=== PATIENT | female | born 1950 | race American Indian/Alaskan Native ===

== ENCOUNTER 2018-01-23 12:07 | Inpatient (IN) | payer MEDICARE ==
[2018-01-23] MEDS ORDERED: Morphine 4 MG/ML VIAL IV STA (13:50)
--- NOTE | 2018-01-23 13:53 | C.PDOC ---
History Of Present Illness 67 year old female with a Hx of HTN and osteoarthritic presents to the ER with a complaint of headache and neck pain for the past 8 days, s/p cataract surgery by Dr. Jones. Patient states she feels a sensation of numbness/tingling radiating down the bilateral arms to her fingertips. She has been taking motrin and tylenol at home with no relief. Patient was seen at [facility] on 01/19/18 for the same complaint, diagnosed with a tension headache, and discharged home; she went to see her PMD today but he was not at the office today so she decided to come to the ER. Denies change in vision, SOB, chest pain, nausea, vomiting, diarrhea, or urinary symptoms. Time Seen by Provider: 01/23/18 12:40 Chief Complaint (Nursing): Headache History Per: Patient History/Exam Limitations: no limitations Onset/Duration Of Symptoms: Days Current Symptoms Are (Timing): Still Present Associated Symptoms: Other (Tingling/Numbness sensation down bilateral arms to fingertips) Recent travel outside of the [place]: No Past Medical History Reviewed: Historical Data, Nursing Documentation, Vital Signs Vital Signs: Last Vital Signs Temp 102.5 F H 01/23/18 16:17 Pulse 87 01/23/18 16:17 Resp 26 H 01/23/18 16:17 BP 137/59 L 01/23/18 16:17 Pulse Ox 96 01/23/18 16:17 - Medical History PMH: HTN Family History: States: Unknown Family Hx - Social History Hx Alcohol Use: Yes Hx Substance Use: No - Immunization History Hx Tetanus Toxoid Vaccination: No Hx Influenza Vaccination: Yes Hx Pneumococcal Vaccination: Yes Review Of Systems Except As Marked, All Systems Reviewed And Found Negative. Musculoskeletal: Positive for: Neck Pain Neurological: Positive for: Headache Physical Exam - Physical Exam Appears: Non-toxic Skin: Normal Color, Warm, Dry Head: Atraumatic, Normacephalic, Tenderness (Diffuse to scalp) Eye(s): bilateral: Normal Inspection (No nystagmus), PERRL, EOMI Oral Mucosa: Moist Neck: Paracervical Tenderness (Diffuse) Chest: Symmetrical Cardiovascular: Rhythm Regular Respiratory: Normal Breath Sounds, No Rales, No Rhonchi, No Wheezing Gastrointestinal/Abdominal: Soft, No Tenderness Back: No CVA Tenderness Extremity: Normal ROM (limited secondary to pain) Pulses: Left Radial: Normal, Right Radial: Normal Neurological/Psych: Oriented x3, Normal Speech, Normal Cranial Nerves, Normal Motor, Normal Sensation ED Course And Treatment - Laboratory Results Result Diagrams: 01/23/18 14:11 01/23/18 14:11 ECG: Interpreted By Me, Viewed By Me ECG Rhythm: L BBB ECG Interpretation: Normal Interpretation Of ECG: No ST/T wave abnormalities, no old EKG available for comparison Rate From EC O2 Sat by Pulse Oximetry: 99 (Room air) Pulse Ox Interpretation: Normal Medical Decision Making Medical Decision Making: Plan: * CT head * Blood work * Morphine * Anthony Spoke with Dr. Jones who asked to check patient's eye pressure to rule out eyebrow headache, if normal then ophthalmology is clear. Pressure of patient's right was 1,2 and 2 1400- case discussed with and will see patient 1530 - patient with fever - abics and antiypretics given 1500- consult for Dr. Ric Juares pe: no nuchal rigidity, no rash noted, negative kernig and brudzinski sign patient discussed with hospitalist and will admit to medical surgical floor. esr is elevated however patient with fever, steroids held for now. Disposition Discussed With Dr.: [place] Doctor Will See Patient In The: Hospital Counseled Patient/Family Regarding: Studies Performed, Diagnosis - Disposition Disposition: HOSPITALIZED Disposition Time: 16:10 Condition: FAIR - Clinical Impression Clinical Impression: Headache, Fever, Leukocytosis - Scribe Statement The provider has reviewed the documentation as recorded by the Cassiibdiaz Landon All medical record entries made by the Cassiibdiaz were at my direction and personally dictated by me. I have reviewed the chart and agree that the record accurately reflects my personal performance of the history, physical exam, medical decision making, and the department course for this patient. I have also personally directed, reviewed, and agree with the discharge instructions and disposition.
[2018-01-23 14:14] LABS: BASO # 0.1 K/uL (0.0-0.2); BASO % 0.4 % (0.0-2.0); HEMOGLOBIN 9.6 g/dL (11.0-16.0); LYMPH # 1.6 K/uL (1.0-4.3); LYMPH % 6.2 % (20.0-40.0); MEAN CELL VOLUME 84.7 fL (81.0-99.0); MEAN CORPUSCULAR HEMOGLOBIN 27.8 pg (27.0-31.0); MEAN CORPUSCULAR HGB CONC 32.9 g/dL (33.0-37.0); MEAN PLATELET VOLUME 8.1 fL (7.2-11.7); MONO # 1.3 K/uL (0.0-0.8); MONO % 5.2 % (0.0-10.0); NEUT # 22.4 K/uL (1.8-7.0); NEUT % 88.2 % (50.0-75.0); PLATELET COUNT 268 K/uL (130-400); RBC 3.43 Mil/uL (3.80-5.20); RED CELL DISTRIBUTION WIDTH 15.3 % (11.5-14.5); WHITE BLOOD COUNT 25.4 K/uL (4.8-10.8)
[2018-01-23] MEDS ORDERED: Tetracaine 0.5% Ophth 2 ML BOTTLE OU ONE (14:28)
--- NOTE | 2018-01-23 14:35 | CT ---
Date of service: 01/23/2018 PROCEDURE: CT HEAD WITHOUT CONTRAST. HISTORY: Headache COMPARISON: None available. TECHNIQUE: Axial computed tomography images were obtained through the head/brain without intravenous contrast. Radiation dose: Total exam DLP = 862.24 mGy-cm. This CT exam was performed using one or more of the following dose reduction techniques: Automated exposure control, adjustment of the mA and/or kV according to patient size, and/or use of iterative reconstruction technique. FINDINGS: HEMORRHAGE: No acute parenchymal, subarachnoid or extra-axial hemorrhage. BRAIN: Mild chronic periventricular white matter ischemic changes seen extending peripherally into the deep and subcortical white matter both cerebral hemispheres. The there appear to be a few scattered chronic bilateral basal nuclei lacunar type infarcts as well. Mild generalized volume loss. Minor vascular calcifications both carotid siphons VENTRICLES: No obstructive hydrocephalus. CALVARIUM: Calvarium intact. PARANASAL SINUSES: Frontal sinuses R underpneumatized/ hypoplastic. . . Mild mucosal thickening left chamber sphenoid sinus MASTOID AIR CELLS: Unremarkable as visualized. No inflammatory changes. OTHER FINDINGS: Changes of right cataract surgery. IMPRESSION: No acute intracranial hemorrhage. Minor chronic periventricular white matter ischemic changes with a few scattered chronic bilateral basal nuclei lacunar type infarcts. Mild generalized volume loss
[2018-01-23 14:36] LABS: ALB/GLOB RATIO 1.1 (1.0-2.1); ALBUMIN 3.9 g/dL (3.5-5.0); ALT/SGPT 30 U/L (9-52); AST/SGOT 22 U/L (14-36); BLOOD UREA NITROGEN 13 mg/dL (7-17); CALCIUM 9.2 mg/dl (8.6-10.4); GFR NON-AFRICAN AMERICAN > 60
[2018-01-23] MEDS ORDERED: Tetracaine 0.5% Ophth (OR ONLY) ONE (14:47)
[2018-01-23 14:48] LABS: LYMPHOCYTE 6 % (20-40); MONOCYTE 6 % (0-10); NEUTROPHIL 88 % (50-75); PLATELET ESTIMATE NORMAL (NORMAL); TOTAL CELLS COUNTED 100
[2018-01-23 14:49] LABS: ANISOCYTOSIS SLIGHT; HYPOCHROMIC SLIGHT
[2018-01-23 15:19] LABS: ERYTHROCYTE SEDIMENTATION RATE 114 mm/hr (0-20)
--- NOTE | 2018-01-23 15:34 | RAD ---
HISTORY: headache COMPARISON: None available. TECHNIQUE: Chest PA and lateral FINDINGS: LUNGS: Mild bibasilar atelectasis. Mild pulmonary venous congestion. No focal consolidation. Please note that chest x-ray has limited sensitivity for the detection of pulmonary masses. PLEURA: No significant pleural effusion identified. No definite pneumothorax . CARDIOVASCULAR: Cardiomegaly. Enlarged mediastinum may reflect uncoiled/tortuous aorta however alternatives including adenopathy are not excluded. OSSEOUS STRUCTURES: Degenerative changes of the spine. VISUALIZED UPPER ABDOMEN: Unremarkable. OTHER FINDINGS: None. IMPRESSION: Mild bibasilar atelectasis. Mild pulmonary venous congestion. Cardiomegaly. Enlarged mediastinum favored to reflect uncoiled/tortuous aorta however alternatives including adenopathy are not excluded. Correlate clinically.
[2018-01-23] MEDS ORDERED: Cefepime 1 GM in Sodium Chloride 0.9% 50 ML IVPB ONE (15:53)
[2018-01-23] MEDS ORDERED: Cefepime IV 1 gm in Dextrose 1 GM/50 ML BAG IVPB ONE (16:00)
[2018-01-23 16:23] LABS: SQUAMOUS EPITHIAL 5 /hpf (0-5); URINE BACTERIA OCC (<OCC); URINE BILIRUBIN NEGATIVE (NEGATIVE); URINE BLOOD 1+ (NEGATIVE); URINE CLARITY Hazy (Clear); URINE COLOR Yellow (YELLOW); URINE GLUCOSE (UA) NORMAL (Normal); URINE LEUKOCYTE ESTERASE 3+ Leu/uL (Negative); URINE PROTEIN 1+ mg/dL (NEGATIVE)
[2018-01-23] MEDS ORDERED: Dexamethasone 4 mg/1 ml IV STA (16:50)
[2018-01-23] MEDS ORDERED: Dexamethasone 4 mg/1 ml ONE (17:12)
[2018-01-23] MEDS ORDERED: Potassium Chloride 20 mEq ER Tab PO ONE (17:12)
[2018-01-23] MEDS: Potassium Chloride 20 mEq ER Tab PO SCH (17:19)
[2018-01-23] MEDS: Sodium Chloride 0.9% 1,000 ML IV SCH (17:19)
--- NOTE | 2018-01-23 17:45 | CP.PCM.HP ---
<Shahram Becerra - Last Filed: 01/23/18 18:08> History of Present Illness - History of Present Illness History of Present Illness: CC:Headache 66 y/o f presents to the ED for worsening head and neck pain. She describes the pain as being a 10/10 and being primarily in the temporal, parietal, and occipital regions of her head; patient also expresses that she has pain in her neck and that the pain radiates into her right shoulder. Patient explains that her pain began after her cataract surgery on 01/15 and has progressively gotten worse. Pt experienced floaters post sx. Patient comments that nothing makes the pain better. Patient comments that going from a sitting to a standing position and moving her head and neck worsens her pain. 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 Allergies: denies Full Code Present on Admission - Present on Admission Any Indicators Present on Admission: No Review of Systems - Constitutional Constitutional: As Per HPI - EENT Eyes: As Per HPI Ears: As Per HPI Nose/Mouth/Throat: As Per HPI - Breasts Breasts: As Per HPI - Cardiovascular Cardiovascular: As Per HPI - Respiratory Respiratory: As Per HPI - Gastrointestinal Gastrointestinal: As Per HPI - Genitourinary Genitourinary: As Per HPI - Reproductive: Female Reproductive:Female: As Per HPI - Menstruation Menstruation: As Per HPI - Musculoskeletal Musculoskeletal: As Per HPI - Integumentary Integumentary: As Per HPI - Neurological Neurological: As Per HPI - Psychiatric Psychiatric: As Per HPI - Endocrine Endocrine: As Per HPI - Hematologic/Lymphatic Hematologic: As Per HPI Past Patient History - Past Social History Smoking Status: Current Some Days Smoker - CARDIAC Hx Hypertension: Yes - PSYCHIATRIC Hx Substance Use: No - SURGICAL HISTORY Hx Surgeries: Yes Hx Cataract Extraction: Yes (8/14/18) - ANESTHESIA Hx Anesthesia: Yes Hx Anesthesia Reactions: No Meds Allergies/Adverse Reactions: Allergies Allergy/AdvReac Type Severity Reaction Status Date / Time No Known Allergies Allergy Verified 01/23/18 12:20 Physical Exam - Constitutional Appears: Non-toxic, No Acute Distress, In Acute Distress - Head Exam Head Exam: ATRAUMATIC, NORMAL INSPECTION - Eye Exam Eye Exam: EOMI, Normal appearance. absent: Scleral icterus Additional comments: no opacity - ENT Exam ENT Exam: Mucous Membranes Moist, Normal Exam - Neck Exam Neck exam: Positive for: Normal Inspection. Negative for: Thyromegaly Additional comments: neg nuchal rigid - Respiratory Exam Additional comments: Loud harsh breath sounds - Cardiovascular Exam Cardiovascular Exam: RRR, +S1, +S2. absent: Diastolic murmur, Systolic Murmur - GI/Abdominal Exam GI & Abdominal Exam: Soft. absent: Rebound, Rigid, Tenderness - Extremities Exam Extremities exam: Positive for: normal inspection Additional comments: neg straight leg raise, neg nuchal rigitiy - Back Exam Back exam: NORMAL INSPECTION - Neurological Exam Neurological exam: Alert, CN II-XII Intact, Normal Gait, Oriented x3 - Psychiatric Exam Psychiatric exam: Normal Affect, Normal Mood - Skin Skin Exam: Dry, Intact, Normal Color, Warm Results - Vital Signs Recent Vital Signs: Last Vital Signs Temp 102.5 F H 01/23/18 16:17 Pulse 87 01/23/18 16:17 Resp 26 H 01/23/18 16:17 BP 137/59 L 01/23/18 16:17 Pulse Ox 99 01/23/18 17:21 - Labs Result Diagrams: 01/23/18 14:11 01/23/18 14:11 Labs: Laboratory Results - last 24 hr 01/23/18 01/23/18 01/23/18 14:11 14:11 16:11 WBC 25.4 H RBC 3.43 L Hgb 9.6 L Hct 29.1 L MCV 84.7 D MCH 27.8 MCHC 32.9 L RDW 15.3 H Plt Count 268 MPV 8.1 Neut % (Auto) 88.2 H Lymph % (Auto) 6.2 L Wilkes % (Auto) 5.2 Eos % (Auto) 0.0 Baso % (Auto) 0.4 Neut # (Auto) 22.4 H Lymph # (Auto) 1.6 Wilkes # (Auto) 1.3 H Eos # (Auto) 0.0 Baso # (Auto) 0.1 Neutrophils % (Manual) 88 H Lymphocytes % (Manual) 6 L Monocytes % (Manual) 6 Platelet Estimate Normal Hypochromasia (manual) Slight Anisocytosis (manual) Slight ESR 114 H Sodium 144 Potassium 3.3 L Chloride 105 Carbon Dioxide 26 Anion Gap 16 BUN 13 Creatinine 0.9 Est GFR ( Amer) > 60 Est GFR (Non-Af Amer) > 60 Random Glucose 120 H Calcium 9.2 Total Bilirubin 1.1 AST 22 ALT 30 Alkaline Phosphatase 162 H D Total Creatine Kinase 89 Troponin I < 0.0120 Total Protein 7.5 Albumin 3.9 Globulin 3.6 Albumin/Globulin Ratio 1.1 Urine Color Yellow Urine Clarity Hazy Urine pH 5.0 Ur Specific [place] 1.015 Urine Protein 1+ H Urine Glucose (UA) Normal Urine Ketones Trace Urine Blood 1+ H Urine Nitrate Positive H Urine Bilirubin Negative Urine Urobilinogen 2.0 H Ur Leukocyte Esterase 3+ H Urine WBC (Auto) 29 H Urine RBC (Auto) 6 H Ur Squamous Epith Cells 5 Urine Bacteria Occ H Hyaline Casts 6-10 H Influenza Typ A,B (EIA) 01/23/18 16:16 WBC RBC Hgb Hct MCV MCH MCHC RDW Plt Count MPV Neut % (Auto) Lymph % (Auto) Wilkes % (Auto) Eos % (Auto) Baso % (Auto) Neut # (Auto) Lymph # (Auto) Wilkes # (Auto) Eos # (Auto) Baso # (Auto) Neutrophils % (Manual) Lymphocytes % (Manual) Monocytes % (Manual) Platelet Estimate Hypochromasia (manual) Anisocytosis (manual) ESR Sodium Potassium Chloride Carbon Dioxide Anion Gap BUN Creatinine Est GFR ( Amer) Est GFR (Non-Af Amer) Random Glucose Calcium Total Bilirubin AST ALT Alkaline Phosphatase Total Creatine Kinase Troponin I Total Protein Albumin Globulin Albumin/Globulin Ratio Urine Color Urine Clarity Urine pH Ur Specific [place] Urine Protein Urine Glucose (UA) Urine Ketones Urine Blood Urine Nitrate Urine Bilirubin Urine Urobilinogen Ur Leukocyte Esterase Urine WBC (Auto) Urine RBC (Auto) Ur Squamous Epith Cells Urine Bacteria Hyaline Casts Influenza Typ A,B (EIA) Negative for flu a/b Assessment & Plan - Assessment and Plan (Free Text) Assessment: 67yo F witha PMH of HTN, Arthritis, presenting with 03/13 headache Plan: 03/13 Headache -Toradol 30mg PRN -Tylenol 650mg PRN -Decadron 4mg once -MRA w/o contrast: f/u -Head CT: neg for acute changes Possible Temporal Arteritis -ESR 114 -WBC 25 -Decadron 4mg -100ml/hr NS IVF -f/u MRA -Vasc Sx consulted Dr. Orozco -f/u echo UTI -Vanco 1g q12 IV: trough tmrw 4am -Cefepime 1g q12 IV -UA pos -Urine Cultures Pending -100ml/hr NS IVF -f/u procal -f/u CT abd pelv to r/o pyelo Hypokalemia -K-dur 40 -monitor PPX: -ASA 81mgs -SCDs <Sky Santiago H - Last Filed: 01/23/18 19:05> Results - Vital Signs Recent Vital Signs: Last Vital Signs Temp 102.5 F H 01/23/18 16:17 Pulse 87 01/23/18 16:17 Resp 26 H 01/23/18 16:17 BP 137/59 L 01/23/18 16:17 Pulse Ox 99 01/23/18 17:21 - Labs Result Diagrams: 01/23/18 14:11 01/23/18 14:11 Labs: Laboratory Results - last 24 hr 01/23/18 01/23/18 01/23/18 14:11 14:11 16:11 WBC 25.4 H RBC 3.43 L Hgb 9.6 L Hct 29.1 L MCV 84.7 D MCH 27.8 MCHC 32.9 L RDW 15.3 H Plt Count 268 MPV 8.1 Neut % (Auto) 88.2 H Lymph % (Auto) 6.2 L Wilkes % (Auto) 5.2 Eos % (Auto) 0.0 Baso % (Auto) 0.4 Neut # (Auto) 22.4 H Lymph # (Auto) 1.6 Wilkes # (Auto) 1.3 H Eos # (Auto) 0.0 Baso # (Auto) 0.1 Neutrophils % (Manual) 88 H Lymphocytes % (Manual) 6 L Monocytes % (Manual) 6 Platelet Estimate Normal Hypochromasia (manual) Slight Anisocytosis (manual) Slight ESR 114 H Sodium 144 Potassium 3.3 L Chloride 105 Carbon Dioxide 26 Anion Gap 16 BUN 13 Creatinine 0.9 Est GFR ( Amer) > 60 Est GFR (Non-Af Amer) > 60 Random Glucose 120 H Calcium 9.2 Total Bilirubin 1.1 AST 22 ALT 30 Alkaline Phosphatase 162 H D Total Creatine Kinase 89 Troponin I < 0.0120 Total Protein 7.5 Albumin 3.9 Globulin 3.6 Albumin/Globulin Ratio 1.1 Urine Color Yellow Urine Clarity Hazy Urine pH 5.0 Ur Specific [place] 1.015 Urine Protein 1+ H Urine Glucose (UA) Normal Urine Ketones Trace Urine Blood 1+ H Urine Nitrate Positive H Urine Bilirubin Negative Urine Urobilinogen 2.0 H Ur Leukocyte Esterase 3+ H Urine WBC (Auto) 29 H Urine RBC (Auto) 6 H Ur Squamous Epith Cells 5 Urine Bacteria Occ H Hyaline Casts 6-10 H Influenza Typ A,B (EIA) 01/23/18 16:16 WBC RBC Hgb Hct MCV MCH MCHC RDW Plt Count MPV Neut % (Auto) Lymph % (Auto) Wilkes % (Auto) Eos % (Auto) Baso % (Auto) Neut # (Auto) Lymph # (Auto) Wilkes # (Auto) Eos # (Auto) Baso # (Auto) Neutrophils % (Manual) Lymphocytes % (Manual) Monocytes % (Manual) Platelet Estimate Hypochromasia (manual) Anisocytosis (manual) ESR Sodium Potassium Chloride Carbon Dioxide Anion Gap BUN Creatinine Est GFR ( Amer) Est GFR (Non-Af Amer) Random Glucose Calcium Total Bilirubin AST ALT Alkaline Phosphatase Total Creatine Kinase Troponin I Total Protein Albumin Globulin Albumin/Globulin Ratio Urine Color Urine Clarity Urine pH Ur Specific [place] Urine Protein Urine Glucose (UA) Urine Ketones Urine Blood Urine Nitrate Urine Bilirubin Urine Urobilinogen Ur Leukocyte Esterase Urine WBC (Auto) Urine RBC (Auto) Ur Squamous Epith Cells Urine Bacteria Hyaline Casts Influenza Typ A,B (EIA) Negative for flu a/b Attending/Attestation - Attestation I have personally seen and examined this patient.: Yes I have fully participated in the care of the patient.: Yes I have reviewed all pertinent clinical information: Yes Notes (Text): 01/23/18 19:00 Medical attending: Patient was seen and examined by me, reviewed the above note by the director of medical education, and agree with the above note. This is a 66-year-old female who what I understand not too long ago had glaucoma surgery. Shortly thereafter she developed a lot of headache and throbbing in was recently seen at [facility] but was then sent home the same day she reports that these headaches are severe and that nothing seems to improve it. She came to [facility] today and was noted to have elevated temperature, elevated white blood cell count with left shift there is also a urinalysis done which is suggestive urinary tract infection. She also reported some abdominal pain as well as some back pain she still has the headache that she described as being predominantly around her temporal areas of her head. As mentioned above in the resident note because of what she is telling us about the pain on the temporal areas head with and give Decadron 1, also with Toradol as well. There is an order for an MRA to be done to assess if there could be temporal arteritis. She does have a very elevated ESR were also check a CRP as well. Because of what the patient is telling us, as well as the elevated ESR we will get a vascular surgery evaluation indication needs a biopsy for temporal arteritis. The Decadron and Toradol might give her quite a bit of relief if this is in fact the case. On my exam and discussion with the patient she said she was NOT photophobic and also on exam she did not have pain when I tried to raise her legs from a supine position to see if this could cause low back or neck pain - this was negative. She did have neck pain when bending her head foward, as well as pain with palpation on the temperoal area of her head. Furthermore the urinalysis is suggesting that she has at least a urinary tract infection. Because she tells us she also has some back pain as well will check a CT scan of the abdomen and pelvis. They already did urine cultures. The patient's can be on IV antibiotics and IV cefepime as well as IV vancomycin also start intravenous fluids as well It could very well be that she's having a really bad urinary tract infection has become septic and therefore has the headache and fevers. Thank you very much, Sky Santiago
--- NOTE | 2018-01-23 18:29 | MRI ---
Date of service: 01/23/2018 PROCEDURE: Magnetic Resonance Angiography Brain HISTORY: possible temporal arteritis COMPARISON: None available. TECHNIQUE: 3D time of flight MR angiography of the intracranial arteries was performed. Rotating maximum intensity projection images were generated. FINDINGS: INTERNAL CAROTID ARTERIES: Normal flow related signal. The skull base, petrous, cavernous and supraclinoid segments are bilaterally widely patient. ANTERIOR CEREBRAL ARTERIES: Normal flow related signal. A1 and A2 segments are widely patent. Smaller distal branches unremarkable, as visualized. The left A1 segment is aplastic, an anatomic variant. MIDDLE CEREBRAL ARTERIES: Normal flow related signal. M1 and M2 segments are widely patent. Perisylvian branches grossly symmetric. POSTERIOR CIRCULATION: Basilar Artery: Normal flow related signal. Distal Vertebral Arteries: Normal flow related signal. Posterior Cerebral Arteries: Normal flow related signal. Posterior Inferior Cerebellar Arteries: Normal flow related signal. ANEURYSM/ VASCULAR MALFORMATIONS: None. OTHER FINDINGS: None. IMPRESSION: Unremarkable MR angiography of the brain.
--- NOTE | 2018-01-23 18:44 | CT ---
PROCEDURE: CT Abdomen and Pelvis without Oral or IV contrast. HISTORY: r/o pyelo COMPARISON: None available TECHNIQUE: Contiguous axial images of the abdomen and pelvis. No oral or IV contrast administered. Coronal and Sagittal reformats generated and reviewed. Radiation dose: Total exam DLP = 641.18 mGy-cm. This CT exam was performed using one or more of the following dose reduction techniques: Automated exposure control, adjustment of the mA and/or kV according to patient size, and/or use of iterative reconstruction technique. FINDINGS: There is limited evaluation of the solid organs without the administration of IV contrast. LOWER THORAX: Bibasilar atelectasis. No visible pleural effusion or pneumothorax. Gastroesophageal reflux. LIVER: Unremarkable unenhanced appearance. GALLBLADDER AND BILE DUCTS: Cholelithiasis. PANCREAS: Unremarkable unenhanced appearance. SPLEEN: 8 mm probable splenule. Otherwise unremarkable unenhanced appearance. ADRENALS: Unremarkable unenhanced appearance. KIDNEYS AND URETERS: No hydronephrosis or obstructing renal calculus. BLADDER: The urinary bladder appears unremarkable. REPRODUCTIVE: The uterus is present. APPENDIX: The appendix appears within normal limits of caliber. No secondary signs of acute appendicitis. BOWEL: The stomach is nondistended. Lack of oral contrast limits evaluation for bowel pathology. The bowel loops appear within normal limits of caliber without evidence of intestinal obstruction. PERITONEUM: No significant free fluid. No definite free air. LYMPH NODES: No bulky lymphadenopathy identified. VASCULATURE: No aortic aneurysm. BONES: Mild degenerative changes of the spine. OTHER FINDINGS: 11 mm fat containing ventral hernia. 9 mm fat containing umbilical hernia. IMPRESSION: Cholelithiasis. Gastroesophageal reflux. Bibasilar atelectasis. 11 mm fat containing ventral hernia. 9 mm fat containing umbilical hernia. No evidence of hydronephrosis or obstructing calculus. Please note that pyelonephritis cannot be excluded on the basis of a noncontrast CT.
[2018-01-23] MEDS: Vancomycin 1 gm/NS 200 ml 1 GM/200 ML BAG IVPB SCH (18:48)
--- NOTE | 2018-01-23 19:08 | CP.PCM.CON ---
History of Present Illness - History of Present Illness History of Present Illness: Surgery: Dr. Orozco CC: RANDOLPH HPI: 67F w. pmh of HTN and arthritis who recently underwent cataract surgery to R eye on 01/15 presents to ED with RANDOLPH. Pt states that she has had a RANDOLPH since surgery. She states that the RANDOLPH is diffuse, but more prominent on the R side of her head. It radiates to her neck and jaw. She states that the pain is constant and has getting worse. There are no alleviating factors, she has tried tylenol and ibuprofen with no relief. She states that her pain is exacerbated by moving her head. She denies blurred vision. No jaw claudication. She does have night sweats, no F/C. Denies N/V. PMH: see above PSH: cataracts Meds: MAR reviewed NKDA Social: No tobacco, social ETOH, no drugs Fhx: non-contributory Review of Systems - Review of Systems All systems: reviewed and no additional remarkable complaints except (HPI) Past Patient History - Past Social History Smoking Status: Current Some Days Smoker - CARDIAC Hx Hypertension: Yes - PSYCHIATRIC Hx Substance Use: No - SURGICAL HISTORY Hx Surgeries: Yes Hx Cataract Extraction: Yes (01/15/18) - ANESTHESIA Hx Anesthesia: Yes Hx Anesthesia Reactions: No Meds Allergies/Adverse Reactions: Allergies Allergy/AdvReac Type Severity Reaction Status Date / Time No Known Allergies Allergy Verified 01/23/18 12:20 - Medications Medications: Current Medications Acetaminophen (Tylenol 325mg Tab) 650 mg PO Q6 PRN PRN Reason: Headache Cefepime HCl 1 gm/ Dextrose 50 mls @ 100 mls/hr IVPB Q8H [facility] PRN Reason: Protocol Vancomycin/Sodium Chloride (Vancomycin 1 Gm/Ns 200 Ml) 1 gm in 200 mls @ 133 mls/hr IVPB Q12H [facility] PRN Reason: Protocol Stop: 01/28/18 18:01 Last Admin: 01/23/18 18:48 Dose: 133 mls/hr Sodium Chloride (Sodium Chloride 0.9%) 1,000 mls @ 100 mls/hr IV .Q10H [facility] Last Admin: 01/23/18 17:19 Dose: 100 mls/hr Ketorolac Tromethamine (Toradol) 30 mg IVP Q6 PRN Potassium Chloride (K-Dur 20 Meq Er Tab) 40 meq PO DAILY [facility] Last Admin: 01/23/18 17:19 Dose: 40 meq Physical Exam - Constitutional Appears: Non-toxic, No Acute Distress - Head Exam Head Exam: ATRAUMATIC, NORMOCEPHALIC Additional comments: Tenderness R side - Eye Exam Eye Exam: EOMI - ENT Exam ENT Exam: Mucous Membranes Moist - Neck Exam Neck exam: Positive for: Full Rom, Tenderness (R side) - Respiratory Exam Respiratory Exam: NORMAL BREATHING PATTERN. absent: Accessory Muscle Use, Respiratory Distress - GI/Abdominal Exam GI & Abdominal Exam: Soft - Extremities Exam Extremities exam: Negative for: calf tenderness, pedal edema - Neurological Exam Neurological exam: Alert, Oriented x3 - Psychiatric Exam Psychiatric exam: Normal Affect, Normal Mood Results - Vital Signs Recent Vital Signs: Last Vital Signs Temp 102.5 F H 01/23/18 16:17 Pulse 87 01/23/18 16:17 Resp 26 H 01/23/18 16:17 BP 137/59 L 01/23/18 16:17 Pulse Ox 99 01/23/18 17:21 - Labs Result Diagrams: 01/23/18 14:11 01/23/18 14:11 Labs: Laboratory Results - last 24 hr 01/23/18 01/23/18 01/23/18 14:11 14:11 16:11 WBC 25.4 H RBC 3.43 L Hgb 9.6 L Hct 29.1 L MCV 84.7 D MCH 27.8 MCHC 32.9 L RDW 15.3 H Plt Count 268 MPV 8.1 Neut % (Auto) 88.2 H Lymph % (Auto) 6.2 L [place] % (Auto) 5.2 Eos % (Auto) 0.0 Baso % (Auto) 0.4 Neut # (Auto) 22.4 H Lymph # (Auto) 1.6 [place] # (Auto) 1.3 H Eos # (Auto) 0.0 Baso # (Auto) 0.1 Neutrophils % (Manual) 88 H Lymphocytes % (Manual) 6 L Monocytes % (Manual) 6 Platelet Estimate Normal Hypochromasia (manual) Slight Anisocytosis (manual) Slight ESR 114 H Sodium 144 Potassium 3.3 L Chloride 105 Carbon Dioxide 26 Anion Gap 16 BUN 13 Creatinine 0.9 Est GFR ( Amer) > 60 Est GFR (Non-Af Amer) > 60 Random Glucose 120 H Calcium 9.2 Total Bilirubin 1.1 AST 22 ALT 30 Alkaline Phosphatase 162 H D Total Creatine Kinase 89 Troponin I < 0.0120 Total Protein 7.5 Albumin 3.9 Globulin 3.6 Albumin/Globulin Ratio 1.1 Urine Color Yellow Urine Clarity Hazy Urine pH 5.0 Ur Specific [place] 1.015 Urine Protein 1+ H Urine Glucose (UA) Normal Urine Ketones Trace Urine Blood 1+ H Urine Nitrate Positive H Urine Bilirubin Negative Urine Urobilinogen 2.0 H Ur Leukocyte Esterase 3+ H Urine WBC (Auto) 29 H Urine RBC (Auto) 6 H Ur Squamous Epith Cells 5 Urine Bacteria Occ H Hyaline Casts 6-10 H Influenza Typ A,B (EIA) 01/23/18 16:16 WBC RBC Hgb Hct MCV MCH MCHC RDW Plt Count MPV Neut % (Auto) Lymph % (Auto) [place] % (Auto) Eos % (Auto) Baso % (Auto) Neut # (Auto) Lymph # (Auto) [place] # (Auto) Eos # (Auto) Baso # (Auto) Neutrophils % (Manual) Lymphocytes % (Manual) Monocytes % (Manual) Platelet Estimate Hypochromasia (manual) Anisocytosis (manual) ESR Sodium Potassium Chloride Carbon Dioxide Anion Gap BUN Creatinine Est GFR ( Amer) Est GFR (Non-Af Amer) Random Glucose Calcium Total Bilirubin AST ALT Alkaline Phosphatase Total Creatine Kinase Troponin I Total Protein Albumin Globulin Albumin/Globulin Ratio Urine Color Urine Clarity Urine pH Ur Specific [place] Urine Protein Urine Glucose (UA) Urine Ketones Urine Blood Urine Nitrate Urine Bilirubin Urine Urobilinogen Ur Leukocyte Esterase Urine WBC (Auto) Urine RBC (Auto) Ur Squamous Epith Cells Urine Bacteria Hyaline Casts Influenza Typ A,B (EIA) Negative for flu a/b Assessment & Plan - Assessment and Plan (Free Text) Assessment: 67F w. RANDOLPH, r/o temporal arteritis -CT/MRA Head reviewed -Elevated ESR -will plan for temporal artery bx tomrrow -NPO at midnight -consent in chart, risks/benefits d/w pt -d/w attending Sophie PGY4
--- NOTE | 2018-01-23 19:43 | CP.PCM.CON ---
History of Present Illness - History of Present Illness History of Present Illness: seen in ER MRA, CT and CXR reviewed as well as labs 67 yo female with fever and headache s/p cataract surgery IV rx in progress cont empiric IV antibiotics for temporal art bx await cultures may need to consider LP as well Review of Systems - Constitutional Constitutional: As Per HPI - EENT Eyes: As Per HPI Ears: absent: As Per HPI, Decreased Hearing, Ear Discharge, Ear Pain, Tinnitus, Abnormal Hearing, Disequilibrium, Dizziness, Other Nose/Mouth/Throat: absent: As Per HPI, Epistaxis, Nasal Congestion, Nasal Discharge, Nasal Obstruction, Nasal Trauma, Nose Pain, Post Nasal Drip, Sinus Pain, Sinus Pressure, Bleeding Gums, Change in Voice, Dental Pain, Dry Mouth, Dysphagia, Halitosis, Hoarsness, Lip Swelling, Mouth Lesions, Mouth Pain, Odynophagia, Sore Throat, Throat Swelling, Tongue Swelling, Facial Pain, Neck Pain, Neck Mass, Other - Breasts Breasts: absent: As Per HPI, Change in Shape, Mass, Pain, Nipple Discharge, Nipple Inversion, Skin Changes, Swelling, Other - Cardiovascular Cardiovascular: absent: As Per HPI, Acrocyanosis, Chest Pain, Chest Pain at Rest , Chest Pain with Activity, Claudication, Diaphoresis, Dyspnea, Dyspnea on Exertion, Edema, Irregular Heart Rhythm, Pain Radiating to Arm/Neck/Jaw, Leg Edema, Leg Ulcers, Lightheadedness, Orthopnea, Palpitations, Paroxysmal Nocturnal Dyspnea, Pedal Edema, Radiating Pain, Rapid Heart Rate, Slow Heart Rate, Syncope, Other - Respiratory Respiratory: absent: As Per HPI, Cough, Dyspnea, Hemoptysis, Dyspnea on Exertion , Wheezing, Snoring, Stridor, Pain on Inspiration, Chest Congestion, Excessive Mucous Production, Change in Mucous Color, Pain with Coughing, Other - Gastrointestinal Gastrointestinal: absent: As Per HPI, Abdominal Pain, Belching, Bloating, Change in Bowel Habits, Change in Stool Character, Coffee Ground Emesis, Constipation, Cramping, Diarrhea, Dyspepsia, Dysphagia, Early Satiety, Excessive Flatus, Fecal Incontinence, Heartburn, Hematemesis, Hematochezia, Loose Stools, Melena, Nausea, Odynophagia, Temesmus, Vomiting, Other - Genitourinary Genitourinary: As Per HPI - Reproductive: Female Reproductive:Female: absent: As Per HPI, Amenorrhea, Amenorrhea/ Control, Currently Menstual, Cycle <21 Days, Cycle >35 Days, Cycle Variable, Menses 1-7 Days, Menses >/= 8 Days, Menses Variable, Cycle > 4 Weeks Between, No Menses for 6 Months, Heavy Menses, Light Menses, Normal Menses, Spotting Between Cycles , S/P Hysterectomy, Menopausal, Post Menopausal, Premenarche, Abnormal Vaginal Bleeding, Dysmenorrhea, Dyspareunia, Genital Lesions, Genital Pruritis, Pelvic Pain, Prolapse Symptoms, Sexual Dysfunction, Vaginal Discharge, Vaginal Dryness , Vaginal Odor, Vaginal Pruritis, Other - Menstruation Menstruation: absent: As Per HPI, Amenorrhea, Amenorrhea/ Control, Currently Menstual, Cycle <21 Days, Cycle >35 Days, Cycle Variable, Menses 1-7 Days, Menses >/= 8 Days, Menses Variable, Cycle > 4 Weeks Between, No Menses for 6 Months, Heavy Menses, Light Menses, Normal Menses, Spotting Between Cycles , S/P Hysterectomy, Menopausal, Post Menopausal, Premenarche, Abnormal Vaginal Bleeding, Dysmenorrhea, Other - Musculoskeletal Musculoskeletal: absent: As Per HPI, Abnormal Gait, Arthralgias, Atrophy, Back Pain, Deformity, Joint Swelling, Limited Range of Motion, Loss of Height, Muscle Cramps, Muscle Weakness, Myalgias, Neck Pain, Numbness, Radiating Pain into Limb, Stiffness, Tingling, Other - Integumentary Integumentary: absent: As Per HPI, Acne, Alopecia, Bleeding Lesions, Change in Hair, Change in Nails, Change in Pigmentation, Changing Lesions, Dry Skin, Erythema, Furuncle, Hirsutism, Lesions, New Lesions, Non-Healing Lesions, Photosensitivity, Pruritus, Rash, Skin Pain, Skin Ulcer, Sores, Striae, Swelling , Unusual Bruising, Wounds, Jaundice, Other - Neurological Neurological: As Per HPI, Headaches - Psychiatric Psychiatric: absent: As Per HPI, Abnormal Sleep Pattern, Anhedonia, Anxiety, Auditory Hallucinations, Behavioral Changes, Change in Appetite, Change in Libido, Confusion, Depression, Difficulty Concentrating, Hallucinations, Homicidal Ideation, Hopelessness, Irritability, Memory Loss, Mood Swings, Panic Attacks, Paranoia, Suicidal Ideation, Visual Hallucinations, Tactile Hallucinations, Other - Endocrine Endocrine: absent: As Per HPI, Change in Body Appearance, Change in Libido, Cold Intolorance, Deepening of Voice, Excessive Sweating, Fatigue, Flushing, Heat Intolorance, Increase in Ring/Shoe/Hat Size, Palpitations, Polydipsia, Polyphagia, Polyuria, Other - Hematologic/Lymphatic Hematologic: absent: As Per HPI, Easy Bleeding, Easy Bruising, Lymphadenopathy, Other Past Patient History - Past Social History Smoking Status: Current Some Days Smoker - CARDIAC Hx Hypertension: Yes - PSYCHIATRIC Hx Substance Use: No - SURGICAL HISTORY Hx Surgeries: Yes Hx Cataract Extraction: Yes (01/15/18) - ANESTHESIA Hx Anesthesia: Yes Hx Anesthesia Reactions: No Meds Allergies/Adverse Reactions: Allergies Allergy/AdvReac Type Severity Reaction Status Date / Time No Known Allergies Allergy Verified 01/23/18 12:20 - Medications Medications: Current Medications Acetaminophen (Tylenol 325mg Tab) 650 mg PO Q6 PRN PRN Reason: Headache Cefepime HCl 1 gm/ Dextrose 50 mls @ 100 mls/hr IVPB Q8H [facility] PRN Reason: Protocol Vancomycin/Sodium Chloride (Vancomycin 1 Gm/Ns 200 Ml) 1 gm in 200 mls @ 133 mls/hr IVPB Q12H [facility] PRN Reason: Protocol Stop: 01/28/18 18:01 Last Admin: 01/23/18 18:48 Dose: 133 mls/hr Sodium Chloride (Sodium Chloride 0.9%) 1,000 mls @ 100 mls/hr IV .Q10H [facility] Last Admin: 01/23/18 17:19 Dose: 100 mls/hr Ketorolac Tromethamine (Toradol) 30 mg IVP Q6 PRN Potassium Chloride (K-Dur 20 Meq Er Tab) 40 meq PO DAILY [facility] Last Admin: 01/23/18 17:19 Dose: 40 meq Physical Exam - Constitutional Appears: In Acute Distress - Head Exam Head Exam: ATRAUMATIC, NORMAL INSPECTION, NORMOCEPHALIC Additional comments: + tenderness right temporal area - Eye Exam Eye Exam: EOMI, PERRL. absent: Scleral icterus - ENT Exam ENT Exam: Mucous Membranes Dry - Neck Exam Neck exam: Negative for: Lymphadenopathy - Respiratory Exam Respiratory Exam: Decreased Breath Sounds, Clear to Auscultation Bilateral - Cardiovascular Exam Cardiovascular Exam: REGULAR RHYTHM, +S1, +S2 - GI/Abdominal Exam GI & Abdominal Exam: Diminished Bowel Sounds, Soft. absent: Tenderness - Rectal Exam Rectal Exam: Deferred - Exam Exam: NORMAL INSPECTION - Extremities Exam Extremities exam: Positive for: pedal pulses present. Negative for: calf tenderness, pedal edema, tenderness - Back Exam Back exam: absent: CVA tenderness (L), CVA tenderness (R), paraspinal tenderness - Neurological Exam Neurological exam: Alert, CN II-XII Intact, Oriented x3, Reflexes Normal - Psychiatric Exam Psychiatric exam: Normal Mood - Skin Skin Exam: Dry, Intact Results - Vital Signs Recent Vital Signs: Last Vital Signs Temp 99 F 01/23/18 19:28 Pulse 79 01/23/18 19:28 Resp 18 01/23/18 19:28 BP 118/59 L 01/23/18 19:28 Pulse Ox 98 01/23/18 19:28 - Labs Result Diagrams: 01/24/18 11:15 01/24/18 11:15 Labs: Laboratory Results - last 24 hr 01/23/18 01/23/18 01/23/18 14:11 14:11 16:11 WBC 25.4 H RBC 3.43 L Hgb 9.6 L Hct 29.1 L MCV 84.7 D MCH 27.8 MCHC 32.9 L RDW 15.3 H Plt Count 268 MPV 8.1 Neut % (Auto) 88.2 H Lymph % (Auto) 6.2 L [place] % (Auto) 5.2 Eos % (Auto) 0.0 Baso % (Auto) 0.4 Neut # (Auto) 22.4 H Lymph # (Auto) 1.6 [place] # (Auto) 1.3 H Eos # (Auto) 0.0 Baso # (Auto) 0.1 Neutrophils % (Manual) 88 H Lymphocytes % (Manual) 6 L Monocytes % (Manual) 6 Platelet Estimate Normal Hypochromasia (manual) Slight Anisocytosis (manual) Slight ESR 114 H Sodium 144 Potassium 3.3 L Chloride 105 Carbon Dioxide 26 Anion Gap 16 BUN 13 Creatinine 0.9 Est GFR ( Amer) > 60 Est GFR (Non-Af Amer) > 60 Random Glucose 120 H Calcium 9.2 Total Bilirubin 1.1 AST 22 ALT 30 Alkaline Phosphatase 162 H D Total Creatine Kinase 89 Troponin I < 0.0120 Total Protein 7.5 Albumin 3.9 Globulin 3.6 Albumin/Globulin Ratio 1.1 Urine Color Yellow Urine Clarity Hazy Urine pH 5.0 Ur Specific [place] 1.015 Urine Protein 1+ H Urine Glucose (UA) Normal Urine Ketones Trace Urine Blood 1+ H Urine Nitrate Positive H Urine Bilirubin Negative Urine Urobilinogen 2.0 H Ur Leukocyte Esterase 3+ H Urine WBC (Auto) 29 H Urine RBC (Auto) 6 H Ur Squamous Epith Cells 5 Urine Bacteria Occ H Hyaline Casts 6-10 H Influenza Typ A,B (EIA) 01/23/18 16:16 WBC RBC Hgb Hct MCV MCH MCHC RDW Plt Count MPV Neut % (Auto) Lymph % (Auto) [place] % (Auto) Eos % (Auto) Baso % (Auto) Neut # (Auto) Lymph # (Auto) [place] # (Auto) Eos # (Auto) Baso # (Auto) Neutrophils % (Manual) Lymphocytes % (Manual) Monocytes % (Manual) Platelet Estimate Hypochromasia (manual) Anisocytosis (manual) ESR Sodium Potassium Chloride Carbon Dioxide Anion Gap BUN Creatinine Est GFR ( Amer) Est GFR (Non-Af Amer) Random Glucose Calcium Total Bilirubin AST ALT Alkaline Phosphatase Total Creatine Kinase Troponin I Total Protein Albumin Globulin Albumin/Globulin Ratio Urine Color Urine Clarity Urine pH Ur Specific [place] Urine Protein Urine Glucose (UA) Urine Ketones Urine Blood Urine Nitrate Urine Bilirubin Urine Urobilinogen Ur Leukocyte Esterase Urine WBC (Auto) Urine RBC (Auto) Ur Squamous Epith Cells Urine Bacteria Hyaline Casts Influenza Typ A,B (EIA) Negative for flu a/b Assessment & Plan (1) Fever Status: Acute (2) Headache Status: Acute (3) Leukocytosis Status: Acute - Assessment and Plan (Free Text) Assessment: r/o sepsis- UTI r/o temporal arteritis IV antibiotics ordered
[2018-01-24] MEDS: Sodium Chloride 0.9% 1,000 ML IV SCH ×3 (03:00→23:00)
[2018-01-24 05:16] LABS: INR 1.2; PROTHROMBIN TIME 13.5 SECONDS (9.7-12.2)
[2018-01-24] MEDS: Vancomycin 1 gm/NS 200 ml 1 GM/200 ML BAG IVPB SCH ×2 (05:40→17:19)
[2018-01-24] MEDS: Potassium Chloride 20 mEq ER Tab PO SCH (10:30)
--- NOTE | 2018-01-24 10:41 | CP.PCM.PN ---
<Shahram Becerra - Last Filed: 01/24/18 16:26> Subjective - Date & Time of Evaluation Date of Evaluation: 01/24/18 Time of Evaluation: 10:40 - Subjective Subjective: Pt seen and examined at bedside. Pt reports headaches of equal intensity. Pt has no relief from symptoms with current therapies. Pt denies cp sob f/c n/v Objective - Vital Signs/Intake and Output Vital Signs (last 24 hours): Temp Pulse Resp BP Pulse Ox 99.6 F 76 20 121/70 96 01/24/18 08:00 01/24/18 08:00 01/24/18 08:00 01/24/18 08:00 01/24/18 08:00 Intake and Output: 01/24/18 01/24/18 06:59 18:59 Intake Total 400 Balance 400 - Medications Medications: Current Medications Acetaminophen (Tylenol 325mg Tab) 650 mg PO Q6 PRN PRN Reason: Headache Cefepime HCl 1 gm/ Dextrose 50 mls @ 100 mls/hr IVPB Q8H [facility] PRN Reason: Protocol Last Admin: 01/24/18 08:38 Dose: 100 mls/hr Vancomycin/Sodium Chloride (Vancomycin 1 Gm/Ns 200 Ml) 1 gm in 200 mls @ 133 mls/hr IVPB Q12H [facility] PRN Reason: Protocol Stop: 01/28/18 18:01 Last Admin: 01/24/18 05:40 Dose: 133 mls/hr Sodium Chloride (Sodium Chloride 0.9%) 1,000 mls @ 100 mls/hr IV .Q10H [facility] Last Admin: 01/23/18 17:19 Dose: 100 mls/hr Ketorolac Tromethamine (Toradol) 30 mg IVP Q6 PRN Last Admin: 01/24/18 07:42 Dose: 30 mg Potassium Chloride (K-Dur 20 Meq Er Tab) 40 meq PO DAILY [facility] Last Admin: 01/24/18 10:30 Dose: Not Given - Labs Labs: 01/23/18 14:11 01/23/18 14:11 PT 13.5 SECONDS (9.7-12.2) H 01/24/18 05:05 INR 1.2 01/24/18 05:05 APTT 34 SECONDS (21-34) 01/24/18 05:05 - Additional Findings Additional findings: - Constitutional Appears: Non-toxic, In Acute Distress - Head Exam Head Exam: ATRAUMATIC, NORMAL INSPECTION - Eye Exam Eye Exam: EOMI, Normal appearance. absent: Scleral icterus Additional comments: no opacity - ENT Exam ENT Exam: Mucous Membranes Moist, Normal Exam - Neck Exam Neck exam: Positive for: Normal Inspection. Negative for: Thyromegaly Additional comments: neg nuchal rigid - Respiratory Exam Additional comments: Loud harsh breath sounds - Cardiovascular Exam Cardiovascular Exam: RRR, +S1, +S2. absent: Diastolic murmur, Systolic Murmur - GI/Abdominal Exam GI & Abdominal Exam: Soft. absent: Rebound, Rigid, Tenderness - Extremities Exam Extremities exam: Positive for: normal inspection Additional comments: neg straight leg raise, neg nuchal rigitiy - Back Exam Back exam: NORMAL INSPECTION, mild tenderness upon palpation of L paraspinals - Neurological Exam Neurological exam: Alert, CN II-XII Intact, Normal Gait, Oriented x3 - Psychiatric Exam Psychiatric exam: Normal Affect, Normal Mood - Skin Skin Exam: Dry, Intact, Normal Color, Warm Assessment and Plan - Assessment and Plan (Free Text) Assessment: Assessment: 67yo F witha PMH of HTN, Arthritis, presenting with 03/13 headache Plan: 03/13 Headache -Toradol 30mg PRN -Tylenol 650mg PRN -Decadron 4mg second dose today -MRA w/o contrast: Neg -Head CT: neg for acute changes -ChestAbdPelv CT w/ contrast: f/u, rule out aneurysms Possible Temporal Arteritis -ESR 114 -WBC 25 -Decadron 4mg second dose -100ml/hr NS IVF -neg MRA -Vasc Sx consulted Dr. Orozco: f/u Temporal Artery Bx -f/u echo UTI -Vanco 1g q12 IV: trough tmrw 4am -Cefepime 1g q12 IV -UA pos -Urine Cultures Pending -100ml/hr NS IVF -procal 8.08 -CT abd pelv: cholelithiasis, Ventral hernia, no hydronephrosis but cant r/o pyelo Hypokalemia -resolved -K-dur 40 -monitor PPX: -ASA 81mgs -SCDs <SantiagoPeter H - Last Filed: 01/24/18 18:25> Objective - Vital Signs/Intake and Output Vital Signs (last 24 hours): Temp Pulse Resp BP Pulse Ox 100.5 F H 67 20 123/58 L 97 01/24/18 16:13 01/24/18 16:13 01/24/18 16:13 01/24/18 16:13 01/24/18 16:13 Intake and Output: 01/24/18 01/24/18 06:59 18:59 Intake Total 400 1000 Balance 400 1000 - Medications Medications: Current Medications Acetaminophen (Tylenol 325mg Tab) 650 mg PO Q6 PRN PRN Reason: Headache Cefepime HCl 1 gm/ Dextrose 50 mls @ 100 mls/hr IVPB Q8H [facility] PRN Reason: Protocol Last Admin: 01/24/18 16:20 Dose: 100 mls/hr Vancomycin/Sodium Chloride (Vancomycin 1 Gm/Ns 200 Ml) 1 gm in 200 mls @ 133 mls/hr IVPB Q12H [facility] PRN Reason: Protocol Stop: 01/28/18 18:01 Last Admin: 01/24/18 17:19 Dose: 133 mls/hr Sodium Chloride (Sodium Chloride 0.9%) 1,000 mls @ 100 mls/hr IV .Q10H [facility] Last Admin: 01/24/18 13:58 Dose: Not Given Ketorolac Tromethamine (Toradol) 30 mg IVP Q6 PRN Last Admin: 01/24/18 07:42 Dose: 30 mg Morphine Sulfate (Morphine) 2 mg IVP Q4 PRN PRN Reason: FOR SEVERE HEADACHES Potassium Chloride (K-Dur 20 Meq Er Tab) 40 meq PO DAILY [facility] Last Admin: 01/24/18 10:30 Dose: Not Given - Labs Labs: 01/24/18 11:15 01/24/18 11:15 PT 13.5 SECONDS (9.7-12.2) H 01/24/18 05:05 INR 1.2 01/24/18 05:05 APTT 34 SECONDS (21-34) 01/24/18 05:05 Attending/Attestation - Attestation I have personally seen and examined this patient.: Yes I have fully participated in the care of the patient.: Yes I have reviewed all pertinent clinical information, including history, physical exam and plan: Yes Notes (Text): 01/24/18 18:25 Medical attending: Patient was seen and examined by me, I'll have to discuss with the resident with regards to the above note there's a few items that he left out that need to be addressed. When we saw the patient earlier in the morning, she explained to us that she was still having the throbbing bandlike headache on the temporal as well as occipital areas of her right face and right skull. She no longer has the elevated temperatures but the headaches still bother her quite a bit. Regarding increase the IV Decadron to be 4 mg twice a day, will also continue with IV Toradol as well will also add on IV morphine to see if those give her any relief. As mentioned previously she has a very elevated ESR as well CRP. She underwent biopsy of this area earlier this morning. The results of the MRA came back this was negative for any acute finding With regards to the elevated white blood cell count, as well as the ongoing neck pain I did discuss with neurology if the patient may or may not need a lumbar puncture were still waiting on the urine culture as well as blood cultures at this moment she remains on IV cefepime as well as IV vancomycin With regards to potential UTI, today when I saw her she did not report the abdominal pain that she had in the emergency room we did get a CAT scan however the CAT scan was done without contrast so somewhat difficult to say if she has pyelonephritis or not. Still pending on urine culture Thank you very much, Sky Santiago
[2018-01-24] MEDS ORDERED: Dexamethasone 4 mg/1 ml IVP ONE (11:15)
[2018-01-24 11:23] LABS: BASO % 0.1 % (0.0-2.0); HEMOGLOBIN 8.5 g/dL (11.0-16.0); LYMPH # 1.9 K/uL (1.0-4.3); LYMPH % 6.5 % (20.0-40.0); MEAN CELL VOLUME 84.4 fL (81.0-99.0); MEAN CORPUSCULAR HEMOGLOBIN 27.8 pg (27.0-31.0); MEAN CORPUSCULAR HGB CONC 32.9 g/dL (33.0-37.0); MEAN PLATELET VOLUME 8.3 fL (7.2-11.7); MONO # 2.4 K/uL (0.0-0.8); MONO % 7.9 % (0.0-10.0); NEUT # 25.5 K/uL (1.8-7.0); NEUT % 85.5 % (50.0-75.0); PLATELET COUNT 270 K/uL (130-400); RBC 3.06 Mil/uL (3.80-5.20); RED CELL DISTRIBUTION WIDTH 15.9 % (11.5-14.5); WHITE BLOOD COUNT 29.9 K/uL (4.8-10.8)
[2018-01-24 11:38] LABS: ALBUMIN 3.6 g/dL (3.5-5.0); ALT/SGPT 22 U/L (9-52); AST/SGOT 16 U/L (14-36); BLOOD UREA NITROGEN 13 mg/dL (7-17); CALCIUM 8.5 mg/dl (8.6-10.4); GFR NON-AFRICAN AMERICAN > 60
[2018-01-24 11:58] LABS: BANDS 1 % (0-2); LYMPHOCYTE 5 % (20-40); MONOCYTE 7 % (0-10); NEUTROPHIL 87 % (50-75); TOTAL CELLS COUNTED 100
[2018-01-24 11:59] LABS: ANISOCYTOSIS SLIGHT; HYPOCHROMIC SLIGHT; PLATELET ESTIMATE NORMAL (NORMAL)
--- NOTE | 2018-01-24 13:26 | CP.PCM.CON ---
History of Present Illness - History of Present Illness History of Present Illness: PGY 1 Resident Consult Note for Neurologist Dr. Padilla 67 y F w/ PMHx of HTN & arthritis presented to ED with 7 days of constant headache. Patient states it began following R cataract eye surgery and has been constant pain localized to temporal, parietal, occipital region extending to neck region. Patient admits to subjective fevers, worsening headache associated with movement, and photophobia. Patient denies nausea and fever, vision changes , nausea, vomiting, chest pain, SOB. Patient states she was at [facility] a few days prior with similar complaint but discharged and said it was a simple headache. 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 absent: Fatigue, Lethargy - EENT Eyes: absent: Blind Spots, Blurred Vision, Itchy Eyes, Loss of Peripheral Vision Ears: absent: Decreased Hearing, Ear Pain - Cardiovascular Cardiovascular: absent: Chest Pain, Dyspnea - Respiratory Respiratory: absent: Cough - Musculoskeletal Musculoskeletal: absent: Arthralgias, Muscle Weakness - Neurological Neurological: Headaches. absent: Abnormal Hearing, Numbness, Focal Weakness, Syncope, Tingling Past Patient History - Past Social History Smoking Status: Never Smoked - CARDIAC Hx Hypertension: Yes - HEENT Hx Cataracts: Yes - MUSCULOSKELETAL/RHEUMATOLOGICAL Hx Falls: No (denies) Hx Osteoarthritis: Yes (R>L) - PSYCHIATRIC Hx Substance Use: No - SURGICAL HISTORY Hx Surgeries: Yes Hx Cataract Extraction: Yes (01/15/18) - ANESTHESIA Hx Anesthesia: Yes Hx Anesthesia Reactions: No Hx Malignant Hyperthermia: No Has any member of the family had a problem w/ anesthesia?: No Meds Allergies/Adverse Reactions: Allergies Allergy/AdvReac Type Severity Reaction Status Date / Time No Known Allergies Allergy Verified 01/23/18 12:20 - Medications Medications: Current Medications Acetaminophen (Tylenol 325mg Tab) 650 mg PO Q6 PRN PRN Reason: Headache Cefepime HCl 1 gm/ Dextrose 50 mls @ 100 mls/hr IVPB Q8H MEME PRN Reason: Protocol Last Admin: 01/24/18 08:38 Dose: 100 mls/hr Vancomycin/Sodium Chloride (Vancomycin 1 Gm/Ns 200 Ml) 1 gm in 200 mls @ 133 mls/hr IVPB Q12H MEME PRN Reason: Protocol Stop: 01/28/18 18:01 Last Admin: 01/24/18 05:40 Dose: 133 mls/hr Sodium Chloride (Sodium Chloride 0.9%) 1,000 mls @ 100 mls/hr IV .Q10H MEME Last Admin: 01/23/18 17:19 Dose: 100 mls/hr Ketorolac Tromethamine (Toradol) 30 mg IVP Q6 PRN Last Admin: 01/24/18 07:42 Dose: 30 mg Potassium Chloride (K-Dur 20 Meq Er Tab) 40 meq PO DAILY MEME Last Admin: 01/24/18 10:30 Dose: Not Given Physical Exam - Constitutional Appears: In Acute Distress (mild) - Head Exam Head Exam: ATRAUMATIC, NORMAL INSPECTION, NORMOCEPHALIC - Eye Exam Eye Exam: EOMI, Normal appearance Pupil Exam: NORMAL ACCOMODATION - ENT Exam ENT Exam: Mucous Membranes Dry - Neck Exam Additional comments: B/L tenderness on palpation of trapezius muscle & paraspinal cervical muscle area - Neurological Exam Neurological exam: Alert, CN II-XII Intact, Oriented x3 Additional comments: Negative kernig & brudzinski sign - Expanded Neurological Exam Expanded Cranial nerves: EOM's Intact: Normal, Facial Sensation: Normal Cerebellar Function: Finger to Nose: Normal Neuro motor strength exam: Left Upper Extremity: 5, Right Upper Extremity: 5, Left Lower Extremity: 5, Right Lower Extremity: 5 Results - Vital Signs Recent Vital Signs: Last Vital Signs Temp 99.6 F 01/24/18 08:00 Pulse 76 01/24/18 08:00 Resp 20 01/24/18 08:00 BP 121/70 01/24/18 08:00 Pulse Ox 96 01/24/18 08:00 - Labs Result Diagrams: 01/24/18 11:15 01/24/18 11:15 Labs: Laboratory Results - last 24 hr 01/23/18 01/23/18 01/23/18 14:11 14:11 16:11 WBC 25.4 H RBC 3.43 L Hgb 9.6 L Hct 29.1 L MCV 84.7 D MCH 27.8 MCHC 32.9 L RDW 15.3 H Plt Count 268 MPV 8.1 Neut % (Auto) 88.2 H Lymph % (Auto) 6.2 L [place] % (Auto) 5.2 Eos % (Auto) 0.0 Baso % (Auto) 0.4 Neut # (Auto) 22.4 H Lymph # (Auto) 1.6 [place] # (Auto) 1.3 H Eos # (Auto) 0.0 Baso # (Auto) 0.1 Neutrophils % (Manual) 88 H Band Neutrophils % Lymphocytes % (Manual) 6 L Monocytes % (Manual) 6 Platelet Estimate Normal Hypochromasia (manual) Slight Anisocytosis (manual) Slight ESR 114 H PT INR APTT Sodium 144 Potassium 3.3 L Chloride 105 Carbon Dioxide 26 Anion Gap 16 BUN 13 Creatinine 0.9 Est GFR ( Amer) > 60 Est GFR (Non-Af Amer) > 60 Random Glucose 120 H Lactic Acid Calcium 9.2 Phosphorus Magnesium Total Bilirubin 1.1 AST 22 ALT 30 Alkaline Phosphatase 162 H D Total Creatine Kinase 89 Troponin I < 0.0120 C-React Prot High Sens Total Protein 7.5 Albumin 3.9 Globulin 3.6 Albumin/Globulin Ratio 1.1 Procalcitonin Urine Color Yellow Urine Clarity Hazy Urine pH 5.0 Ur Specific [place] 1.015 Urine Protein 1+ H Urine Glucose (UA) Normal Urine Ketones Trace Urine Blood 1+ H Urine Nitrate Positive H Urine Bilirubin Negative Urine Urobilinogen 2.0 H Ur Leukocyte Esterase 3+ H Urine WBC (Auto) 29 H Urine RBC (Auto) 6 H Ur Squamous Epith Cells 5 Urine Bacteria Occ H Hyaline Casts 6-10 H Vancomycin Trough Influenza Typ A,B (EIA) 01/23/18 01/23/18 01/23/18 16:16 19:04 19:04 WBC RBC Hgb Hct MCV MCH MCHC RDW Plt Count MPV Neut % (Auto) Lymph % (Auto) [place] % (Auto) Eos % (Auto) Baso % (Auto) Neut # (Auto) Lymph # (Auto) [place] # (Auto) Eos # (Auto) Baso # (Auto) Neutrophils % (Manual) Band Neutrophils % Lymphocytes % (Manual) Monocytes % (Manual) Platelet Estimate Hypochromasia (manual) Anisocytosis (manual) ESR PT INR APTT Sodium Potassium Chloride Carbon Dioxide Anion Gap BUN Creatinine Est GFR ( Amer) Est GFR (Non-Af Amer) Random Glucose Lactic Acid Calcium Phosphorus Magnesium Total Bilirubin AST ALT Alkaline Phosphatase Total Creatine Kinase Troponin I C-React Prot High Sens > 15.00 H Total Protein Albumin Globulin Albumin/Globulin Ratio Procalcitonin 8.08 H Urine Color Urine Clarity Urine pH Ur Specific [place] Urine Protein Urine Glucose (UA) Urine Ketones Urine Blood Urine Nitrate Urine Bilirubin Urine Urobilinogen Ur Leukocyte Esterase Urine WBC (Auto) Urine RBC (Auto) Ur Squamous Epith Cells Urine Bacteria Hyaline Casts Vancomycin Trough Influenza Typ A,B (EIA) Negative for flu a/b 01/24/18 01/24/18 01/24/18 05:05 05:05 11:15 WBC 29.9 H RBC 3.06 L Hgb 8.5 L Hct 25.8 L MCV 84.4 MCH 27.8 MCHC 32.9 L RDW 15.9 H Plt Count 270 MPV 8.3 Neut % (Auto) 85.5 H Lymph % (Auto) 6.5 L [place] % (Auto) 7.9 Eos % (Auto) 0.0 Baso % (Auto) 0.1 Neut # (Auto) 25.5 H Lymph # (Auto) 1.9 [place] # (Auto) 2.4 H Eos # (Auto) 0.0 Baso # (Auto) 0.0 Neutrophils % (Manual) 87 H Band Neutrophils % 1 Lymphocytes % (Manual) 5 L Monocytes % (Manual) 7 Platelet Estimate Normal Hypochromasia (manual) Slight Anisocytosis (manual) Slight ESR PT 13.5 H INR 1.2 APTT 34 Sodium Potassium Chloride Carbon Dioxide Anion Gap BUN Creatinine Est GFR ( Amer) Est GFR (Non-Af Amer) Random Glucose Lactic Acid Calcium Phosphorus Magnesium Total Bilirubin AST ALT Alkaline Phosphatase Total Creatine Kinase Troponin I C-React Prot High Sens Total Protein Albumin Globulin Albumin/Globulin Ratio Procalcitonin Urine Color Urine Clarity Urine pH Ur Specific [place] Urine Protein Urine Glucose (UA) Urine Ketones Urine Blood Urine Nitrate Urine Bilirubin Urine Urobilinogen Ur Leukocyte Esterase Urine WBC (Auto) Urine RBC (Auto) Ur Squamous Epith Cells Urine Bacteria Hyaline Casts Vancomycin Trough 6.5 Influenza Typ A,B (EIA) 01/24/18 01/24/18 11:15 11:15 WBC RBC Hgb Hct MCV MCH MCHC RDW Plt Count MPV Neut % (Auto) Lymph % (Auto) [place] % (Auto) Eos % (Auto) Baso % (Auto) Neut # (Auto) Lymph # (Auto) [place] # (Auto) Eos # (Auto) Baso # (Auto) Neutrophils % (Manual) Band Neutrophils % Lymphocytes % (Manual) Monocytes % (Manual) Platelet Estimate Hypochromasia (manual) Anisocytosis (manual) ESR PT INR APTT Sodium 143 Potassium 3.7 Chloride 106 Carbon Dioxide 22 Anion Gap 18 BUN 13 Creatinine 0.8 Est GFR ( Amer) > 60 Est GFR (Non-Af Amer) > 60 Random Glucose 110 H Lactic Acid 1.1 Calcium 8.5 L Phosphorus 3.0 Magnesium 2.2 Total Bilirubin 0.8 AST 16 ALT 22 Alkaline Phosphatase 129 H D Total Creatine Kinase Troponin I C-React Prot High Sens Total Protein 7.1 Albumin 3.6 Globulin 3.5 Albumin/Globulin Ratio 1.0 Procalcitonin Urine Color Urine Clarity Urine pH Ur Specific [place] Urine Protein Urine Glucose (UA) Urine Ketones Urine Blood Urine Nitrate Urine Bilirubin Urine Urobilinogen Ur Leukocyte Esterase Urine WBC (Auto) Urine RBC (Auto) Ur Squamous Epith Cells Urine Bacteria Hyaline Casts Vancomycin Trough Influenza Typ A,B (EIA) Assessment & Plan - Assessment and Plan (Free Text) Assessment: A/P discussed with Dr. Padilla. 67 y F w/ PMHx of HTN & arthritis presented to ED w/ several days of headaches. 1) Meningitis vs Temporal arteritis - Spiking temps in 102s, ESR 114, CRP >15 - Pt scheduled for biopsy today, on dexamethasone 4mg - On cefepine & vancomycin, will consider LP tomorrow 01/25
[2018-01-24] MEDS ORDERED: Lidocaine/Epinephrine 1% 1:100000 10 ML IJ ONE (13:37)
[2018-01-24] MEDS ORDERED: Lidocaine Hydrochloride 10 ML INJ ONE (13:44)
[2018-01-24] MEDS ORDERED: Midazolam 2 MG/2 ML VIAL ONE (13:51)
[2018-01-24] MEDS ORDERED: HYDROmorphone 0.5 mg/0.5 ml ISec IVP PRN (14:35)
--- NOTE | 2018-01-24 14:38 | PCM.SURG1 ---
Surgeon's Initial Post Op Note - Surgeon's Notes Surgeon: Dr. Orozco Die Cutting Machine Operator: Dr. Cruz PGY-4 Type of Anesthesia: IV Sedation, Local Pre-Operative Diagnosis: Headache, possible temporal arteritis Operative Findings: temporal artery Post-Operative Diagnosis: Headache, possible temporal arteritis Operation Performed: Temporal artery biopsy Specimen/Specimens Removed: temporal artery Estimated Blood Loss: EBL {In ML}: 10 Blood Products Given: N/A Drains Used: No Drains Post-Op Condition: Fair Date of Surgery/Procedure: 01/24/18 Time of Surgery/Procedure: 14:40
[2018-01-24] MEDS ORDERED: HYDROmorphone 0.5 mg/0.5 ml ISec ONE (14:45)
--- NOTE | 2018-01-24 19:53 | CP.PCM.PN ---
Subjective - Date & Time of Evaluation Date of Evaluation: 01/24/18 Time of Evaluation: 08:00 - Subjective Subjective: afeb alert c/o headache pain on flexion but no rigidity IV rx in progress bx pending Objective - Vital Signs/Intake and Output Vital Signs (last 24 hours): Temp Pulse Resp BP Pulse Ox 100.5 F H 67 20 123/58 L 97 01/24/18 16:13 01/24/18 16:13 01/24/18 16:13 01/24/18 16:13 01/24/18 16:13 Intake and Output: 01/24/18 01/25/18 18:59 06:59 Intake Total 1000 Balance 1000 - Medications Medications: Current Medications Acetaminophen (Tylenol 325mg Tab) 650 mg PO Q6 PRN PRN Reason: Headache Cefepime HCl 1 gm/ Dextrose 50 mls @ 100 mls/hr IVPB Q8H MEME PRN Reason: Protocol Last Admin: 01/24/18 16:20 Dose: 100 mls/hr Vancomycin/Sodium Chloride (Vancomycin 1 Gm/Ns 200 Ml) 1 gm in 200 mls @ 133 mls/hr IVPB Q12H MEME PRN Reason: Protocol Stop: 01/28/18 18:01 Last Admin: 01/24/18 17:19 Dose: 133 mls/hr Sodium Chloride (Sodium Chloride 0.9%) 1,000 mls @ 100 mls/hr IV .Q10H [facility] [place] Last Admin: 01/24/18 13:58 Dose: Not Given Ketorolac Tromethamine (Toradol) 30 mg IVP Q6 PRN Last Admin: 01/24/18 07:42 Dose: 30 mg Morphine Sulfate (Morphine) 2 mg IVP Q4 PRN PRN Reason: FOR SEVERE HEADACHES Potassium Chloride (K-Dur 20 Meq Er Tab) 40 meq PO DAILY [facility] [place] Last Admin: 01/24/18 10:30 Dose: Not Given - Labs Labs: 01/24/18 11:15 01/24/18 11:15 PT 13.5 SECONDS (9.7-12.2) H 01/24/18 05:05 INR 1.2 01/24/18 05:05 APTT 34 SECONDS (21-34) 01/24/18 05:05 - Constitutional Appears: Non-toxic, No Acute Distress - Head Exam Head Exam: NORMOCEPHALIC - Eye Exam Eye Exam: absent: Scleral icterus - ENT Exam ENT Exam: Mucous Membranes Dry - Neck Exam Neck Exam: absent: Lymphadenopathy - Respiratory Exam Respiratory Exam: Decreased Breath Sounds - Cardiovascular Exam Cardiovascular Exam: REGULAR RHYTHM - GI/Abdominal Exam GI & Abdominal Exam: Distended, Soft - Rectal Exam Rectal Exam: Deferred - Exam Exam: NORMAL INSPECTION - Extremities Exam Extremities Exam: absent: Pedal Edema - Back Exam Back Exam: absent: CVA tenderness (L), CVA tenderness (R) - Neurological Exam Neurological Exam: Alert, Awake, Oriented x3 Assessment and Plan (1) Fever Status: Acute (2) Headache Status: Acute (3) Leukocytosis Status: Acute - Assessment and Plan (Free Text) Assessment: IV rx in progress for UTI await bx of temporal artery cont steroids Plan: consider LP
--- NOTE | 2018-01-25 00:08 | CARD ---
APPROVED REPORT Date of service: 01/24/2018 EXAM: Two-dimensional and M-mode echocardiogram with Doppler and color Doppler. Other Information Quality : GoodRhythm : INDICATION Infection: RISK FACTORS Hypertension 2D DIMENSIONS IVSd0.7 (0.7-1.1cm)LVDd5.1 (3.9-5.9cm) PWd1.0 (0.7-1.1cm)LVDs3.6 (2.5-4.0cm) FS (%) 29.6 %LVEF (%)55.0 (>50%) M-Mode DIMENSIONS Left Atrium (MM)3.98 (2.5-4.0cm)IVSd1.04 (0.7-1.1cm) Aortic Root3.37 (2.2-3.7cm)LVDd6.14 (4.0-5.6cm) Aortic Cusp Exc.2.21 (1.5-2.0cm)PWd0.71 (0.7-1.1cm) FS (%) 27 %LVDs4.46 (2.0-3.8cm) LVEF (%)55 (>50%) Mitral Valve MV E Jzlnvhcg90.7cm/sMV A [place]491.7cm/sE/A ratio0.9 TDI E/Lateral E'0.0E/Medial E'0.0 Tricuspid Valve TR Peak [id number]/sTR Peak [id number] LEFT VENTRICLE The left ventricle is normal size. There is normal left ventricular wall thickness. Left ventricle systolic function is normal. The Ejection Fraction is 55-60%. There is normal LV segmental wall motion. Tissue Doppler imaging reveals abnormal left ventricular diastolic dysfunction. RIGHT VENTRICLE The right ventricle is normal size. There is normal right ventricular wall thickness. The right ventricular systolic function is normal. ATRIA The left atrium size is normal. The right atrium size is normal. The interatrial septum is intact with no evidence for an atrial septal defect. AORTIC VALVE The aortic valve is normal in structure. No aortic regurgitation is present. There is no aortic valvular stenosis. MITRAL VALVE The mitral valve is normal in structure. There is no evidence of mitral valve prolapse. There is no mitral valve stenosis. Mitral regurgitation is mild. TRICUSPID VALVE The tricuspid valve is normal in structure. There is mild tricuspid regurgitation. Right ventricular systolic pressure is estimated at 30-40 mmHg. There is mild pulmonary hypertension. PULMONIC VALVE The pulmonic valve is not well visualized. There is mild pulmonic valvular regurgitation. GREAT VESSELS The aortic root is normal in size. PERICARDIAL EFFUSION There is no significant pericardial effusion. <Conclusion> Left ventricle systolic function is normal. The Ejection Fraction is 55-60%. Diastolic dysfunction. No aortic regurgitation is present. Mitral regurgitation is mild. There is mild tricuspid regurgitation. There is mild pulmonary hypertension. There is mild pulmonic valvular regurgitation.
--- NOTE | 2018-01-25 01:32 | OP ---
Copied To: Ray Orozco Jr., MD Attending MD: Ray Orozco Jr., MD PROCEDURE DATE: 01/24/2018 PREOPERATIVE DIAGNOSIS: Suspected temporal arteritis PROCEDURE: Left superficial temporal artery biopsy. SURGEON: Ray Orozco M.D. CRIMINAL JUSTICE LAWYER: Lucie Cruz DO ANESTHESIA ADMINISTERED BY: Mr. Houston Sepulveda. ANESTHESIA: Local with sedation. INDICATION: The patient is an older middle-aged woman with severe headache, elevated sed rate, suspected left temporal arteritis. OPERATIVE FINDINGS: A 2 cm segment of left superficial temporal artery was removed. The edges were ligated. The wound was then closed. Prior to the operation, the artery had been ____ forehead with the use of Doppler. After completion of procedure, there was excellent hemostasis. The wound was closed with V-Loc suture and Steri-Strips applied. Blood loss was less then 5 mL. Operation carried out, left superficial temporal artery biopsy. Ray Orozco Jr., MD
--- NOTE | 2018-01-25 02:03 | CARD ---
APPROVED REPORT Date of service: 01/23/2018 EKG Measurement Heart [id number] <Conclusion> Normal sinus rhythm Left axis deviation Left bundle branch block Abnormal ECG
[2018-01-25] MEDS: Sodium Chloride 0.9% 1,000 ML IV SCH ×2 (05:18→15:08)
[2018-01-25] MEDS: Vancomycin 1 gm/NS 200 ml 1 GM/200 ML BAG IVPB SCH ×3 (05:54→22:46)
[2018-01-25] MEDS ORDERED: HYDROmorphone 1 mg/ml ISec IVP STA ×2 (07:18→20:14)
[2018-01-25] MEDS ORDERED: Iodixanol 320 MG/ML 100 ML BOTTLE IV ONE ×2 (07:24→08:57)
[2018-01-25 07:44] LABS: ALBUMIN 3.7 g/dL (3.5-5.0); BLOOD UREA NITROGEN 12 mg/dL (7-17); CALCIUM 8.7 mg/dl (8.6-10.4); GFR NON-AFRICAN AMERICAN > 60
[2018-01-25 07:45] LABS: ALT/SGPT 34 U/L (9-52); AST/SGOT 58 U/L (14-36)
--- NOTE | 2018-01-25 07:45 | PCM.RRT ---
Addendum entered and electronically signed by Shahram Becerra DO 13:58: Rapid response called at 7AM Pt seen and examined at bedside. Pt in distress. Pt has intractable headache and neck pain. Pain is not responding to any analgesic thats been prescribed. Pt feels that her heart is racing. Pt reports feeling hot and sweaty. Pt denies change in vision, n/v, cp, sob, pain with inspiration, loc. Pt was immediately put on mask ventilation and given 2mg of morphine and 1mg of dilaudid for pain control. Portable X ray was ordered which showed preliminary finding of a pleural effusion on the right side. CBC, CMP, Lactate, ABG shock panel and Procal were orded, patient was then sent down for CTA of head neck and chest, a Brain MRI. REFER TO VITALS BELOW Original Note: <Shahram Becerra - Last Filed: 01/25/18 07:47> SNORKELLING INSTRUCTOR Nurses Assessment - Situation Date: 01/25/18 Time SNORKELLING INSTRUCTOR was called: 07:00 SNORKELLING INSTRUCTOR Responder Arrival Time:: 07:01 SNORKELLING INSTRUCTOR Location:: Med/Oncology SNORKELLING INSTRUCTOR Reason for Call: Tachycardia - Respiratory SNORKELLING INSTRUCTOR Delivery Method: Face Mask @% Oxygen Flow Rate: 2 Was the Patient Ventilated with Bag/Mask 100% O2?: No Secretions Suctioned?: No Was the Patient Intubated?: No Was the Patient Placed on a Ventilator?: No - Medication Medications Administered During SNORKELLING INSTRUCTOR: dilaudid 1g IVP. Meropenem 500mg q8 IV - Diagnostic Test Ordered EKG: Yes Chest X-Ray: Yes CT Scan: Yes - Stat Labs Ordered SNORKELLING INSTRUCTOR Stat Labs Ordered: CBC, TROPONIN, LACTIC ACID CPR started during SNORKELLING INSTRUCTOR?: No - Vital Signs Vital Signs: T 101F BP 135/90 HR 110 rr 18 02 99 - [place] Coma Scale Coma Scale Eye Opening: Spontaneous Coma Scale Motor: Obeys Commands Movement Coma Scale Verbal: Oriented Coma Scale Total: 15 - Sepsis Screen Part 1 Sepsis Screen Part 1: Temperature over 100.6F - Time SNORKELLING INSTRUCTOR Ended Time SNORKELLING INSTRUCTOR Ended: 07:30 - Vital Signs at end of SNORKELLING INSTRUCTOR Vital Signs at end of SNORKELLING INSTRUCTOR: T100 BP 115/80 HR 95 RR 18 02 97 mask - Recommendations 5) SNORKELLING INSTRUCTOR Level of Care Recommendations: Transfer to Telemetry I.Reason for SNORKELLING INSTRUCTOR - A) Acute Change in Patient: Subjective: Pt has intractable headache. - Neurological Status (Select all that apply): Alert, Responsive, Oriented - Respiratory Oxygen Delivery Method: Face Mask @% Oxygen Flow Rate: 2 - Constitutional Appears: In Acute Distress - Head Head Exam: ATRAUMATIC, NORMAL INSPECTION - Eyes Eye Exam: EOMI, Normal appearance - Respiratory Exam Respiratory Exam: Decreased Breath Sounds - Cardiovascular Exam Cardiovascular Exam: Tachycardia, +S1, +S2 - GI/Abdominal Exam GI & Abdominal Exam: Soft. absent: Tenderness - Neurological Exam Neurological Exam: Alert, Awake, CN II-XII Intact, Oriented x3 - Extremities Exam Extremities Exam: Normal Inspection Plan - Assessment of Findings&Treatment Plan ordered CXR- pos r pleaural effusion CTA head and neck- confirm pleural effusion trop EKG JALIL Procal CBC consult IR- thoracentesis Pulmonology <Sky Santiago - Last Filed: 01/25/18 17:08> SNORKELLING INSTRUCTOR Nurses Assessment - Vital Signs Vital Signs: Rapid Response Vital Sign Blood Pressure 128/92 Pulse Rate 108 Respiratory Rate 26 Temperature 100.2 F Oxygen Saturation 97 - Vital Signs at end of SNORKELLING INSTRUCTOR Vital Signs at end of SNORKELLING INSTRUCTOR: Rapid Response End Vital Sign Blood Pressure 113/82 Pulse Rate 100 Respiratory Rate 24 Temperature 98 F O2 Sat by Pulse Oximetry 100 Attending/Attestation - Attestation I have personally seen and examined this patient.: Yes I have fully participated in the care of the patient.: Yes I have reviewed all pertinent clinical information, including history, physical exam and plan: Yes Notes (Text): 01/25/18 16:55 Medical attending: Patient was seen and examined by me during the SNORKELLING INSTRUCTOR earlier today. The staff were concerned about the patient's ongoing neck pain, headache as well as shortness of breath. We came immediately. She was awake, alert, following all commands. On exam she looked short of breath as well as very comfortable appearing - she was able to say that the the neck tenderness was bothering her a great deal Her vital signs showed she did have an elevated temperature - her BP and HR were stable and SpO2 stable as well. A chest XRAY showed what appeared to be a new finding - there was a pleural effusion on the right side. However later reviewing the CT of the chest showed this was a very tiny pleural effusion - macie during the SNORKELLING INSTRUCTOR the pleural effusion looked large because she was laying flat. Because of the shortness of breath we held the IVF temprarolily, changed the IV abx to have meropenom IV Also we had a CTA of the neck, CT of the chest and later an MRI. Blood cultures were repeated and we brought patient down to CT scan. She did not have a thoracic aneurysm or dissection which mayhave been causing the severe neck pain and headache. Also the CTA of the head and neck did not show significant stenosis involving cervical circulation. There was no anursym or malformation. There were sine nonspecific nodules seen that per radiology could represent an infection/inflammation/malignancy. The CTA also ruled out PE and she was not having any aortic dissection which could explain her severe neck pain and headache. The MRI was negative for acute findings and did not have hemmorage or ischemia. Because of the Tmax and also the elevated WBC, neck, nuchal rigidy I spoke with neurology and also anesthesia and later mid-day we got an LP and have sent the fluid off for studies in case she could have menigitis. The patient does have at least a UTI as cultures came back positive for gram negative findings. Her abx was changed from IV cefpime over to IV meropenom. thank you Sky Santiago
[2018-01-25 08:17] LABS: HEMOGLOBIN 8.3 g/dL (11.0-16.0); MEAN CELL VOLUME 83.3 fL (81.0-99.0); MEAN CORPUSCULAR HEMOGLOBIN 27.8 pg (27.0-31.0); MEAN CORPUSCULAR HGB CONC 33.4 g/dL (33.0-37.0); MEAN PLATELET VOLUME 8.6 fL (7.2-11.7); RBC 2.97 Mil/uL (3.80-5.20); RED CELL DISTRIBUTION WIDTH 15.8 % (11.5-14.5)
[2018-01-25 08:34] LABS: IRON 35 ug/dL (37-170)
[2018-01-25 08:43] LABS: % IRON SATURATION 16 (20-55); TOTAL IRON BINDING CAPACITY 218 ug/dL (250-450)
[2018-01-25 08:46] LABS: CK-MB 0.89 ng/mL (0.0-3.38); TROPONIN I 0.072 ng/mL (0.00-0.120)
[2018-01-25] MEDS ORDERED: Meropenem 500 MG in Sodium Chloride 0.9% 100 ML IVPB SCH (09:00)
--- NOTE | 2018-01-25 09:23 | CT ---
Date of service: 01/25/2018. PROCEDURE: CT Angiography of the neck with contrast. HISTORY: Headache COMPARISON: Made with prior CT scan brain dated 01/23/2015. TECHNIQUE: Contiguous helical/transaxial images of the neck were obtained from the level of the skull-base to the superior mediastinum in the arteriographic phase of enhancement. Coronal and sagittal reformats or also generated. . IV contrast dose: 50 cc Visipaque 320 Radiation Dose - DLP: 537.20 mGy-cm This CT exam was performed using one or more of the following dose reduction techniques: Automated exposure control, adjustment of the mA and/or kV according to patient size, and/or use of iterative reconstruction technique. . . FINDINGS: The aortic arch is widely patent with minor partially calcified atherosclerotic plaque changes. The origins of the great vessels are also widely patent. Ascending thoracic aorta measures approximately 3.36 cm. Descending thoracic aorta measures approximately 2.4 cm. The common carotid arteries are patent throughout however distally, along with the carotid bifurcations and proximal internal carotid artery's exhibit short retropharyngeal course. No significant atherosclerotic disease. No evidence dissection. The distal internal carotid arteries including the petrous cavernous and supraclinoid segments are patent though there are calcified atherosclerotic plaque changes along cavernous segments that result in mild narrowing more so on the left side Vertebral arteries are patent throughout though there is some minor asymmetry of the left-side slightly larger in caliber/ more dominant than the right. Basilar artery is a diminutive in caliber though patent in part due to prominent of right-sided posterior communicating artery. The distal branches of the anterior middle and posterior cerebral arteries are patent throughout. No evidence of large aneurysm nor vascular malformation. Small bilateral effusions right larger than left with mild bilateral atelectasis. There is mild dilatation of the pulmonary trunk measuring approximately 3.5 cm ; rule out underlying pulmonary arterial hypertension. Multiple varying sized nodular opacities seen in the upper globes and lung apices of uncertain etiology ; rule out post infectious/ inflammatory etiologies or possibly metastatic disease. Small focal area of localized area of pleural thickening and adjacent atelectasis and/or infiltrate right lung apex. There may also be some mild underlying pulmonary mass injection. Minor polypoid like mucosal thickening both maxillary sinuses. There is also mucosal thickening part of which appear at aerosolized left chamber sphenoid sinus. Changes of right-sided cataract surgery. IMPRESSION: No evidence of occlusion or significant stenosis involving the cervical circulation. There is narrowing of both cavernous carotid segments left greater than right due to atherosclerotic disease. . No evidence of large aneurysm nor vascular malformation. Multiple nodular opacities seen scattered throughout the upper lobes of uncertain etiology. Rule out post infectious/ inflammatory or metastatic disease. There is small focal area of localized apical pleural thickening and adjacent atelectasis and/or infiltrate. There may also be some underlying mild vascular congestion. Small bilateral effusions right larger than left with atelectasis. See above discussion for additional details and findings.
--- NOTE | 2018-01-25 09:43 | CT ---
PROCEDURE: CT angiogram chest abdomen pelvis with and without intravenous contrast. HISTORY: Rule out dissection / PE COMPARISON: Correlation made with concurrent chest radiograph as well as CT scan abdomen pelvis 01/23/2018 which imaged both lung bases. TECHNIQUE: Contiguous helical/transaxial images of the chest, abdomen and pelvis were obtained in the phase of aortic enhancement. A noncontrast enhanced CT of the chest was also obtained to evaluate for possible intramural thrombus. Coronal and sagittal reformats were generated. IV dose administered: 100 cc Visipaque 320 Radiation dose: Total exam DLP = 1538.57 mGy-cm. This CT exam was performed using one or more of the following dose reduction techniques: Automated exposure control, adjustment of the mA and/or kV according to patient size, and/or use of iterative reconstruction technique. . . FINDINGS: CT ANGIOGRAPHY OF THE CHEST WITH & WITHOUT CONTRAST: AORTA (CHEST AND ABDOMEN): The thoracic and abdominal aorta are unremarkable, without aneurysm, dissection or rupture. No intramural thrombus identified in the thoracic aorta on the non-contrast ct of the chest. The celiac axis is patent though there are mild partially calcified atherosclerotic plaque changes seen at the origin of the celiac axis. The superior mesenteric artery, inferior mesenteric artery and the renal arteries are widely patent. The pelvic arteries are unremarkable. LUNGS: There are multiple small nodular opacities seen scattered throughout the upper and lower lobes most of which appear peripherally located. ; rule out post infectious/inflammatory etiology ie. Septic emboli. The possibility of metastatic disease not completely excluded. Small right-sided effusion with mild right lower lobe atelectasis. Tiny left-sided effusion and minimal left basilar atelectasis. MEDIASTINUM: Unremarkable. Normal caliber aorta and pulmonary arterial trunk. No aortic dissection. Heart is mildly enlarged. No significant pericardial effusion. LYMPH NODES: There are a few small nonspecific mediastinal lymph nodes. Small approximately 9.8 mm left hilar lymph node present. PLEURA: As above no evidence of pneumothorax BONES: Mild moderate multilevel degenerative spondylosis of the thoracic spine. No acute compression fractures no retropulsed fragments. . OTHER FINDINGS: Note made of a small amount of air within the subcutaneous tissues right axillary region of uncertain etiology though could be related to intravenous injection. CT ANGIOGRAPHY OF THE ABDOMEN AND PELVIS WITH CONTRAST: LIVER: Liver exhibits normal size measuring just over 16 cm CC dimension. No obvious hepatic mass or collection. GALLBLADDER AND BILE DUCTS: Cholelithiasis. PANCREAS: Unremarkable. No gross lesion or ductal dilatation. SPLEEN: Unremarkable. ADRENALS: No adrenal lesions KIDNEYS AND URETERS: Kidneys demonstrate relatively symmetric size. No evidence of nephrolithiasis or hydronephrosis. . VASCULATURE: Unremarkable. No aortic aneurysm. STOMACH AND BOWEL: Unremarkable. No obstruction. No gross mural thickening. APPENDIX: Normal appendix. PERITONEUM: Unremarkable. No free fluid. No free air. Tiny fat containing umbilical hernia. LYMPH NODES: Unremarkable. No enlarged lymph nodes. BLADDER: Not visualized REPRODUCTIVE: Incompletely visualized BONES: Mild multilevel degenerative spondylosis. OTHER FINDINGS: None. IMPRESSION: No evidence of aortic dissection. There are multiple small nodular opacities seen scattered throughout the upper and lower lobes which are peripherally located. Findings could represent sequela of infection ; rule out septic emboli. Metastatic disease not completely excluded. Small right-sided effusion and mild right lower lobe atelectasis. Tiny left-sided effusion with minimal left basilar atelectasis. Findings suggest mild pulmonary venous congestion. Prominent pulmonary trunk; rule out underlying mild pulmonary arterial hypertension. . Cholelithiasis. See above discussion for additional details and findings
--- NOTE | 2018-01-25 09:43 | CP.PCM.PN ---
Subjective - Date & Time of Evaluation Date of Evaluation: 01/25/18 Time of Evaluation: 07:00 - Subjective Subjective: VASCULAR SURGERY PROGRESS NOTE FOR DR. BARON Patient seen and examined at bedside. During AM rounds, pt was noted to be tachypneic and complaining of being SOB and "hot". Vitals were done which tachycardia into 120s and O2 low 90s. She was placed on a mask with improvement to 99-100%. MANAGED CARE MANAGER was called. JALIL, Chest X-ray, CTA to rule out PE, stat labs were done. Pt denies headache currently. Objective - Vital Signs/Intake and Output Vital Signs (last 24 hours): Temp Pulse Resp BP Pulse Ox 101.6 F H 73 16 131/75 99 01/25/18 06:12 01/24/18 23:40 01/24/18 23:40 01/24/18 23:40 01/24/18 23:40 Intake and Output: 01/25/18 01/25/18 06:59 18:59 Intake Total 900 Balance 900 - Medications Medications: Current Medications Acetaminophen (Tylenol 325mg Tab) 650 mg PO Q6 PRN PRN Reason: Headache Last Admin: 01/25/18 06:14 Dose: 650 mg Vancomycin/Sodium Chloride (Vancomycin 1 Gm/Ns 200 Ml) 1 gm in 200 mls @ 133 mls/hr IVPB Q12H MEME PRN Reason: Protocol Stop: 01/28/18 18:01 Last Admin: 01/25/18 05:54 Dose: 133 mls/hr Meropenem 500 mg/ Sodium (Chloride) 100 mls @ 100 mls/hr IVPB Q8H MEME PRN Reason: Protocol Ketorolac Tromethamine (Toradol) 30 mg IVP Q6 PRN Last Admin: 01/24/18 07:42 Dose: 30 mg Lactobacillus Acidophilus (Bacid Acidophilus) 1 cap PO BID MEME Morphine Sulfate (Morphine) 2 mg IVP Q4 PRN PRN Reason: FOR SEVERE HEADACHES Last Admin: 01/25/18 07:10 Dose: 2 mg Potassium Chloride (K-Dur 20 Meq Er Tab) 40 meq PO DAILY MEME Last Admin: 01/24/18 10:30 Dose: Not Given - Labs Labs: 01/25/18 08:13 01/25/18 06:53 PT 13.5 SECONDS (9.7-12.2) H 01/24/18 05:05 INR 1.2 01/24/18 05:05 APTT 34 SECONDS (21-34) 01/24/18 05:05 - Constitutional Appears: Toxic - Head Exam Additional comments: Left forehead bandaid clean/dry/intact - Respiratory Exam Respiratory Exam: Accessory Muscle Use, Respiratory Distress - Cardiovascular Exam Cardiovascular Exam: Tachycardia - GI/Abdominal Exam GI & Abdominal Exam: Soft. absent: Tenderness - Neurological Exam Neurological Exam: Alert, Awake - Psychiatric Exam Psychiatric exam: Anxious - Skin Skin Exam: Diaphoretic Assessment and Plan - Assessment and Plan (Free Text) Assessment: 67yo F rule out temporal arteritis s/p temporal artery biopsy POD#1 - Blood cx: gram + cocci - Urine cx: citrobacter - Continue Abx per ID - MANAGED CARE MANAGER for tachycardia, tachypnea - FU labs from MANAGED CARE MANAGER and CTA to rule out PE - Will Fu pathology from surgery - Discussed plan with Dr. Ernesto Cruz PGY-4
--- NOTE | 2018-01-25 09:54 | RAD ---
Date of service: 01/25/2018 HISTORY: SOB COMPARISON: No prior. FINDINGS: LUNGS: Mild pulmonary vascular congestive changes with bibasilar atelectasis and bilateral effusions right greater than left PLEURA: As above. No pneumothorax apparent. CARDIOVASCULAR: Heart size mildly enlarged. OSSEOUS STRUCTURES: No significant abnormalities. VISUALIZED UPPER ABDOMEN: Normal. OTHER FINDINGS: None. IMPRESSION: Mild pulmonary vascular congestive changes with bibasilar atelectasis and bilateral effusions right greater than left
--- NOTE | 2018-01-25 10:13 | CP.PCM.PN ---
<Shahram Becerra - Last Filed: 01/25/18 13:45> Subjective - Date & Time of Evaluation Date of Evaluation: 01/25/18 Time of Evaluation: 10:09 - Subjective Subjective: Rapid response called at 7AM Pt seen and examined at bedside. Pt in distress. Pt has intractable headache and neck pain. Pain is not responding to any analgesic thats been prescribed. Pt feels that her heart is racing. Pt reports feeling hot and sweaty. Pt denies change in vision, n/v, cp, sob, pain with inspiration, loc. Pt was immediately put on mask ventilation and given 2mg of morphine and 1mg of dilaudid for pain control. Portable X ray was ordered which showed preliminary finding of a pleural effusion on the right side. CBC, CMP, Lactate, ABG shock panel and Procal were orded, patient was then sent down for CTA of head neck and chest, a Brain MRI. Objective - Vital Signs/Intake and Output Vital Signs (last 24 hours): Temp Pulse Resp BP Pulse Ox 97.3 F L 98 H 20 103/67 98 01/25/18 08:30 01/25/18 08:30 01/25/18 08:30 01/25/18 08:30 01/25/18 08:30 Intake and Output: 01/25/18 01/25/18 06:59 18:59 Intake Total 900 Balance 900 - Medications Medications: Current Medications Acetaminophen (Tylenol 325mg Tab) 650 mg PO Q6 PRN PRN Reason: Headache Last Admin: 01/25/18 06:14 Dose: 650 mg Vancomycin/Sodium Chloride (Vancomycin 1 Gm/Ns 200 Ml) 1 gm in 200 mls @ 133 mls/hr IVPB Q12H MEME PRN Reason: Protocol Stop: 01/28/18 18:01 Last Admin: 01/25/18 05:54 Dose: 133 mls/hr Meropenem 500 mg/ Sodium (Chloride) 100 mls @ 100 mls/hr IVPB Q8H MEME PRN Reason: Protocol Ketorolac Tromethamine (Toradol) 30 mg IVP Q6 PRN Last Admin: 01/24/18 07:42 Dose: 30 mg Lactobacillus Acidophilus (Bacid Acidophilus) 1 cap PO BID MEME Morphine Sulfate (Morphine) 2 mg IVP Q4 PRN PRN Reason: FOR SEVERE HEADACHES Last Admin: 01/25/18 07:10 Dose: 2 mg Potassium Chloride (K-Dur 20 Meq Er Tab) 40 meq PO DAILY MEME Last Admin: 01/24/18 10:30 Dose: Not Given - Labs Labs: 01/25/18 08:13 01/25/18 06:53 PT 13.5 SECONDS (9.7-12.2) H 01/24/18 05:05 INR 1.2 01/24/18 05:05 APTT 34 SECONDS (21-34) 01/24/18 05:05 - Constitutional Appears: In Acute Distress - Head Exam Head Exam: ATRAUMATIC, NORMAL INSPECTION - Eye Exam Eye Exam: EOMI, Normal appearance Assessment and Plan - Assessment and Plan (Free Text) Assessment: 03/13 Headache -Toradol 30mg PRN -morphine 2g q4 prn -dilaudid 1g ivp once -Tylenol 650mg PRN -MRA w/o contrast: Neg -Head CT: neg for acute changes -CTA: multiple small infarcts, possible septic emboli r/o infex -MRI: mild chronic white matter changes Bacteremia -Gram pos cocci on Blood cultures -ID consulted (NIKHIL) recs appreciated: -f/u Lumbar puncture with CSF viral, bacterial, fungal serology/cultures -f/u cytology -f/u protein -f/u glucose -Vanco 1g q12 -Meropenem 500mg q8 -IVF 100ml/hr NS Possible Temporal Arteritis -ESR 114 -WBC 25 -Decadron 4mg second dose -100ml/hr NS IVF -neg MRA -Vasc Sx consulted Dr. Orozco: f/u Temporal Artery Bx -echo: EF 55%, mild pulmonic, Mitral and tricuspid regurgitation, mild pulm htn UTI -Vanco 1g q12 IV: trough tmrw 4am -meropenem 500mg q8 IV -UA pos -Urine Cultures citrinobacter: sensitive to ertapenem and cipro -100ml/hr NS IVF -procal 3.89 down from 8.08 -CT abd pelv: cholelithiasis, Ventral hernia, no hydronephrosis but cant r/o pyelo Hypokalemia -resolved -K-dur 40 -monitor PPX: -Heparin 5000u BID -ASA 81mgs -SCDs <Sky Santiago H - Last Filed: 01/25/18 17:22> Objective - Vital Signs/Intake and Output Vital Signs (last 24 hours): Temp Pulse Resp BP Pulse Ox 98.5 F 96 H 20 118/76 91 L 01/25/18 16:00 01/25/18 16:00 01/25/18 16:00 01/25/18 16:00 01/25/18 16:00 Intake and Output: 01/25/18 01/25/18 06:59 18:59 Intake Total 900 Balance 900 - Medications Medications: Current Medications Acetaminophen (Tylenol 325mg Tab) 650 mg PO Q6 PRN PRN Reason: Headache Last Admin: 01/25/18 06:14 Dose: 650 mg Heparin Sodium (Porcine) (Heparin) 5,000 units SC Q12 MEME Ceftriaxone Sodium 2 gm/ (Sodium Chloride) 100 mls @ 100 mls/hr IVPB Q12H MEME PRN Reason: Protocol Vancomycin/Sodium Chloride (Vancomycin 1 Gm/Ns 200 Ml) 1 gm in 200 mls @ 133.333 mls/hr IVPB Q8H MEME PRN Reason: Protocol Last Admin: 01/25/18 15:07 Dose: 133.333 mls/hr Sodium Chloride (Sodium Chloride 0.9%) 1,000 mls @ 70 mls/hr IV .[id number] [facility] Last Admin: 01/25/18 15:08 Dose: 70 mls/hr Lactobacillus Acidophilus (Bacid Acidophilus) 1 cap PO BID [facility] Last Admin: 01/25/18 11:00 Dose: 1 cap Morphine Sulfate (Morphine) 2 mg IVP Q4 PRN PRN Reason: FOR SEVERE HEADACHES Last Admin: 01/25/18 14:07 Dose: 2 mg Potassium Chloride (K-Dur 20 Meq Er Tab) 40 meq PO DAILY [facility] Last Admin: 01/25/18 11:00 Dose: 40 meq - Labs Labs: 01/25/18 08:13 01/25/18 06:53 PT 13.5 SECONDS (9.7-12.2) H 01/24/18 05:05 INR 1.2 01/24/18 05:05 APTT 34 SECONDS (21-34) 01/24/18 05:05 Attending/Attestation - Attestation I have personally seen and examined this patient.: Yes I have fully participated in the care of the patient.: Yes I have reviewed all pertinent clinical information, including history, physical exam and plan: Yes Notes (Text): 01/25/18 17:11 Medical attending: Patient was seen and examined by me during the ENGINE PILOT earlier today. I again saw her later in the afternoon for the lumbar puncture. She was moved from 3T to 6T however because of the possibility of meningitis they moved her to 5T for an isolation room. She continues to have neck pain and fevers and also high WBCs. The CSF were sent off for further analysis Earlier this morning the staff on 3T were concerned about the patient's ongoing neck pain, headache as well as shortness of breath. And an ENGINE PILOT was called and we saw her immediately. She was awake, alert, following all commands. But she was very uncomfortable in appearance and she said the neck stiffness and neck pain bothered her greatly. Her vital signs showed she did have an elevated temperature - her BP and HR were stable and SpO2 stable as well. Because of the ongoing headache and neck pain a CTA of the neck was done as well as a CT of the chest with dissection protocol - these two test did not show any areas of dissection and no anursyms, and no malformations which may explain why she is having the severe neck pain and headache. The CT imaging did show a very small pleural effusion. During the morning a portable film was done which showed what looked like a large pleural effusion - likley because she was laying flat. Later we also saw the urine culture returned and this was positive for a gram negative Citrobacter diversus - it is sensitive to both cefepime as well as meropenom. The blood cultures from admission as well as today showed a gram positive growth that is pending at this time. The patient remains on vancomycin. There were nonspecific nodules seen that per radiology could represent an infection/inflammation/malignancy. We ordered an MRI of the brain and this was negative for acute findings and she did not have hemorrhage or ischemia. We are still pending the temporal area biopsy to result. So at this time she maybe having the high fevers, elevated WBC, neck pain and headache from menigitis or temperal arteritis. Or perhaps she is having the neck pain and headaches from being sepsis from UTI or PNA Regardless she needs to be carefully watched. The patient asked me to call a family member and update them. thank you Sky Santiago
[2018-01-25] MEDS: Potassium Chloride 20 mEq ER Tab PO SCH (11:00)
[2018-01-25] MEDS: Lactobacillus Acidophilus 500 MU Cap PO SCH ×2 (11:00→18:54)
--- NOTE | 2018-01-25 13:21 | MRI ---
Date of service: 01/25/2018 PROCEDURE: MRI BRAIN WITHOUT CONTRAST HISTORY: Severe headache COMPARISON: Comparison made prior CTA brain obtained earlier same day TECHNIQUE: Multiplanar, multisequence MR images of the brain were obtained without intravenous contrast enhancement. FINDINGS: HEMORRHAGE: No acute parenchymal, subarachnoid nor extra-axial hemorrhage. . No evidence hemosiderin deposition identified on gradient echo weighted sequence. DWI: No evidence of an acute or early subacute infarction seen on diffusion imaging. BRAIN PARENCHYMA: Mild the diffuse/confluent chronic periventricular white matter ischemic changes with multiple more discrete chronic appearing lacunar type infarcts scattered about the deep and subcortical white matter both cerebral hemispheres. No obvious parenchymal nor extra-axial mass or collection is seen on this noncontrast exam. Ventricular and sulcal size within range of normal this patient's stated age. VENTRICLES: No obstructive hydrocephalus. CRANIUM: Unremarkable. ORBITS: Changes of right-sided cataract surgery again noted PARANASAL SINUSES/MASTOIDS: Frontal sinuses remain hypoplastic. Few small focal areas of polypoid like mucosal thickening both maxillary antra and left chamber sphenoid sinus VASCULAR SYSTEM: Visualized major vascular flow voids at skull base patent. OTHER FINDINGS: None. IMPRESSION: No acute intracranial hemorrhage or infarct. Mild chronic white matter ischemic changes.
--- NOTE | 2018-01-25 13:25 | CP.PCM.CON ---
History of Present Illness - History of Present Illness History of Present Illness: reason for consultation: pleural effusion 66 year old female with history of hypertension, arthritis presented to emergency room with worsening headache and neck pain.. Status post biopsy of temporal artery. Patient denies cough, denies shortness of breath, denies chest pain. CAT scan of the chest consistent with small pleural effusion and bilateral nodular opacities. 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 Allergies: denies Full Code Review of Systems - Review of Systems All systems: reviewed and no additional remarkable complaints except ( complaining of headache) Past Patient History - Past Social History Smoking Status: Current Some Days Smoker - CARDIAC Hx Hypertension: Yes - HEENT Hx Cataracts: Yes - MUSCULOSKELETAL/RHEUMATOLOGICAL Hx Falls: No (denies) Hx Osteoarthritis: Yes (R>L) - PSYCHIATRIC Hx Substance Use: No - SURGICAL HISTORY Hx Surgeries: Yes Hx Cataract Extraction: Yes (01/15/18) - ANESTHESIA Hx Anesthesia: Yes Hx Anesthesia Reactions: No Meds Allergies/Adverse Reactions: Allergies Allergy/AdvReac Type Severity Reaction Status Date / Time No Known Allergies Allergy Verified 01/23/18 12:20 - Medications Medications: Current Medications Acetaminophen (Tylenol 325mg Tab) 650 mg PO Q6 PRN PRN Reason: Headache Last Admin: 01/25/18 06:14 Dose: 650 mg Heparin Sodium (Porcine) (Heparin) 5,000 units SC Q12 [facility] Vancomycin/Sodium Chloride (Vancomycin 1 Gm/Ns 200 Ml) 1 gm in 200 mls @ 133 mls/hr IVPB Q12H [facility] PRN Reason: Protocol Stop: 01/28/18 18:01 Last Admin: 01/25/18 05:54 Dose: 133 mls/hr Meropenem 500 mg/ Sodium (Chloride) 100 mls @ 100 mls/hr IVPB Q8H [facility] PRN Reason: Protocol Last Admin: 01/25/18 11:05 Dose: 100 mls/hr Ketorolac Tromethamine (Toradol) 30 mg IVP Q6 PRN Last Admin: 01/24/18 07:42 Dose: 30 mg Lactobacillus Acidophilus (Bacid Acidophilus) 1 cap PO BID COUNTS INCLUDE 234 BEDS AT THE [facility] Last Admin: 01/25/18 11:00 Dose: 1 cap Morphine Sulfate (Morphine) 2 mg IVP Q4 PRN PRN Reason: FOR SEVERE HEADACHES Last Admin: 01/25/18 07:10 Dose: 2 mg Potassium Chloride (K-Dur 20 Meq Er Tab) 40 meq PO DAILY [facility] Last Admin: 01/25/18 11:00 Dose: 40 meq Physical Exam - Head Exam Head Exam: ATRAUMATIC, NORMOCEPHALIC - ENT Exam ENT Exam: Mucous Membranes Moist - Neck Exam Neck exam: Positive for: Normal Inspection - Respiratory Exam Respiratory Exam: Clear to Auscultation Bilateral - Cardiovascular Exam Cardiovascular Exam: REGULAR RHYTHM Results - Vital Signs Recent Vital Signs: Last Vital Signs Temp 98.6 F 01/25/18 11:30 Pulse 81 01/25/18 11:30 Resp 20 01/25/18 11:30 BP 109/73 01/25/18 11:30 Pulse Ox 94 L 01/25/18 11:30 - Labs Result Diagrams: 01/25/18 08:13 01/25/18 06:53 Labs: Laboratory Results - last 24 hr 01/25/18 01/25/18 01/25/18 06:53 06:53 07:17 WBC RBC Hgb Hct MCV MCH MCHC RDW Plt Count MPV Sodium 140 Potassium 3.9 Chloride 103 Carbon Dioxide 24 Anion Gap 17 BUN 12 Creatinine 0.8 Est GFR ( Amer) > 60 Est GFR (Non-Af Amer) > 60 POC Glucose (mg/dL) 130 H Random Glucose 127 H Lactic Acid Calcium 8.7 Phosphorus 2.2 L Magnesium 2.1 Iron TIBC % Saturation Ferritin Total Bilirubin 1.1 AST 58 H D ALT 34 Alkaline Phosphatase 162 H D Total Creatine Kinase CK-MB (Mass) Troponin I C-React Prot High Sens > 15.00 H Total Protein 7.4 Albumin 3.7 Globulin 3.7 Albumin/Globulin Ratio 1.0 Procalcitonin 01/25/18 01/25/18 01/25/18 08:06 08:06 08:06 WBC RBC Hgb Hct MCV MCH MCHC RDW Plt Count MPV Sodium Potassium Chloride Carbon Dioxide Anion Gap BUN Creatinine Est GFR ( Amer) Est GFR (Non-Af Amer) POC Glucose (mg/dL) Random Glucose Lactic Acid 1.3 Calcium Phosphorus Magnesium Iron 35 L TIBC 218 L % Saturation 16 L Ferritin 528.0 Total Bilirubin AST ALT Alkaline Phosphatase Total Creatine Kinase 83 CK-MB (Mass) 0.89 Troponin I 0.0720 C-React Prot High Sens Total Protein Albumin Globulin Albumin/Globulin Ratio Procalcitonin 01/25/18 01/25/18 08:06 08:13 WBC 21.0 H RBC 2.97 L Hgb 8.3 L Hct 24.7 L MCV 83.3 MCH 27.8 MCHC 33.4 RDW 15.8 H Plt Count 280 MPV 8.6 Sodium Potassium Chloride Carbon Dioxide Anion Gap BUN Creatinine Est GFR ( Amer) Est GFR (Non-Af Amer) POC Glucose (mg/dL) Random Glucose Lactic Acid Calcium Phosphorus Magnesium Iron TIBC % Saturation Ferritin Total Bilirubin AST ALT Alkaline Phosphatase Total Creatine Kinase CK-MB (Mass) Troponin I C-React Prot High Sens Total Protein Albumin Globulin Albumin/Globulin Ratio Procalcitonin 3.89 H Assessment & Plan (1) Multiple lung nodules on CT Status: Acute Comment: Continue antibiotics. Legionella mycoplasma titers (2) Pleural effusion Status: Acute Comment: small bilateral pleural effusion. No thoracentesis. Cardiac workup
--- NOTE | 2018-01-25 13:46 | PCM.IRP ---
Objective - Vital Signs/Intake and Output Vital Signs (last 24 hours): Vital Signs - 24 hr 01/24/18 01/24/18 01/24/18 14:34 14:45 15:00 Temperature 97.4 F L Pulse Rate 77 72 67 Respiratory 21 18 19 Rate Blood Pressure 134/66 138/66 131/72 O2 Sat by Pulse 99 97 98 Oximetry 01/24/18 01/24/18 01/24/18 15:15 15:30 16:13 Temperature 94.8 F L 100.5 F H Pulse Rate 67 70 67 Respiratory 19 13 20 Rate Blood Pressure 132/71 139/70 123/58 L O2 Sat by Pulse 96 95 97 Oximetry 01/24/18 01/24/18 01/25/18 20:11 23:40 06:12 Temperature 99.2 F 98.5 F 101.6 F H Pulse Rate 73 Respiratory 16 Rate Blood Pressure 131/75 O2 Sat by Pulse 99 Oximetry 01/25/18 01/25/18 08:30 11:30 Temperature 97.3 F L 98.6 F Pulse Rate 98 H 81 Respiratory 20 20 Rate Blood Pressure 103/67 109/73 O2 Sat by Pulse 98 94 L Oximetry Intake and Output (last 12 hours): Intake & Output 01/24/18 01/25/18 01/25/18 18:59 06:59 18:59 Intake Total 1000 900 Balance 1000 900 Intake: IV 300 Intake, IV Amount 700 700 Left Forearm 700 700 Oral 200 Other: # Voids Urine, Voided 2 3 # Bowel Movements 0 0 - Medications Medications: Current Medications Acetaminophen (Tylenol 325mg Tab) 650 mg PO Q6 PRN PRN Reason: Headache Last Admin: 01/25/18 06:14 Dose: 650 mg Heparin Sodium (Porcine) (Heparin) 5,000 units SC Q12 [facility] Ceftriaxone Sodium 2 gm/ (Sodium Chloride) 100 mls @ 100 mls/hr IVPB Q12H [facility] PRN Reason: Protocol Vancomycin HCl 1 gm/ Sodium (Chloride) 250 mls @ 166.7 mls/hr IVPB Q8H [facility] PRN Reason: Protocol Ketorolac Tromethamine (Toradol) 30 mg IVP Q6 PRN Last Admin: 01/24/18 07:42 Dose: 30 mg Lactobacillus Acidophilus (Bacid Acidophilus) 1 cap PO BID [facility] Last Admin: 01/25/18 11:00 Dose: 1 cap Morphine Sulfate (Morphine) 2 mg IVP Q4 PRN PRN Reason: FOR SEVERE HEADACHES Last Admin: 01/25/18 07:10 Dose: 2 mg Potassium Chloride (K-Dur 20 Meq Er Tab) 40 meq PO DAILY [facility] Last Admin: 01/25/18 11:00 Dose: 40 meq - Labs Labs (last 24 hours): Laboratory Results - last 24 hr 01/25/18 01/25/18 01/25/18 06:53 06:53 07:17 WBC RBC Hgb Hct MCV MCH MCHC RDW Plt Count MPV Sodium 140 Potassium 3.9 Chloride 103 Carbon Dioxide 24 Anion Gap 17 BUN 12 Creatinine 0.8 Est GFR ( Amer) > 60 Est GFR (Non-Af Amer) > 60 POC Glucose (mg/dL) 130 H Random Glucose 127 H Lactic Acid Calcium 8.7 Phosphorus 2.2 L Magnesium 2.1 Iron TIBC % Saturation Ferritin Total Bilirubin 1.1 AST 58 H D ALT 34 Alkaline Phosphatase 162 H D Total Creatine Kinase CK-MB (Mass) Troponin I C-React Prot High Sens > 15.00 H Total Protein 7.4 Albumin 3.7 Globulin 3.7 Albumin/Globulin Ratio 1.0 Procalcitonin 01/25/18 01/25/18 01/25/18 08:06 08:06 08:06 WBC RBC Hgb Hct MCV MCH MCHC RDW Plt Count MPV Sodium Potassium Chloride Carbon Dioxide Anion Gap BUN Creatinine Est GFR ( Amer) Est GFR (Non-Af Amer) POC Glucose (mg/dL) Random Glucose Lactic Acid 1.3 Calcium Phosphorus Magnesium Iron 35 L TIBC 218 L % Saturation 16 L Ferritin 528.0 Total Bilirubin AST ALT Alkaline Phosphatase Total Creatine Kinase 83 CK-MB (Mass) 0.89 Troponin I 0.0720 C-React Prot High Sens Total Protein Albumin Globulin Albumin/Globulin Ratio Procalcitonin 01/25/18 01/25/18 08:06 08:13 WBC 21.0 H RBC 2.97 L Hgb 8.3 L Hct 24.7 L MCV 83.3 MCH 27.8 MCHC 33.4 RDW 15.8 H Plt Count 280 MPV 8.6 Sodium Potassium Chloride Carbon Dioxide Anion Gap BUN Creatinine Est GFR ( Amer) Est GFR (Non-Af Amer) POC Glucose (mg/dL) Random Glucose Lactic Acid Calcium Phosphorus Magnesium Iron TIBC % Saturation Ferritin Total Bilirubin AST ALT Alkaline Phosphatase Total Creatine Kinase CK-MB (Mass) Troponin I C-React Prot High Sens Total Protein Albumin Globulin Albumin/Globulin Ratio Procalcitonin 3.89 H Assessment/Plan - Assessment and Plan (Free Text) Assessment: D/W Dr. Verma. No thoracentesis at this time.
[2018-01-25] MEDS ORDERED: Lidocaine 2% Inj (20ml) IV STA (14:47)
--- NOTE | 2018-01-25 17:41 | CARD ---
APPROVED REPORT Date of service: 01/25/2018 EKG Measurement Heart [id number] MI [id number] <Conclusion> Normal sinus rhythm Left bundle branch block Abnormal ECG
[2018-01-25 17:49] LABS: FLUID TYPE SPINAL FLUID
[2018-01-25 18:49] LABS: N MENINGITIS ACY/W135 NEGATIVE (NEGATIVE); N MENINGITIS B/ECOLI K1 NEGATIVE (NEGATIVE); STREP PNEUMONIAE NEGATIVE (NEGATIVE); STREPTOCOCCUS B NEGATIVE (NEGATIVE)
[2018-01-25] MEDS: HYDROmorphone 1 mg/ml ISec IVP PRN (18:54)
[2018-01-25 19:06] LABS: CSF APPEARANCE CLEAR/COLORLESS (CLEAR); CSF VOLUME 1 mL (0-1)
[2018-01-25 19:07] LABS: CSF MONO/MACROPHAGE 6 % (0-0)
--- NOTE | 2018-01-25 19:27 | CP.PCM.PN ---
Subjective - Date & Time of Evaluation Date of Evaluation: 01/25/18 Time of Evaluation: 07:00 - Subjective Subjective: awake alert oriented x 3 c/o head and neck pain 'MRI noted CSF pending blood c/s+ r/o endocarditis, r/o epidural abscess ? IV rx renewed Objective - Vital Signs/Intake and Output Vital Signs (last 24 hours): Temp Pulse Resp BP Pulse Ox 98.5 F 96 H 20 118/76 91 L 01/25/18 16:00 01/25/18 16:00 01/25/18 16:00 01/25/18 16:00 01/25/18 16:00 - Medications Medications: Current Medications Acetaminophen (Tylenol 325mg Tab) 650 mg PO Q6 PRN PRN Reason: Headache Last Admin: 01/25/18 06:14 Dose: 650 mg Heparin Sodium (Porcine) (Heparin) 5,000 units SC Q12 [facility] Hydromorphone HCl (Dilaudid) 1 mg IVP Q4H PRN PRN Reason: Pain, severe (8-10) Last Admin: 01/25/18 18:54 Dose: 1 mg Ceftriaxone Sodium 2 gm/ (Sodium Chloride) 100 mls @ 100 mls/hr IVPB Q12H [facility] PRN Reason: Protocol Last Admin: 01/25/18 17:00 Dose: 100 mls/hr Vancomycin/Sodium Chloride (Vancomycin 1 Gm/Ns 200 Ml) 1 gm in 200 mls @ 133.333 mls/hr IVPB Q8H [facility] PRN Reason: Protocol Last Admin: 01/25/18 15:07 Dose: 133.333 mls/hr Sodium Chloride (Sodium Chloride 0.9%) 1,000 mls @ 70 mls/hr IV .[id number] [facility] Last Admin: 01/25/18 15:08 Dose: 70 mls/hr Lactobacillus Acidophilus (Bacid Acidophilus) 1 cap PO BID [facility] Last Admin: 01/25/18 18:54 Dose: 1 cap Morphine Sulfate (Morphine) 2 mg IVP Q4 PRN PRN Reason: FOR SEVERE HEADACHES Last Admin: 01/25/18 14:07 Dose: 2 mg Potassium Chloride (K-Dur 20 Meq Er Tab) 40 meq PO DAILY [facility] Last Admin: 01/25/18 11:00 Dose: 40 meq - Labs Labs: 01/25/18 08:13 01/25/18 06:53 PT 13.5 SECONDS (9.7-12.2) H 01/24/18 05:05 INR 1.2 01/24/18 05:05 APTT 34 SECONDS (21-34) 01/24/18 05:05 - Constitutional Appears: Non-toxic, Chronically Ill - Head Exam Head Exam: NORMOCEPHALIC - Eye Exam Eye Exam: PERRL - ENT Exam ENT Exam: Mucous Membranes Dry - Neck Exam Neck Exam: absent: Lymphadenopathy - Respiratory Exam Respiratory Exam: Decreased Breath Sounds - Cardiovascular Exam Cardiovascular Exam: REGULAR RHYTHM - GI/Abdominal Exam GI & Abdominal Exam: Distended, Soft - Rectal Exam Rectal Exam: Deferred - Exam Exam: NORMAL INSPECTION Assessment and Plan (1) Fever Status: Acute (2) Headache Status: Acute (3) Leukocytosis Status: Acute - Assessment and Plan (Free Text) Assessment: awake alert oriented x 3 c/o head and neck pain 'MRI noted CSF pending blood c/s+ r/o endocarditis, r/o epidural abscess ? IV rx renewed
--- NOTE | 2018-01-25 20:19 | CP.PCM.CON ---
History of Present Illness - History of Present Illness History of Present Illness: Attending: Dr Santiago ID: Dr [id number] Reason for Consult: Evaluation For ICU transfer Chief Complaint: Headache/Neck pain The patient was seen and examined on the Med/surg unit 5th floor HPI: 67 yearsold female with hx of HTN and Arthritis, underwent Cataract surgery on 01/15/18 and developed headache and neck pain since.She was admitted to the [facility] on 01/23/18 for the same. Temporal Artery Biopsy was done on 01/24/18 and Spinal tap was done on 01/25/18. Today the patient continues to complain of severe headaches, neck pain and some pain at the region of the Spinal Tap. At this exam she has finished eating and is on the phone talking to family with no respiratory distress, but states that the headache is intense. No nausea, vomits, dizziness. No chest pain nor Palpitation. PMH: HTN, Arthritis PSH: Cataract Surgery on 01/15/18 SH: No Cigarette Smoking; No illegal drug use; occasional Alcohol FH: States: Unknown family hx Allergies: NKDA Medication: Reviewed. HPI: As per H&P all other systems are negative EXAM: General: Awale alert, oriented in no respiratory distress Resp: Good air entry , no rales, wheezing nor rhonchi CVS: S1 S2 RRR no S3 S4 Abdomen: Full, Soft, Non Tender, normal bowel sounds Ext: No edema, nontender Neuro: No Focal neurological findings A&P #. Headache with neck pain etiology unclear - Temproal Artery bx done 01/24/18n awaiting results - Spinal tap done 01/25/18 awaiting results - Continue Dilaudid and Morphine for Headachea and neck pain. - Ativan 0.5 IV one dose. May repeat if some improvement - Continue Antibiotics #. UTI with urine culture growing Citrobactor - Continue Ceftriaxone #. Gm +ve cocci bacteremia - Continue Vancomycin This patient with severe headaches and neck pain for the past 8+3, was given an extra dose of Dilaudid 1mg and Ativan 0.5mg IV. At present she She could continue treatment on the Med/Surg unit . No need for ICU transfer at present. Past Patient History - Past Social History Smoking Status: Current Some Days Smoker - CARDIAC Hx Hypertension: Yes - HEENT Hx Cataracts: Yes - MUSCULOSKELETAL/RHEUMATOLOGICAL Hx Falls: No (denies) Hx Osteoarthritis: Yes (R>L) - PSYCHIATRIC Hx Substance Use: No - SURGICAL HISTORY Hx Surgeries: Yes Hx Cataract Extraction: Yes (01/15/18) - ANESTHESIA Hx Anesthesia: Yes Hx Anesthesia Reactions: No Meds Allergies/Adverse Reactions: Allergies Allergy/AdvReac Type Severity Reaction Status Date / Time No Known Allergies Allergy Verified 01/23/18 12:20 - Medications Medications: Current Medications Acetaminophen (Tylenol 325mg Tab) 650 mg PO Q6 PRN PRN Reason: Headache Last Admin: 01/25/18 06:14 Dose: 650 mg Heparin Sodium (Porcine) (Heparin) 5,000 units SC Q12 [facility] Hydromorphone HCl (Dilaudid) 1 mg IVP Q4H PRN PRN Reason: Pain, severe (8-10) Last Admin: 01/25/18 18:54 Dose: 1 mg Ceftriaxone Sodium 2 gm/ (Sodium Chloride) 100 mls @ 100 mls/hr IVPB Q12H [facility] PRN Reason: Protocol Last Admin: 01/25/18 17:00 Dose: 100 mls/hr Vancomycin/Sodium Chloride (Vancomycin 1 Gm/Ns 200 Ml) 1 gm in 200 mls @ 133.333 mls/hr IVPB Q8H [facility] PRN Reason: Protocol Last Admin: 01/25/18 15:07 Dose: 133.333 mls/hr Sodium Chloride (Sodium Chloride 0.9%) 1,000 mls @ 70 mls/hr IV .[id number] [facility] Last Admin: 01/25/18 15:08 Dose: 70 mls/hr Lactobacillus Acidophilus (Bacid Acidophilus) 1 cap PO BID [facility] Last Admin: 01/25/18 18:54 Dose: 1 cap Lorazepam (Ativan) 0.5 mg IVP ONCE ONE Stop: 01/25/18 20:17 Morphine Sulfate (Morphine) 2 mg IVP Q4 PRN PRN Reason: FOR SEVERE HEADACHES Last Admin: 01/25/18 14:07 Dose: 2 mg Potassium Chloride (K-Dur 20 Meq Er Tab) 40 meq PO DAILY [facility] Last Admin: 01/25/18 11:00 Dose: 40 meq Results - Vital Signs Recent Vital Signs: Last Vital Signs Temp 98.5 F 01/25/18 16:00 Pulse 96 H 01/25/18 16:00 Resp 20 01/25/18 16:00 BP 118/76 01/25/18 16:00 Pulse Ox 91 L 01/25/18 16:00 - Labs Result Diagrams: 01/25/18 08:13 01/25/18 06:53 Labs: Laboratory Results - last 24 hr 01/25/18 01/25/18 01/25/18 06:53 06:53 07:17 WBC RBC Hgb Hct MCV MCH MCHC RDW Plt Count MPV Sodium 140 Potassium 3.9 Chloride 103 Carbon Dioxide 24 Anion Gap 17 BUN 12 Creatinine 0.8 Est GFR ( Amer) > 60 Est GFR (Non-Af Amer) > 60 POC Glucose (mg/dL) 130 H Random Glucose 127 H Lactic Acid Calcium 8.7 Phosphorus 2.2 L Magnesium 2.1 Iron TIBC % Saturation Ferritin Total Bilirubin 1.1 AST 58 H D ALT 34 Alkaline Phosphatase 162 H D Total Creatine Kinase CK-MB (Mass) Troponin I C-React Prot High Sens > 15.00 H Total Protein 7.4 Albumin 3.7 Globulin 3.7 Albumin/Globulin Ratio 1.0 Procalcitonin Fluid Type CSF Volume CSF Appearance CSF WBC CSF RBC CSF Total Cell Counted CSF Neutrophils CSF Lymphocytes CSF Monos/Macrophages CSF Comment CSF Glucose CSF Total Protein CSF Cryptococcus Ag H.influenzae Type B Ag N.meningitidis ACY/W135 N.meningi B/E.coli K1 Ag Group B Strep Antigen S. pneumoniae Antigen 01/25/18 01/25/18 01/25/18 08:06 08:06 08:06 WBC RBC Hgb Hct MCV MCH MCHC RDW Plt Count MPV Sodium Potassium Chloride Carbon Dioxide Anion Gap BUN Creatinine Est GFR ( Amer) Est GFR (Non-Af Amer) POC Glucose (mg/dL) Random Glucose Lactic Acid 1.3 Calcium Phosphorus Magnesium Iron 35 L TIBC 218 L % Saturation 16 L Ferritin 528.0 Total Bilirubin AST ALT Alkaline Phosphatase Total Creatine Kinase 83 CK-MB (Mass) 0.89 Troponin I 0.0720 C-React Prot High Sens Total Protein Albumin Globulin Albumin/Globulin Ratio Procalcitonin Fluid Type CSF Volume CSF Appearance CSF WBC CSF RBC CSF Total Cell Counted CSF Neutrophils CSF Lymphocytes CSF Monos/Macrophages CSF Comment CSF Glucose CSF Total Protein CSF Cryptococcus Ag H.influenzae Type B Ag N.meningitidis ACY/W135 N.meningi B/E.coli K1 Ag Group B Strep Antigen S. pneumoniae Antigen 01/25/18 01/25/18 01/25/18 08:06 08:13 15:13 WBC 21.0 H RBC 2.97 L Hgb 8.3 L Hct 24.7 L MCV 83.3 MCH 27.8 MCHC 33.4 RDW 15.8 H Plt Count 280 MPV 8.6 Sodium Potassium Chloride Carbon Dioxide Anion Gap BUN Creatinine Est GFR ( Amer) Est GFR (Non-Af Amer) POC Glucose (mg/dL) Random Glucose Lactic Acid Calcium Phosphorus Magnesium Iron TIBC % Saturation Ferritin Total Bilirubin AST ALT Alkaline Phosphatase Total Creatine Kinase CK-MB (Mass) Troponin I C-React Prot High Sens Total Protein Albumin Globulin Albumin/Globulin Ratio Procalcitonin 3.89 H Fluid Type CSF Volume CSF Appearance CSF WBC CSF RBC CSF Total Cell Counted CSF Neutrophils CSF Lymphocytes CSF Monos/Macrophages CSF Comment CSF Glucose 74 H CSF Total Protein CSF Cryptococcus Ag H.influenzae Type B Ag N.meningitidis ACY/W135 N.meningi B/E.coli K1 Ag Group B Strep Antigen S. pneumoniae Antigen 01/25/18 01/25/18 01/25/18 15:13 17:47 17:47 WBC RBC Hgb Hct MCV MCH MCHC RDW Plt Count MPV Sodium Potassium Chloride Carbon Dioxide Anion Gap BUN Creatinine Est GFR ( Amer) Est GFR (Non-Af Amer) POC Glucose (mg/dL) Random Glucose Lactic Acid Calcium Phosphorus Magnesium Iron TIBC % Saturation Ferritin Total Bilirubin AST ALT Alkaline Phosphatase Total Creatine Kinase CK-MB (Mass) Troponin I C-React Prot High Sens Total Protein Albumin Globulin Albumin/Globulin Ratio Procalcitonin Fluid Type Spinal fluid CSF Volume 1 CSF Appearance Clear/colorless CSF WBC 93.0 H CSF RBC 12.0 H CSF Total Cell Counted 100 H CSF Neutrophils 74 H CSF Lymphocytes 18.0 H CSF Monos/Macrophages 6 H CSF Comment CSF Glucose CSF Total Protein 90.0 H CSF Cryptococcus Ag H.influenzae Type B Ag Negative N.meningitidis ACY/W135 Negative N.meningi B/E.coli K1 Ag Negative Group B Strep Antigen Negative S. pneumoniae Antigen Negative 01/25/18 17:47 WBC RBC Hgb Hct MCV MCH MCHC RDW Plt Count MPV Sodium Potassium Chloride Carbon Dioxide Anion Gap BUN Creatinine Est GFR ( Amer) Est GFR (Non-Af Amer) POC Glucose (mg/dL) Random Glucose Lactic Acid Calcium Phosphorus Magnesium Iron TIBC % Saturation Ferritin Total Bilirubin AST ALT Alkaline Phosphatase Total Creatine Kinase CK-MB (Mass) Troponin I C-React Prot High Sens Total Protein Albumin Globulin Albumin/Globulin Ratio Procalcitonin Fluid Type CSF Volume CSF Appearance CSF WBC CSF RBC CSF Total Cell Counted CSF Neutrophils CSF Lymphocytes CSF Monos/Macrophages CSF Comment CSF Glucose CSF Total Protein CSF Cryptococcus Ag Negative H.influenzae Type B Ag N.meningitidis ACY/W135 N.meningi B/E.coli K1 Ag Group B Strep Antigen S. pneumoniae Antigen Assessment & Plan - Date & Time Date: 01/25/18 Time: 20:19
[2018-01-25 22:03] LABS: ABG ALLEN TEST POS; ARTERIAL BLOOD GAS HCO3 25.4 mmol/L (21-28); ARTERIAL BLOOD GAS O2 SAT 96.9 % (95-98); ARTERIAL BLOOD GAS PCO2 35 mm/Hg (35-45); ARTERIAL BLOOD GAS PH 7.45 (7.35-7.45); ARTERIAL BLOOD GAS PO2 66 mm/Hg (80-100); ARTERIAL BLOOD GAS TCO2 25.4 mmol/L (22-28)
[2018-01-26] MEDS: Sodium Chloride 0.9% 1,000 ML IV SCH ×2 (05:16→13:50)
[2018-01-26 05:46] LABS: BASO # 0.1 K/uL (0.0-0.2); BASO % 0.3 % (0.0-2.0); HEMOGLOBIN 7.8 g/dL (11.0-16.0); LYMPH # 3.3 K/uL (1.0-4.3); LYMPH % 12.5 % (20.0-40.0); MEAN CELL VOLUME 84.2 fL (81.0-99.0); MEAN CORPUSCULAR HGB CONC 33.2 g/dL (33.0-37.0); MEAN PLATELET VOLUME 8.2 fL (7.2-11.7); MONO # 2.3 K/uL (0.0-0.8); MONO % 8.5 % (0.0-10.0); NEUT # 20.9 K/uL (1.8-7.0); NEUT % 78.7 % (50.0-75.0); RBC 2.77 Mil/uL (3.80-5.20); RED CELL DISTRIBUTION WIDTH 16.2 % (11.5-14.5); WHITE BLOOD COUNT 26.5 K/uL (4.8-10.8)
[2018-01-26 06:30] LABS: ALB/GLOB RATIO 0.9 (1.0-2.1); ALT/SGPT 28 U/L (9-52); AST/SGOT 28 U/L (14-36); BLOOD UREA NITROGEN 11 mg/dL (7-17); CALCIUM 8.3 mg/dl (8.6-10.4); GFR NON-AFRICAN AMERICAN > 60
--- NOTE | 2018-01-26 08:02 | CP.PCM.PN ---
Subjective - Date & Time of Evaluation Date of Evaluation: 01/25/18 Time of Evaluation: 14:00 - Subjective Subjective: Patient in severe pain post biopsy. Headache and neck pain 10/10. LP performed under sterile conditions with anesthesia and Dr Santiago help. Appreciate assistance. Patient tolerated procedure and specimen sent for analysis. on exam; Normal neurologic exam except for neck stiffness. Objective - Vital Signs/Intake and Output Vital Signs (last 24 hours): Temp Pulse Resp BP Pulse Ox 99.2 F 91 H 20 127/81 96 01/26/18 07:00 01/26/18 07:00 01/26/18 07:00 01/26/18 07:00 01/26/18 07:00 Intake and Output: 01/26/18 01/26/18 06:59 18:59 Output Total 550 Balance -550 - Medications Medications: Current Medications Acetaminophen (Tylenol 325mg Tab) 650 mg PO Q6 PRN PRN Reason: Headache Last Admin: 01/26/18 00:51 Dose: 650 mg Heparin Sodium (Porcine) (Heparin) 5,000 units SC Q12 [facility] Last Admin: 01/25/18 22:21 Dose: Not Given Hydromorphone HCl (Dilaudid) 1 mg IVP Q4H PRN PRN Reason: Pain, severe (8-10) Last Admin: 01/25/18 18:54 Dose: 1 mg Ceftriaxone Sodium 2 gm/ (Sodium Chloride) 100 mls @ 100 mls/hr IVPB Q12H [facility] PRN Reason: Protocol Last Admin: 01/26/18 03:15 Dose: 100 mls/hr Vancomycin/Sodium Chloride (Vancomycin 1 Gm/Ns 200 Ml) 1 gm in 200 mls @ 133.333 mls/hr IVPB Q8H [facility] PRN Reason: Protocol Last Admin: 01/25/18 22:46 Dose: 133.333 mls/hr Sodium Chloride (Sodium Chloride 0.9%) 1,000 mls @ 70 mls/hr IV .[id number] [facility] Last Admin: 01/26/18 05:16 Dose: Not Given Lactobacillus Acidophilus (Bacid Acidophilus) 1 cap PO BID [facility] Last Admin: 01/25/18 18:54 Dose: 1 cap Morphine Sulfate (Morphine) 2 mg IVP Q4 PRN PRN Reason: FOR SEVERE HEADACHES Last Admin: 01/25/18 14:07 Dose: 2 mg Potassium Chloride (K-Dur 20 Meq Er Tab) 40 meq PO DAILY [facility] Last Admin: 01/25/18 11:00 Dose: 40 meq - Labs Labs: 01/26/18 05:43 01/26/18 05:43 PT 13.5 SECONDS (9.7-12.2) H 01/24/18 05:05 INR 1.2 01/24/18 05:05 APTT 34 SECONDS (21-34) 01/24/18 05:05 Assessment and Plan - Assessment and Plan (Free Text) Assessment: 67 yr old woman who has urosepsis bu may also have meningtis. LP performed and specimen sent. please place patient flat and bedrest for 12-20 hours. pain management with dialudid. THank you dr li
[2018-01-26] MEDS: Vancomycin 1 gm/NS 200 ml 1 GM/200 ML BAG IVPB SCH ×3 (08:53→21:40)
[2018-01-26] MEDS: Potassium Chloride 20 mEq ER Tab PO SCH (10:01)
[2018-01-26] MEDS: HYDROmorphone 1 mg/ml ISec IVP PRN ×3 (10:02→23:29)
[2018-01-26] MEDS: Lactobacillus Acidophilus 500 MU Cap PO SCH ×2 (10:02→17:29)
--- NOTE | 2018-01-26 11:21 | CP.PCM.PN ---
<Shahram Becerra - Last Filed: 01/26/18 14:25> Subjective - Date & Time of Evaluation Date of Evaluation: 01/26/18 Time of Evaluation: 11:21 - Subjective Subjective: Pt seen and evaluated at bedside. Pt is still complaining of 10/10 headache. Pt not responding to analgesics. Pt scheduled for MRI of neck today to r/o epidural abscess. Pt denies any cp, sob, n/v, wheezing, sweating. Objective - Vital Signs/Intake and Output Vital Signs (last 24 hours): Temp Pulse Resp BP Pulse Ox 99.2 F 91 H 20 127/81 96 01/26/18 07:00 01/26/18 07:00 01/26/18 07:00 01/26/18 07:00 01/26/18 07:00 Intake and Output: 01/26/18 01/26/18 06:59 18:59 Output Total 550 Balance -550 - Medications Medications: Current Medications Acetaminophen (Tylenol 325mg Tab) 650 mg PO Q6 PRN PRN Reason: Headache Last Admin: 01/26/18 00:51 Dose: 650 mg Heparin Sodium (Porcine) (Heparin) 5,000 units SC Q12 [facility] Last Admin: 01/26/18 10:02 Dose: 5,000 units Hydromorphone HCl (Dilaudid) 1 mg IVP Q4H PRN PRN Reason: Pain, severe (8-10) Last Admin: 01/26/18 10:02 Dose: 1 mg Ceftriaxone Sodium 2 gm/ (Sodium Chloride) 100 mls @ 100 mls/hr IVPB Q12H [facility] PRN Reason: Protocol Last Admin: 01/26/18 03:15 Dose: 100 mls/hr Vancomycin/Sodium Chloride (Vancomycin 1 Gm/Ns 200 Ml) 1 gm in 200 mls @ 133.333 mls/hr IVPB Q8H [facility] PRN Reason: Protocol Last Admin: 01/26/18 08:53 Dose: 133.333 mls/hr Sodium Chloride (Sodium Chloride 0.9%) 1,000 mls @ 70 mls/hr IV .[id number] [facility] Last Admin: 01/26/18 05:16 Dose: Not Given Lactobacillus Acidophilus (Bacid Acidophilus) 1 cap PO BID [facility] Last Admin: 01/26/18 10:02 Dose: 1 cap Morphine Sulfate (Morphine) 2 mg IVP Q4 PRN PRN Reason: FOR SEVERE HEADACHES Last Admin: 01/26/18 08:57 Dose: 2 mg Potassium Chloride (K-Dur 20 Meq Er Tab) 40 meq PO DAILY [facility] Last Admin: 01/26/18 10:01 Dose: 40 meq - Labs Labs: 01/26/18 05:43 01/26/18 05:43 PT 13.5 SECONDS (9.7-12.2) H 01/24/18 05:05 INR 1.2 01/24/18 05:05 APTT 34 SECONDS (21-34) 01/24/18 05:05 - Additional Findings Additional findings: - Constitutional Appears: Non-toxic, In Acute Distress - Head Exam Head Exam: ATRAUMATIC, NORMAL INSPECTION - Eye Exam Eye Exam: EOMI, Normal appearance. absent: Scleral icterus Additional comments: no opacity - ENT Exam ENT Exam: Mucous Membranes Moist, Normal Exam - Neck Exam Neck exam: Positive for: Normal Inspection. Negative for: Thyromegaly Additional comments: neg nuchal rigid, pos stiffness, pain with sidebending and rotation bilateral - Respiratory Exam Additional comments: Loud harsh breath sounds - Cardiovascular Exam Cardiovascular Exam: RRR, +S1, +S2. absent: Diastolic murmur, Systolic Murmur - GI/Abdominal Exam GI & Abdominal Exam: Soft. absent: Rebound, Rigid, Tenderness - Extremities Exam Extremities exam: Positive for: normal inspection Additional comments: neg straight leg raise, neg nuchal rigitiy - Back Exam Back exam: NORMAL INSPECTION, mild tenderness upon palpation of L paraspinals - Neurological Exam Neurological exam: Alert, CN II-XII Intact, Normal Gait, Oriented x3 - Psychiatric Exam Psychiatric exam: Normal Affect, Normal Mood - Skin Skin Exam: Dry, Intact, Normal Color, Warm Assessment and Plan - Assessment and Plan (Free Text) Assessment: 03/13 Headache -Toradol 30mg PRN -morphine 2g q4 prn -dilaudid 1g ivp once -Tylenol 650mg PRN -MRA w/o contrast: Neg -Head CT: neg for acute changes -CTA: multiple small infarcts, possible septic emboli r/o infex -MRI Brain: mild chronic white matter changes -MRA Neck: pending Bacteremia -Gram pos cocci on Blood cultures -ID consulted (NIKHIL) recs appreciated: -f/u Lumbar puncture with CSF viral, bacterial, fungal serology/cultures -f/u cytology -H 90protein -H 74 glucose -H WBC 93 (neutrophils 74, lymphocytes 18) -Vanco 1g q12 (trough 16 H) -Meropenem 500mg q8 -IVF 100ml/hr NS Possible Temporal Arteritis -ESR 114 -WBC 26 -Decadron 4mg second dose -100ml/hr NS IVF -neg MRA -Vasc Sx consulted Dr. Orozco: f/u Temporal Artery Bx -echo: EF 55%, mild pulmonic, Mitral and tricuspid regurgitation, mild pulm htn UTI -Vanco 1g q12 IV: trough tmrw 4am -meropenem 500mg q8 IV -UA pos -Urine Cultures citrinobacter: sensitive to ertapenem and cipro -100ml/hr NS IVF -procal 3.89 down from 8.08 -CT abd pelv: cholelithiasis, Ventral hernia, no hydronephrosis but cant r/o pyelo Hypokalemia -resolved -K-dur 40 -monitor PPX: -Heparin 5000u BID -ASA 81mgs -SCDs Dispo: pt pending results of MRA neck to r/o epidural abscess. note: Pt had ophtho procedure at [facility] office of Judy <Sky Santiago H - Last Filed: 01/26/18 15:04> Objective - Vital Signs/Intake and Output Vital Signs (last 24 hours): Temp Pulse Resp BP Pulse Ox 99.2 F 91 H 20 127/81 96 01/26/18 07:00 01/26/18 07:00 01/26/18 07:00 01/26/18 07:00 01/26/18 07:00 Intake and Output: 01/26/18 01/26/18 06:59 18:59 Output Total 550 Balance -550 - Medications Medications: Current Medications Acetaminophen (Tylenol 325mg Tab) 650 mg PO Q6 PRN PRN Reason: Headache Last Admin: 01/26/18 00:51 Dose: 650 mg Heparin Sodium (Porcine) (Heparin) 5,000 units SC Q12 [facility] Last Admin: 01/26/18 10:02 Dose: 5,000 units Hydromorphone HCl (Dilaudid) 1 mg IVP Q4H PRN PRN Reason: Pain, severe (8-10) Last Admin: 01/26/18 14:28 Dose: 1 mg Ceftriaxone Sodium 2 gm/ (Sodium Chloride) 100 mls @ 100 mls/hr IVPB Q12H [facility] PRN Reason: Protocol Last Admin: 01/26/18 03:15 Dose: 100 mls/hr Vancomycin/Sodium Chloride (Vancomycin 1 Gm/Ns 200 Ml) 1 gm in 200 mls @ 133.333 mls/hr IVPB Q8H [facility] PRN Reason: Protocol Last Admin: 01/26/18 13:49 Dose: 133.333 mls/hr Sodium Chloride (Sodium Chloride 0.9%) 1,000 mls @ 70 mls/hr IV .[id number] [facility] Last Admin: 01/26/18 13:50 Dose: 70 mls/hr Lactobacillus Acidophilus (Bacid Acidophilus) 1 cap PO BID [facility] Last Admin: 01/26/18 10:02 Dose: 1 cap Morphine Sulfate (Morphine) 2 mg IVP Q4 PRN PRN Reason: FOR SEVERE HEADACHES Last Admin: 01/26/18 13:12 Dose: 2 mg Potassium Chloride (K-Dur 20 Meq Er Tab) 40 meq PO DAILY [facility] Last Admin: 01/26/18 10:01 Dose: 40 meq - Labs Labs: 01/26/18 05:43 01/26/18 05:43 PT 13.5 SECONDS (9.7-12.2) H 01/24/18 05:05 INR 1.2 01/24/18 05:05 APTT 34 SECONDS (21-34) 01/24/18 05:05 Attending/Attestation - Attestation I have personally seen and examined this patient.: Yes I have fully participated in the care of the patient.: Yes I have reviewed all pertinent clinical information, including history, physical exam and plan: Yes Notes (Text): 01/26/18 14:42 Medical attending: Patient was seen and examined by me as well. Agree with the above note by the resident As mentioned previously this is a 67 year old female who several weeks ago was in her usuall state of health, recent cataract surgery and then reported intermittent headaches, chills, and fevers. She came to [facility] on 01/23 with severe headache on the temporal area of her head as well as severe neck stiffness. She has always denied photophobia. She remains AAO x3 and follows commands on exam. The patient this morning reported the headaches were ongoing. She also still has the neck pain and neck stiff ness as well. Her Tmax was 100.4 Some of the CSF studies returned and showed that there was a high number of WBC as well as high neutrophils and high lymphocytes. She remains on the IV Vancomycin and now on IV Rocpehin. She remains on IVF and we continue to have the patient on pain medication for the neck pain she is having. She still has a high serum WBC, procalcitonin did decrease. The urine culture from 01/23 was positive for citrobacter diversus Blood cultures from 01/23 are positive for streptococcus viridans CTA of the neck and CT of the chest with dissection protocol were done and were negative for dissection, anurysm, and malformations which may explain the ongoing headaches. There were of note small areas of the lung which maybe inflmmatory/infection/malignancy MRI of the brain was negative for CVA and hemmorage. MRA of the brain was unremarkable MRA of the neck was done but is pending results. 2Decho was done and did not report valvular vegeations/endocarditis We are still pending the temporal area biopsy to result. But she is off of the IV decadron as at this moment we are concerned for infection We need to conitnue to monitor her carefully as she remains sepsis with positive blood and urine cultures and pending further return of CSF studies. thank you Sky Santiago
--- NOTE | 2018-01-26 15:44 | MRI ---
Date of service: 01/26/2018 PROCEDURE: MR Angiography of the neck without contrast HISTORY: r/o epidural abscess COMPARISON: None available. TECHNIQUE: 3D [id number] angiography of the neck was performed. Rotating maximum intensity projection images of the cervical carotid and vertebral arteries were generated. The origins of the common carotid arteries were not visualized, which is a limitation inherent to the non-contrast time of flight technique. FINDINGS: Examination significantly compromised by extensive motion related artifacts. RIGHT CAROTID ARTERIES: The right common and internal carotid arteries are likely patent however due to motion artifacts, is difficult to evaluate for potential stenoses. Follow-up CT angiography is recommended. LEFT CAROTID ARTERIES: The left common and internal carotid arteries are likely patent however due to motion artifacts, is difficult to evaluate for potential stenoses. Follow-up CT angiography is recommended. VERTEBRAL ARTERIES: The bilateral vertebral arteries are patent however is difficult to exclude a high-grade stenoses at the distal cervical segments due to motion artifacts. Follow-up CT angiogram of the neck is advised. OTHER FINDINGS: None. IMPRESSION: Suboptimal examination due to motion artifacts with the major cervical arteries likely patent. It is impossible to determine potential stenoses due to motion artifacts however, particularly the distal right vertebral artery. Follow-up CT angiography of the neck is recommended for added evaluation if patient is able to maintain stable position.
[2018-01-27] MEDS ORDERED: guaiFENesin 100 mg/5 ml Syrup UD PO STA (04:29)
[2018-01-27] MEDS: Vancomycin 1 gm/NS 200 ml 1 GM/200 ML BAG IVPB SCH (05:29)
[2018-01-27 07:25] LABS: BASO # 0.1 K/uL (0.0-0.2); EOS # 0.1 K/uL (0.0-0.7); EOS % 0.2 % (0.0-4.0); HEMOGLOBIN 7.6 g/dL (11.0-16.0); RED CELL DISTRIBUTION WIDTH 15.7 % (11.5-14.5)
[2018-01-27 07:47] LABS: BASO % 0.4 % (0.0-2.0); LYMPH # 2.8 K/uL (1.0-4.3); LYMPH % 10.2 % (20.0-40.0); MEAN CELL VOLUME 84.1 fL (81.0-99.0); MEAN CORPUSCULAR HGB CONC 33.3 g/dL (33.0-37.0); MEAN PLATELET VOLUME 8.6 fL (7.2-11.7); MONO # 1.6 K/uL (0.0-0.8); MONO % 5.8 % (0.0-10.0); NEUT % 83.4 % (50.0-75.0); RBC 2.72 Mil/uL (3.80-5.20); WHITE BLOOD COUNT 27.6 K/uL (4.8-10.8)
[2018-01-27 07:56] LABS: ALB/GLOB RATIO 0.9 (1.0-2.1); ALT/SGPT 35 U/L (9-52); AST/SGOT 40 U/L (14-36); BLOOD UREA NITROGEN 9 mg/dL (7-17); CALCIUM 8.1 mg/dl (8.6-10.4); GFR NON-AFRICAN AMERICAN > 60
--- NOTE | 2018-01-27 08:23 | CP.PCM.PN ---
Objective - Vital Signs/Intake and Output Vital Signs (last 24 hours): Temp Pulse Resp BP Pulse Ox 100.1 F H 89 18 122/79 96 01/27/18 07:54 01/27/18 07:54 01/27/18 07:54 01/27/18 07:54 01/27/18 07:54 Intake and Output: 01/27/18 01/27/18 06:59 18:59 Intake Total 590 Output Total 500 Balance 90 - Medications Medications: Current Medications Acetaminophen (Tylenol 325mg Tab) 650 mg PO Q6 PRN PRN Reason: Headache Last Admin: 01/27/18 06:44 Dose: 650 mg Heparin Sodium (Porcine) (Heparin) 5,000 units SC Q12 [facility] Last Admin: 01/26/18 21:41 Dose: 5,000 units Hydromorphone HCl (Dilaudid) 1 mg IVP Q4H PRN PRN Reason: Pain, severe (8-10) Last Admin: 01/26/18 23:29 Dose: 1 mg Ceftriaxone Sodium 2 gm/ (Sodium Chloride) 100 mls @ 100 mls/hr IVPB Q12H [facility] PRN Reason: Protocol Last Admin: 01/27/18 04:19 Dose: 100 mls/hr Vancomycin/Sodium Chloride (Vancomycin 1 Gm/Ns 200 Ml) 1 gm in 200 mls @ 133.333 mls/hr IVPB Q8H [facility] PRN Reason: Protocol Last Admin: 01/27/18 05:29 Dose: 133.333 mls/hr Sodium Chloride (Sodium Chloride 0.9%) 1,000 mls @ 70 mls/hr IV .[id number] [facility] Last Admin: 01/26/18 13:50 Dose: 70 mls/hr Lactobacillus Acidophilus (Bacid Acidophilus) 1 cap PO BID [facility] Last Admin: 01/26/18 17:29 Dose: 1 cap Morphine Sulfate (Morphine) 2 mg IVP Q4 PRN PRN Reason: FOR SEVERE HEADACHES Last Admin: 01/27/18 04:42 Dose: 2 mg - Labs Labs: 01/27/18 07:14 01/27/18 07:14 PT 13.5 SECONDS (9.7-12.2) H 01/24/18 05:05 INR 1.2 01/24/18 05:05 APTT 34 SECONDS (21-34) 01/24/18 05:05
--- NOTE | 2018-01-27 08:35 | CP.PCM.PN ---
Subjective - Date & Time of Evaluation Date of Evaluation: 01/27/18 Time of Evaluation: 08:31 - Subjective Subjective: Hospitalist Note: Patient seen and examined this morning. Patient reports her headache is "10/10", reports originates at the cervical neck and travels to all around her head. Patient denies photophobia. Patient reports she is unable to extend/flex/abduct/adduct around the neck because of pain. Patient attributes these symptoms to right eye cataract surgery. patient reports prior to surgery she was using Tylenol and after surgery she was taking Motrin 600mg but did not relieve her headache. Patient denies recent travel. Patient denies car accidents, Patient report only history of hypertensio. Patient reports at home she only takes one cup of coffee and/or tea daily. Patient report usually she averages about 5-6 hours of sleep daily in the hospital, she reports she is unable to sleep fully because of the persistent headache. She reports her appetite is so-so. patient denies abdominal pain, denies nausea, denies vomitting, denies constipation, denies diarrhea, denies dysuria, denies hematuria. Objective - Vital Signs/Intake and Output Vital Signs (last 24 hours): Temp Pulse Resp BP Pulse Ox 100.1 F H 89 18 122/79 96 01/27/18 07:54 01/27/18 07:54 01/27/18 07:54 01/27/18 07:54 01/27/18 07:54 Intake and Output: 01/27/18 01/27/18 06:59 18:59 Intake Total 590 Output Total 500 Balance 90 - Medications Medications: Current Medications Acetaminophen (Tylenol 325mg Tab) 650 mg PO Q6 PRN PRN Reason: Headache Last Admin: 01/27/18 06:44 Dose: 650 mg Heparin Sodium (Porcine) (Heparin) 5,000 units SC Q12 [facility] Last Admin: 01/26/18 21:41 Dose: 5,000 units Hydromorphone HCl (Dilaudid) 1 mg IVP Q4H PRN PRN Reason: Pain, severe (8-10) Last Admin: 01/26/18 23:29 Dose: 1 mg Ceftriaxone Sodium 2 gm/ (Sodium Chloride) 100 mls @ 100 mls/hr IVPB Q12H [facility] PRN Reason: Protocol Last Admin: 01/27/18 04:19 Dose: 100 mls/hr Vancomycin/Sodium Chloride (Vancomycin 1 Gm/Ns 200 Ml) 1 gm in 200 mls @ 133.333 mls/hr IVPB Q8H [facility] PRN Reason: Protocol Last Admin: 01/27/18 05:29 Dose: 133.333 mls/hr Sodium Chloride (Sodium Chloride 0.9%) 1,000 mls @ 70 mls/hr IV .[id number] [facility] Last Admin: 01/26/18 13:50 Dose: 70 mls/hr Lactobacillus Acidophilus (Bacid Acidophilus) 1 cap PO BID [facility] Last Admin: 01/26/18 17:29 Dose: 1 cap Morphine Sulfate (Morphine) 2 mg IVP Q4 PRN PRN Reason: FOR SEVERE HEADACHES Last Admin: 01/27/18 04:42 Dose: 2 mg - Labs Labs: 01/27/18 07:14 01/27/18 07:14 PT 13.5 SECONDS (9.7-12.2) H 01/24/18 05:05 INR 1.2 01/24/18 05:05 APTT 34 SECONDS (21-34) 01/24/18 05:05 - Constitutional Appears: Non-toxic, In Acute Distress - Head Exam Head Exam: NORMAL INSPECTION Additional comments: dressing over the left temporal aspect: clean/dry/intact tender over frontal sinus upon palpation, nontender over the ethmoid sinuses no pulsatile temporal aspect of either face patient has painful lymphadenopathy over the submandibular glands. Passive range of motion limited in the extend, flexion, turn head from side to side secondary to pain. when i move her neck i am to flex towards the chin, and extend in the back. Neck does not appear rigid however, the muscles in back of her neck are very tight and elicted pain when i press. - Eye Exam Eye Exam: EOMI. absent: Nystagmus, PERRL - ENT Exam ENT Exam: Mucous Membranes Dry - Neck Exam Neck Exam: Lymphadenopathy (painful) - Respiratory Exam Respiratory Exam: Clear to Ausculation Bilateral, NORMAL BREATHING PATTERN. absent: Rales, Rhonchi, Wheezes - Cardiovascular Exam Cardiovascular Exam: REGULAR RHYTHM, +S1, +S2 - GI/Abdominal Exam GI & Abdominal Exam: Soft, Normal Bowel Sounds. absent: Distended, Firm, Guarding, Rigid, Tenderness, Rebound - Extremities Exam Extremities Exam: Normal Capillary Refill. absent: Pedal Edema, Tenderness - Back Exam Back Exam: absent: CVA tenderness (L), CVA tenderness (R), paraspinal tenderness , rash noted Additional comments: dressing from prior LP clean/dry/intact - Neurological Exam Neurological Exam: Alert, Awake, CN II-XII Intact (cranial nerves intact), Oriented x3 Neuro motor strength exam: Left Upper Extremity: 5, Right Upper Extremity: 5, Left Lower Extremity: 5, Right Lower Extremity: 5 - Psychiatric Exam Psychiatric exam: Agitated - Skin Skin Exam: Dry, Intact, Normal Color, Warm Assessment and Plan (1) Sepsis Status: Acute (2) Leukocytosis Status: Acute (3) Anemia Status: Acute (4) Hypertension Status: Acute (5) Arthritis Status: Acute (6) Bacteremia Status: Acute (7) Citrobacter infection Status: Acute (8) Prophylactic measure Status: Acute Attending/Attestation - Attestation I have personally seen and examined this patient.: Yes I have fully participated in the care of the patient.: Yes I have reviewed all pertinent clinical information, including history, physical exam and plan: Yes Notes (Text): 1) Sepsis Assessment/Plan * Criteria: fever, leukocytosis * Source of infection: Bacteremia and urinary tract infection * Will need to rule out meningitis given severe headache/fever/neck pains * 01/23/18 Blood Culture: Streptococcus Viridans X2 * 01/23/18 Urine culture: Citrobacter DIversus * 01/25/18 Blood culture: NO growth after 48 hours X2 * Pending repeat urine culture * CSF: No growth after 24 hours (rare PMNs) gram * procalcitonin: 8.08-->3.89 * Will repeat procalcitonin 2) Bacteremia Assessment/Plan * Will need to rule out meningitis given severe headache/fever/neck pains * 01/23/18 Blood Culture: Streptococcus Viridans X2 * 01/23/18 Urine culture: Citrobacter DIversus * 01/25/18 Blood culture: NO growth after 48 hours X2 * Pending repeat urine culture 3) Urinary Tract Infection Assessment/Plan * 01/23/18 Urine culture: Citrobacter DIversus 4) Cervicogenic Headache Possible Meningitis Possible Temporal Arteritis Assessment/Plan * Neurology (Dr. Padilla) on board-->help appreciated * Infectious Disease (Dr. Juares) on board-->help appreciated * Rocephin 2m IVPB Q12H (active since 01/25/18) * Vancomycin 1 gram [id number] (active since 01/25/18) * General surgery (Dr. Orozco) -->help appreciated * Left Temporal bx: segment of artery. negative for changes of giant cell arteriti including inflammatory cell infiltrates and multinculatedgitant cells. Elastic stain shows focal fragmentation of internal elastic lamina. Negative finding does not rule out presence of giant cell arteritis. * Imaging: * Head CT (01/23/18): no acute intracranial hemorrhage. Minor chronic periventricular white matter ischemic changes with a few scatter chronic b/l basal nuceli lacunar type infarcts. mild generalized volume loss * Head MRA (01/23/18): unremarkable MR angiography of the brain * MRI neck (01/26/18): suboptimal * Brain MRI (01/25/18): no acute intracranial hemorrhage or infarct. Mild chronic white matter ischemic changes, * CT head and neck (01/25/18): no evidence of occlusion or significant stenosis involving the cervical circulation. narrowing of both carvenous cartoid segments left greater than right due to atherosclerotic disease. no evidence of large aneurysm nor vascular malformation. Multiple nodular opacities seen scattered throughout the upper lobes. Small focal areas of localized apical pleural thickening and adjacent atelectasis and /or infiltrate. underlying mild vascular congestion. SMall bilateral effusions right larger than left with atelectasis. * CT angiography (01/25/18): no evidence of aortic dissection, Multiple nodular opacities seen scatter seen throughout the upper and lower lobes which are peripherally located. Sequela of infection, rule out septic emobli. Metastatic disease not completely excluded. Small right sided effusion and mild right lower lobe atelectsis. Tiny left sided effusion with minimla left basilar atelectasis. Mild pulmonary venous congestion. * Lumbar Puncture * Spinal fluid clear/colorless * Bands: 2% * WBC: 93 * RBC: 12 * Predominant: Neutrophils * Sugar: 60 (elevated) * Protein: 90 (elevated) * Cryptococcus Ag: negative * CSFL no growth after 24hours * Pending: * CMV Ab Igm/igg * CSF Electrophoresis * HSV 2 IgM titer CSF * HSV IgM titer * LSH titer * Lyme * Toxoplasma * West Nile 5) Hypertension Assessment/Plan * controlled * Not on medications at this time 6) History of Arthritis Assessment/Plan * Patient is not on NSAID 7) Fever Assessment/Plan * persistent Fever * Tmax: 101.6F * Tylenol PRN * See assessments 1-4 8) Multiple lung nodules on CT Assessment/Plan * Pulmonary (Dr. Verma) on consult help appreciated * Continue antibiotics * Legionella * Mycoplasma 9) Pleural effusion Assessment/Plan * small b/l pleural effusion no thoracentesis; Cardiac workup 10) Leukocytosis Anemia Assessment/Plan * suggested persistent WBC to infectious etiology * ESR: 114 on admission * Will repeat ESR * CRP>15.00 * Unclear what is patient's baseline given slowly downtrending H/H * will check reticulocyte count, b12, folate, iron studies, haptoglobin, LDH 11) Prophylactic measure * Heparin 5000 units [id number] * Droplet precautions * NS 70 cc/hr
[2018-01-27] MEDS: Lactobacillus Acidophilus 500 MU Cap PO SCH ×2 (09:48→17:17)
[2018-01-27] MEDS: Sodium Chloride 0.9% 1,000 ML IV SCH (09:49)
[2018-01-27] MEDS: AMPicillin 2 GM in Sodium Chloride 0.9% 100 ML IVPB SCH ×4 (11:17→23:30)
[2018-01-27 12:14] LABS: SQUAMOUS EPITHIAL 4 /hpf (0-5); URINE BACTERIA FEW (<OCC); URINE BILIRUBIN NEGATIVE (NEGATIVE); URINE BLOOD 1+ (NEGATIVE); URINE CLARITY Hazy (Clear); URINE COLOR Yellow (YELLOW); URINE GLUCOSE (UA) NORMAL (Normal); URINE LEUKOCYTE ESTERASE 2+ Leu/uL (Negative); URINE PROTEIN NEGATIVE (NEGATIVE); URINE UROBILINOGEN NORMAL mg/dL (0.2-1.0)
[2018-01-27 12:32] LABS: IRON 18 ug/dL (37-170)
[2018-01-27 12:46] LABS: % IRON SATURATION 9 (20-55); TOTAL IRON BINDING CAPACITY 200 ug/dL (250-450)
--- NOTE | 2018-01-27 13:35 | CP.PCM.PN ---
Subjective - Date & Time of Evaluation Date of Evaluation: 01/27/18 Time of Evaluation: 13:35 - Subjective Subjective: Pulmonary Evaluation: Covering Dr. Verma The patient was Seen/interviewed and examined by me at the bedside, Medical records reviewed and Management issues were discussed and formulated with the house staff. Events reviewed Comfortable, NAD Pt AAO x3. Breathing unlabored. Denies any chest pain, SOB or Palpitations C/O severe headache, all around her head. Patient denies photophobia, vision changes, vertigo, double vision, dysphagia or trouble with word finding. Afebrile. Objective - Vital Signs/Intake and Output Vital Signs (last 24 hours): Temp Pulse Resp BP Pulse Ox 99.7 F H 90 18 122/79 96 01/27/18 11:16 01/27/18 11:51 01/27/18 07:54 01/27/18 07:54 01/27/18 07:54 Intake and Output: 01/27/18 01/27/18 06:59 18:59 Intake Total 590 440 Output Total 500 50 Balance 90 390 - Medications Medications: Current Medications Acetaminophen (Tylenol 325mg Tab) 650 mg PO Q6 PRN PRN Reason: Headache Last Admin: 01/27/18 06:44 Dose: 650 mg Heparin Sodium (Porcine) (Heparin) 5,000 units SC Q12 [facility] Last Admin: 01/27/18 09:48 Dose: 5,000 units Hydromorphone HCl (Dilaudid) 1 mg IVP Q4H PRN PRN Reason: Pain, severe (8-10) Last Admin: 01/26/18 23:29 Dose: 1 mg Ceftriaxone Sodium 2 gm/ (Sodium Chloride) 100 mls @ 100 mls/hr IVPB Q12H [facility] PRN Reason: Protocol Last Admin: 01/27/18 04:19 Dose: 100 mls/hr Sodium Chloride (Sodium Chloride 0.9%) 1,000 mls @ 70 mls/hr IV .[id number] COUNTS INCLUDE 234 BEDS AT [facility] Last Admin: 01/27/18 09:49 Dose: 70 mls/hr Ampicillin 2 gm/ Sodium (Chloride) 100 mls @ 200 mls/hr IVPB Q4 [facility] PRN Reason: Protocol Stop: 02/06/18 12:01 Last Admin: 01/27/18 11:17 Dose: 200 mls/hr Acyclovir 730 mg/ Sodium (Chloride) 250 mls @ 100 mls/hr IV Q8H [facility] PRN Reason: Protocol Lactobacillus Acidophilus (Bacid Acidophilus) 1 cap PO BID [facility] Last Admin: 01/27/18 09:48 Dose: 1 cap Morphine Sulfate (Morphine) 2 mg IVP Q4 PRN PRN Reason: FOR SEVERE HEADACHES Last Admin: 01/27/18 04:42 Dose: 2 mg - Labs Labs: 01/27/18 07:14 01/27/18 07:14 PT 13.5 SECONDS (9.7-12.2) H 01/24/18 05:05 INR 1.2 01/24/18 05:05 APTT 34 SECONDS (21-34) 01/24/18 05:05 - Constitutional Appears: Well, Non-toxic, No Acute Distress - Head Exam Head Exam: ATRAUMATIC, NORMAL INSPECTION, NORMOCEPHALIC - Eye Exam Pupil Exam: NORMAL ACCOMODATION, PERRL - Respiratory Exam Respiratory Exam: Clear to Ausculation Bilateral, NORMAL BREATHING PATTERN. absent: Accessory Muscle Use, Chest Wall Tenderness - Cardiovascular Exam Cardiovascular Exam: REGULAR RHYTHM, RRR, +S1, +S2. absent: JVD - GI/Abdominal Exam GI & Abdominal Exam: Soft, Normal Bowel Sounds. absent: Distended, Firm, Guarding, Rigid - Neurological Exam Neurological Exam: Alert, Awake, CN II-XII Intact, Motor Sensory Deficit, Oriented x3. absent: Altered Assessment and Plan (1) Multiple lung nodules on CT Assessment & Plan: Continue antibiotics. Legionella mycoplasma titers small bilateral pleural effusion. No thoracentesis. Cardiac workup Status: Acute (2) Pleural effusion Status: Acute (3) Sepsis Status: Acute (4) Prophylactic measure Status: Acute
[2018-01-27 13:42] LABS: FOLATE 8.5 ng/mL
[2018-01-27] MEDS: HYDROmorphone 1 mg/ml ISec IVP PRN (23:36)
[2018-01-28] MEDS: Sodium Chloride 0.9% 1,000 ML IV SCH ×2 (02:03→15:01)
[2018-01-28] MEDS: AMPicillin 2 GM in Sodium Chloride 0.9% 100 ML IVPB SCH ×5 (03:01→20:25)
[2018-01-28 07:17] LABS: BASO # 0.1 K/uL (0.0-0.2); BASO % 0.3 % (0.0-2.0); EOS # 0.1 K/uL (0.0-0.7); EOS % 0.4 % (0.0-4.0); HEMOGLOBIN 7.3 g/dL (11.0-16.0); LYMPH # 2.6 K/uL (1.0-4.3); LYMPH % 12.8 % (20.0-40.0); MEAN CELL VOLUME 84.8 fL (81.0-99.0); MEAN CORPUSCULAR HEMOGLOBIN 28.1 pg (27.0-31.0); MEAN CORPUSCULAR HGB CONC 33.2 g/dL (33.0-37.0); MONO # 1.3 K/uL (0.0-0.8); MONO % 6.2 % (0.0-10.0); NEUT # 16.6 K/uL (1.8-7.0); NEUT % 80.3 % (50.0-75.0); RBC 2.59 Mil/uL (3.80-5.20); RED CELL DISTRIBUTION WIDTH 15.9 % (11.5-14.5); WHITE BLOOD COUNT 20.7 K/uL (4.8-10.8)
[2018-01-28 07:58] LABS: ALB/GLOB RATIO 0.8 (1.0-2.1); ALBUMIN 2.9 g/dL (3.5-5.0); ALT/SGPT 34 U/L (9-52); AST/SGOT 35 U/L (14-36); BLOOD UREA NITROGEN 8 mg/dL (7-17); GFR NON-AFRICAN AMERICAN > 60
[2018-01-28] MEDS ORDERED: Dexamethasone 10 MG in Dextrose 5% In Water 50 ML IV ONE (08:19)
[2018-01-28] MEDS: Magnesium Sulfate 1 gm in D5W 1 GM/100 ML BAG IVPB SCH ×3 (08:23→09:55)
[2018-01-28] MEDS ORDERED: Valproate 500 MG in Sodium Chloride 0.9% 100 ML IVPB ONE (08:30)
[2018-01-28] MEDS: Lactobacillus Acidophilus 500 MU Cap PO SCH ×2 (09:04→17:26)
--- NOTE | 2018-01-28 13:48 | CP.PCM.PN ---
<Abhijeet Castañeda - Last Filed: 01/28/18 18:23> Subjective - Date & Time of Evaluation Date of Evaluation: 01/28/18 Time of Evaluation: 09:15 - Subjective Subjective: Medicine Progress Note for Dr. Bautista--Abhijeet Castañeda, PGY-1 Patient was seen and examined at bedside this AM. No acute overnight events reported. Pt is tolerating her diet well, and was seen eating her breakfast and drinking coffee at bedside. Patient continues to complain of throbbing headache all around her head bilaterally, as well as neck pain. Denies any radiation of pain currently, although she does endorse the pain sometimes radiates down to her shoulders. As per patient, the patient is mildly improved this morning. She also endorses intermittent blurry vision but states this is a chronic issue. No photophobia, visual changes, double vision, tadeo/chills, chest pain, palpitations, SOB, nausea, vomiting, diarrhea, constipation, or dysuria. Objective - Vital Signs/Intake and Output Vital Signs (last 24 hours): Temp Pulse Resp BP Pulse Ox 98.9 F 83 18 138/77 96 01/28/18 07:00 01/28/18 07:00 01/28/18 07:00 01/28/18 07:00 01/28/18 07:00 Intake and Output: 01/28/18 01/28/18 06:59 18:59 Intake Total 1060 Output Total 1150 Balance -90 - Medications Medications: Current Medications Acetaminophen (Tylenol 325mg Tab) 650 mg PO Q6 PRN PRN Reason: Headache Last Admin: 01/27/18 23:30 Dose: 650 mg Heparin Sodium (Porcine) (Heparin) 5,000 units SC Q12 [facility] Last Admin: 01/28/18 09:04 Dose: 5,000 units Hydromorphone HCl (Dilaudid) 1 mg IVP Q4H PRN PRN Reason: Pain, severe (8-10) Last Admin: 01/27/18 23:36 Dose: 1 mg Ceftriaxone Sodium 2 gm/ (Sodium Chloride) 100 mls @ 100 mls/hr IVPB Q12H [facility] PRN Reason: Protocol Last Admin: 01/28/18 03:29 Dose: 100 mls/hr Sodium Chloride (Sodium Chloride 0.9%) 1,000 mls @ 70 mls/hr IV .[id number] [facility] Last Admin: 01/28/18 02:03 Dose: Not Given Ampicillin 2 gm/ Sodium (Chloride) 100 mls @ 200 mls/hr IVPB Q4 [facility] PRN Reason: Protocol Stop: 02/06/18 12:01 Last Admin: 01/28/18 12:50 Dose: 200 mls/hr Acyclovir 730 mg/ Sodium (Chloride) 250 mls @ 100 mls/hr IV Q8H [facility] PRN Reason: Protocol Last Admin: 01/28/18 05:15 Dose: 100 mls/hr Lactobacillus Acidophilus (Bacid Acidophilus) 1 cap PO BID [facility] Last Admin: 01/28/18 09:04 Dose: 1 cap Magnesium Oxide (Mag-Ox) 400 mg PO BID [facility] Morphine Sulfate (Morphine) 2 mg IVP Q4 PRN PRN Reason: FOR SEVERE HEADACHES Last Admin: 01/27/18 04:42 Dose: 2 mg - Labs Labs: 01/28/18 07:11 01/28/18 07:11 PT 13.5 SECONDS (9.7-12.2) H 01/24/18 05:05 INR 1.2 01/24/18 05:05 APTT 34 SECONDS (21-34) 01/24/18 05:05 - Constitutional Appears: Non-toxic, No Acute Distress - Head Exam Head Exam: NORMAL INSPECTION Additional comments: No pulsatile temporal artery appreciated on either side of the face. TTP over the submandibular glands bilaterally. - Neck Exam Neck Exam: Lymphadenopathy (TTP over submandibular glands), Tenderness. absent : Full ROM (Decreased passive and active ROM of the neck in all planes secondary to pain) Additional comments: No nuchal rigidity appreciated, but neck muscles feel tense and are TTP. - Respiratory Exam Respiratory Exam: Clear to Ausculation Bilateral, NORMAL BREATHING PATTERN - Cardiovascular Exam Cardiovascular Exam: RRR, +S1, +S2 - GI/Abdominal Exam GI & Abdominal Exam: Soft, Normal Bowel Sounds. absent: Distended, Firm, Guarding, Rigid, Tenderness, Rebound - Extremities Exam Extremities Exam: Full ROM, Normal Capillary Refill, Normal Inspection. absent : Pedal Edema, Tenderness - Back Exam Back Exam: NORMAL INSPECTION. absent: CVA tenderness (L), CVA tenderness (R) Additional comments: Dressing from prior LP is clean, dry, and intact - Neurological Exam Neurological Exam: Alert, Awake, Oriented x3 - Psychiatric Exam Psychiatric exam: Agitated - Skin Skin Exam: Dry, Intact, Normal Color, Warm Assessment and Plan - Assessment and Plan (Free Text) Assessment: 66 yo F with PMHx of HTN, arthritis presenting with worsening head and neck pain s/p R eye cataract surgery on 01/15/2018 Plan: 1. Sepsis, -criteria: spiked fevers, elevated WBCs Tmax 101.5 (01/27, 23:30) WBCs downtrending, 20.7 (01/28) -source of infection: bacteremia and UTI -treating for possible viral meningitis given severe headaches, fevers, neck pain -ID recs appreciated: acyclovir 730 mg q8 IV, ampicillin 2g q4 IV -01/23 BCx: Strep viridans x2 -01/23 Urine Cx: Citrobacter diversus -01/25 repeat BCx: No growth x 2 -01/27 repeat Urine Cx: No growth -CSF gram stain: no organisms seen, rare PMNs -CSF culture-preliminary: no growth after 48 hours -procalcitonin 8.08-->3.89-->0.06 (01/27) 2. Bacteremia -treating for possible viral meningitis given severe headaches, fevers, neck pain -01/23 BCx: Strep viridans x2 -01/25 repeat BCx: No growth x 2 -r/o endocarditis: Cardiology (Dr. Mon) on board, obtain ENEIDA 3. Cervicogenic Headache--Possible temporal arteritis, possible viral meningitis -CSF gram stain: no organisms seen, rare PMNs -CSF culture--preliminary: no growth after 48 hours -Per General surgery (Dr. Orozco): -temporal artery bx: negative for acute changes of GCA, including inflammatory cell infiltrates and multi-nucleated giants cells. Negative finding does not rule out presence of GCA -Per Neurology (Dr. Padilla): -LP performed and specimen sent -place pt flat and bedrest for 12-20 hrs -pain mgmt with dilaudid -Per Infectious Disease (Dr. Juares): -acyclovir 730 mg q8 IV -ampicillin 2g q4 IV -Lumbar Puncture -Spinal fluid clear/colorless -Bands: 2% -WBC: 93 -RBC: 12 -Predominant: Neutrophils -Sugar: 60 (elevated) -Protein: 90 (elevated) -Cryptococcus Ag: negative -CSFL no growth after 24hours -Pending: -CMV Ab Igm/igg -CSF Electrophoresis -HSV 2 IgM titer CSF -HSV IgM titer -LSH titer -Lyme -Toxoplasma -[place] 4. UTI -01/23 Urine Cx: Citrobacter diversus -01/27 repeat Urine Cx: No growth 5. HTN -controlled -not on medications at this time 6. History of Arthritis -Pt does not c/o pain -not on NSAID 7. Multiple lung nodules on CT -Pulmonary (Dr. Verma) on board -continue w/ Abx -Legionella -Mycoplasma -cx pending -no acid fast bacilli stain growth 8. Pleural effusion -small b/l pleural effusion -no thoracentesis 9. Leukocytosis, Anemia -suggested persistent WBC d/t infectious etiology -WBCs downtrending, 20.7 (01/28) -ESR 114 on admission-->repeat 65 -Retic Count: 1.9 -Haptoglobin: 521.7 -Iron: 18 (L) -TIBC: 200 (L) -% saturation: 9 (L) -Ferritin: 503.0 -Hb/Hct downtrending for unknown reason; baseline Hb 12.6 (11/01/2016) -Per PMD (Dr. Muñoz), pt has never been worked up for anemia -Heme/Onc on board 10. PPx -Heparin 5000 units subQ 12h -Droplet Precautions -NS 70 cc/hr Case discussed with Dr. Bautista, who agrees with management as per above. Abhijeet Castañeda, PGY-1 <Christo Bautista - Last Filed: 01/31/18 14:12> Objective - Vital Signs/Intake and Output Vital Signs (last 24 hours): Temp Pulse Resp BP Pulse Ox 98.1 F 63 18 120/72 97 01/31/18 07:00 01/31/18 07:50 01/31/18 07:00 01/31/18 10:10 01/31/18 07:00 Intake and Output: 01/31/18 01/31/18 06:59 18:59 Intake Total 1050 Output Total 800 Balance 250 - Medications Medications: Current Medications Acetaminophen (Tylenol 325mg Tab) 650 mg PO Q6 PRN PRN Reason: Headache Last Admin: 01/29/18 11:35 Dose: 650 mg Carvedilol (Coreg) 6.25 mg PO BID [facility] Last Admin: 01/31/18 10:09 Dose: 6.25 mg Furosemide (Lasix) 20 mg IVP BID [facility] Last Admin: 01/31/18 10:10 Dose: 20 mg Guaifenesin (Robitussin) 100 mg PO Q4H PRN PRN Reason: Cough Last Admin: 01/29/18 14:33 Dose: 100 mg Heparin Sodium (Porcine) (Heparin) 5,000 units SC Q12 [facility] Last Admin: 01/31/18 10:09 Dose: 5,000 units Hydromorphone HCl (Dilaudid) 1 mg IVP Q4H PRN PRN Reason: Pain, severe (8-10) Last Admin: 01/29/18 22:59 Dose: 1 mg Ceftriaxone Sodium 2 gm/ (Sodium Chloride) 100 mls @ 100 mls/hr IVPB 1600 [facility] PRN Reason: Protocol Last Admin: 01/30/18 15:56 Dose: 100 mls/hr Lactobacillus Acidophilus (Bacid Acidophilus) 1 cap PO BID [facility] Last Admin: 01/31/18 10:09 Dose: 1 cap Losartan Potassium (Cozaar) 25 mg PO DAILY [facility] Last Admin: 01/31/18 10:09 Dose: 25 mg Magnesium Oxide (Mag-Ox) 400 mg PO BID [facility] Last Admin: 01/29/18 17:55 Dose: 400 mg Morphine Sulfate (Morphine) 2 mg IVP Q4 PRN PRN Reason: FOR SEVERE HEADACHES Last Admin: 01/29/18 21:42 Dose: 2 mg - Labs Labs: 01/31/18 07:10 01/31/18 07:10 PT 13.5 SECONDS (9.7-12.2) H 01/24/18 05:05 INR 1.2 01/24/18 05:05 APTT 34 SECONDS (21-34) 01/24/18 05:05 Attending/Attestation - Attestation I have personally seen and examined this patient.: Yes I have fully participated in the care of the patient.: Yes I have reviewed all pertinent clinical information, including history, physical exam and plan: Yes Notes (Text): Seen and examined by me. Patient has mild SOB,Complaining of headache and left side neck pain, s/p fever spikes last night,no fever this morning Lungs with rales denies chest pain,no abdominal pain Cardiology consult appreciated.off fluids and lasix give continue ampicillin ,ceftriaxone and acyclovir d/w Dr yu d/w the resident and I agree with the assessment and the plan
--- NOTE | 2018-01-28 14:35 | CP.PCM.PN ---
Subjective - Date & Time of Evaluation Date of Evaluation: 01/28/18 Time of Evaluation: 11:00 - Subjective Subjective: patient seen and examined Still complaining of neck pain and headache Denies shortness breath patient is afebrile procalcitonin level low Objective - Vital Signs/Intake and Output Vital Signs (last 24 hours): Temp Pulse Resp BP Pulse Ox 98.8 F 83 18 138/77 96 01/28/18 13:05 01/28/18 07:00 01/28/18 07:00 01/28/18 07:00 01/28/18 07:00 Intake and Output: 01/28/18 01/28/18 06:59 18:59 Intake Total 1060 1600 Output Total 1150 800 Balance -90 800 - Medications Medications: Current Medications Acetaminophen (Tylenol 325mg Tab) 650 mg PO Q6 PRN PRN Reason: Headache Last Admin: 01/27/18 23:30 Dose: 650 mg Heparin Sodium (Porcine) (Heparin) 5,000 units SC Q12 [facility] Last Admin: 01/28/18 09:04 Dose: 5,000 units Hydromorphone HCl (Dilaudid) 1 mg IVP Q4H PRN PRN Reason: Pain, severe (8-10) Last Admin: 01/27/18 23:36 Dose: 1 mg Ceftriaxone Sodium 2 gm/ (Sodium Chloride) 100 mls @ 100 mls/hr IVPB Q12H [facility] PRN Reason: Protocol Last Admin: 01/28/18 03:29 Dose: 100 mls/hr Sodium Chloride (Sodium Chloride 0.9%) 1,000 mls @ 70 mls/hr IV .[id number] [facility] Last Admin: 01/28/18 02:03 Dose: Not Given Ampicillin 2 gm/ Sodium (Chloride) 100 mls @ 200 mls/hr IVPB Q4 [facility] PRN Reason: Protocol Stop: 02/06/18 12:01 Last Admin: 01/28/18 12:50 Dose: 200 mls/hr Acyclovir 730 mg/ Sodium (Chloride) 250 mls @ 100 mls/hr IV Q8H [facility] PRN Reason: Protocol Last Admin: 01/28/18 13:38 Dose: 100 mls/hr Lactobacillus Acidophilus (Bacid Acidophilus) 1 cap PO BID [facility] Last Admin: 01/28/18 09:04 Dose: 1 cap Magnesium Oxide (Mag-Ox) 400 mg PO BID [facility] Morphine Sulfate (Morphine) 2 mg IVP Q4 PRN PRN Reason: FOR SEVERE HEADACHES Last Admin: 01/27/18 04:42 Dose: 2 mg - Labs Labs: 01/28/18 07:11 01/28/18 07:11 PT 13.5 SECONDS (9.7-12.2) H 01/24/18 05:05 INR 1.2 01/24/18 05:05 APTT 34 SECONDS (21-34) 01/24/18 05:05 - Head Exam Head Exam: ATRAUMATIC, NORMOCEPHALIC - ENT Exam ENT Exam: Mucous Membranes Moist - Neck Exam Neck Exam: Normal Inspection - Respiratory Exam Respiratory Exam: Clear to Ausculation Bilateral - Cardiovascular Exam Cardiovascular Exam: REGULAR RHYTHM - GI/Abdominal Exam GI & Abdominal Exam: Soft, Normal Bowel Sounds Assessment and Plan (1) Multiple lung nodules on CT Assessment & Plan: continue antibiotics Pro calcitonin level low repeat CAT scan in few weeks small bilateral pleural effusions Cardiology workup Status: Acute (2) Pleural effusion Status: Acute
--- NOTE | 2018-01-28 16:54 | CP.PCM.PN ---
Subjective - Date & Time of Evaluation Date of Evaluation: 01/28/18 Time of Evaluation: 16:00 - Subjective Subjective: dictated Objective - Vital Signs/Intake and Output Vital Signs (last 24 hours): Temp Pulse Resp BP Pulse Ox 97.7 F 96 H 20 138/82 95 01/28/18 15:51 01/28/18 15:51 01/28/18 15:51 01/28/18 15:51 01/28/18 15:51 Intake and Output: 01/28/18 01/28/18 06:59 18:59 Intake Total 1060 1600 Output Total 1150 800 Balance -90 800 - Medications Medications: Current Medications Acetaminophen (Tylenol 325mg Tab) 650 mg PO Q6 PRN PRN Reason: Headache Last Admin: 01/27/18 23:30 Dose: 650 mg Heparin Sodium (Porcine) (Heparin) 5,000 units SC Q12 [facility] Last Admin: 01/28/18 09:04 Dose: 5,000 units Hydromorphone HCl (Dilaudid) 1 mg IVP Q4H PRN PRN Reason: Pain, severe (8-10) Last Admin: 01/27/18 23:36 Dose: 1 mg Ceftriaxone Sodium 2 gm/ (Sodium Chloride) 100 mls @ 100 mls/hr IVPB Q12H [facility] PRN Reason: Protocol Last Admin: 01/28/18 03:29 Dose: 100 mls/hr Sodium Chloride (Sodium Chloride 0.9%) 1,000 mls @ 70 mls/hr IV .[id number] [facility] Last Admin: 01/28/18 15:01 Dose: Not Given Ampicillin 2 gm/ Sodium (Chloride) 100 mls @ 200 mls/hr IVPB Q4 [facility] PRN Reason: Protocol Stop: 02/06/18 12:01 Last Admin: 01/28/18 16:36 Dose: 200 mls/hr Acyclovir 730 mg/ Sodium (Chloride) 250 mls @ 100 mls/hr IV Q8H [facility] PRN Reason: Protocol Last Admin: 01/28/18 13:38 Dose: 100 mls/hr Lactobacillus Acidophilus (Bacid Acidophilus) 1 cap PO BID [facility] Last Admin: 01/28/18 09:04 Dose: 1 cap Magnesium Oxide (Mag-Ox) 400 mg PO BID [facility] Morphine Sulfate (Morphine) 2 mg IVP Q4 PRN PRN Reason: FOR SEVERE HEADACHES Last Admin: 01/27/18 04:42 Dose: 2 mg - Labs Labs: 01/28/18 07:11 01/28/18 07:11 PT 13.5 SECONDS (9.7-12.2) H 01/24/18 05:05 INR 1.2 01/24/18 05:05 APTT 34 SECONDS (21-34) 01/24/18 05:05
[2018-01-28] MEDS: Magnesium Oxide 400 mg Tab UD PO SCH ×2 (17:26)
--- NOTE | 2018-01-28 18:40 | CP.PCM.CON ---
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 She had cataract surgery, and afterwards severe jheadches and fever, with high ESR. Pt has had extensive work up, including lumbar puncture, temporal artery biopsy, CT angio of the chest, echo, chest exray, ECG. No conclusive etiology of fever. CTA of the lungs reports multiple peripheral nodules suggesting septic emboli. CXR reported mild venous congestion. pt has not been treated for heart failure. ECG demonstrates LBBB. Echo was reported as normal LV EF by another audiometric technician, but in my opinion, the LV EF is mildly reduced, with septal hypokinesis. All valves well seen and no vegetations, and no evidence of pulnonary HTN. BP here has been borderline, and patient receiving IV fluid. She has dyspnea at rest. Review of Systems - Review of Systems All systems: reviewed and no additional remarkable complaints except (as abov.e) Past Patient History - Past Social History Smoking Status: Current Some Days Smoker - CARDIAC Hx Hypertension: Yes - HEENT Hx Cataracts: Yes - MUSCULOSKELETAL/RHEUMATOLOGICAL Hx Falls: No (denies) Hx Osteoarthritis: Yes (R>L) - PSYCHIATRIC Hx Substance Use: No - SURGICAL HISTORY Hx Surgeries: Yes Hx Cataract Extraction: Yes (01/15/18) - ANESTHESIA Hx Anesthesia: Yes Hx Anesthesia Reactions: No Meds Allergies/Adverse Reactions: Allergies Allergy/AdvReac Type Severity Reaction Status Date / Time No Known Allergies Allergy Verified 01/23/18 12:20 - Medications Medications: Current Medications Acetaminophen (Tylenol 325mg Tab) 650 mg PO Q6 PRN PRN Reason: Headache Last Admin: 01/27/18 23:30 Dose: 650 mg Heparin Sodium (Porcine) (Heparin) 5,000 units SC Q12 [facility] Last Admin: 01/28/18 09:04 Dose: 5,000 units Hydromorphone HCl (Dilaudid) 1 mg IVP Q4H PRN PRN Reason: Pain, severe (8-10) Last Admin: 01/27/18 23:36 Dose: 1 mg Ceftriaxone Sodium 2 gm/ (Sodium Chloride) 100 mls @ 100 mls/hr IVPB Q12H [facility] PRN Reason: Protocol Last Admin: 01/28/18 17:10 Dose: 100 mls/hr Sodium Chloride (Sodium Chloride 0.9%) 1,000 mls @ 70 mls/hr IV .[id number] [facility] Last Admin: 01/28/18 15:01 Dose: Not Given Ampicillin 2 gm/ Sodium (Chloride) 100 mls @ 200 mls/hr IVPB Q4 [facility] PRN Reason: Protocol Stop: 02/06/18 12:01 Last Admin: 01/28/18 16:36 Dose: 200 mls/hr Acyclovir 730 mg/ Sodium (Chloride) 250 mls @ 100 mls/hr IV Q8H [facility] PRN Reason: Protocol Last Admin: 01/28/18 13:38 Dose: 100 mls/hr Lactobacillus Acidophilus (Bacid Acidophilus) 1 cap PO BID [facility] Last Admin: 01/28/18 17:26 Dose: 1 cap Magnesium Oxide (Mag-Ox) 400 mg PO BID [facility] Last Admin: 01/28/18 17:26 Dose: 400 mg Morphine Sulfate (Morphine) 2 mg IVP Q4 PRN PRN Reason: FOR SEVERE HEADACHES Last Admin: 01/27/18 04:42 Dose: 2 mg Physical Exam - Constitutional Additional comments: Dyspnea - Head Exam Head Exam: ATRAUMATIC - Eye Exam Eye Exam: EOMI - ENT Exam ENT Exam: Mucous Membranes Moist - Neck Exam Neck exam: Positive for: Full Rom - Respiratory Exam Respiratory Exam: Rales - Cardiovascular Exam Cardiovascular Exam: REGULAR RHYTHM - Exam Exam: NORMAL INSPECTION External exam: NORMAL EXTERNAL EXAM - Extremities Exam Extremities exam: Positive for: normal inspection - Back Exam Back exam: NORMAL INSPECTION - Neurological Exam Neurological exam: Alert, Oriented x3, Reflexes Normal - Psychiatric Exam Psychiatric exam: Normal Affect, Normal Mood - Skin Skin Exam: Normal Color Results - Vital Signs Recent Vital Signs: Last Vital Signs Temp 97.7 F 01/28/18 15:51 Pulse 96 H 01/28/18 18:00 Resp 20 01/28/18 15:51 BP 138/82 01/28/18 15:51 Pulse Ox 95 01/28/18 15:51 - Labs Result Diagrams: 01/28/18 07:11 01/28/18 07:11 Labs: Laboratory Results - last 24 hr 01/27/18 01/28/18 01/28/18 12:11 07:11 07:11 WBC RBC Hgb Hct MCV MCH MCHC RDW Plt Count MPV Neut % (Auto) Lymph % (Auto) Greene % (Auto) Eos % (Auto) Baso % (Auto) Neut # (Auto) Lymph # (Auto) Greene # (Auto) Eos # (Auto) Baso # (Auto) Haptoglobin 521.7 H Sodium 141 Potassium 3.5 L Chloride 103 Carbon Dioxide 29 Anion Gap 13 BUN 8 Creatinine 0.7 Est GFR ( Amer) > 60 Est GFR (Non-Af Amer) > 60 Random Glucose 108 H Calcium 8.0 L Phosphorus 3.1 Magnesium 1.9 Total Bilirubin 0.5 AST 35 ALT 34 Alkaline Phosphatase 102 C-React Prot High Sens > 15.00 H Total Protein 6.3 Albumin 2.9 L Globulin 3.5 Albumin/Globulin Ratio 0.8 L 01/28/18 07:11 WBC 20.7 H RBC 2.59 L Hgb 7.3 L Hct 21.9 L MCV 84.8 MCH 28.1 MCHC 33.2 RDW 15.9 H Plt Count 371 MPV 8.0 Neut % (Auto) 80.3 H Lymph % (Auto) 12.8 L Greene % (Auto) 6.2 Eos % (Auto) 0.4 Baso % (Auto) 0.3 Neut # (Auto) 16.6 H Lymph # (Auto) 2.6 Greene # (Auto) 1.3 H Eos # (Auto) 0.1 Baso # (Auto) 0.1 Haptoglobin Sodium Potassium Chloride Carbon Dioxide Anion Gap BUN Creatinine Est GFR ( Amer) Est GFR (Non-Af Amer) Random Glucose Calcium Phosphorus Magnesium Total Bilirubin AST ALT Alkaline Phosphatase C-React Prot High Sens Total Protein Albumin Globulin Albumin/Globulin Ratio - EKG Data EKG Interpreted by: Myself EKG shows normal: Sinus rhythm (LBBB) Assessment & Plan - Assessment and Plan (Free Text) Assessment: 1. Although pt has elevated ESR and CTA findings suggestive of septic emboli, valves look good on echo, and the echo was of excellent quality. A mayra can find small possible vegetations not seen on TTE. If no source of fever is found, a MAYRA can be considered. 2. CXR reports congestion 5 days ago, pt has dyspnea and rales on exam. LV EF is NOT normal, as reported. Will replace k, order IV lasix, and assess if pt improves. BNP level. Jeremiah inhibitor. Will add beta coby later. Etiology of LV dysfunction and LBBB likely long standing HTN. Stop IV fluids for now. 3. Thyroid panel.
[2018-01-28] MEDS ORDERED: Potassium Chloride 20 mEq ER Tab PO ONE (19:30)
[2018-01-28] MEDS ORDERED: Potassium Chloride 20 mEq/15 ml LIQ UD PO ONE (19:45)
--- NOTE | 2018-01-28 20:41 | CP.PCM.CON ---
History of Present Illness - History of Present Illness History of Present Illness: 67 yo woman admitted from home with c/o severe headaches, vision changes and fever. She has undergone extensive work up including lumbar puncture, temporal artery biopsy, blood cultures and scans all essentially inconclusive except for blood culture positive for strep viridans and CTA showing possible septic emboli. Heme [id number] for worsening anemia, work up for which has shown normal iron, B12 an.d negative for hemolysis. The patient continues to spike temps throughout. Denies cough, diarrhea, arthralgias, h/o immunosuppressive medications, rash, travel history or exposure to livestock. She says she is feeling a little better today, but seems to be dyspneic at rest. No active bleeding is reported by the staff. Past Patient History - Past Social History Smoking Status: Current Some Days Smoker - CARDIAC Hx Hypertension: Yes - HEENT Hx Cataracts: Yes - MUSCULOSKELETAL/RHEUMATOLOGICAL Hx Falls: No (denies) Hx Osteoarthritis: Yes (R>L) - PSYCHIATRIC Hx Substance Use: No - SURGICAL HISTORY Hx Surgeries: Yes Hx Cataract Extraction: Yes (01/15/18) - ANESTHESIA Hx Anesthesia: Yes Hx Anesthesia Reactions: No Meds Allergies/Adverse Reactions: Allergies Allergy/AdvReac Type Severity Reaction Status Date / Time No Known Allergies Allergy Verified 01/23/18 12:20 - Medications Medications: Current Medications Acetaminophen (Tylenol 325mg Tab) 650 mg PO Q6 PRN PRN Reason: Headache Last Admin: 01/27/18 23:30 Dose: 650 mg Heparin Sodium (Porcine) (Heparin) 5,000 units SC Q12 [facility] Last Admin: 01/28/18 09:04 Dose: 5,000 units Hydromorphone HCl (Dilaudid) 1 mg IVP Q4H PRN PRN Reason: Pain, severe (8-10) Last Admin: 01/27/18 23:36 Dose: 1 mg Ceftriaxone Sodium 2 gm/ (Sodium Chloride) 100 mls @ 100 mls/hr IVPB Q12H [facility] PRN Reason: Protocol Last Admin: 01/28/18 17:10 Dose: 100 mls/hr Ampicillin 2 gm/ Sodium (Chloride) 100 mls @ 200 mls/hr IVPB Q4 [facility] PRN Reason: Protocol Stop: 02/06/18 12:01 Last Admin: 01/28/18 16:36 Dose: 200 mls/hr Acyclovir 730 mg/ Sodium (Chloride) 250 mls @ 100 mls/hr IV Q8H [facility] PRN Reason: Protocol Last Admin: 01/28/18 13:38 Dose: 100 mls/hr Lactobacillus Acidophilus (Bacid Acidophilus) 1 cap PO BID [facility] Last Admin: 01/28/18 17:26 Dose: 1 cap Losartan Potassium (Cozaar) 25 mg PO DAILY [facility] Magnesium Oxide (Mag-Ox) 400 mg PO BID [facility] Last Admin: 01/28/18 17:26 Dose: 400 mg Morphine Sulfate (Morphine) 2 mg IVP Q4 PRN PRN Reason: FOR SEVERE HEADACHES Last Admin: 01/27/18 04:42 Dose: 2 mg Results - Vital Signs Recent Vital Signs: Last Vital Signs Temp 97.7 F 01/28/18 15:51 Pulse 96 H 01/28/18 18:00 Resp 20 01/28/18 15:51 BP 138/83 01/28/18 19:01 Pulse Ox 95 01/28/18 15:51 - Labs Result Diagrams: 01/28/18 07:11 01/28/18 07:11 Labs: Laboratory Results - last 24 hr 01/25/18 01/28/18 01/28/18 17:47 07:11 07:11 WBC RBC Hgb Hct MCV MCH MCHC RDW Plt Count MPV Neut % (Auto) Lymph % (Auto) [place]ander % (Auto) Eos % (Auto) Baso % (Auto) Neut # (Auto) Lymph # (Auto) [place] # (Auto) Eos # (Auto) Baso # (Auto) Sodium 141 Potassium 3.5 L Chloride 103 Carbon Dioxide 29 Anion Gap 13 BUN 8 Creatinine 0.7 Est GFR ( Amer) > 60 Est GFR (Non-Af Amer) > 60 Random Glucose 108 H Calcium 8.0 L Phosphorus 3.1 Magnesium 1.9 Total Bilirubin 0.5 AST 35 ALT 34 Alkaline Phosphatase 102 C-React Prot High Sens > 15.00 H Total Protein 6.3 Albumin 2.9 L Globulin 3.5 Albumin/Globulin Ratio 0.8 L CMV IgG Ab 6.50 H CMV IgM Ab <30.00 01/28/18 07:11 WBC 20.7 H RBC 2.59 L Hgb 7.3 L Hct 21.9 L MCV 84.8 MCH 28.1 MCHC 33.2 RDW 15.9 H Plt Count 371 MPV 8.0 Neut % (Auto) 80.3 H Lymph % (Auto) 12.8 L [place] % (Auto) 6.2 Eos % (Auto) 0.4 Baso % (Auto) 0.3 Neut # (Auto) 16.6 H Lymph # (Auto) 2.6 [place]ander # (Auto) 1.3 H Eos # (Auto) 0.1 Baso # (Auto) 0.1 Sodium Potassium Chloride Carbon Dioxide Anion Gap BUN Creatinine Est GFR ( Amer) Est GFR (Non-Af Amer) Random Glucose Calcium Phosphorus Magnesium Total Bilirubin AST ALT Alkaline Phosphatase C-React Prot High Sens Total Protein Albumin Globulin Albumin/Globulin Ratio CMV IgG Ab CMV IgM Ab
[2018-01-29] MEDS: AMPicillin 2 GM in Sodium Chloride 0.9% 100 ML IVPB SCH ×7 (00:20→23:57)
--- NOTE | 2018-01-29 01:22 | PN ---
Copied To: Liam Velazquez MD Attending MD: Liam Velazquez MD DATE: 01/28/[address] Juares, hence I came to see the patient, the patient is in isolation. HISTORY OF PRESENT ILLNESS: Shows that she is a 67-year-old retired lady with no history of diabetes. She underwent a cataract surgery after which she started to have headaches and fevers and she had a high ESR. She has a dressing on her left scalp, where they have done a temporal artery biopsy. They have also done lumbar puncture and she also had a CT angio and the chest shows septic emboli, CTA lungs, and she also has very poor dental hygiene. She shows me a broken tooth and left jaw missing tooth and she says it has been giving her problems and because her blood culture came out positive for Staph viridans and echo I am told has no vegetation, but we had asked for a ENEIDA and at this time when I am dictating, the utilization supervisor has already seen her, and so she is status post cataract surgery. PHYSICAL EXAMINATION: GENERAL: She is awake and alert, but she says she is still not feeling right and she remains on multiple antibiotics. VITAL SIGNS: T-max is 98, pulse 80, blood pressure is 128/85, and respirations are 22. HEENT: Head is atraumatic and normocephalic. She has a temporal artery biopsy done. She had a cataract surgery done. NECK: Supple. LUNGS: Clear. Occasional rales. HEART: S1, S2 are regular. ABDOMEN: Soft and nontender. No guarding, no rigidity present. NEUROLOGIC: She has no focal deficit. LABORATORY DATA: Her white count remains 20.7, hemoglobin 7.3, hematocrit 21.9, and platelet count is 371, so she is very anemic. Potassium is 3.5 and her micro cultures revealed Staph viridans on 01/23/2018 and urine culture had Citrobacter. She has two sets which were positive, and they are negative on 01/25/2018. Urine culture is negative from 01/27/2018. She had an LP done and the LP is negative after 3 days and I want to see further serology. She did come in with a white count of 26.5 and the serology was done, she has CMV IgG, but IgM is negative. Bacterial antigens are negative. HIV is negative. Toxicology vancomycin trough is 16. Her CSF showed WBC 93, after which 74% were neutrophils, 18 of lymphocytes, and 6 for monocytes. Glucose was 74, total protein was 90, with some WBCs there, could be septic, with aseptic meningitis. She had ABG, lactate level was 1.2. Her chest x-ray shows mild pulmonary congestion with bibasilar atelectasis and bilateral pleural effusion, right greater than left and they did a head and neck CTA, which showed multiple nodular opacities scattered throughout the upper lobe, rule out post infectious inflammatory or metastatic disease. So at this time with blood cultures being positive, I would assume that she has septic emboli with the Staph viridans and that may be just related to her bad tooth problem, it almost seems to be eroding on left lower jaw and she also had a CTA. ASSESSMENT AND PLAN: So at this time, plan is to review her medications. She is on acyclovir. She is on ampicillin. She is on Rocephin 2 g. Micro gaytan, her Staphylococcus viridans is sensitive to penicillin, sensitive to ceftriaxone. Right now we are duplicating lot of medications. We will evaluate again tomorrow and see if we can get rid of acyclovir and gradually her white count comes down and her mental status improves and Cardiology, well as noted they do not want to do. thinks echo is negative, but since she has septic emboli, we will treat bacteremia for 4 weeks anyway and we will follow. She may require Rocephin 2 g a day once her white count comes down and I know that the blood cultures are already negative. Liam Velazquez MD
[2018-01-29] MEDS ORDERED: Albuterol-Ipratrop 3 mg / 0.5 (3 ml) UD INH STA ×2 (06:32→06:35)
[2018-01-29 08:35] LABS: BASO % 0.1 % (0.0-2.0); HEMOGLOBIN 7.4 g/dL (11.0-16.0); LYMPH # 1.8 K/uL (1.0-4.3); LYMPH % 9.5 % (20.0-40.0); MEAN CELL VOLUME 83.4 fL (81.0-99.0); MEAN CORPUSCULAR HEMOGLOBIN 27.8 pg (27.0-31.0); MEAN CORPUSCULAR HGB CONC 33.3 g/dL (33.0-37.0); MEAN PLATELET VOLUME 8.2 fL (7.2-11.7); MONO % 5.1 % (0.0-10.0); NEUT % 85.3 % (50.0-75.0); PLATELET COUNT 410 K/uL (130-400); RBC 2.68 Mil/uL (3.80-5.20); RED CELL DISTRIBUTION WIDTH 15.8 % (11.5-14.5); WHITE BLOOD COUNT 18.8 K/uL (4.8-10.8)
[2018-01-29 08:49] LABS: ALB/GLOB RATIO 0.9 (1.0-2.1); ALT/SGPT 30 U/L (9-52); AST/SGOT 50 U/L (14-36); BLOOD UREA NITROGEN 11 mg/dL (7-17); CALCIUM 8.1 mg/dl (8.6-10.4); GFR NON-AFRICAN AMERICAN > 60
--- NOTE | 2018-01-29 08:52 | CP.PCM.PN ---
<Abhijeet Castañeda - Last Filed: 01/29/18 14:58> Subjective - Date & Time of Evaluation Date of Evaluation: 01/29/18 Time of Evaluation: 07:30 - Subjective Subjective: Medicine Progress Note for Dr. Bautista Patient seen and examined at bedside this AM. No acute events reported overnight. Patient experienced labored breathing and audible wheezing early this AM, was given a stat order of duoneb. Symptoms improved after treatment. Continues to c/o of headache and neck pain, although pain has improved. Pt is also better able to move neck around. Continues to deny photophobia, visual changes, double vision, fevers/chills, chest pain, palpitations, SOB, nausea, vomiting, diarrhea, constipation, or dysuria. Objective - Vital Signs/Intake and Output Vital Signs (last 24 hours): Temp Pulse Resp BP Pulse Ox 98.9 F 73 20 127/80 98 01/29/18 08:00 01/29/18 08:00 01/29/18 08:00 01/29/18 08:00 01/29/18 08:00 Intake and Output: 01/29/18 01/29/18 06:59 18:59 Intake Total 1500 Output Total 1400 Balance 100 - Medications Medications: Current Medications Acetaminophen (Tylenol 325mg Tab) 650 mg PO Q6 PRN PRN Reason: Headache Last Admin: 01/27/18 23:30 Dose: 650 mg Heparin Sodium (Porcine) (Heparin) 5,000 units SC Q12 [facility] Last Admin: 01/28/18 21:07 Dose: 5,000 units Hydromorphone HCl (Dilaudid) 1 mg IVP Q4H PRN PRN Reason: Pain, severe (8-10) Last Admin: 01/27/18 23:36 Dose: 1 mg Ceftriaxone Sodium 2 gm/ (Sodium Chloride) 100 mls @ 100 mls/hr IVPB Q12H [facility] PRN Reason: Protocol Last Admin: 01/29/18 04:09 Dose: 100 mls/hr Ampicillin 2 gm/ Sodium (Chloride) 100 mls @ 200 mls/hr IVPB Q4 [facility] PRN Reason: Protocol Stop: 02/06/18 12:01 Last Admin: 01/29/18 03:33 Dose: 200 mls/hr Acyclovir 730 mg/ Sodium (Chloride) 250 mls @ 100 mls/hr IV Q8H [facility] PRN Reason: Protocol Last Admin: 01/29/18 05:11 Dose: 100 mls/hr Lactobacillus Acidophilus (Bacid Acidophilus) 1 cap PO BID [facility] Last Admin: 01/28/18 17:26 Dose: 1 cap Losartan Potassium (Cozaar) 25 mg PO DAILY [facility] Magnesium Oxide (Mag-Ox) 400 mg PO BID [facility] Last Admin: 01/28/18 17:26 Dose: 400 mg Morphine Sulfate (Morphine) 2 mg IVP Q4 PRN PRN Reason: FOR SEVERE HEADACHES Last Admin: 01/27/18 04:42 Dose: 2 mg - Labs Labs: 01/29/18 08:16 01/29/18 08:16 PT 13.5 SECONDS (9.7-12.2) H 01/24/18 05:05 INR 1.2 01/24/18 05:05 APTT 34 SECONDS (21-34) 01/24/18 05:05 - Constitutional Appears: Non-toxic, No Acute Distress - Head Exam Head Exam: NORMAL INSPECTION Additional comments: Dressing over L temporal aspect is clean, dry, intact No pulsatile temporal artery appreciated on either side of the face. - Eye Exam Eye Exam: Normal appearance - Neck Exam Neck Exam: Normal Inspection, Tenderness. absent: Lymphadenopathy Additional comments: No nuchal rigidity, but mild TTP. ROM improved in all planes. - Respiratory Exam Respiratory Exam: Clear to Ausculation Bilateral, NORMAL BREATHING PATTERN - Cardiovascular Exam Cardiovascular Exam: RRR, +S1, +S2 - GI/Abdominal Exam GI & Abdominal Exam: Soft, Normal Bowel Sounds. absent: Distended, Firm, Guarding, Rigid, Tenderness, Mass - Extremities Exam Extremities Exam: Full ROM, Normal Capillary Refill, Normal Inspection. absent : Pedal Edema - Back Exam Back Exam: NORMAL INSPECTION. absent: CVA tenderness (L), CVA tenderness (R) Additional comments: Dressing from prior LP is clean, dry, and intact - Neurological Exam Neurological Exam: Alert, Awake, Oriented x3 - Skin Skin Exam: Dry, Intact, Normal Color, Warm Assessment and Plan - Assessment and Plan (Free Text) Assessment: 66 yo F with PMHx of HTN, arthritis presenting with worsening head and neck pain s/p R eye cataract surgery on 01/15/2018 Plan: 1. Sepsis, -criteria: spiked fevers, elevated WBCs Tmax 101.5 (01/27, 23:30) WBCs downtrending, 18.8 (01/29) -source of infection: bacteremia and UTI -treating for possible viral meningitis given severe headaches, fevers, neck pain -continue w/ acyclovir 730 mg q8 IV, ampicillin 2g q4 IV, per ID recs -01/23 BCx: Strep viridans x2 -01/23 Urine Cx: Citrobacter diversus -01/25 repeat BCx: No growth x 2 -01/27 repeat Urine Cx: No growth -CSF gram stain: no organisms seen, rare PMNs -CSF culture-preliminary: no growth after 4 days -procalcitonin 8.08-->3.89-->0.06 (01/27) 2. Bacteremia -treating for possible viral meningitis given severe headaches, fevers, neck pain -01/23 BCx: Strep viridans x2 -01/25 repeat BCx: No growth x 2 -Cardio recs appreciated -CHF: IV lasix BID and KCl -Add beta coby once lungs are improved -Once pt's lungs are clear, and if there is still a need to more definitively rule out endocarditis, then ENEIDA can be performed. TTE was of excellent quality and no vegetations were seen. -ID consult (Dr. Pavon) for PICC line placement -needs 4 week Abx rx after discharge b/c of septic emboli 3. Cervicogenic Headache--Possible temporal arteritis, possible viral meningitis -CSF gram stain: no organisms seen, rare PMNs -CSF culture--preliminary: no growth after 4 days -Per General surgery (Dr. Orozco): -temporal artery bx: negative for acute changes of GCA, including inflammatory cell infiltrates and multi-nucleated giants cells. Negative finding does not rule out presence of GCA -Per Neurology (Dr. Padilla): -LP performed and specimen sent -place pt flat and bedrest for 12-20 hrs -pain mgmt with dilaudid -Per Infectious Disease (Dr. Juares): -acyclovir 730 mg q8 IV -ampicillin 2g q4 IV -Lumbar Puncture -Spinal fluid clear/colorless -Bands: 2% -WBC: 93 -RBC: 12 -Predominant: Neutrophils -Sugar: 60 (elevated) -Protein: 90 (elevated) -Cryptococcus Ag: negative -CSFL no growth after 24hours -CMV IgG Ab 6.50 (H) -CMV IgM Ab <30 -CSF Electrophoresis -HSV 2 IgM titer CSF -HSV IgM titer -LSH titer -Lyme -Toxoplasma -West Nile negative 4. UTI -01/23 Urine Cx: Citrobacter diversus -01/27 repeat Urine Cx: No growth 5. HTN -controlled -not on medications at this time 6. History of Arthritis -Pt does not c/o pain -not on NSAID 7. Multiple lung nodules on CT -Pulmonary (Dr. Verma) on board -continue w/ Abx -Legionella -Mycoplasma -cx pending -no acid fast bacilli stain growth 8. Pleural effusion -small b/l pleural effusion -no thoracentesis 9. Leukocytosis, Anemia -suggested persistent WBC d/t infectious etiology -WBCs downtrending, 20.7 (01/28) -ESR 114 on admission-->repeat 65 -Retic Count: 1.9 -Haptoglobin: 521.7 -Iron: 18 (L) -TIBC: 200 (L) -% saturation: 9 (L) -Ferritin: 503.0 -Hb/Hct downtrending for unknown reason; baseline Hb 12.6 (11/01/2016) -Per PMD (Dr. Muñoz), pt has never been worked up for anemia -Pt type and crossed; pRBCs prepared, per Heme/Onc recs 10. PPx -Heparin 5000 units subQ 12h -Droplet Precautions -NS 70 cc/hr Case discussed with Dr. Michele Castañeda, PGY-1 <Christo Bautista - Last Filed: 01/31/18 14:21> Objective - Vital Signs/Intake and Output Vital Signs (last 24 hours): Temp Pulse Resp BP Pulse Ox 98.1 F 63 18 120/72 97 01/31/18 07:00 01/31/18 07:50 01/31/18 07:00 01/31/18 10:10 01/31/18 07:00 Intake and Output: 01/31/18 01/31/18 06:59 18:59 Intake Total 1050 Output Total 800 Balance 250 - Medications Medications: Current Medications Acetaminophen (Tylenol 325mg Tab) 650 mg PO Q6 PRN PRN Reason: Headache Last Admin: 01/29/18 11:35 Dose: 650 mg Carvedilol (Coreg) 6.25 mg PO BID [facility] Last Admin: 01/31/18 10:09 Dose: 6.25 mg Furosemide (Lasix) 20 mg IVP BID [facility] Last Admin: 01/31/18 10:10 Dose: 20 mg Guaifenesin (Robitussin) 100 mg PO Q4H PRN PRN Reason: Cough Last Admin: 01/29/18 14:33 Dose: 100 mg Heparin Sodium (Porcine) (Heparin) 5,000 units SC Q12 [facility] Last Admin: 01/31/18 10:09 Dose: 5,000 units Hydromorphone HCl (Dilaudid) 1 mg IVP Q4H PRN PRN Reason: Pain, severe (8-10) Last Admin: 01/29/18 22:59 Dose: 1 mg Ceftriaxone Sodium 2 gm/ (Sodium Chloride) 100 mls @ 100 mls/hr IVPB 1600 [facility] PRN Reason: Protocol Last Admin: 01/30/18 15:56 Dose: 100 mls/hr Lactobacillus Acidophilus (Bacid Acidophilus) 1 cap PO BID [facility] Last Admin: 01/31/18 10:09 Dose: 1 cap Losartan Potassium (Cozaar) 25 mg PO DAILY [facility] Last Admin: 01/31/18 10:09 Dose: 25 mg Magnesium Oxide (Mag-Ox) 400 mg PO BID [facility] Last Admin: 01/29/18 17:55 Dose: 400 mg Morphine Sulfate (Morphine) 2 mg IVP Q4 PRN PRN Reason: FOR SEVERE HEADACHES Last Admin: 01/29/18 21:42 Dose: 2 mg - Labs Labs: 01/31/18 07:10 01/31/18 07:10 PT 13.5 SECONDS (9.7-12.2) H 01/24/18 05:05 INR 1.2 01/24/18 05:05 APTT 34 SECONDS (21-34) 01/24/18 05:05 Attending/Attestation - Attestation I have personally seen and examined this patient.: Yes I have fully participated in the care of the patient.: Yes I have reviewed all pertinent clinical information, including history, physical exam and plan: Yes Notes (Text): Seen and examined by me,chest x ray with some congestion,patient feels better, less congested No fever spikes since yesterday Lungs with few rales s/p blood transfusion for anemia patient has mild headache Discussed with k9 handler yesterday. One unit PRBC was given. continue antibiotics.d/w Dr Velazquez. patient has CTA of the lungs reports multiple peripheral nodules suggesting septic emboli. need total 4 weeks of antibiotics. we will get a picc line cardiology follow up appreciated,patient has LV EF is mildly reduced, with septal hypokinesis. All valves well seen and no vegetations, and no evidence of pulnonary HTN.continue lasix plan discussed with the resident and I agree with the assessment and the plan
[2018-01-29 09:01] LABS: B-TYPE NATRIURETIC PEPTIDE 4490 pg/mL (0-900); FREE T4 1.55 ng/dL (0.78-2.19)
[2018-01-29] MEDS: Magnesium Oxide 400 mg Tab UD PO SCH ×2 (09:15→17:55)
[2018-01-29] MEDS: Lactobacillus Acidophilus 500 MU Cap PO SCH ×2 (09:15→17:55)
[2018-01-29 09:50] LABS: BANDS 1 % (0-2); LYMPHOCYTE 10 % (20-40); MONOCYTE 5 % (0-10); NEUTROPHIL 84 % (50-75); TOTAL CELLS COUNTED 100
[2018-01-29 09:51] LABS: ANISOCYTOSIS SLIGHT; PLATELET ESTIMATE SLIGHTLY INCREASED (NORMAL)
[2018-01-29 09:56] LABS: HYPOCHROMIC SLIGHT
--- NOTE | 2018-01-29 12:15 | CP.PCM.PN ---
Subjective - Date & Time of Evaluation Date of Evaluation: 01/29/18 Time of Evaluation: 12:00 - Subjective Subjective: dictated Objective - Vital Signs/Intake and Output Vital Signs (last 24 hours): Temp Pulse Resp BP Pulse Ox 98 F 78 18 132/83 98 01/29/18 12:13 01/29/18 12:13 01/29/18 12:13 01/29/18 12:13 01/29/18 08:00 Intake and Output: 01/29/18 01/29/18 06:59 18:59 Intake Total 1500 0 Output Total 1400 Balance 100 0 - Medications Medications: Current Medications Acetaminophen (Tylenol 325mg Tab) 650 mg PO Q6 PRN PRN Reason: Headache Last Admin: 01/29/18 11:35 Dose: 650 mg Heparin Sodium (Porcine) (Heparin) 5,000 units SC Q12 [facility] Last Admin: 01/29/18 09:15 Dose: 5,000 units Hydromorphone HCl (Dilaudid) 1 mg IVP Q4H PRN PRN Reason: Pain, severe (8-10) Last Admin: 01/27/18 23:36 Dose: 1 mg Ampicillin 2 gm/ Sodium (Chloride) 100 mls @ 200 mls/hr IVPB Q4 [facility] PRN Reason: Protocol Stop: 02/06/18 12:01 Last Admin: 01/29/18 11:55 Dose: Not Given Acyclovir 730 mg/ Sodium (Chloride) 250 mls @ 100 mls/hr IV Q8H [facility] PRN Reason: Protocol Last Admin: 01/29/18 05:11 Dose: 100 mls/hr Ceftriaxone Sodium 2 gm/ (Sodium Chloride) 100 mls @ 100 mls/hr IVPB Q24H [facility] PRN Reason: Protocol Lactobacillus Acidophilus (Bacid Acidophilus) 1 cap PO BID [facility] Last Admin: 01/29/18 09:15 Dose: 1 cap Losartan Potassium (Cozaar) 25 mg PO DAILY [facility] Last Admin: 01/29/18 09:15 Dose: 25 mg Magnesium Oxide (Mag-Ox) 400 mg PO BID [facility] Last Admin: 01/29/18 09:15 Dose: 400 mg Morphine Sulfate (Morphine) 2 mg IVP Q4 PRN PRN Reason: FOR SEVERE HEADACHES Last Admin: 01/27/18 04:42 Dose: 2 mg - Labs Labs: 01/29/18 08:16 08/28/18 08:16 PT 13.5 SECONDS (9.7-12.2) H 01/24/18 05:05 INR 1.2 01/24/18 05:05 APTT 34 SECONDS (21-34) 01/24/18 05:05
--- NOTE | 2018-01-29 13:45 | RAD ---
Chest x-ray single frontal view History: Congestive heart failure. Comparison: 01/25/2018 Findings Increased consolidative opacification/masslike opacification at the right lung base. Moderate venous congestion. Elevated right hemidiaphragm. Patchy bibasilar airspace opacities. Enlarged ectatic aorta. Cardiomegaly. Biapical pleural thickening with upper lobe granulomatous changes. Degenerative changes in the spine and shoulders. Impression: Increased consolidative opacification/masslike opacification at the right lung base. Moderate venous congestion. Elevated right hemidiaphragm. Patchy bibasilar airspace opacities. Enlarged ectatic aorta. Cardiomegaly. Biapical pleural thickening with upper lobe granulomatous changes.
[2018-01-29] MEDS: guaiFENesin 100 mg/5 ml Syrup UD PO PRN (14:33)
--- NOTE | 2018-01-29 14:55 | CP.PCM.PN ---
Subjective - Date & Time of Evaluation Date of Evaluation: 01/29/18 Time of Evaluation: 14:51 - Subjective Subjective: THe patient still has dyspnea. Low TSH with normal T4. CXR appears worse. Pt has received transfusion. K improved 3.9 Objective - Vital Signs/Intake and Output Vital Signs (last 24 hours): Temp Pulse Resp BP Pulse Ox 97.6 F 87 20 119/51 L 98 01/29/18 14:35 01/29/18 14:35 01/29/18 14:35 01/29/18 14:35 01/29/18 08:00 Intake and Output: 01/29/18 01/29/18 06:59 18:59 Intake Total 1500 325 Output Total 1400 Balance 100 325 - Medications Medications: Current Medications Acetaminophen (Tylenol 325mg Tab) 650 mg PO Q6 PRN PRN Reason: Headache Last Admin: 01/29/18 11:35 Dose: 650 mg Guaifenesin (Robitussin) 100 mg PO Q4H PRN PRN Reason: Cough Last Admin: 01/29/18 14:33 Dose: 100 mg Heparin Sodium (Porcine) (Heparin) 5,000 units SC Q12 [facility] Last Admin: 01/29/18 09:15 Dose: 5,000 units Hydromorphone HCl (Dilaudid) 1 mg IVP Q4H PRN PRN Reason: Pain, severe (8-10) Last Admin: 01/27/18 23:36 Dose: 1 mg Ampicillin 2 gm/ Sodium (Chloride) 100 mls @ 200 mls/hr IVPB Q4 [facility] PRN Reason: Protocol Stop: 02/06/18 12:01 Last Admin: 01/29/18 11:55 Dose: Not Given Acyclovir 730 mg/ Sodium (Chloride) 250 mls @ 100 mls/hr IV Q8H [facility] PRN Reason: Protocol Last Admin: 01/29/18 14:33 Dose: 100 mls/hr Ceftriaxone Sodium 2 gm/ (Sodium Chloride) 100 mls @ 100 mls/hr IVPB 1600 [facility] PRN Reason: Protocol Lactobacillus Acidophilus (Bacid Acidophilus) 1 cap PO BID [facility] Last Admin: 01/29/18 09:15 Dose: 1 cap Losartan Potassium (Cozaar) 25 mg PO DAILY [facility] Last Admin: 01/29/18 09:15 Dose: 25 mg Magnesium Oxide (Mag-Ox) 400 mg PO BID [facility] Last Admin: 01/29/18 09:15 Dose: 400 mg Morphine Sulfate (Morphine) 2 mg IVP Q4 PRN PRN Reason: FOR SEVERE HEADACHES Last Admin: 01/27/18 04:42 Dose: 2 mg - Labs Labs: 01/29/18 08:16 01/29/18 08:16 PT 13.5 SECONDS (9.7-12.2) H 01/24/18 05:05 INR 1.2 01/24/18 05:05 APTT 34 SECONDS (21-34) 01/24/18 05:05 - Constitutional Appears: Chronically Ill - Head Exam Head Exam: ATRAUMATIC - Eye Exam Eye Exam: EOMI - ENT Exam ENT Exam: Mucous Membranes Moist - Neck Exam Neck Exam: Full ROM - Respiratory Exam Respiratory Exam: Clear to Ausculation Bilateral (scant basal crackles) - Cardiovascular Exam Cardiovascular Exam: REGULAR RHYTHM - GI/Abdominal Exam GI & Abdominal Exam: Normal Bowel Sounds - Exam External exam: NORMAL EXTERNAL EXAM - Back Exam Back Exam: NORMAL INSPECTION - Neurological Exam Neurological Exam: Alert, Awake - Psychiatric Exam Psychiatric exam: Normal Affect - Skin Skin Exam: Dry Assessment and Plan - Assessment and Plan (Free Text) Assessment: 1. CHF: iv lasix bid and kcl. 2. Add beta coby once lungs are improved 3. Once pt's lungs are clear, and if there is still a need to more definitively rule out endocarditis, then mayra can be performed. TTE was of excellent quality and no vegetations were seen.
[2018-01-29] MEDS ORDERED: Potassium Chloride 10 mEq ER Tab PO SCH (15:00)
--- NOTE | 2018-01-29 16:36 | CP.PCM.PN ---
Subjective - Date & Time of Evaluation Date of Evaluation: 01/29/18 Time of Evaluation: 13:25 - Subjective Subjective: patient seen and examined Complaining of dry cough and slight shortness of breath Afebrile Being treated for CHF Lasix increased to twice a day Objective - Vital Signs/Intake and Output Vital Signs (last 24 hours): Temp Pulse Resp BP Pulse Ox 97.6 F 87 20 119/51 L 98 01/29/18 14:35 01/29/18 14:35 01/29/18 14:35 01/29/18 14:35 01/29/18 08:00 Intake and Output: 01/29/18 01/29/18 06:59 18:59 Intake Total 1500 1950 Output Total 1400 2000 Balance 100 -50 - Medications Medications: Current Medications Acetaminophen (Tylenol 325mg Tab) 650 mg PO Q6 PRN PRN Reason: Headache Last Admin: 01/29/18 11:35 Dose: 650 mg Furosemide (Lasix) 20 mg IVP BID [facility] Guaifenesin (Robitussin) 100 mg PO Q4H PRN PRN Reason: Cough Last Admin: 01/29/18 14:33 Dose: 100 mg Heparin Sodium (Porcine) (Heparin) 5,000 units SC Q12 [facility] Last Admin: 01/29/18 09:15 Dose: 5,000 units Hydromorphone HCl (Dilaudid) 1 mg IVP Q4H PRN PRN Reason: Pain, severe (8-10) Last Admin: 01/27/18 23:36 Dose: 1 mg Ampicillin 2 gm/ Sodium (Chloride) 100 mls @ 200 mls/hr IVPB Q4 [facility] PRN Reason: Protocol Stop: 02/06/18 12:01 Last Admin: 01/29/18 11:55 Dose: Not Given Acyclovir 730 mg/ Sodium (Chloride) 250 mls @ 100 mls/hr IV Q8H [facility] PRN Reason: Protocol Last Admin: 01/29/18 14:33 Dose: 100 mls/hr Ceftriaxone Sodium 2 gm/ (Sodium Chloride) 100 mls @ 100 mls/hr IVPB 1600 [facility] PRN Reason: Protocol Lactobacillus Acidophilus (Bacid Acidophilus) 1 cap PO BID [facility] Last Admin: 01/29/18 09:15 Dose: 1 cap Losartan Potassium (Cozaar) 25 mg PO DAILY [facility] Last Admin: 01/29/18 09:15 Dose: 25 mg Magnesium Oxide (Mag-Ox) 400 mg PO BID [facility] Last Admin: 01/29/18 09:15 Dose: 400 mg Morphine Sulfate (Morphine) 2 mg IVP Q4 PRN PRN Reason: FOR SEVERE HEADACHES Last Admin: 01/27/18 04:42 Dose: 2 mg Potassium Chloride (Klor-Con 10) 20 meq PO BRK [facility]E - Labs Labs: 01/29/18 08:16 01/29/18 08:16 PT 13.5 SECONDS (9.7-12.2) H 01/24/18 05:05 INR 1.2 01/24/18 05:05 APTT 34 SECONDS (21-34) 01/24/18 05:05 - Head Exam Head Exam: ATRAUMATIC, NORMOCEPHALIC - ENT Exam ENT Exam: Mucous Membranes Moist - Neck Exam Neck Exam: Normal Inspection - Respiratory Exam Respiratory Exam: Clear to Ausculation Bilateral - Cardiovascular Exam Cardiovascular Exam: REGULAR RHYTHM - GI/Abdominal Exam GI & Abdominal Exam: Soft, Normal Bowel Sounds Assessment and Plan (1) Multiple lung nodules on CT Assessment & Plan: unlikely septic emboli Clinical exam consistent with CHF Continue Lasix Follow-up chest x-ray On antibiotics continue antitussiveFor cough Status: Acute (2) Pleural effusion Status: Acute
--- NOTE | 2018-01-29 19:14 | PN ---
Copied To: Liam Velazquez MD Attending MD: Liam Velazquez MD DATE: 01/29/2018 SUBJECTIVE: She still complains of some headache, neck pain and she points to the area of temporal biopsy. She is very anemic, appears sick looking. PHYSICAL EXAMINATION: VITAL SIGNS: T-max is 98, pulse 78, blood pressure 132/83, respirations are 18. HEENT: Head is atraumatic, normocephalic. NECK: Supple, otherwise she has these lip sores, vesicular lesions on her lower lip, suggestive of varices. LUNGS: Clear. HEART: S1 and S2 regular. ABDOMEN: Soft, nontender. EXTREMITIES: Have no edema. LABORATORY DATA: Labs are noted. Labs show white count is 18.8, hemoglobin 7.4, hematocrit 22.3. She remains anemic. White count is . Her urine culture is now negative. CRP still remains high, proBNP was high and she is getting Lasix and they are going to transfuse and the primary asked me whether she needs a PICC line and she has Staph viridans in the blood, most likely from the dental problem that she has and also she had aseptic meningitis as her cells were high. ASSESSMENT AND PLAN: We will continue present treatment and had a urinary tract infection and we will follow. I have decreased the dose of Rocephin as the cultures are negative in the cerebrospinal fluid and she is on ampicillin for the streptococcus viridans and the blood cultures are negative, and she will need a peripherally inserted central catheter line for continuing in treatment for this and later on she also needs to see her dentist or oral surgeon for the problem that she has in her left mandible. Liam Velazquez MD
[2018-01-29] MEDS: HYDROmorphone 1 mg/ml ISec IVP PRN (22:59)
[2018-01-30] MEDS: AMPicillin 2 GM in Sodium Chloride 0.9% 100 ML IVPB SCH ×5 (03:53→20:05)
[2018-01-30] MEDS ORDERED: Valproate 1,000 MG in Sodium Chloride 0.9% 100 ML IVPB ONE (07:08)
[2018-01-30] MEDS ORDERED: Magnesium Sulfate 1 gm in D5W 1 GM/100 ML BAG IVPB SCH (07:15)
--- NOTE | 2018-01-30 07:15 | CP.PCM.PN ---
Subjective - Date & Time of Evaluation Date of Evaluation: 01/30/18 Time of Evaluation: 07:11 - Subjective Subjective: Ms. Jaramillo was seen and examined at the bedside. She is alert, complaining of frontal headache with pain scale 7/10, non radiating, pressure like. Head movement aggravates the pain, but denies any diplopia, blurred vision, nausea, or vomiting. She further claims of having an excellent PO intake. She is able to move all extremities. She was given dilaudid for headache last night. She remians on contact isolation. Objective - Vital Signs/Intake and Output Vital Signs (last 24 hours): Temp Pulse Resp BP Pulse Ox 100.1 F H 86 20 147/88 96 01/29/18 23:36 01/30/18 01:00 01/29/18 23:36 01/29/18 23:36 01/29/18 23:36 Intake and Output: 01/30/18 01/30/18 06:59 18:59 Intake Total 800 Output Total 1150 Balance -350 - Medications Medications: Current Medications Acetaminophen (Tylenol 325mg Tab) 650 mg PO Q6 PRN PRN Reason: Headache Last Admin: 01/29/18 11:35 Dose: 650 mg Dexamethasone (Decadron Inj) 10 mg IVP ONCE ONE Stop: 01/30/18 07:10 Furosemide (Lasix) 20 mg IVP BID [facility] Last Admin: 01/29/18 17:57 Dose: 20 mg Guaifenesin (Robitussin) 100 mg PO Q4H PRN PRN Reason: Cough Last Admin: 01/29/18 14:33 Dose: 100 mg Heparin Sodium (Porcine) (Heparin) 5,000 units SC Q12 [facility] Last Admin: 01/29/18 21:42 Dose: 5,000 units Hydromorphone HCl (Dilaudid) 1 mg IVP Q4H PRN PRN Reason: Pain, severe (8-10) Last Admin: 01/29/18 22:59 Dose: 1 mg Ampicillin 2 gm/ Sodium (Chloride) 100 mls @ 200 mls/hr IVPB Q4 [facility] PRN Reason: Protocol Stop: 02/06/18 12:01 Last Admin: 01/30/18 03:53 Dose: 200 mls/hr Acyclovir 730 mg/ Sodium (Chloride) 250 mls @ 100 mls/hr IV Q8H [facility] PRN Reason: Protocol Last Admin: 01/29/18 20:25 Dose: 100 mls/hr Ceftriaxone Sodium 2 gm/ (Sodium Chloride) 100 mls @ 100 mls/hr IVPB 1600 [facility] PRN Reason: Protocol Last Admin: 01/29/18 17:00 Dose: 100 mls/hr Valproate Sodium 1,000 mg/ (Sodium Chloride) 110 mls @ 0 mls/hr IVPB ONCE ONE PRN Reason: Per Protocol Stop: 01/30/18 07:09 Lactobacillus Acidophilus (Bacid Acidophilus) 1 cap PO BID [facility] Last Admin: 01/29/18 17:55 Dose: 1 cap Losartan Potassium (Cozaar) 25 mg PO DAILY [facility] Last Admin: 01/29/18 09:15 Dose: 25 mg Magnesium Oxide (Mag-Ox) 400 mg PO BID [facility] Last Admin: 01/29/18 17:55 Dose: 400 mg Morphine Sulfate (Morphine) 2 mg IVP Q4 PRN PRN Reason: FOR SEVERE HEADACHES Last Admin: 01/29/18 21:42 Dose: 2 mg - Labs Labs: 01/29/18 08:16 01/29/18 08:16 PT 13.5 SECONDS (9.7-12.2) H 01/24/18 05:05 INR 1.2 01/24/18 05:05 APTT 34 SECONDS (21-34) 01/24/18 05:05 - Constitutional Appears: No Acute Distress - Head Exam Head Exam: NORMAL INSPECTION - Eye Exam Pupil Exam: PERRL - Neck Exam Additional comments: limited movement - Neurological Exam Neurological Exam: Alert, Awake, Oriented x3 Neuro motor strength exam: Left Upper Extremity: 3, Right Upper Extremity: 3, Left Lower Extremity: 3, Right Lower Extremity: 3 Additional comments: alert, oriented follows commands, very weak Assessment and Plan (1) Headache Assessment & Plan: Case discussed with Dr. De Los Santos, continue all current medical and physical regimens. Hold magnesium oxide due to elevated magnesium level ( 2.4). Recommend depakote 1000 mg IVPB for one dose and decadron 10 mg IV for one dose , treat any electrolyte abnormalities, follow orders from ID physician, OOB if possible. Status: Acute
[2018-01-30 08:18] LABS: BASO % 0.2 % (0.0-2.0); EOS # 0.2 K/uL (0.0-0.7); EOS % 1.1 % (0.0-4.0); HEMOGLOBIN 8.6 g/dL (11.0-16.0); LYMPH # 2.6 K/uL (1.0-4.3); LYMPH % 13.5 % (20.0-40.0); MEAN CELL VOLUME 84.7 fL (81.0-99.0); MEAN CORPUSCULAR HEMOGLOBIN 28.6 pg (27.0-31.0); MEAN CORPUSCULAR HGB CONC 33.7 g/dL (33.0-37.0); MEAN PLATELET VOLUME 7.9 fL (7.2-11.7); MONO # 1.1 K/uL (0.0-0.8); MONO % 6.1 % (0.0-10.0); NEUT % 79.1 % (50.0-75.0); NRBC % 0.1 % (0.0-2.0); RBC 3.03 Mil/uL (3.80-5.20); RED CELL DISTRIBUTION WIDTH 15.9 % (11.5-14.5); WHITE BLOOD COUNT 18.9 K/uL (4.8-10.8)
[2018-01-30 08:42] LABS: ALB/GLOB RATIO 0.9 (1.0-2.1); ALT/SGPT 40 U/L (9-52); AST/SGOT 38 U/L (14-36); BLOOD UREA NITROGEN 12 mg/dL (7-17); CALCIUM 8.1 mg/dl (8.6-10.4); GFR NON-AFRICAN AMERICAN > 60
[2018-01-30] MEDS: Lactobacillus Acidophilus 500 MU Cap PO SCH ×2 (10:20→17:33)
--- NOTE | 2018-01-30 10:29 | CP.PCM.PN ---
<Abhijeet Castañeda - Last Filed: 01/30/18 15:16> Subjective - Date & Time of Evaluation Date of Evaluation: 01/30/18 Time of Evaluation: 07:50 - Subjective Subjective: PGY-1 Medicine Progress Note for Dr. Bautista Patient seen and examined at bedside this AM. Per nurse, pt complained of intractable headaches overnight, 03/13. Dilaudid given, remains on board prn. Continues to c/o of headache this morning and neck pain. Denies photophobia, visual changes, double vision, fevers/chills, chest pain, palpitations, SOB, nausea, vomiting, diarrhea, constipation, or dysuria. Objective - Vital Signs/Intake and Output Vital Signs (last 24 hours): Temp Pulse Resp BP Pulse Ox 100.6 F H 76 20 128/77 97 01/30/18 08:24 01/30/18 08:00 01/30/18 08:00 01/30/18 10:19 01/30/18 08:24 Intake and Output: 01/30/18 01/30/18 06:59 18:59 Intake Total 800 Output Total 1150 Balance -350 - Medications Medications: Current Medications Acetaminophen (Tylenol 325mg Tab) 650 mg PO Q6 PRN PRN Reason: Headache Last Admin: 01/29/18 11:35 Dose: 650 mg Furosemide (Lasix) 20 mg IVP BID [facility] Last Admin: 01/30/18 10:19 Dose: 20 mg Guaifenesin (Robitussin) 100 mg PO Q4H PRN PRN Reason: Cough Last Admin: 01/29/18 14:33 Dose: 100 mg Heparin Sodium (Porcine) (Heparin) 5,000 units SC Q12 [facility] Last Admin: 01/30/18 10:21 Dose: 5,000 units Hydromorphone HCl (Dilaudid) 1 mg IVP Q4H PRN PRN Reason: Pain, severe (8-10) Last Admin: 01/29/18 22:59 Dose: 1 mg Ampicillin 2 gm/ Sodium (Chloride) 100 mls @ 200 mls/hr IVPB Q4 [facility] PRN Reason: Protocol Stop: 02/06/18 12:01 Last Admin: 01/30/18 09:15 Dose: 200 mls/hr Acyclovir 730 mg/ Sodium (Chloride) 250 mls @ 100 mls/hr IV Q8H [facility] PRN Reason: Protocol Last Admin: 01/29/18 20:25 Dose: 100 mls/hr Ceftriaxone Sodium 2 gm/ (Sodium Chloride) 100 mls @ 100 mls/hr IVPB 1600 [facility] PRN Reason: Protocol Last Admin: 01/29/18 17:00 Dose: 100 mls/hr Lactobacillus Acidophilus (Bacid Acidophilus) 1 cap PO BID [facility] Last Admin: 01/30/18 10:20 Dose: 1 cap Losartan Potassium (Cozaar) 25 mg PO DAILY [facility] Last Admin: 01/30/18 10:20 Dose: 25 mg Magnesium Oxide (Mag-Ox) 400 mg PO BID [facility] Last Admin: 01/29/18 17:55 Dose: 400 mg Morphine Sulfate (Morphine) 2 mg IVP Q4 PRN PRN Reason: FOR SEVERE HEADACHES Last Admin: 01/29/18 21:42 Dose: 2 mg - Labs Labs: 01/30/18 08:06 01/30/18 08:06 PT 13.5 SECONDS (9.7-12.2) H 01/24/18 05:05 INR 1.2 01/24/18 05:05 APTT 34 SECONDS (21-34) 01/24/18 05:05 - Constitutional Appears: Chronically Ill - Head Exam Head Exam: NORMAL INSPECTION Additional comments: Dressing over L temporal aspect is clean, dry, intact No pulsatile temporal artery appreciated on either side of the face. - Eye Exam Eye Exam: Normal appearance - ENT Exam ENT Exam: Mucous Membranes Moist - Neck Exam Neck Exam: Normal Inspection, Tenderness Additional comments: No nuchal rigidity, but TTP. Limited ROM in all planes 2/2 pain - Respiratory Exam Respiratory Exam: Clear to Ausculation Bilateral, NORMAL BREATHING PATTERN - Cardiovascular Exam Cardiovascular Exam: RRR, +S1, +S2 - GI/Abdominal Exam GI & Abdominal Exam: Soft, Normal Bowel Sounds. absent: Distended, Firm, Guarding, Tenderness - Extremities Exam Extremities Exam: Normal Capillary Refill, Normal Inspection. absent: Pedal Edema - Neurological Exam Neurological Exam: Alert, Awake, Oriented x3 - Skin Skin Exam: Dry, Intact, Normal Color, Warm Assessment and Plan - Assessment and Plan (Free Text) Assessment: 66 yo F with PMHx of HTN, arthritis presenting with worsening head and neck pain s/p R eye cataract surgery on 01/15/2018 Plan: 1. Sepsis, -criteria: spiked fevers, elevated WBCs spiked fever 100.6 (01/29, 08:24) Tmax 101.5 (01/27, 23:30) WBCs downtrending, 18.9 (01/30) -source of infection: bacteremia and UTI -treating for viral meningitis picture given severe headaches, fevers, neck pain -Per ID recs: continue w/ acyclovir 730 mg q8 IV, ampicillin 2g q4 IV -01/23 BCx: Strep viridans x2 -01/23 Urine Cx: Citrobacter diversus -01/25 repeat BCx: No growth x 2 -01/27 repeat Urine Cx: No growth -CSF gram stain: no organisms seen, rare PMNs -CSF culture-preliminary: no growth after 4 days -procalcitonin 8.08-->3.89-->0.06 (01/27) 2. Bacteremia -treating viral meningitis picture given severe headaches, fevers, neck pain -01/23 BCx: Strep viridans x2 -01/25 repeat BCx: No growth x 2 -Cardio recs appreciated -CHF: IV lasix BID and KCl -Add beta coby once lungs are improved -Once pt's lungs are clear, and if there is still a need to more definitively rule out endocarditis, then ENEIDA can be performed. TTE was of excellent quality and no vegetations were seen. -ID consult (Dr. Pavon) for PICC line placement 3. Cervicogenic Headache--Possible temporal arteritis, possible viral meningitis -CSF gram stain: no organisms seen, rare PMNs -CSF culture--preliminary: no growth after 4 days -Per General surgery (Dr. Orozco): -temporal artery bx: negative for acute changes of GCA, including inflammatory cell infiltrates and multi-nucleated giants cells. Negative finding does not rule out presence of GCA -Per Neurology (Dr. Padilla): - held Mag ox due to Mg level 2.4 -depakote 1000 mg IVPB x1 -decadron 10 mg IV x1 -OOB if possible -Per Infectious Disease (Dr. Juares): -acyclovir 730 mg q8 IV -ampicillin 2g q4 IV -Lumbar Puncture -Spinal fluid clear/colorless -Bands: 2% -WBC: 93 -RBC: 12 -Predominant: Neutrophils -Sugar: 60 (elevated) -Protein: 90 (elevated) -Cryptococcus Ag: negative -CSFL no growth after 24hours -CMV IgG Ab 6.50 (H) -CMV IgM Ab <30 -West Nile negative -HSV 2 IgM titer CSF -HSV IgM titer -LSH titer -Lyme -Toxoplasma 4. UTI -01/23 Urine Cx: Citrobacter diversus -01/27 repeat Urine Cx: No growth 5. HTN -controlled -not on medications at this time 6. History of Arthritis -Pt does not c/o pain -not on NSAID 7. Multiple lung nodules on CT -Pulmonary (Dr. Verma) on board -continue w/ Abx -Legionella -Mycoplasma -cx pending -no acid fast bacilli stain growth 8. Pleural effusion -small b/l pleural effusion -no thoracentesis 9. Leukocytosis, Anemia -suggested persistent WBC d/t infectious etiology -WBCs downtrending, 18.9 -ESR 114 on admission-->repeat 65 -Retic Count: 1.9 -Haptoglobin: 521.7 -Iron: 18 (L) -TIBC: 200 (L) -% saturation: 9 (L) -Ferritin: 503.0 -Hb/Hct downtrending for unknown reason; baseline Hb 12.6 (11/01/2016) -Per PMD (Dr. Muñoz), pt has never been worked up for anemia -Pt type and crossed; pRBCs prepared, per Heme/Onc recs 10. PPx -Heparin 5000 units subQ 12h -Droplet Precautions -NS 70 cc/hr Case discussed with Dr. Michele Castañeda, PGY-1 <Christo Bautista - Last Filed: 01/30/18 18:34> Objective - Vital Signs/Intake and Output Vital Signs (last 24 hours): Temp Pulse Resp BP Pulse Ox 99.6 F 88 20 141/88 96 01/30/18 16:00 01/30/18 16:00 01/30/18 16:00 01/30/18 17:33 01/30/18 16:00 Intake and Output: 01/30/18 01/30/18 06:59 18:59 Intake Total 800 Output Total 1150 Balance -350 - Medications Medications: Current Medications Acetaminophen (Tylenol 325mg Tab) 650 mg PO Q6 PRN PRN Reason: Headache Last Admin: 01/29/18 11:35 Dose: 650 mg Carvedilol (Coreg) 6.25 mg PO BID [facility] Last Admin: 01/30/18 17:33 Dose: 6.25 mg Furosemide (Lasix) 20 mg IVP BID [facility] Last Admin: 01/30/18 17:33 Dose: 20 mg Guaifenesin (Robitussin) 100 mg PO Q4H PRN PRN Reason: Cough Last Admin: 01/29/18 14:33 Dose: 100 mg Heparin Sodium (Porcine) (Heparin) 5,000 units SC Q12 [facility] Last Admin: 01/30/18 10:21 Dose: 5,000 units Hydromorphone HCl (Dilaudid) 1 mg IVP Q4H PRN PRN Reason: Pain, severe (8-10) Last Admin: 01/29/18 22:59 Dose: 1 mg Ampicillin 2 gm/ Sodium (Chloride) 100 mls @ 200 mls/hr IVPB Q4 [facility] PRN Reason: Protocol Stop: 02/06/18 12:01 Last Admin: 01/30/18 15:55 Dose: 200 mls/hr Acyclovir 730 mg/ Sodium (Chloride) 250 mls @ 100 mls/hr IV Q8H [facility] PRN Reason: Protocol Last Admin: 01/30/18 12:32 Dose: 100 mls/hr Ceftriaxone Sodium 2 gm/ (Sodium Chloride) 100 mls @ 100 mls/hr IVPB 1600 [facility] PRN Reason: Protocol Last Admin: 01/30/18 15:56 Dose: 100 mls/hr Lactobacillus Acidophilus (Bacid Acidophilus) 1 cap PO BID [facility] Last Admin: 01/30/18 17:33 Dose: 1 cap Losartan Potassium (Cozaar) 25 mg PO DAILY [facility] Last Admin: 01/30/18 10:20 Dose: 25 mg Magnesium Oxide (Mag-Ox) 400 mg PO BID [facility] Last Admin: 01/29/18 17:55 Dose: 400 mg Morphine Sulfate (Morphine) 2 mg IVP Q4 PRN PRN Reason: FOR SEVERE HEADACHES Last Admin: 01/29/18 21:42 Dose: 2 mg - Labs Labs: 01/30/18 08:06 01/30/18 08:06 PT 13.5 SECONDS (9.7-12.2) H 01/24/18 05:05 INR 1.2 01/24/18 05:05 APTT 34 SECONDS (21-34) 01/24/18 05:05 Attending/Attestation - Attestation I have personally seen and examined this patient.: Yes I have fully participated in the care of the patient.: Yes I have reviewed all pertinent clinical information, including history, physical exam and plan: Yes Notes (Text): Seen and examined by me. patient feels little better today. Her breathing is better,Had low grade temp this morning,eating ok,off IV fluids and getting lasix Discuss with Dr Velazquez. She is recommending total 4 weeks of IV antibiotics. Going for picc line tomorrow We will continue ampicillen,ceftriaxone and Acyclovir as recommended by ID on examination she has bilateral rales /better than yesterday Plan discussed with patient cardiology follow up appreciated. Patient has systolic dysfunction.s/p fluid overload improving. Monitor cbc,s/p blood transfusion csf mycobac culture and fungal culture negative wbc coming down d/w Resident. Agree with the documentation of the assessment and the plan
--- NOTE | 2018-01-30 15:53 | CP.PCM.PN ---
Subjective - Date & Time of Evaluation Date of Evaluation: 01/30/18 Time of Evaluation: 15:51 - Subjective Subjective: Pt has less dyspnea. Still having headaches. Objective - Vital Signs/Intake and Output Vital Signs (last 24 hours): Temp Pulse Resp BP Pulse Ox 98.9 F 94 H 20 128/77 97 01/30/18 12:59 01/30/18 12:00 01/30/18 08:00 01/30/18 10:19 01/30/18 08:24 Intake and Output: 01/30/18 01/30/18 06:59 18:59 Intake Total 800 Output Total 1150 Balance -350 - Medications Medications: Current Medications Acetaminophen (Tylenol 325mg Tab) 650 mg PO Q6 PRN PRN Reason: Headache Last Admin: 01/29/18 11:35 Dose: 650 mg Furosemide (Lasix) 20 mg IVP BID [facility] Last Admin: 01/30/18 10:19 Dose: 20 mg Guaifenesin (Robitussin) 100 mg PO Q4H PRN PRN Reason: Cough Last Admin: 01/29/18 14:33 Dose: 100 mg Heparin Sodium (Porcine) (Heparin) 5,000 units SC Q12 [facility] Last Admin: 01/30/18 10:21 Dose: 5,000 units Hydromorphone HCl (Dilaudid) 1 mg IVP Q4H PRN PRN Reason: Pain, severe (8-10) Last Admin: 01/29/18 22:59 Dose: 1 mg Ampicillin 2 gm/ Sodium (Chloride) 100 mls @ 200 mls/hr IVPB Q4 [facility] PRN Reason: Protocol Stop: 02/06/18 12:01 Last Admin: 01/30/18 11:23 Dose: 200 mls/hr Acyclovir 730 mg/ Sodium (Chloride) 250 mls @ 100 mls/hr IV Q8H [facility] PRN Reason: Protocol Last Admin: 01/30/18 12:32 Dose: 100 mls/hr Ceftriaxone Sodium 2 gm/ (Sodium Chloride) 100 mls @ 100 mls/hr IVPB 1600 [facility] PRN Reason: Protocol Last Admin: 01/29/18 17:00 Dose: 100 mls/hr Lactobacillus Acidophilus (Bacid Acidophilus) 1 cap PO BID [facility] Last Admin: 01/30/18 10:20 Dose: 1 cap Losartan Potassium (Cozaar) 25 mg PO DAILY [facility] Last Admin: 01/30/18 10:20 Dose: 25 mg Magnesium Oxide (Mag-Ox) 400 mg PO BID [facility] Last Admin: 01/29/18 17:55 Dose: 400 mg Morphine Sulfate (Morphine) 2 mg IVP Q4 PRN PRN Reason: FOR SEVERE HEADACHES Last Admin: 01/29/18 21:42 Dose: 2 mg - Labs Labs: 01/30/18 08:06 01/30/18 08:06 PT 13.5 SECONDS (9.7-12.2) H 01/24/18 05:05 INR 1.2 01/24/18 05:05 APTT 34 SECONDS (21-34) 01/24/18 05:05 - Constitutional Appears: Well - Head Exam Head Exam: NORMAL INSPECTION - ENT Exam ENT Exam: Mucous Membranes Moist - Neck Exam Neck Exam: Full ROM - Respiratory Exam Respiratory Exam: NORMAL BREATHING PATTERN Additional comments: scant rales left base. - Cardiovascular Exam Cardiovascular Exam: REGULAR RHYTHM - GI/Abdominal Exam GI & Abdominal Exam: Normal Bowel Sounds - Rectal Exam Rectal Exam: NORMAL INSPECTION - Exam External exam: NORMAL EXTERNAL EXAM - Extremities Exam Extremities Exam: Full ROM, Normal Inspection - Back Exam Back Exam: NORMAL INSPECTION - Neurological Exam Neurological Exam: Alert, Awake Assessment and Plan - Assessment and Plan (Free Text) Assessment: 1. CHF: will repeat cxr tomorrow, pt is symptomatically better. 2. Add beta coby. LV EF is not normal as reported, but moderately reduced, not severe. Pt has had lots of IV fluids, transfusions 3. K is normal.
[2018-01-31] MEDS: AMPicillin 2 GM in Sodium Chloride 0.9% 100 ML IVPB SCH ×5 (00:03→11:29)
[2018-01-31 07:31] LABS: ALB/GLOB RATIO 0.9 (1.0-2.1); ALBUMIN 2.9 g/dL (3.5-5.0); ALT/SGPT 43 U/L (9-52); AST/SGOT 39 U/L (14-36); BLOOD UREA NITROGEN 13 mg/dL (7-17); CALCIUM 7.9 mg/dl (8.6-10.4); GFR NON-AFRICAN AMERICAN > 60
[2018-01-31 07:40] LABS: BASO # 0.1 K/uL (0.0-0.2); BASO % 0.3 % (0.0-2.0); EOS % 0.1 % (0.0-4.0); HEMOGLOBIN 8.5 g/dL (11.0-16.0); LYMPH # 3.1 K/uL (1.0-4.3); LYMPH % 17.8 % (20.0-40.0); MEAN CELL VOLUME 85.1 fL (81.0-99.0); MEAN CORPUSCULAR HEMOGLOBIN 29.3 pg (27.0-31.0); MEAN CORPUSCULAR HGB CONC 34.4 g/dL (33.0-37.0); MEAN PLATELET VOLUME 7.8 fL (7.2-11.7); MONO # 1.1 K/uL (0.0-0.8); MONO % 6.6 % (0.0-10.0); NEUT # 13.1 K/uL (1.8-7.0); NEUT % 75.2 % (50.0-75.0); RBC 2.9 Mil/uL (3.80-5.20); RED CELL DISTRIBUTION WIDTH 15.7 % (11.5-14.5); WHITE BLOOD COUNT 17.5 K/uL (4.8-10.8)
--- NOTE | 2018-01-31 09:03 | RAD ---
Date of service: 01/31/2018 HISTORY: chf COMPARISON: 01/28/2018 FINDINGS: LUNGS: Linear scar/atelectasis at right base. Left basilar opacity, possible infiltrate. Follow-up advised. PLEURA: Small right pleural effusion. No left pleural effusion. No pneumothorax. CARDIOVASCULAR: Normal. OSSEOUS STRUCTURES: No significant abnormalities. VISUALIZED UPPER ABDOMEN: Normal. OTHER FINDINGS: None. IMPRESSION: Right basilar subsegmental atelectasis and small right pleural effusion. Left basilar opacity. Possible pneumonia. Follow-up advised.
[2018-01-31] MEDS: Lactobacillus Acidophilus 500 MU Cap PO SCH ×2 (10:09→17:31)
--- NOTE | 2018-01-31 12:15 | CP.PCM.PN ---
Subjective - Date & Time of Evaluation Date of Evaluation: 01/31/18 Time of Evaluation: 12:15 - Subjective Subjective: dictated Objective - Vital Signs/Intake and Output Vital Signs (last 24 hours): Temp Pulse Resp BP Pulse Ox 98.1 F 63 18 120/72 97 01/31/18 07:00 01/31/18 07:50 01/31/18 07:00 01/31/18 10:10 01/31/18 07:00 Intake and Output: 01/31/18 01/31/18 06:59 18:59 Intake Total 1050 Output Total 800 Balance 250 - Medications Medications: Current Medications Acetaminophen (Tylenol 325mg Tab) 650 mg PO Q6 PRN PRN Reason: Headache Last Admin: 01/29/18 11:35 Dose: 650 mg Carvedilol (Coreg) 6.25 mg PO BID [facility] Last Admin: 01/31/18 10:09 Dose: 6.25 mg Furosemide (Lasix) 20 mg IVP BID [facility] Last Admin: 01/31/18 10:10 Dose: 20 mg Guaifenesin (Robitussin) 100 mg PO Q4H PRN PRN Reason: Cough Last Admin: 01/29/18 14:33 Dose: 100 mg Heparin Sodium (Porcine) (Heparin) 5,000 units SC Q12 [facility] Last Admin: 01/31/18 10:09 Dose: 5,000 units Hydromorphone HCl (Dilaudid) 1 mg IVP Q4H PRN PRN Reason: Pain, severe (8-10) Last Admin: 01/29/18 22:59 Dose: 1 mg Ampicillin 2 gm/ Sodium (Chloride) 100 mls @ 200 mls/hr IVPB Q4 [facility] PRN Reason: Protocol Stop: 02/06/18 12:01 Last Admin: 01/31/18 11:29 Dose: 200 mls/hr Acyclovir 730 mg/ Sodium (Chloride) 250 mls @ 100 mls/hr IV Q8H [facility] PRN Reason: Protocol Last Admin: 01/31/18 06:17 Dose: 100 mls/hr Ceftriaxone Sodium 2 gm/ (Sodium Chloride) 100 mls @ 100 mls/hr IVPB 1600 [facility] PRN Reason: Protocol Last Admin: 01/30/18 15:56 Dose: 100 mls/hr Lactobacillus Acidophilus (Bacid Acidophilus) 1 cap PO BID [facility] Last Admin: 01/31/18 10:09 Dose: 1 cap Losartan Potassium (Cozaar) 25 mg PO DAILY [facility] Last Admin: 01/31/18 10:09 Dose: 25 mg Magnesium Oxide (Mag-Ox) 400 mg PO BID [facility] Last Admin: 01/29/18 17:55 Dose: 400 mg Morphine Sulfate (Morphine) 2 mg IVP Q4 PRN PRN Reason: FOR SEVERE HEADACHES Last Admin: 01/29/18 21:42 Dose: 2 mg - Labs Labs: 01/31/18 07:10 01/31/18 07:10 PT 13.5 SECONDS (9.7-12.2) H 01/24/18 05:05 INR 1.2 01/24/18 05:05 APTT 34 SECONDS (21-34) 01/24/18 05:05
--- NOTE | 2018-01-31 12:39 | RAD ---
Date of service: 01/31/2018 HISTORY: PICC Insertion COMPARISON: Chest radiograph performed approximately 3.5 hours prior. FINDINGS: LUNGS: Pulmonary vascular congestion. Right basilar atelectasis/scarring. Left midlung atelectasis/scarring. Improved left basilar aeration. PLEURA: No significant pleural effusion identified, no pneumothorax apparent. CARDIOVASCULAR: Atherosclerotic aortic calcifications. Cardiomediastinal silhouette stably enlarged. OSSEOUS STRUCTURES: Unchanged. VISUALIZED UPPER ABDOMEN: Normal. OTHER FINDINGS: No right upper extremity PICC with catheter tip in the SVC ne. IMPRESSION: New right upper extremity PICC in satisfactory position. No other significant interval change.
--- NOTE | 2018-01-31 17:52 | PN ---
Copied To: Liam Velazquez MD Attending MD: Liam Velazquez MD DATE: 01/31/2018 INFECTIOUS DISEASE FOLLOWUP SUBJECTIVE: The patient is afebrile. She feels a lot better. She has a left temporal biopsy done, which was negative. She is saying her headaches are much better. She feels better. She has been here for seven days and she has a PICC line. She will probably be going home with the PICC line. Her blood cultures are positive for strep viridans, which probably came from her dental problem and dental abscesses. The patient denies any headache. No ear, no throat problems right now. She did have eye surgery. She needs to follow up with her eye doctor and she has been given Lasix. She also has pulmonary septic emboli. Lungs are clear. Otherwise, denies any urinary complaints. PHYSICAL EXAMINATION: VITAL SIGNS: T-max is 98.1, pulse 60, blood pressure 136/78, respirations are 18. HEENT: Head is atraumatic. She feels better. She has a dressing on the left forehead. Tongue is moist. NECK: Supple. LUNGS: Clear. Few crackles present. HEART: S1 and S2 is regular. ABDOMEN: Soft, nontender. No guarding. No rigidity present. EXTREMITIES: Have no edema LABORATORY DATA: Her white count is coming down to 17.5, 8.5 and hematocrit 24.7, platelet count is 516. is 95, BUN is 30. Her urine culture is negative now. PLAN: At this time, I will cut down the antibiotics to Rocephin 2 g a day. She had septic emboli. We will give it for 20 more days and we will follow. She will need weekly CBC, CMP, CRP and also will need PICC line care and will be going home and unless the physical therapy thinks she needs rehab. We will follow. She probably had aseptic meningitis. Her white count was up and she had Strep viridans infection with septicemia with metabolic encephalopathy and UTI with Citrobacter. Liam Velazquez MD [facility] # [id number]
--- NOTE | 2018-01-31 18:26 | CP.PCM.PN ---
<Abhijeet Castañeda - Last Filed: 01/31/18 18:23> Subjective - Date & Time of Evaluation Date of Evaluation: 01/31/18 Time of Evaluation: 07:50 - Subjective Subjective: PGY-[address] Bautista Patient was seen and examined at bedside this AM. No acute changes reported overnight. Headache is present but improved, neck pain mild with improved range of motion. Denies photophobia, visual changes, double vision, fevers/chills, chest pain, palpitations, SOB, nausea, vomiting, diarrhea, constipation, or dysuria. Objective - Vital Signs/Intake and Output Vital Signs (last 24 hours): Temp Pulse Resp BP Pulse Ox 100.1 F H 75 22 101/44 L 96 01/31/18 15:58 01/31/18 15:58 01/31/18 15:58 01/31/18 17:31 01/31/18 15:58 Intake and Output: 01/31/18 01/31/18 06:59 18:59 Intake Total 1050 200 Output Total 800 550 Balance 250 -350 - Medications Medications: Current Medications Acetaminophen (Tylenol 325mg Tab) 650 mg PO Q6 PRN PRN Reason: Headache Last Admin: 01/31/18 16:09 Dose: 650 mg Carvedilol (Coreg) 6.25 mg PO BID [facility] Last Admin: 01/31/18 17:31 Dose: 6.25 mg Furosemide (Lasix) 20 mg IVP BID [facility]E Last Admin: 01/31/18 17:31 Dose: 20 mg Guaifenesin (Robitussin) 100 mg PO Q4H PRN PRN Reason: Cough Last Admin: 01/29/18 14:33 Dose: 100 mg Heparin Sodium (Porcine) (Heparin) 5,000 units SC Q12 MEME Last Admin: 01/31/18 10:09 Dose: 5,000 units Hydromorphone HCl (Dilaudid) 1 mg IVP Q4H PRN PRN Reason: Pain, severe (8-10) Last Admin: 01/29/18 22:59 Dose: 1 mg Ceftriaxone Sodium 2 gm/ (Sodium Chloride) 100 mls @ 100 mls/hr IVPB 1600 MEME PRN Reason: Protocol Last Admin: 01/31/18 16:11 Dose: 100 mls/hr Lactobacillus Acidophilus (Bacid Acidophilus) 1 cap PO BID [facility] Last Admin: 01/31/18 17:31 Dose: 1 cap Losartan Potassium (Cozaar) 25 mg PO DAILY [facility] Last Admin: 01/31/18 10:09 Dose: 25 mg Magnesium Oxide (Mag-Ox) 400 mg PO BID [facility] Last Admin: 01/29/18 17:55 Dose: 400 mg Morphine Sulfate (Morphine) 2 mg IVP Q4 PRN PRN Reason: FOR SEVERE HEADACHES Last Admin: 01/29/18 21:42 Dose: 2 mg - Labs Labs: 01/31/18 07:10 01/31/18 07:10 PT 13.5 SECONDS (9.7-12.2) H 01/24/18 05:05 INR 1.2 01/24/18 05:05 APTT 34 SECONDS (21-34) 01/24/18 05:05 - Constitutional Appears: Chronically Ill - Head Exam Head Exam: ATRAUMATIC, NORMAL INSPECTION, NORMOCEPHALIC Additional comments: Dressing over L temporal aspect is clean, dry, intact No pulsatile temporal artery appreciated on either side of the face. - Eye Exam Eye Exam: Normal appearance Pupil Exam: NORMAL ACCOMODATION - ENT Exam ENT Exam: Mucous Membranes Moist - Neck Exam Neck Exam: Normal Inspection, Tenderness Additional comments: No nuchal rigidity, but mild TTP. Limited but improved ROM in all planes 2/2 pain - Respiratory Exam Respiratory Exam: Clear to Ausculation Bilateral, NORMAL BREATHING PATTERN - Cardiovascular Exam Cardiovascular Exam: RRR, +S1, +S2 - GI/Abdominal Exam GI & Abdominal Exam: Soft, Normal Bowel Sounds. absent: Distended, Firm, Guarding, Rigid, Tenderness, Rebound - Extremities Exam Extremities Exam: Normal Inspection - Back Exam Back Exam: NORMAL INSPECTION. absent: CVA tenderness (L), CVA tenderness (R) - Neurological Exam Neurological Exam: Alert, Awake, Oriented x3 - Psychiatric Exam Psychiatric exam: Normal Affect, Normal Mood - Skin Skin Exam: Dry, Intact, Normal Color, Warm Assessment and Plan - Assessment and Plan (Free Text) Assessment: 66 yo F with PMHx of HTN, arthritis presenting with worsening head and neck pain s/p R eye cataract surgery on 01/15/2018 Plan: 1. Sepsis -clinically improving -Temp 100.1 (01/31, 15: 58) -last spiked fever 100.6 (01/29, 08:24) -Tmax 101.5 (01/27, 23:30) - WBCs downtrending, 17.5 (01/31) -likely source of infection: bacteremia and UTI -procalcitonin 8.08-->3.89-->0.06 (01/27) 2. Bacteremia -01/23 BCx: Strep viridans x2 -01/25 repeat BCx: No growth x 2 -Cardio recs appreciated -CHF: IV lasix BID and KCl -Add beta coby once lungs are improved -Once pt's lungs are clear, and if there is still a need to more definitively rule out endocarditis, then ENEIDA can be performed. TTE was of excellent quality and no vegetations were seen. 3. Cervicogenic Headache--Possible temporal arteritis, possible viral meningitis -CSF gram stain: no organisms seen, rare PMNs -CSF culture--preliminary: no growth after 4 days -General surgery recs (Dr. Orozco) appreciated: -temporal artery bx: negative for acute changes of GCA, including inflammatory cell infiltrates and multi-nucleated giants cells. Negative finding does not rule out presence of GCA -Neurology recs (Dr. Padilla) appreciated: - held Mag ox due to Mg level 2.4 -depakote 1000 mg IVPB x1 -decadron 10 mg IV x1 -OOB if possible -ID recs (Dr. Yu) appreciated:treating for aseptic meningitis given severe headaches, fevers, neck pain -acyclovir 730 mg q8 IV -ampicillin 2g q4 IV -Lumbar Puncture -Spinal fluid clear/colorless -Bands: 2% -WBC: 93 -RBC: 12 -Predominant: Neutrophils -Sugar: 60 (elevated) -Protein: 90 (elevated) -Cryptococcus Ag: negative -CSFL no growth after 24hours -CMV IgG Ab 6.50 (H) -CMV IgM Ab <30 -West Nile negative -HSV 2 IgM titer CSF -HSV IgM titer -LSH titer -Lyme -Toxoplasma 4. UTI -01/23 Urine Cx: Citrobacter diversus -01/27 repeat Urine Cx: No growth 5. HTN -controlled -not on medications at this time 6. History of Arthritis -Pt does not c/o pain -not on NSAID 7. Multiple lung nodules on CT -Pulmonary (Dr. Verma) on board -continue w/ Abx -Legionella -Mycoplasma -cx pending -no acid fast bacilli stain growth 8. Pleural effusion -small b/l pleural effusion -no thoracentesis 9. Leukocytosis, Anemia -suggested persistent WBC d/t infectious etiology -WBCs downtrending, 17.5 -ESR 114 on admission-->repeat 65 -Retic Count: 1.9 -Haptoglobin: 521.7 -Iron: 18 (L) -TIBC: 200 (L) -% saturation: 9 (L) -Ferritin: 503.0 -Hb/Hct downtrending for unknown reason; baseline Hb 12.6 (11/01/2016) -Per PMD (Dr. Muñoz), pt has never been worked up for anemia -Pt type and crossed; pRBCs prepared, per Heme/Onc recs 10. PPx -Heparin 5000 units subQ 12h -Droplet Precautions -NS 70 cc/hr Case discussed with Dr. Michele Castañeda, PGY-1 <Christo Bautista - Last Filed: 02/02/18 15:12> Objective - Vital Signs/Intake and Output Vital Signs (last 24 hours): Temp Pulse Resp BP Pulse Ox 99.0 F 69 20 131/74 96 02/02/18 07:52 02/02/18 08:04 02/02/18 07:52 02/02/18 10:00 02/02/18 07:52 Intake and Output: 02/02/18 02/02/18 06:59 18:59 Intake Total 300 Output Total 1300 Balance -1000 - Medications Medications: Current Medications Acetaminophen (Tylenol 325mg Tab) 650 mg PO Q6 PRN PRN Reason: Headache Last Admin: 02/02/18 02:38 Dose: 650 mg Carvedilol (Coreg) 6.25 mg PO BID [facility] Last Admin: 02/02/18 09:59 Dose: 6.25 mg Furosemide (Lasix) 20 mg IVP BID [facility] Last Admin: 02/02/18 10:00 Dose: 20 mg Guaifenesin (Robitussin) 100 mg PO Q4H PRN PRN Reason: Cough Last Admin: 02/02/18 13:15 Dose: 100 mg Heparin Sodium (Porcine) (Heparin) 5,000 units SC Q12 [facility]E Last Admin: 02/02/18 10:00 Dose: 5,000 units Hydromorphone HCl (Dilaudid) 1 mg IVP Q4H PRN PRN Reason: Pain, severe (8-10) Last Admin: 01/29/18 22:59 Dose: 1 mg Piperacillin Sod/Tazobactam Sod (Zosyn 3.375 Gm Iv Premix) 3.375 gm in 50 mls @ 100 mls/hr IVPB Q6H [facility]E PRN Reason: Protocol Lactobacillus Acidophilus (Bacid Acidophilus) 1 cap PO BID [facility] Last Admin: 02/02/18 09:59 Dose: 1 cap Losartan Potassium (Cozaar) 25 mg PO DAILY [facility] Last Admin: 02/02/18 09:59 Dose: 25 mg Magnesium Oxide (Mag-Ox) 400 mg PO BID [facility] Last Admin: 02/02/18 09:59 Dose: 400 mg Morphine Sulfate (Morphine) 2 mg IVP Q4 PRN PRN Reason: FOR SEVERE HEADACHES Last Admin: 02/02/18 08:30 Dose: 2 mg - Labs Labs: 02/02/18 07:26 02/02/18 07:26 PT 13.5 SECONDS (9.7-12.2) H 01/24/18 05:05 INR 1.2 01/24/18 05:05 APTT 34 SECONDS (21-34) 01/24/18 05:05 Attending/Attestation - Attestation I have personally seen and examined this patient.: Yes I have fully participated in the care of the patient.: Yes I have reviewed all pertinent clinical information, including history, physical exam and plan: Yes Notes (Text): seen and examined,patient is feeling better. Discussed with Dr yu about discharge plan has low grade tem,monitor temperature,continue ceftriaxone Picc line for total 4 weeks of antibiotics d/w resident I agree with the assessment and the plan
--- NOTE | 2018-02-01 06:29 | CP.PCM.PN ---
Subjective - Date & Time of Evaluation Date of Evaluation: 02/01/18 Time of Evaluation: 06:24 - Subjective Subjective: Ms. Jaramillo was seen and examined at the bedside. She remains alert, oriented in all spheres. She further claims of frontal headache improved since admission , but remains mild, dull, with pain scale of 4/10. She further denies any photophobia, phonophobia, nausea, or vomiting. She is currently on oxygen via nasal cannula and denies any SOB. She has left side lip sores on both lower and upper lip. She is able to move all extremities spontaneously and claims of ambulating within her room. There was no untoward events overnight. Objective - Vital Signs/Intake and Output Vital Signs (last 24 hours): Temp Pulse Resp BP Pulse Ox 99.8 F H 65 18 155/84 H 99 02/01/18 01:58 02/01/18 01:51 01/31/18 23:50 01/31/18 23:50 01/31/18 23:50 Intake and Output: 01/31/18 02/01/18 18:59 06:59 Intake Total 200 150 Output Total 550 1150 Balance -350 -1000 - Medications Medications: Current Medications Acetaminophen (Tylenol 325mg Tab) 650 mg PO Q6 PRN PRN Reason: Headache Last Admin: 02/01/18 01:58 Dose: 650 mg Carvedilol (Coreg) 6.25 mg PO BID [facility] Last Admin: 01/31/18 17:31 Dose: 6.25 mg Furosemide (Lasix) 20 mg IVP BID [facility] Last Admin: 01/31/18 17:31 Dose: 20 mg Guaifenesin (Robitussin) 100 mg PO Q4H PRN PRN Reason: Cough Last Admin: 01/29/18 14:33 Dose: 100 mg Heparin Sodium (Porcine) (Heparin) 5,000 units SC Q12 [facility]E Last Admin: 01/31/18 21:11 Dose: 5,000 units Hydromorphone HCl (Dilaudid) 1 mg IVP Q4H PRN PRN Reason: Pain, severe (8-10) Last Admin: 01/29/18 22:59 Dose: 1 mg Ceftriaxone Sodium 2 gm/ (Sodium Chloride) 100 mls @ 100 mls/hr IVPB 1600 MEME PRN Reason: Protocol Last Admin: 01/31/18 16:11 Dose: 100 mls/hr Lactobacillus Acidophilus (Bacid Acidophilus) 1 cap PO BID [facility] Last Admin: 01/31/18 17:31 Dose: 1 cap Losartan Potassium (Cozaar) 25 mg PO DAILY [facility] Last Admin: 01/31/18 10:09 Dose: 25 mg Magnesium Oxide (Mag-Ox) 400 mg PO BID [facility] Morphine Sulfate (Morphine) 2 mg IVP Q4 PRN PRN Reason: FOR SEVERE HEADACHES Last Admin: 02/01/18 02:00 Dose: 2 mg - Labs Labs: 01/31/18 07:10 01/31/18 07:10 PT 13.5 SECONDS (9.7-12.2) H 01/24/18 05:05 INR 1.2 01/24/18 05:05 APTT 34 SECONDS (21-34) 01/24/18 05:05 - Constitutional Appears: No Acute Distress - Head Exam Head Exam: NORMAL INSPECTION - Eye Exam Pupil Exam: PERRL - Neurological Exam Neurological Exam: Alert, Awake, Oriented x3 Neuro motor strength exam: Left Upper Extremity: 4, Right Upper Extremity: 4, Left Lower Extremity: 4, Right Lower Extremity: 4 Additional comments: alert, oriented, follows commands, sensation is intact. Assessment and Plan (1) Headache Assessment & Plan: Case discussed with DR. Babcock, continue all current medical and physical regimens. Pending HSV result, Recommend to let ID or primary team regarding mouth sores, May resume magnesium oxide 400 mg PO BID,treat any electrolyte abnormalities, follow orders from ID physician and cardiology. Status: Acute
--- NOTE | 2018-02-01 07:23 | CP.PCM.DIS ---
Provider - Provider Date of Admission: 01/23/18 16:08 Attending physician: Sky Santiago DO Time Spent in preparation of Discharge (in minutes): 40 Hospital Course - Lab Results Lab Results: Micro Results 01/25/18 07:30 Blood-Venous Blood Culture - Final NO GROWTH AFTER 5 DAYS 01/25/18 07:30 Blood-Venous Gram Stain - Final TEST NOT PERFORMED 01/25/18 17:47 Cerebral Spinal Fluid Gram Stain - Final 01/25/18 17:47 Cerebral Spinal Fluid CSF Culture - Final No growth. 01/25/18 17:47 Cerebral Spinal Fluid Fungal Culture - Preliminary 01/25/18 07:00 Blood-Venous Blood Culture - Final NO GROWTH AFTER 5 DAYS 01/25/18 07:00 Blood-Venous Gram Stain - Final TEST NOT PERFORMED 01/27/18 11:53 Urine,Clean Catch Urine Culture - Final No Growth (<1,000 CFU/ML) 01/25/18 17:47 Other: Please Indicate Mycobacterial Culture - Preliminary 01/23/18 15:00 Blood Blood Culture - Final Streptococcus Viridans 01/23/18 15:00 Blood Gram Stain - Final 01/23/18 16:20 Blood S.aureus & Coag-Neg Staph PNA FISH - Final 01/23/18 16:20 Blood Blood Culture - Final Streptococcus Viridans 01/23/18 16:20 Blood Gram Stain - Final 01/23/18 16:11 Urine,Clean Catch Urine Culture - Final Citrobacter Diversus Most Recent Lab Values WBC 17.5 K/uL (4.8-10.8) H 01/31/18 07:10 RBC 2.90 Mil/uL (3.80-5.20) L 01/31/18 07:10 Hgb 8.5 g/dL (11.0-16.0) L 01/31/18 07:10 Hct 24.7 % (34.0-47.0) L 01/31/18 07:10 MCV 85.1 fL (81.0-99.0) 01/31/18 07:10 MCH 29.3 pg (27.0-31.0) 01/31/18 07:10 MCHC 34.4 g/dL (33.0-37.0) 01/31/18 07:10 RDW 15.7 % (11.5-14.5) H 01/31/18 07:10 Plt Count 516 K/uL (130-400) H 01/31/18 07:10 MPV 7.8 fL (7.2-11.7) 01/31/18 07:10 Neut % (Auto) 75.2 % (50.0-75.0) H 01/31/18 07:10 Lymph % (Auto) 17.8 % (20.0-40.0) L 01/31/18 07:10 [place] % (Auto) 6.6 % (0.0-10.0) 01/31/18 07:10 Eos % (Auto) 0.1 % (0.0-4.0) 01/31/18 07:10 Baso % (Auto) 0.3 % (0.0-2.0) 01/31/18 07:10 Neut # (Auto) 13.1 K/uL (1.8-7.0) H 01/31/18 07:10 Lymph # (Auto) 3.1 K/uL (1.0-4.3) 01/31/18 07:10 [place] # (Auto) 1.1 K/uL (0.0-0.8) H 01/31/18 07:10 Eos # (Auto) 0.0 K/uL (0.0-0.7) 01/31/18 07:10 Baso # (Auto) 0.1 K/uL (0.0-0.2) 01/31/18 07:10 Neutrophils % (Manual) 84 % (50-75) H 01/29/18 08:16 Band Neutrophils % 1 % (0-2) 01/29/18 08:16 Lymphocytes % (Manual) 10 % (20-40) L 01/29/18 08:16 Monocytes % (Manual) 5 % (0-10) 01/29/18 08:16 Platelet Estimate Slightly increased (NORMAL) H 01/29/18 08:16 Hypochromasia (manual) Slight 01/29/18 08:16 Anisocytosis (manual) Slight 01/29/18 08:16 ESR 65 mm/hr (0-20) H 01/27/18 12:11 Retic Count 1.9 % (0.5-1.5) H 01/27/18 12:11 Haptoglobin 521.7 mg/dL (30.0-200.0) H 01/27/18 12:11 PT 13.5 SECONDS (9.7-12.2) H 01/24/18 05:05 INR 1.2 01/24/18 05:05 APTT 34 SECONDS (21-34) 01/24/18 05:05 Puncture Site Rra 01/25/18 21:55 pCO2 35 mm/Hg (35-45) 01/25/18 21:55 pO2 66 mm/Hg (80-100) L 01/25/18 21:55 HCO3 25.4 mmol/L (21-28) 01/25/18 21:55 ABG pH 7.45 (7.35-7.45) 01/25/18 21:55 ABG Total CO2 25.4 mmol/L (22-28) 01/25/18 21:55 ABG O2 Saturation 96.9 % (95-98) 01/25/18 21:55 ABG Base Excess 0.7 mmol/L (-2.0-3.0) 01/25/18 21:55 Stephane Test Pos 01/25/18 21:55 ABG Potassium 3.7 mmol/L (3.6-5.2) 01/25/18 21:55 A-a O2 Difference 90.0 mm/Hg 01/25/18 21:55 Respiratory Index 1.4 01/25/18 21:55 Sodium 137.0 mmol/l (132-148) 01/25/18 21:55 Chloride 107.0 mmol/L (98-107) 01/25/18 21:55 Glucose 136 mg/dl (65-105) H 01/25/18 21:55 Lactate 1.2 mmol/L (0.7-2.1) 01/25/18 21:55 FiO2 28.0 % 01/25/18 21:55 Sodium 138 mmol/L (132-148) 01/31/18 07:10 Potassium 3.8 mmol/L (3.6-5.2) 01/31/18 07:10 Chloride 95 mmol/L (98-107) L 01/31/18 07:10 Carbon Dioxide 30 mmol/L (22-30) 01/31/18 07:10 Anion Gap 17 (10-20) 01/31/18 07:10 BUN 13 mg/dL (7-17) 01/31/18 07:10 Creatinine 0.7 mg/dL (0.7-1.2) 01/31/18 07:10 Est GFR ( Amer) > 60 01/31/18 07:10 Est GFR (Non-Af Amer) > 60 01/31/18 07:10 POC Glucose (mg/dL) 213 mg/dL (65-110) H 01/31/18 11:03 Random Glucose 118 mg/dL (65-105) H 01/31/18 07:10 Lactic Acid 1.3 mmol/L (0.7-2.1) 01/25/18 08:06 Calcium 7.9 mg/dl (8.6-10.4) L 01/31/18 07:10 Phosphorus 3.4 mg/dL (2.5-4.5) 01/31/18 07:10 Magnesium 2.2 mg/dL (1.6-2.3) 01/31/18 07:10 Iron 18 ug/dL (37-170) L 01/27/18 12:11 TIBC 200 ug/dL (250-450) L 01/27/18 12:11 % Saturation 9 (20-55) L 01/27/18 12:11 Ferritin 503.0 ng/mL 01/27/18 12:11 Total Bilirubin 0.4 mg/dL (0.2-1.3) 01/31/18 07:10 AST 39 U/L (14-36) H 01/31/18 07:10 ALT 43 U/L (9-52) 01/31/18 07:10 Alkaline Phosphatase 72 U/L (38-126) 01/31/18 07:10 Total Creatine Kinase 83 U/L (30-135) 01/25/18 08:06 CK-MB (Mass) 0.89 ng/mL (0.0-3.38) 01/25/18 08:06 Troponin I 0.0720 ng/mL (0.00-0.120) 01/25/18 08:06 C-React Prot High Sens > 15.00 mg/L (1.00-3.00) H 01/29/18 08:16 NT-Pro-B Natriuret Pep 4490 pg/mL (0-900) H 01/29/18 08:16 Total Protein 6.3 g/dL (6.3-8.3) 01/31/18 07:10 Albumin 2.9 g/dL (3.5-5.0) L 01/31/18 07:10 Globulin 3.3 gm/dL (2.2-3.9) 01/31/18 07:10 Albumin/Globulin Ratio 0.9 (1.0-2.1) L 01/31/18 07:10 Vitamin B12 450 pg/mL (239-931) 01/27/18 12:11 Folate 8.5 ng/mL 01/27/18 12:11 Procalcitonin 0.06 NG/ML (0.19-0.49) L 01/27/18 12:11 Free T4 1.55 ng/dL (0.78-2.19) 01/29/18 08:16 TSH 3rd Generation 0.09 mIU/L (0.46-4.68) L 01/29/18 08:16 Arterial Blood Potassium 3.7 mmol/L (3.6-5.2) 01/25/18 21:55 Urine Color Yellow (YELLOW) 01/27/18 11:53 Urine Clarity Hazy (Clear) 01/27/18 11:53 Urine pH 6.0 (5.0-8.0) 01/27/18 11:53 Ur Specific [place] 1.011 (1.003-1.030) 01/27/18 11:53 Urine Protein Negative mg/dL (NEGATIVE) 01/27/18 11:53 Urine Glucose (UA) Normal mg/dL (Normal) 01/27/18 11:53 Urine Ketones Negative mg/dL (NEGATIVE) 01/27/18 11:53 Urine Blood 1+ (NEGATIVE) H 01/27/18 11:53 Urine Nitrate Negative (NEGATIVE) 01/27/18 11:53 Urine Bilirubin Negative (NEGATIVE) 01/27/18 11:53 Urine Urobilinogen Normal mg/dL (0.2-1.0) 01/27/18 11:53 Ur Leukocyte Esterase 2+ [place]/uL (Negative) H 01/27/18 11:53 Urine WBC (Auto) 9 /hpf (0-5) H 01/27/18 11:53 Urine RBC (Auto) 8 /hpf (0-3) H 01/27/18 11:53 Ur Squamous Epith Cells 4 /hpf (0-5) 01/27/18 11:53 Urine Bacteria Few (<OCC) H 01/27/18 11:53 Hyaline Casts 6-10 /lpf (0-2) H 01/23/18 16:11 Fluid Type Spinal fluid 01/25/18 17:47 CSF Volume 1 mL (0-1) 01/25/18 17:47 CSF Appearance Clear/colorless (CLEAR) 01/25/18 17:47 CSF WBC 93.0 /mm3 (0.0-5.0) H 01/25/18 17:47 CSF RBC 12.0 /mm3 (0.0-0.0) H 01/25/18 17:47 CSF Total Cell Counted 100 (0-0) H 01/25/18 17:47 CSF Neutrophils 74 % (0-0) H 01/25/18 17:47 CSF Lymphocytes 18.0 % (0-0) H 01/25/18 17:47 CSF Monos/Macrophages 6 % (0-0) H 01/25/18 17:47 CSF Comment 01/25/18 17:47 CSF Glucose 74 mg/dL (40-70) H 01/25/18 15:13 CSF LDH 155 U/L (<=25) H 01/25/18 15:13 CSF Total Protein 76 mg/dL (15-60) H 01/26/18 08:28 CSF Lyme IgG Antibody No bands detected 01/25/18 17:47 CSF Cryptococcus Ag Negative (NEGATIVE) 01/25/18 17:47 CSF Toxo. gondii IgG <0.90 01/25/18 15:13 Vancomycin Trough 16.0 ug/mL (5.0-10.0) H 01/26/18 05:43 CMV IgG Ab 6.50 U/mL H 01/25/18 17:47 CMV IgM Ab <30.00 AU/mL 01/25/18 17:47 West Nile RNA (RT-PCR) Not detected (Not Detected) 01/25/18 17:47 HIV 1&2 Antibody Screen Negative (NEGATIVE) 01/26/18 05:43 Influenza Typ A,B (EIA) Negative for flu a/b (NEGATIVE) 01/23/18 16:16 H.influenzae Type B Ag Negative (NEGATIVE) 01/25/18 17:47 N.meningitidis ACY/W135 Negative (NEGATIVE) 01/25/18 17:47 N.meningi B/E.coli K1 Ag Negative (NEGATIVE) 01/25/18 17:47 Group B Strep Antigen Negative (NEGATIVE) 01/25/18 17:47 S. pneumoniae Antigen Negative (NEGATIVE) 01/25/18 17:47 Blood Type A POSITIVE 01/29/18 08:16 Blood Type Confirm A POSITIVE 01/29/18 08:16 Antibody Screen Negative 01/29/18 08:16 Discharge Exam - Head Exam Head Exam: NORMAL INSPECTION Discharge Plan - Discharge Medications Prescriptions: Acyclovir 400 mg PO BID #4 tablet Carvedilol [Coreg] 6.25 mg PO BID #60 tab Losartan [Cozaar] 25 mg PO DAILY #30 tab Magnesium Oxide [Mag-Ox] 400 mg PO BID #60 tab - Follow Up Plan Condition: FAIR Disposition: HOME/ ROUTINE Instructions: High Blood Pressure (DC), Low Salt Diet, Pleural Effusion (DC), Multiple Pulmonary Nodules, Sepsis (DC), Acute Headache (DC) Referrals: Shayne Verma MD [Staff Provider] - Rodger Juares MD [Staff Provider] - Geovanna Champion MD [Staff Provider] - Lashawn Padilla MD [Staff Provider] - Mehdi Mon MD [Staff Provider] -
[2018-02-01 07:39] LABS: ALB/GLOB RATIO 0.9 (1.0-2.1); ALBUMIN 2.9 g/dL (3.5-5.0); ALT/SGPT 41 U/L (9-52); AST/SGOT 80 U/L (14-36); BLOOD UREA NITROGEN 12 mg/dL (7-17); GFR NON-AFRICAN AMERICAN > 60
[2018-02-01 07:42] LABS: BASO # 0.1 K/uL (0.0-0.2); BASO % 0.4 % (0.0-2.0); EOS # 0.1 K/uL (0.0-0.7); EOS % 0.7 % (0.0-4.0); HEMOGLOBIN 8.8 g/dL (11.0-16.0); LYMPH # 3.1 K/uL (1.0-4.3); LYMPH % 20.9 % (20.0-40.0); MEAN CELL VOLUME 85.9 fL (81.0-99.0); MEAN CORPUSCULAR HGB CONC 33.8 g/dL (33.0-37.0); MEAN PLATELET VOLUME 7.6 fL (7.2-11.7); MONO # 0.6 K/uL (0.0-0.8); MONO % 3.9 % (0.0-10.0); NEUT % 74.1 % (50.0-75.0); NRBC % 0.1 % (0.0-2.0); RBC 3.05 Mil/uL (3.80-5.20); RED CELL DISTRIBUTION WIDTH 16.1 % (11.5-14.5); WHITE BLOOD COUNT 14.8 K/uL (4.8-10.8)
[2018-02-01] MEDS: Lactobacillus Acidophilus 500 MU Cap PO SCH ×2 (09:43→17:21)
[2018-02-01] MEDS: Magnesium Oxide 400 mg Tab UD PO SCH ×2 (09:43→17:21)
--- NOTE | 2018-02-01 14:58 | CP.PCM.PN ---
<Abhijeet Castañeda - Last Filed: 02/01/18 18:33> Subjective - Date & Time of Evaluation Date of Evaluation: 02/01/18 Time of Evaluation: 09:20 - Subjective Subjective: PGY-1 Medicine Progress Note for Dr. Bautista Patient was seen and examined at bedside this AM. No acute overnight events reported. Pt endorses mild headache and neck pain, improved from yesterday. Otherwise resting comfortably in bed, in no acute distress. Denies photophobia, visual changes, double vision, fevers/chills, chest pain, palpitations, SOB, nausea, vomiting, diarrhea, constipation, or dysuria. Objective - Vital Signs/Intake and Output Vital Signs (last 24 hours): Temp Pulse Resp BP Pulse Ox 98.9 F 69 20 136/79 100 02/01/18 07:00 02/01/18 13:39 02/01/18 07:00 02/01/18 09:43 02/01/18 07:00 Intake and Output: 02/01/18 02/01/18 06:59 18:59 Intake Total 150 Output Total 1150 Balance -1000 - Medications Medications: Current Medications Acetaminophen (Tylenol 325mg Tab) 650 mg PO Q6 PRN PRN Reason: Headache Last Admin: 02/01/18 01:58 Dose: 650 mg Carvedilol (Coreg) 6.25 mg PO BID [facility] Last Admin: 02/01/18 09:43 Dose: 6.25 mg Furosemide (Lasix) 20 mg IVP BID [facility] Last Admin: 02/01/18 09:43 Dose: 20 mg Guaifenesin (Robitussin) 100 mg PO Q4H PRN PRN Reason: Cough Last Admin: 01/29/18 14:33 Dose: 100 mg Heparin Sodium (Porcine) (Heparin) 5,000 units SC Q12 [facility] Last Admin: 02/01/18 09:43 Dose: 5,000 units Hydromorphone HCl (Dilaudid) 1 mg IVP Q4H PRN PRN Reason: Pain, severe (8-10) Last Admin: 01/29/18 22:59 Dose: 1 mg Ceftriaxone Sodium 2 gm/ (Sodium Chloride) 100 mls @ 100 mls/hr IVPB 1600 [facility] PRN Reason: Protocol Last Admin: 01/31/18 16:11 Dose: 100 mls/hr Lactobacillus Acidophilus (Bacid Acidophilus) 1 cap PO BID [facility] Last Admin: 02/01/18 09:43 Dose: 1 cap Losartan Potassium (Cozaar) 25 mg PO DAILY [facility] Last Admin: 02/01/18 09:43 Dose: 25 mg Magnesium Oxide (Mag-Ox) 400 mg PO BID [facility] Last Admin: 02/01/18 09:43 Dose: 400 mg Morphine Sulfate (Morphine) 2 mg IVP Q4 PRN PRN Reason: FOR SEVERE HEADACHES Last Admin: 02/01/18 02:00 Dose: 2 mg - Labs Labs: 02/01/18 07:18 02/01/18 07:18 PT 13.5 SECONDS (9.7-12.2) H 01/24/18 05:05 INR 1.2 01/24/18 05:05 APTT 34 SECONDS (21-34) 01/24/18 05:05 - Constitutional Appears: Non-toxic, No Acute Distress - Head Exam Head Exam: ATRAUMATIC, NORMAL INSPECTION, NORMOCEPHALIC - Eye Exam Eye Exam: Normal appearance - ENT Exam ENT Exam: Normal Exam - Neck Exam Neck Exam: Normal Inspection Additional comments: No nuchal rigidity, but mild TTP. Limited but improved ROM in all planes 2/2 pain - Respiratory Exam Respiratory Exam: Clear to Ausculation Bilateral, NORMAL BREATHING PATTERN - Cardiovascular Exam Cardiovascular Exam: RRR, +S1, +S2 - GI/Abdominal Exam GI & Abdominal Exam: Soft, Normal Bowel Sounds. absent: Distended, Firm, Guarding, Rigid, Tenderness, Rebound - Extremities Exam Extremities Exam: Normal Capillary Refill, Normal Inspection - Back Exam Back Exam: NORMAL INSPECTION. absent: CVA tenderness (L), CVA tenderness (R) - Neurological Exam Neurological Exam: Alert, Awake, Oriented x3 - Psychiatric Exam Psychiatric exam: Normal Affect, Normal Mood - Skin Skin Exam: Dry, Intact, Normal Color, Warm Assessment and Plan - Assessment and Plan (Free Text) Assessment: 66 yo F with PMHx of HTN, arthritis presenting with worsening head and neck pain s/p R eye cataract surgery on 01/15/2018 Plan: 1. Sepsis -clinically improving -Temp 98.9 (02/01, 07:00) -last spiked low grade fever 100.1 (01/31, 15:58) -Tmax 101.5 (01/27, 23:30) - WBCs downtrending, 14.8 (02/01) -likely source of infection: bacteremia and UTI 2. Bacteremia -01/23 BCx: Strep viridans x2 -01/25 repeat BCx: No growth x 2 -Cardio recs appreciated -CHF: IV lasix BID and KCl -Add beta coby once lungs are improved -Once pt's lungs are clear, and if there is still a need to more definitively rule out endocarditis, then ENEIDA can be performed. TTE was of excellent quality and no vegetations were seen. 3. Cervicogenic Headache--Possible temporal arteritis, possible viral meningitis -CSF gram stain: no organisms seen, rare PMNs -CSF culture--preliminary: no growth after 4 days -General surgery recs (Dr. Orozco) appreciated: -temporal artery bx: negative for acute changes of GCA, including inflammatory cell infiltrates and multi-nucleated giants cells. Negative finding does not rule out presence of GCA -Neurology recs (Dr. Padilla) appreciated: - held Mag ox due to Mg level 2.4 -depakote 1000 mg IVPB x1 -decadron 10 mg IV x1 -OOB if possible -ID recs (Dr. Yu) appreciated:treating for aseptic meningitis given severe headaches, fevers, neck pain -acyclovir 730 mg q8 IV -ampicillin 2g q4 IV -Lumbar Puncture -Spinal fluid clear/colorless -Bands: 2% -WBC: 93 -RBC: 12 -Predominant: Neutrophils -Sugar: 60 (elevated) -Protein: 90 (elevated) -Cryptococcus Ag: negative -CSFL no growth after 24hours -CMV IgG Ab 6.50 (H) -CMV IgM Ab <30 -West Nile negative -HSV 2 IgM titer CSF -HSV IgM titer -LSH titer -Lyme -Toxoplasma 4. UTI -01/23 Urine Cx: Citrobacter diversus -01/27 repeat Urine Cx: No growth 5. HTN -controlled -not on medications at this time 6. History of Arthritis -Pt does not c/o pain -not on NSAID 7. Multiple lung nodules on CT -Pulmonary (Dr. Verma) on board -continue w/ Abx -Legionella -Mycoplasma -cx pending -no acid fast bacilli stain growth 8. Pleural effusion -small b/l pleural effusion -no thoracentesis 9. Leukocytosis, Anemia -suggested persistent WBC d/t infectious etiology -WBCs downtrending, 17.5 -ESR 114 on admission-->repeat 65 -Retic Count: 1.9 -Haptoglobin: 521.7 -Iron: 18 (L) -TIBC: 200 (L) -% saturation: 9 (L) -Ferritin: 503.0 -Hb/Hct downtrending for unknown reason; baseline Hb 12.6 (11/01/2016) -Per PMD (Dr. Muñoz), pt has never been worked up for anemia -Pt type and crossed; pRBCs prepared, per Heme/Onc recs 10. PPx, Diet, Disposition -Heparin 5000 units subQ 12h -NS 70 cc/hr -likely d/c on Tu -low grade fever spike, WBC elevated but downtrending -to be d/c'd on acyclovir 400 mg BID x 2days, rocephin 2 gm/day x 20 days, florastor 1 tab PO BID per ID recs -to f/u with ID for labs (CBC, CMP, ESR, CRP) weekly x 3 weeks Case discussed with Dr. Michele Castañeda, PGY-1 <Christo Bautista - Last Filed: 02/02/18 15:16> Objective - Vital Signs/Intake and Output Vital Signs (last 24 hours): Temp Pulse Resp BP Pulse Ox 99.0 F 69 20 131/74 96 02/02/18 07:52 02/02/18 08:04 02/02/18 07:52 02/02/18 10:00 02/02/18 07:52 Intake and Output: 02/02/18 02/02/18 06:59 18:59 Intake Total 300 Output Total 1300 Balance -1000 - Medications Medications: Current Medications Acetaminophen (Tylenol 325mg Tab) 650 mg PO Q6 PRN PRN Reason: Headache Last Admin: 02/02/18 02:38 Dose: 650 mg Carvedilol (Coreg) 6.25 mg PO BID [facility] Last Admin: 02/02/18 09:59 Dose: 6.25 mg Furosemide (Lasix) 20 mg IVP BID [facility] Last Admin: 02/02/18 10:00 Dose: 20 mg Guaifenesin (Robitussin) 100 mg PO Q4H PRN PRN Reason: Cough Last Admin: 02/02/18 13:15 Dose: 100 mg Heparin Sodium (Porcine) (Heparin) 5,000 units SC Q12 [facility] Last Admin: 02/02/18 10:00 Dose: 5,000 units Hydromorphone HCl (Dilaudid) 1 mg IVP Q4H PRN PRN Reason: Pain, severe (8-10) Last Admin: 01/29/18 22:59 Dose: 1 mg Piperacillin Sod/Tazobactam Sod (Zosyn 3.375 Gm Iv Premix) 3.375 gm in 50 mls @ 100 mls/hr IVPB Q6H [facility] PRN Reason: Protocol Lactobacillus Acidophilus (Bacid Acidophilus) 1 cap PO BID [facility] Last Admin: 02/02/18 09:59 Dose: 1 cap Losartan Potassium (Cozaar) 25 mg PO DAILY [facility] Last Admin: 02/02/18 09:59 Dose: 25 mg Magnesium Oxide (Mag-Ox) 400 mg PO BID [facility] Last Admin: 02/02/18 09:59 Dose: 400 mg Morphine Sulfate (Morphine) 2 mg IVP Q4 PRN PRN Reason: FOR SEVERE HEADACHES Last Admin: 02/02/18 08:30 Dose: 2 mg - Labs Labs: 02/02/18 07:26 02/02/18 07:26 PT 13.5 SECONDS (9.7-12.2) H 01/24/18 05:05 INR 1.2 01/24/18 05:05 APTT 34 SECONDS (21-34) 01/24/18 05:05 Attending/Attestation - Attestation I have personally seen and examined this patient.: Yes I have fully participated in the care of the patient.: Yes I have reviewed all pertinent clinical information, including history, physical exam and plan: Yes Notes (Text): Seen and examined by me. patient feels better,no fever today Discharge plan discussed. patient wants to home with home infusion. d/w CW about discharge plan. possible discharge after home infusion arrangement d/w Dr yu D/W resident and I agree with the assessment and the plan
--- NOTE | 2018-02-01 22:21 | CP.PCM.PN ---
Subjective - Date & Time of Evaluation Date of Evaluation: 02/01/18 Time of Evaluation: 12:00 - Subjective Subjective: dictated Objective - Vital Signs/Intake and Output Vital Signs (last 24 hours): Temp Pulse Resp BP Pulse Ox 98.9 F 74 20 149/84 95 02/01/18 18:20 02/01/18 18:00 02/01/18 16:10 02/01/18 17:21 02/01/18 16:10 Intake and Output: 02/01/18 02/02/18 18:59 06:59 Output Total 1200 Balance -1200 - Medications Medications: Current Medications Acetaminophen (Tylenol 325mg Tab) 650 mg PO Q6 PRN PRN Reason: Headache Last Admin: 02/01/18 17:20 Dose: 650 mg Carvedilol (Coreg) 6.25 mg PO BID [facility] Last Admin: 02/01/18 17:21 Dose: 6.25 mg Furosemide (Lasix) 20 mg IVP BID [facility] Last Admin: 02/01/18 17:21 Dose: 20 mg Guaifenesin (Robitussin) 100 mg PO Q4H PRN PRN Reason: Cough Last Admin: 01/29/18 14:33 Dose: 100 mg Heparin Sodium (Porcine) (Heparin) 5,000 units SC Q12 [facility] Last Admin: 02/01/18 21:47 Dose: 5,000 units Hydromorphone HCl (Dilaudid) 1 mg IVP Q4H PRN PRN Reason: Pain, severe (8-10) Last Admin: 01/29/18 22:59 Dose: 1 mg Ceftriaxone Sodium 2 gm/ (Sodium Chloride) 100 mls @ 100 mls/hr IVPB 1600 [facility] PRN Reason: Protocol Last Admin: 02/01/18 16:41 Dose: 100 mls/hr Lactobacillus Acidophilus (Bacid Acidophilus) 1 cap PO BID [facility] Last Admin: 02/01/18 17:21 Dose: 1 cap Losartan Potassium (Cozaar) 25 mg PO DAILY [facility] Last Admin: 02/01/18 09:43 Dose: 25 mg Magnesium Oxide (Mag-Ox) 400 mg PO BID [facility] Last Admin: 02/01/18 17:21 Dose: 400 mg Morphine Sulfate (Morphine) 2 mg IVP Q4 PRN PRN Reason: FOR SEVERE HEADACHES Last Admin: 02/01/18 02:00 Dose: 2 mg - Labs Labs: 08/31/18 07:18 02/01/18 07:18 PT 13.5 SECONDS (9.7-12.2) H 01/24/18 05:05 INR 1.2 01/24/18 05:05 APTT 34 SECONDS (21-34) 01/24/18 05:05
--- NOTE | 2018-02-02 04:42 | CP.PCM.PN ---
<Vanessa Hewitt - Last Filed: 02/02/18 04:39> Subjective - Date & Time of Evaluation Date of Evaluation: 02/02/18 Time of Evaluation: 04:39 - Subjective Subjective: PGY-1 Medicine Progress note for Dr. Bautista Patient was seen and examined with brother and [id number] at bedside in no acute distress. Nurse reports no overnight events. Patient denies all complaints , resting comfortably in bed. Denies headache, dizziness, blurry vision, double vision, chest pain, shortness of breath, neck pain, fever, chills, nausea, vomiting, constipation, diarrhea. Objective - Vital Signs/Intake and Output Vital Signs (last 24 hours): Temp Pulse Resp BP Pulse Ox 101.1 F H 67 20 107/65 94 L 02/02/18 02:38 02/02/18 01:53 02/02/18 00:00 02/02/18 00:00 02/02/18 00:00 Intake and Output: 02/01/18 02/02/18 18:59 06:59 Intake Total 300 Output Total 1200 700 Balance -1200 -400 - Medications Medications: Current Medications Acetaminophen (Tylenol 325mg Tab) 650 mg PO Q6 PRN PRN Reason: Headache Last Admin: 02/02/18 02:38 Dose: 650 mg Carvedilol (Coreg) 6.25 mg PO BID [facility] Last Admin: 02/01/18 17:21 Dose: 6.25 mg Furosemide (Lasix) 20 mg IVP BID [facility] Last Admin: 02/01/18 17:21 Dose: 20 mg Guaifenesin (Robitussin) 100 mg PO Q4H PRN PRN Reason: Cough Last Admin: 01/29/18 14:33 Dose: 100 mg Heparin Sodium (Porcine) (Heparin) 5,000 units SC Q12 [facility] Last Admin: 02/01/18 21:47 Dose: 5,000 units Hydromorphone HCl (Dilaudid) 1 mg IVP Q4H PRN PRN Reason: Pain, severe (8-10) Last Admin: 01/29/18 22:59 Dose: 1 mg Ceftriaxone Sodium 2 gm/ (Sodium Chloride) 100 mls @ 100 mls/hr IVPB 1600 [facility] PRN Reason: Protocol Last Admin: 02/01/18 16:41 Dose: 100 mls/hr Lactobacillus Acidophilus (Bacid Acidophilus) 1 cap PO BID [facility] Last Admin: 02/01/18 17:21 Dose: 1 cap Losartan Potassium (Cozaar) 25 mg PO DAILY [facility] Last Admin: 02/01/18 09:43 Dose: 25 mg Magnesium Oxide (Mag-Ox) 400 mg PO BID [facility] Last Admin: 02/01/18 17:21 Dose: 400 mg Morphine Sulfate (Morphine) 2 mg IVP Q4 PRN PRN Reason: FOR SEVERE HEADACHES Last Admin: 02/01/18 02:00 Dose: 2 mg - Labs Labs: 02/01/18 07:18 02/01/18 07:18 PT 13.5 SECONDS (9.7-12.2) H 01/24/18 05:05 INR 1.2 01/24/18 05:05 APTT 34 SECONDS (21-34) 01/24/18 05:05 - Constitutional Appears: Non-toxic, No Acute Distress - Head Exam Head Exam: ATRAUMATIC, NORMOCEPHALIC - Neck Exam Additional comments: no nuchal rigidity. improving range of motion - Respiratory Exam Respiratory Exam: Clear to Ausculation Bilateral, NORMAL BREATHING PATTERN. absent: Rales, Rhonchi, Wheezes - Cardiovascular Exam Cardiovascular Exam: REGULAR RHYTHM, +S1, +S2. absent: Gallop, Murmur - GI/Abdominal Exam GI & Abdominal Exam: Soft, Normal Bowel Sounds. absent: Tenderness - Extremities Exam Extremities Exam: Normal Capillary Refill, Normal Inspection - Neurological Exam Neurological Exam: Alert, Awake, Oriented x3 - Psychiatric Exam Psychiatric exam: Normal Affect, Normal Mood - Skin Skin Exam: Dry, Intact, Normal Color, Warm Assessment and Plan - Assessment and Plan (Free Text) Assessment: 66 yo F with PMHx of HTN, arthritis presenting with worsening head and neck pain s/p R eye cataract surgery on 01/15/2018 Plan: 1. Sepsis -clinically improving -afebrile overnight -last spiked low grade fever 100.1 (01/31, 15:58) -Tmax 101.5 (01/27, 23:30) - WBCs downtrending -likely source of infection: bacteremia and UTI 2. Bacteremia -01/23 BCx: Strep viridans x2 -01/25 repeat BCx: No growth x 2 -Cardio recs appreciated -CHF: IV lasix BID and KCl -Add beta coby once lungs are improved -Once pt's lungs are clear, and if there is still a need to more definitively rule out endocarditis, then ENEIDA can be performed. TTE was of excellent quality and no vegetations were seen. 3. Cervicogenic Headache--Possible temporal arteritis, possible viral meningitis -CSF gram stain: no organisms seen, rare PMNs -CSF culture--preliminary: no growth after 4 days -General surgery recs (Dr. Orozco) appreciated: -temporal artery bx: negative for acute changes of GCA, including inflammatory cell infiltrates and multi-nucleated giants cells. Negative finding does not rule out presence of GCA -Neurology recs (Dr. Padilla) appreciated: -depakote 1000 mg IVPB x1 -decadron 10 mg IV x1 -OOB if possible -ID recs (Dr. Velazquez) appreciated:treating for aseptic meningitis given severe headaches, fevers, neck pain -stopped acyclovir 730 mg q8 IV -stopped ampicillin 2g q4 IV -ceftriaxone 2gm daily IVPB -Lumbar Puncture -Spinal fluid clear/colorless -Bands: 2% -WBC: 93 -RBC: 12 -Predominant: Neutrophils -Sugar: 60 (elevated) -Protein: 90 (elevated) -Cryptococcus Ag: negative -CSFL no growth after 24hours -CMV IgG Ab 6.50 (H) -CMV IgM Ab <30 -West Nile negative -HSV 2 IgM titer CSF -HSV IgM titer -LSH titer -Lyme -Toxoplasma 4. UTI -01/23 Urine Cx: Citrobacter diversus -01/27 repeat Urine Cx: No growth 5. HTN -controlled -not on medications at this time 6. History of Arthritis -Pt does not c/o pain -not on NSAID 7. Multiple lung nodules on CT -Pulmonary (Dr. Verma) on board -continue w/ Abx -Legionella -Mycoplasma -cx pending -no acid fast bacilli stain growth 8. Pleural effusion -small b/l pleural effusion -no thoracentesis 9. Leukocytosis, Anemia -suggested persistent WBC d/t infectious etiology -WBCs downtrending, 17.5 -ESR 114 on admission-->repeat 65 -Retic Count: 1.9 -Haptoglobin: 521.7 -Iron: 18 (L) -TIBC: 200 (L) -% saturation: 9 (L) -Ferritin: 503.0 -Hb/Hct downtrending for unknown reason; baseline Hb 12.6 (11/01/2016) -Per PMD (Dr. Muñoz), pt has never been worked up for anemia -Pt type and crossed; pRBCs prepared, per Heme/Onc recs 10. PPx, Diet, Disposition -Heparin 5000 units subQ 12h -NS 70 cc/hr -likely d/c on Tues -low grade fever spike, WBC elevated but downtrending -to be d/c'd on acyclovir 400 mg BID x 2days, rocephin 2 gm/day x 20 days, florastor 1 tab PO BID per ID recs -to f/u with ID for labs (CBC, CMP, ESR, CRP) weekly x 3 weeks will d/w Dr. Michele Hewitt PGY-1 <Christo Bautista - Last Filed: 02/02/18 15:08> Objective - Vital Signs/Intake and Output Vital Signs (last 24 hours): Temp Pulse Resp BP Pulse Ox 99.0 F 69 20 131/74 96 02/02/18 07:52 02/02/18 08:04 02/02/18 07:52 02/02/18 10:00 02/02/18 07:52 Intake and Output: 02/02/18 02/02/18 06:59 18:59 Intake Total 300 Output Total 1300 Balance -1000 - Medications Medications: Current Medications Acetaminophen (Tylenol 325mg Tab) 650 mg PO Q6 PRN PRN Reason: Headache Last Admin: 02/02/18 02:38 Dose: 650 mg Carvedilol (Coreg) 6.25 mg PO BID [facility] Last Admin: 02/02/18 09:59 Dose: 6.25 mg Furosemide (Lasix) 20 mg IVP BID [facility] Last Admin: 02/02/18 10:00 Dose: 20 mg Guaifenesin (Robitussin) 100 mg PO Q4H PRN PRN Reason: Cough Last Admin: 02/02/18 13:15 Dose: 100 mg Heparin Sodium (Porcine) (Heparin) 5,000 units SC Q12 [facility] Last Admin: 02/02/18 10:00 Dose: 5,000 units Hydromorphone HCl (Dilaudid) 1 mg IVP Q4H PRN PRN Reason: Pain, severe (8-10) Last Admin: 01/29/18 22:59 Dose: 1 mg Ceftriaxone Sodium 2 gm/ (Sodium Chloride) 100 mls @ 100 mls/hr IVPB 1600 [facility] PRN Reason: Protocol Last Admin: 02/01/18 16:41 Dose: 100 mls/hr Lactobacillus Acidophilus (Bacid Acidophilus) 1 cap PO BID [facility] Last Admin: 02/02/18 09:59 Dose: 1 cap Losartan Potassium (Cozaar) 25 mg PO DAILY [facility] Last Admin: 02/02/18 09:59 Dose: 25 mg Magnesium Oxide (Mag-Ox) 400 mg PO BID [facility] Last Admin: 02/02/18 09:59 Dose: 400 mg Morphine Sulfate (Morphine) 2 mg IVP Q4 PRN PRN Reason: FOR SEVERE HEADACHES Last Admin: 02/02/18 08:30 Dose: 2 mg - Labs Labs: 02/02/18 07:26 02/02/18 07:26 PT 13.5 SECONDS (9.7-12.2) H 01/24/18 05:05 INR 1.2 01/24/18 05:05 APTT 34 SECONDS (21-34) 01/24/18 05:05 Attending/Attestation - Attestation I have personally seen and examined this patient.: Yes I have fully participated in the care of the patient.: Yes I have reviewed all pertinent clinical information, including history, physical exam and plan: Yes Notes (Text): Patient was seen and examined this morning by me.Had fever spike last night 101.F Patient is not feeling very good today,Has cough,mild dyspnea no abdominal pain,no nausea,no vomiting examination has fever 101F On examination she has RLL rales,abd soft,nontender,CVS regular rhythm Repeat blood culture,chest x ray,Urine culture Discussed with Dr Velazquez we will start on zosyn and stop ceftriaxone
--- NOTE | 2018-02-02 05:34 | PN ---
Copied To: Liam Velazquez MD Attending MD: Liam Velazquez MD DATE: 02/01/2018 INFECTIOUS DISEASE FOLLOWUP SUBJECTIVE: The patient was seen today. She said she was feeling better. However, she was sitting with no clothes on in the chair. She denied any fevers. No chills. No chest pain. No shortness of breath. She does have a PICC line, which was unremarkable. She has had a low-grade temp this morning according to the attending primary, so I went to see her and she had no new complaints. PHYSICAL EXAMINATION: VITAL SIGNS: T-max was 100.9, yesterday. She had 99.4 this morning, now it is 99.8 when I am writing my note, but there was nothing unusual about her, pulse was 65, blood pressure 155/84. HEENT: Head is atraumatic and normocephalic. NECK: Supple. LUNGS: Clear. No crackles or rales present. HEART: S1, S2 is regular. ABDOMEN: Soft, nontender. No guarding. No rigidity present. EXTREMITIES: Have no edema. She has been having strep viridans bacteremia because of the tooth infection and she also came with headaches and probably had viral meningitis and temporal artery biopsy was negative. We ruled that out and right now the patient was on ampicillin and acyclovir before and we have discontinued that and we are treating for strep viridans in the blood and she also had pulmonary emboli and this was supposed to be sensitive to ceftriaxone and to penicillin and vancomycin, so we will monitor in the hospital. If she continues to have fever, I think I will go back to ampicillin 2 g every 6 hours or every 4 hours to treat for strep viridans septicemia and also would need a repeat septic workup again, blood cultures, and a PICC line is however new and this was recently inserted, but still could be . IMPRESSION: Right basilar atelectasis and small right pleural effusion, left basilar opacity, possible pneumonia. Followup advised, so she is on Rocephin and we will continue present treatment and reevaluate if she continues to have fever. Liam Velazquez MD
[2018-02-02 07:40] LABS: MEAN CELL VOLUME 87.2 fL (81.0-99.0); MEAN CORPUSCULAR HEMOGLOBIN 29.2 pg (27.0-31.0); MEAN CORPUSCULAR HGB CONC 33.5 g/dL (33.0-37.0); MEAN PLATELET VOLUME 7.5 fL (7.2-11.7); RBC 3.06 Mil/uL (3.80-5.20); RED CELL DISTRIBUTION WIDTH 16.2 % (11.5-14.5); WHITE BLOOD COUNT 13.3 K/uL (4.8-10.8)
[2018-02-02] MEDS: guaiFENesin 100 mg/5 ml Syrup UD PO PRN ×3 (07:43→21:28)
[2018-02-02 07:52] LABS: ALB/GLOB RATIO 0.9 (1.0-2.1); ALBUMIN 3.1 g/dL (3.5-5.0); ALT/SGPT 36 U/L (9-52); AST/SGOT 26 U/L (14-36); BLOOD UREA NITROGEN 9 mg/dL (7-17); CALCIUM 8.3 mg/dl (8.6-10.4); GFR NON-AFRICAN AMERICAN > 60
[2018-02-02] MEDS: Lactobacillus Acidophilus 500 MU Cap PO SCH ×2 (09:59→17:10)
[2018-02-02] MEDS: Magnesium Oxide 400 mg Tab UD PO SCH ×2 (09:59→17:11)
[2018-02-02] MEDS: Piperacill/Tazo 3.375gm in Dex 3.375 GM/50 ML BAG IVPB SCH ×2 (16:55→21:25)
--- NOTE | 2018-02-02 17:19 | RAD ---
Date of service: 02/02/2018 PROCEDURE: CHEST RADIOGRAPH, 1 VIEW HISTORY: cough,fever COMPARISON: Comparison chest 01/31/2018 FINDINGS: In situ right-sided PICC line with tip in the brachiocephalic/SVC junction. LUNGS: Mild pulmonary venous congestive changes with bibasilar atelectasis and/or infiltrates right greater than left. Suspect small bilateral effusions as well. Note that the possibility of superimposed pneumonia not excluded. PLEURA: As above. No pneumothorax CARDIOVASCULAR: Normal. OSSEOUS STRUCTURES: No significant abnormalities. VISUALIZED UPPER ABDOMEN: Normal. OTHER FINDINGS: None. IMPRESSION: Mild pulmonary venous congestive changes with bibasilar atelectasis and/or infiltrates right greater than left. Suspect small bilateral effusions as well. Note that the possibility of superimposed pneumonia not excluded. PLEURA:
--- NOTE | 2018-02-02 17:52 | CP.PCM.PN ---
Subjective - Date & Time of Evaluation Date of Evaluation: 02/02/18 Time of Evaluation: 17:00 - Subjective Subjective: dictated Objective - Vital Signs/Intake and Output Vital Signs (last 24 hours): Temp Pulse Resp BP Pulse Ox 101.2 F H 79 20 129/81 95 02/02/18 17:08 02/02/18 15:00 02/02/18 15:00 02/02/18 17:11 02/02/18 15:00 Intake and Output: 02/02/18 02/02/18 06:59 18:59 Intake Total 300 300 Output Total 1300 1000 Balance -1000 -700 - Medications Medications: Current Medications Acetaminophen (Tylenol 325mg Tab) 650 mg PO Q6 PRN PRN Reason: Headache Last Admin: 02/02/18 17:08 Dose: 650 mg Carvedilol (Coreg) 6.25 mg PO BID [facility] Last Admin: 02/02/18 17:13 Dose: 6.25 mg Furosemide (Lasix) 20 mg IVP BID [facility] Last Admin: 02/02/18 17:11 Dose: 20 mg Guaifenesin (Robitussin) 100 mg PO Q4H PRN PRN Reason: Cough Last Admin: 02/02/18 13:15 Dose: 100 mg Heparin Sodium (Porcine) (Heparin) 5,000 units SC Q12 [facility] Last Admin: 02/02/18 10:00 Dose: 5,000 units Hydromorphone HCl (Dilaudid) 1 mg IVP Q4H PRN PRN Reason: Pain, severe (8-10) Last Admin: 01/29/18 22:59 Dose: 1 mg Piperacillin Sod/Tazobactam Sod (Zosyn 3.375 Gm Iv Premix) 3.375 gm in 50 mls @ 100 mls/hr IVPB Q6H [facility] PRN Reason: Protocol Last Admin: 02/02/18 16:55 Dose: 100 mls/hr Lactobacillus Acidophilus (Bacid Acidophilus) 1 cap PO BID [facility] Last Admin: 02/02/18 17:10 Dose: 1 cap Losartan Potassium (Cozaar) 25 mg PO DAILY [facility] Last Admin: 02/02/18 09:59 Dose: 25 mg Magnesium Oxide (Mag-Ox) 400 mg PO BID [facility] Last Admin: 02/02/18 17:11 Dose: 400 mg Morphine Sulfate (Morphine) 2 mg IVP Q4 PRN PRN Reason: FOR SEVERE HEADACHES Last Admin: 02/02/18 08:30 Dose: 2 mg - Labs Labs: 02/02/18 07:26 02/02/18 07:26 PT 13.5 SECONDS (9.7-12.2) H 01/24/18 05:05 INR 1.2 01/24/18 05:05 APTT 34 SECONDS (21-34) 01/24/18 05:05
--- NOTE | 2018-02-02 18:49 | PN ---
Copied To: Liam Velazquez MD Attending MD: Liam Velazquez MD DATE: 02/02/2018 INFECTIOUS DISEASE FOLLOWUP SUBJECTIVE: The patient had fever of 101.2, was informed by the PCP and I came to see her. She is awake, alert. She says headaches are better. She has no more neck pain. She is feeling herself. She is not confused. Denies any chest pain. No shortness of breath. No abdominal pain. No nausea. No vomiting. No IV site problem. She does have a PICC line on the right arm. Denies any urinary symptoms. Denies any diarrhea. PHYSICAL EXAMINATION: VITAL SIGNS: Temperature is 101.2, blood pressure 129/81, respirations are 20. HEENT: Head is atraumatic, normocephalic. Pupils are reacting to light. Tongue is moist. NECK: Supple. LUNGS: Clear. No crackles or rales present. HEART: S1, S2 is regular. ABDOMEN: Soft, nontender. No guarding, no rigidity present. EXTREMITIES: Have no edema. LABORATORY DATA: White count is 13.3, hemoglobin 9, hematocrit 26.7, platelet count still remains 518. CO2 is 32. Septic workup, they have done a urine culture on 01/30. I do not see any repeat cultures. She has a new PICC line, wondering if this PICC line is the problem. One blood culture was done today. Chest x-ray which was done today shows mild vascular congestion, bilateral atelectasis and/or infiltrate, right greater than left. Suspect small pleural effusions. Possibility of superimposed pneumonia not excluded. ASSESSMENT AND PLAN: So, at this time, we have extended coverage to Zosyn 3.375 every 6 hours. She was on Rocephin before. She has Streptococcus viridans septicemia with altered mental status, possible aseptic meningitis, but mentally, she now has recovered. So, at this time, we will start with Zosyn and we will follow. Liam Velazquez MD
--- NOTE | 2018-02-02 19:42 | CP.PCM.PN ---
Subjective - Date & Time of Evaluation Date of Evaluation: 02/02/18 Time of Evaluation: 19:42 - Subjective Subjective: Pulmonary Folow up, Covering Dr Verma The patient was Seen/interviewed and examined by me at the bedside, Medical records reviewed and Management issues were discussed and formulated with the house staff. Events reviewed Comfortable, NAD Pt AAO x3. Breathing unlabored. Denies any chest pain, SOB or Palpitations No headache, photophobia, vision changes, vertigo or double vision Afebrile. Adequate saturations on 2L via nasal cannula Objective - Vital Signs/Intake and Output Vital Signs (last 24 hours): Temp Pulse Resp BP Pulse Ox 101.2 F H 79 20 129/81 95 02/02/18 17:08 02/02/18 15:00 02/02/18 15:00 02/02/18 17:11 02/02/18 15:00 Intake and Output: 02/02/18 02/03/18 18:59 06:59 Intake Total 300 Output Total 1550 Balance -1250 - Medications Medications: Current Medications Acetaminophen (Tylenol 325mg Tab) 650 mg PO Q6 PRN PRN Reason: Headache Last Admin: 02/02/18 17:08 Dose: 650 mg Carvedilol (Coreg) 6.25 mg PO BID [facility] Last Admin: 02/02/18 17:13 Dose: 6.25 mg Furosemide (Lasix) 20 mg IVP BID [facility] Last Admin: 02/02/18 17:11 Dose: 20 mg Guaifenesin (Robitussin) 100 mg PO Q4H PRN PRN Reason: Cough Last Admin: 02/02/18 13:15 Dose: 100 mg Heparin Sodium (Porcine) (Heparin) 5,000 units SC Q12 [facility] Last Admin: 02/02/18 10:00 Dose: 5,000 units Hydromorphone HCl (Dilaudid) 1 mg IVP Q4H PRN PRN Reason: Pain, severe (8-10) Last Admin: 01/29/18 22:59 Dose: 1 mg Piperacillin Sod/Tazobactam Sod (Zosyn 3.375 Gm Iv Premix) 3.375 gm in 50 mls @ 100 mls/hr IVPB Q6H [facility] PRN Reason: Protocol Last Admin: 02/02/18 16:55 Dose: 100 mls/hr Lactobacillus Acidophilus (Bacid Acidophilus) 1 cap PO BID [facility] Last Admin: 02/02/18 17:10 Dose: 1 cap Losartan Potassium (Cozaar) 25 mg PO DAILY [facility] Last Admin: 02/02/18 09:59 Dose: 25 mg Magnesium Oxide (Mag-Ox) 400 mg PO BID [facility] Last Admin: 02/02/18 17:11 Dose: 400 mg Morphine Sulfate (Morphine) 2 mg IVP Q4 PRN PRN Reason: FOR SEVERE HEADACHES Last Admin: 02/02/18 08:30 Dose: 2 mg - Labs Labs: 02/02/18 07:26 02/02/18 07:26 PT 13.5 SECONDS (9.7-12.2) H 01/24/18 05:05 INR 1.2 01/24/18 05:05 APTT 34 SECONDS (21-34) 01/24/18 05:05 - Constitutional Appears: Well, Non-toxic, No Acute Distress - Head Exam Head Exam: ATRAUMATIC, NORMAL INSPECTION, NORMOCEPHALIC - Eye Exam Eye Exam: EOMI, Normal appearance. absent: Conjunctival injection Pupil Exam: NORMAL ACCOMODATION, PERRL - ENT Exam ENT Exam: Mucous Membranes Moist - Neck Exam Neck Exam: Full ROM. absent: Meningismus - Respiratory Exam Respiratory Exam: Decreased Breath Sounds, Rhonchi. absent: Accessory Muscle Use, Chest Wall Tenderness, Clear to Ausculation Bilateral - Cardiovascular Exam Cardiovascular Exam: REGULAR RHYTHM, RRR, +S1, +S2. absent: Irregular Rhythm, JVD - GI/Abdominal Exam GI & Abdominal Exam: Soft, Normal Bowel Sounds - Neurological Exam Neurological Exam: Alert, Awake, CN II-XII Intact, Oriented x3 Assessment and Plan (1) Multiple lung nodules on CT Status: Acute (2) Pleural effusion Status: Acute (3) Sepsis Status: Acute (4) Prophylactic measure Status: Acute
[2018-02-03] MEDS: Piperacill/Tazo 3.375gm in Dex 3.375 GM/50 ML BAG IVPB SCH ×4 (03:03→22:12)
--- NOTE | 2018-02-03 03:35 | CP.PCM.PN ---
<Vanessa Hewitt - Last Filed: 02/03/18 03:33> Subjective - Date & Time of Evaluation Date of Evaluation: 02/03/18 Time of Evaluation: 03:33 - Subjective Subjective: PGY-1 Medicine Progress note for Dr. Bautista Patient was seen and examined at bedside in no acute distress. Nurse reports no overnight events. Overnight Tmax 101.2F. Improved cough, non productive. Patient denies all other complaints, resting comfortably in bed. Denies headache , dizziness, blurry vision, double vision, chest pain, shortness of breath, neck pain, fever, chills, nausea, vomiting, constipation, diarrhea. Tolerating antibiotic and diet well. Objective - Vital Signs/Intake and Output Vital Signs (last 24 hours): Temp Pulse Resp BP Pulse Ox 99.8 F H 65 20 120/78 96 02/03/18 00:00 02/03/18 01:00 02/03/18 00:00 02/03/18 00:00 02/03/18 00:00 Intake and Output: 02/02/18 02/03/18 18:59 06:59 Intake Total 300 500 Output Total 1000 800 Balance -700 -300 - Medications Medications: Current Medications Acetaminophen (Tylenol 325mg Tab) 650 mg PO Q6 PRN PRN Reason: Headache Last Admin: 02/02/18 17:08 Dose: 650 mg Carvedilol (Coreg) 6.25 mg PO BID [facility] Last Admin: 02/02/18 17:13 Dose: 6.25 mg Furosemide (Lasix) 20 mg IVP BID [facility] Last Admin: 02/02/18 17:11 Dose: 20 mg Guaifenesin (Robitussin) 100 mg PO Q4H PRN PRN Reason: Cough Last Admin: 02/02/18 21:28 Dose: 100 mg Heparin Sodium (Porcine) (Heparin) 5,000 units SC Q12 [facility] Stop: 02/15/18 22:01 Hydromorphone HCl (Dilaudid) 1 mg IVP Q4H PRN PRN Reason: Pain, severe (8-10) Last Admin: 01/29/18 22:59 Dose: 1 mg Hydromorphone HCl (Dilaudid) 1 mg IVP Q4H PRN PRN Reason: Pain, moderate (4-7) Stop: 02/11/18 20:57 Piperacillin Sod/Tazobactam Sod (Zosyn 3.375 Gm Iv Premix) 3.375 gm in 50 mls @ 100 mls/hr IVPB Q6H [facility] PRN Reason: Protocol Last Admin: 02/03/18 03:03 Dose: 100 mls/hr Lactobacillus Acidophilus (Bacid Acidophilus) 1 cap PO BID [facility] Last Admin: 02/02/18 17:10 Dose: 1 cap Losartan Potassium (Cozaar) 25 mg PO DAILY [facility] Last Admin: 02/02/18 09:59 Dose: 25 mg Magnesium Oxide (Mag-Ox) 400 mg PO BID [facility] Last Admin: 02/02/18 17:11 Dose: 400 mg Morphine Sulfate (Morphine) 2 mg IVP Q4 PRN PRN Reason: FOR SEVERE HEADACHES Last Admin: 02/03/18 01:26 Dose: 2 mg - Labs Labs: 02/02/18 07:26 02/02/18 07:26 PT 13.5 SECONDS (9.7-12.2) H 01/24/18 05:05 INR 1.2 01/24/18 05:05 APTT 34 SECONDS (21-34) 01/24/18 05:05 - Constitutional Appears: Non-toxic, No Acute Distress, Chronically Ill - Head Exam Head Exam: NORMAL INSPECTION, NORMOCEPHALIC - Eye Exam Eye Exam: EOMI, Normal appearance - Respiratory Exam Respiratory Exam: Rales, NORMAL BREATHING PATTERN. absent: Rhonchi, Wheezes Additional comments: mild rales RLL - Cardiovascular Exam Cardiovascular Exam: REGULAR RHYTHM, +S1, +S2, Murmur - GI/Abdominal Exam GI & Abdominal Exam: Soft, Normal Bowel Sounds. absent: Tenderness - Extremities Exam Extremities Exam: Normal Capillary Refill, Normal Inspection - Neurological Exam Neurological Exam: Alert, Awake, Oriented x3 - Psychiatric Exam Psychiatric exam: Normal Affect, Normal Mood - Skin Skin Exam: Dry, Normal Color, Warm Assessment and Plan - Assessment and Plan (Free Text) Assessment: 66 yo F with PMHx of HTN, arthritis presenting with worsening head and neck pain s/p R eye cataract surgery on 01/15/2018 Plan: 1. Sepsis -clinically improving -afebrile overnight -last spiked low grade fever 100.1 (01/31, 15:58) -Tmax 101.5 (01/27, 23:30) - WBCs downtrending -likely source of infection: bacteremia and UTI 2. Bacteremia -01/23 BCx: Strep viridans x2 -01/25 repeat BCx: No growth x 2 -Cardio recs appreciated -CHF: IV lasix BID and KCl -Add beta coby once lungs are improved -Once pt's lungs are clear, and if there is still a need to more definitively rule out endocarditis, then ENEIDA can be performed. TTE was of excellent quality and no vegetations were seen. 3. Cervicogenic Headache--Possible temporal arteritis, possible viral meningitis -CSF gram stain: no organisms seen, rare PMNs -CSF culture--preliminary: no growth after 4 days -General surgery recs (Dr. Orozco) appreciated: -temporal artery bx: negative for acute changes of GCA, including inflammatory cell infiltrates and multi-nucleated giants cells. Negative finding does not rule out presence of GCA -Neurology recs (Dr. Padilla) appreciated: -depakote 1000 mg IVPB x1 -decadron 10 mg IV x1 -OOB if possible -ID recs (Dr. Velazquez) appreciated:treating for aseptic meningitis given severe headaches, fevers, neck pain -stopped acyclovir 730 mg q8 IV -stopped ampicillin 2g q4 IV -stopped ceftriaxone 2gm daily IVPB -started Zosyn 3.375gm IVPB q6 -Lumbar Puncture -Spinal fluid clear/colorless -Bands: 2% -WBC: 93 -RBC: 12 -Predominant: Neutrophils -Sugar: 60 (elevated) -Protein: 90 (elevated) -Cryptococcus Ag: negative -CSFL no growth after 24hours -CMV IgG Ab 6.50 (H) -CMV IgM Ab <30 -West Nile negative -HSV 2 IgM titer CSF -HSV IgM titer -LSH titer -Lyme -Toxoplasma 4. UTI -01/23 Urine Cx: Citrobacter diversus -01/27 repeat Urine Cx: No growth 5. HTN -controlled -not on medications at this time 6. History of Arthritis -Pt does not c/o pain -not on NSAID 7. Multiple lung nodules on CT -Pulmonary (Dr. Verma) on board -continue w/ Abx -Legionella -Mycoplasma -cx pending -no acid fast bacilli stain growth 8. Pleural effusion -small b/l pleural effusion -no thoracentesis 9. Leukocytosis, Anemia -suggested persistent WBC d/t infectious etiology -WBCs downtrending, 17.5 -ESR 114 on admission-->repeat 65 -Retic Count: 1.9 -Haptoglobin: 521.7 -Iron: 18 (L) -TIBC: 200 (L) -% saturation: 9 (L) -Ferritin: 503.0 -Hb/Hct downtrending for unknown reason; baseline Hb 12.6 (11/01/2016) -Per PMD (Dr. Muñoz), pt has never been worked up for anemia -Pt type and crossed; pRBCs prepared, per Heme/Onc recs 10. PPx, Diet, Disposition -Heparin 5000 units subQ 12h -NS 70 cc/hr -likely d/c on Tu -low grade fever spike, WBC elevated but downtrending -to be d/c'd on acyclovir 400 mg BID x 2days, rocephin 2 gm/day x 20 days, florastor 1 tab PO BID per ID recs -to f/u with ID for labs (CBC, CMP, ESR, CRP) weekly x 3 weeks -will have to postpone discharge if still coughing and fever consistently spikes >100.4 will d/w Dr. Michele Hewitt PGY-1 <Christo Bautista - Last Filed: 02/03/18 21:30> Objective - Vital Signs/Intake and Output Vital Signs (last 24 hours): Temp Pulse Resp BP Pulse Ox 99.4 F 65 18 137/79 96 02/03/18 15:06 02/03/18 18:00 02/03/18 15:06 02/03/18 17:46 02/03/18 15:06 Intake and Output: 02/03/18 02/04/18 18:59 06:59 Intake Total 100 Balance 100 - Medications Medications: Current Medications Acetaminophen (Tylenol 325mg Tab) 650 mg PO Q6 PRN PRN Reason: Headache Last Admin: 02/02/18 17:08 Dose: 650 mg Carvedilol (Coreg) 6.25 mg PO BID [facility] Last Admin: 02/03/18 17:46 Dose: 6.25 mg Furosemide (Lasix) 20 mg IVP BID [facility] Last Admin: 02/03/18 17:46 Dose: 20 mg Guaifenesin (Robitussin) 100 mg PO Q4H PRN PRN Reason: Cough Last Admin: 02/02/18 21:28 Dose: 100 mg Heparin Sodium (Porcine) (Heparin) 5,000 units SC Q12 [facility] Stop: 02/15/18 22:01 Piperacillin Sod/Tazobactam Sod (Zosyn 3.375 Gm Iv Premix) 3.375 gm in 50 mls @ 100 mls/hr IVPB Q6H [facility] PRN Reason: Protocol Last Admin: 02/03/18 15:05 Dose: 100 mls/hr Lactobacillus Acidophilus (Bacid Acidophilus) 1 cap PO BID [facility] Last Admin: 02/03/18 17:46 Dose: 1 cap Losartan Potassium (Cozaar) 25 mg PO DAILY [facility] Last Admin: 02/03/18 09:35 Dose: 25 mg Magnesium Oxide (Mag-Ox) 400 mg PO BID [facility] Last Admin: 02/03/18 17:46 Dose: 400 mg Oxycodone HCl (Oxycodone Immediate Release Tab) 5 mg PO Q6 PRN PRN Reason: Pain, moderate (4-7) Last Admin: 02/03/18 15:03 Dose: 5 mg - Labs Labs: 02/03/18 07:22 02/03/18 07:22 PT 13.5 SECONDS (9.7-12.2) H 01/24/18 05:05 INR 1.2 01/24/18 05:05 APTT 34 SECONDS (21-34) 01/24/18 05:05 Attending/Attestation - Attestation I have personally seen and examined this patient.: Yes I have fully participated in the care of the patient.: Yes I have reviewed all pertinent clinical information, including history, physical exam and plan: Yes Notes (Text): Seen and examined this morning patient feels better,no fever,less headache no sob lungs clear Continue zosyn,follow repeat blood culture 02/02/2018 Plan-Tolat 4 weeks of antibiotics I agree with the assessment and the plan
[2018-02-03 07:35] LABS: HEMOGLOBIN 9.1 g/dL (11.0-16.0); MEAN CELL VOLUME 86.3 fL (81.0-99.0); MEAN CORPUSCULAR HEMOGLOBIN 29.6 pg (27.0-31.0); MEAN CORPUSCULAR HGB CONC 34.3 g/dL (33.0-37.0); MEAN PLATELET VOLUME 7.5 fL (7.2-11.7); RBC 3.08 Mil/uL (3.80-5.20); RED CELL DISTRIBUTION WIDTH 16.7 % (11.5-14.5); WHITE BLOOD COUNT 12.6 K/uL (4.8-10.8)
[2018-02-03 07:46] LABS: ALB/GLOB RATIO 0.9 (1.0-2.1); ALBUMIN 3.2 g/dL (3.5-5.0); ALT/SGPT 33 U/L (9-52); AST/SGOT 19 U/L (14-36); BLOOD UREA NITROGEN 9 mg/dL (7-17); CALCIUM 8.2 mg/dl (8.6-10.4); GFR NON-AFRICAN AMERICAN > 60
[2018-02-03] MEDS: Lactobacillus Acidophilus 500 MU Cap PO SCH ×2 (09:34→17:46)
[2018-02-03] MEDS: Magnesium Oxide 400 mg Tab UD PO SCH ×2 (09:34→17:46)
--- NOTE | 2018-02-03 13:02 | CP.PCM.PN ---
Subjective - Date & Time of Evaluation Date of Evaluation: 02/03/18 Time of Evaluation: 12:59 - Subjective Subjective: Pulmonary Folow up, Covering Dr Verma The patient was Seen/interviewed and examined by me at the bedside, Medical records reviewed and Management issues were discussed and formulated with the house staff. Events reviewed Clinically improving, afebrile, WBCs downtrending [place]elling better AAO x3, comfortable, NAD Afebrile No shortness of breath, dizziness, chest pain Objective - Vital Signs/Intake and Output Vital Signs (last 24 hours): Temp Pulse Resp BP Pulse Ox 98.8 F 69 20 125/76 97 02/03/18 07:05 02/03/18 09:35 02/03/18 07:05 02/03/18 09:35 02/03/18 07:05 Intake and Output: 02/03/18 02/03/18 06:59 18:59 Intake Total 500 Output Total 800 Balance -300 - Medications Medications: Current Medications Acetaminophen (Tylenol 325mg Tab) 650 mg PO Q6 PRN PRN Reason: Headache Last Admin: 02/02/18 17:08 Dose: 650 mg Carvedilol (Coreg) 6.25 mg PO BID [facility] Last Admin: 02/03/18 09:34 Dose: 6.25 mg Furosemide (Lasix) 20 mg IVP BID [facility] Last Admin: 02/03/18 09:35 Dose: 20 mg Guaifenesin (Robitussin) 100 mg PO Q4H PRN PRN Reason: Cough Last Admin: 02/02/18 21:28 Dose: 100 mg Heparin Sodium (Porcine) (Heparin) 5,000 units SC Q12 [facility] Stop: 02/15/18 22:01 Hydromorphone HCl (Dilaudid) 1 mg IVP Q4H PRN PRN Reason: Pain, severe (8-10) Last Admin: 01/29/18 22:59 Dose: 1 mg Hydromorphone HCl (Dilaudid) 1 mg IVP Q4H PRN PRN Reason: Pain, moderate (4-7) Stop: 02/11/18 20:57 Piperacillin Sod/Tazobactam Sod (Zosyn 3.375 Gm Iv Premix) 3.375 gm in 50 mls @ 100 mls/hr IVPB Q6H [facility] PRN Reason: Protocol Last Admin: 02/03/18 10:28 Dose: 100 mls/hr Lactobacillus Acidophilus (Bacid Acidophilus) 1 cap PO BID [facility] Last Admin: 02/03/18 09:34 Dose: 1 cap Losartan Potassium (Cozaar) 25 mg PO DAILY [facility] Last Admin: 02/03/18 09:35 Dose: 25 mg Magnesium Oxide (Mag-Ox) 400 mg PO BID [facility] Last Admin: 02/03/18 09:34 Dose: 400 mg Oxycodone HCl (Oxycodone Immediate Release Tab) 5 mg PO Q6 PRN PRN Reason: Pain, moderate (4-7) - Labs Labs: 02/03/18 07:22 02/03/18 07:22 PT 13.5 SECONDS (9.7-12.2) H 01/24/18 05:05 INR 1.2 01/24/18 05:05 APTT 34 SECONDS (21-34) 01/24/18 05:05 - Constitutional Appears: Well, Non-toxic - Head Exam Head Exam: ATRAUMATIC, NORMAL INSPECTION - Eye Exam Eye Exam: EOMI, Normal appearance. absent: Conjunctival injection Pupil Exam: NORMAL ACCOMODATION, PERRL - Neck Exam Neck Exam: Full ROM, Normal Inspection. absent: Lymphadenopathy, Meningismus, Tenderness, Thyromegaly - Respiratory Exam Respiratory Exam: Rhonchi. absent: Accessory Muscle Use, Chest Wall Tenderness , Wheezes, Respiratory Distress - Cardiovascular Exam Cardiovascular Exam: REGULAR RHYTHM, RRR, +S1, +S2. absent: JVD - GI/Abdominal Exam GI & Abdominal Exam: Soft, Normal Bowel Sounds. absent: Distended, Firm, Guarding, Rigid - Back Exam Back Exam: absent: CVA tenderness (L), CVA tenderness (R) - Neurological Exam Neurological Exam: Alert, Awake, CN II-XII Intact, Oriented x3 Assessment and Plan (1) Multiple lung nodules on CT Assessment & Plan: Clinically improving, afebrile, WBCs downtrending Continue antibiotics. Legionella mycoplasma titers small bilateral pleural effusion. No thoracentesis. UTI with bacteremia is likely source of infection - Status: Acute (2) Pleural effusion Status: Acute (3) Sepsis Status: Acute (4) Prophylactic measure Status: Acute
[2018-02-03] MEDS: oxyCODONE 5 mg Immediate Release Tab PO PRN (15:03)
--- NOTE | 2018-02-03 15:51 | CP.PCM.PN ---
Subjective - Date & Time of Evaluation Date of Evaluation: 02/03/18 Time of Evaluation: 09:00 - Subjective Subjective: awake alert afebrile c/o headache but less Objective - Vital Signs/Intake and Output Vital Signs (last 24 hours): Temp Pulse Resp BP Pulse Ox 98.8 F 69 20 125/76 97 02/03/18 07:05 02/03/18 09:35 02/03/18 07:05 02/03/18 09:35 02/03/18 07:05 Intake and Output: 02/03/18 02/03/18 06:59 18:59 Intake Total 500 100 Output Total 800 Balance -300 100 - Medications Medications: Current Medications Acetaminophen (Tylenol 325mg Tab) 650 mg PO Q6 PRN PRN Reason: Headache Last Admin: 02/02/18 17:08 Dose: 650 mg Carvedilol (Coreg) 6.25 mg PO BID [facility] Last Admin: 02/03/18 09:34 Dose: 6.25 mg Furosemide (Lasix) 20 mg IVP BID [facility] Last Admin: 02/03/18 09:35 Dose: 20 mg Guaifenesin (Robitussin) 100 mg PO Q4H PRN PRN Reason: Cough Last Admin: 02/02/18 21:28 Dose: 100 mg Heparin Sodium (Porcine) (Heparin) 5,000 units SC Q12 [facility] Stop: 18 22:01 Piperacillin Sod/Tazobactam Sod (Zosyn 3.375 Gm Iv Premix) 3.375 gm in 50 mls @ 100 mls/hr IVPB Q6H [facility] PRN Reason: Protocol Last Admin: 02/03/18 15:05 Dose: 100 mls/hr Lactobacillus Acidophilus (Bacid Acidophilus) 1 cap PO BID [facility] Last Admin: 02/03/18 09:34 Dose: 1 cap Losartan Potassium (Cozaar) 25 mg PO DAILY [facility] Last Admin: 02/03/18 09:35 Dose: 25 mg Magnesium Oxide (Mag-Ox) 400 mg PO BID [facility] Last Admin: 02/03/18 09:34 Dose: 400 mg Oxycodone HCl (Oxycodone Immediate Release Tab) 5 mg PO Q6 PRN PRN Reason: Pain, moderate (4-7) Last Admin: 02/03/18 15:03 Dose: 5 mg - Labs Labs: 02/03/18 07:22 02/03/18 07:22 PT 13.5 SECONDS (9.7-12.2) H 01/24/18 05:05 INR 1.2 01/24/18 05:05 APTT 34 SECONDS (21-34) 01/24/18 05:05 - Constitutional Appears: Non-toxic, Chronically Ill - Head Exam Head Exam: NORMOCEPHALIC - Eye Exam Eye Exam: absent: Scleral icterus - ENT Exam ENT Exam: Mucous Membranes Dry - Neck Exam Neck Exam: absent: Lymphadenopathy - Respiratory Exam Respiratory Exam: Decreased Breath Sounds, Clear to Ausculation Bilateral - Cardiovascular Exam Cardiovascular Exam: REGULAR RHYTHM, +S1, +S2 - GI/Abdominal Exam GI & Abdominal Exam: Distended, Soft. absent: Tenderness - Rectal Exam Rectal Exam: Deferred - Exam Exam: NORMAL INSPECTION - Extremities Exam Extremities Exam: absent: Pedal Edema - Back Exam Back Exam: absent: CVA tenderness (L), CVA tenderness (R) - Neurological Exam Neurological Exam: Alert, Awake, CN II-XII Intact, Oriented x3 - Psychiatric Exam Psychiatric exam: Depressed - Skin Skin Exam: Dry Assessment and Plan (1) Fever Status: Acute (2) Headache Status: Acute (3) Leukocytosis Status: Acute (4) Infection by Streptococcus, viridans group Status: Acute (5) Infection by Streptococcus, viridans group Status: Acute - Assessment and Plan (Free Text) Assessment: 67 yo female admitted with fever and headache was found to have sterile CSF but blood cultures grew strep viridens although echo was negative for endocarditis , the presence of bilateral lung opacities is sugestive of possible septic emboli patient can be treated with IV PCN to which strep was sensitive would consider 6 weeks IV rx for endocarditis as well as complete oral/ dental eval
[2018-02-03 20:42] LABS: CSF ALPHA-1-GLOBULIN 8.5 % (1.8-6.5); CSF ALPHA-2-GLOBULIN 12.9 % (4.6-10.8); CSF BETA GLOBULIN 19.9 % (7.8-18.2); CSF GAMMA GLOBULIN 18.2 % (4.8-17.6); CSF PRE-ALBUMIN 2.4 % (1.3-6.9)
[2018-02-04] MEDS: Piperacill/Tazo 3.375gm in Dex 3.375 GM/50 ML BAG IVPB SCH ×4 (04:00→22:39)
--- NOTE | 2018-02-04 06:23 | CP.PCM.PN ---
<Cruz Wiley - Last Filed: 02/04/18 07:55> Subjective - Date & Time of Evaluation Date of Evaluation: 02/04/18 Time of Evaluation: 06:22 - Subjective Subjective: PGY2 Medicine Note for Dr. Santiago Patient seen and examined this morning at bedside. No acute events overnight. She has a mild headache this time morning but feels well otherwise. She was able to sleep last night and is not in any pain at this time. She is tolerating her diet well. Denies fevers, chills, nausea, vomiting, diarrhea, constipation, chest pain, shortness of breath, abdominal pain, numbness or tingling. Objective - Vital Signs/Intake and Output Vital Signs (last 24 hours): Temp Pulse Resp BP Pulse Ox 100.4 F H 74 20 91/45 L 100 02/03/18 23:05 02/04/18 01:00 02/03/18 23:05 02/03/18 23:05 02/03/18 23:05 Intake and Output: 02/03/18 02/04/18 18:59 06:59 Intake Total 100 600 Output Total 400 Balance 100 200 - Medications Medications: Current Medications Acetaminophen (Tylenol 325mg Tab) 650 mg PO Q6 PRN PRN Reason: Headache Last Admin: 02/02/18 17:08 Dose: 650 mg Carvedilol (Coreg) 6.25 mg PO BID [facility] Last Admin: 02/03/18 17:46 Dose: 6.25 mg Furosemide (Lasix) 20 mg IVP BID [facility] Last Admin: 02/03/18 17:46 Dose: 20 mg Guaifenesin (Robitussin) 100 mg PO Q4H PRN PRN Reason: Cough Last Admin: 02/02/18 21:28 Dose: 100 mg Heparin Sodium (Porcine) (Heparin) 5,000 units SC Q12 [facility] Stop: 02/15/18 22:01 Piperacillin Sod/Tazobactam Sod (Zosyn 3.375 Gm Iv Premix) 3.375 gm in 50 mls @ 100 mls/hr IVPB Q6H [facility] PRN Reason: Protocol Last Admin: 02/03/18 22:12 Dose: 100 mls/hr Lactobacillus Acidophilus (Bacid Acidophilus) 1 cap PO BID [facility] Last Admin: 02/03/18 17:46 Dose: 1 cap Losartan Potassium (Cozaar) 25 mg PO DAILY [facility] Last Admin: 02/03/18 09:35 Dose: 25 mg Magnesium Oxide (Mag-Ox) 400 mg PO BID [facility] Last Admin: 02/03/18 17:46 Dose: 400 mg Oxycodone HCl (Oxycodone Immediate Release Tab) 5 mg PO Q6 PRN PRN Reason: Pain, moderate (4-7) Last Admin: 02/03/18 15:03 Dose: 5 mg - Labs Labs: 02/03/18 07:22 02/03/18 07:22 PT 13.5 SECONDS (9.7-12.2) H 01/24/18 05:05 INR 1.2 01/24/18 05:05 APTT 34 SECONDS (21-34) 01/24/18 05:05 - Additional Findings Additional findings: - Constitutional Appears: Non-toxic, No Acute Distress, Chronically Ill - Head Exam Head Exam: NORMAL INSPECTION, NORMOCEPHALIC - Eye Exam Eye Exam: EOMI, Normal appearance - Respiratory Exam Respiratory Exam: Rales, NORMAL BREATHING PATTERN. absent: Rhonchi, Wheezes Additional comments: mild rales RLL - Cardiovascular Exam Cardiovascular Exam: REGULAR RHYTHM, +S1, +S2, Murmur - GI/Abdominal Exam GI & Abdominal Exam: Soft, Normal Bowel Sounds. absent: Tenderness - Extremities Exam Extremities Exam: Normal Capillary Refill, Normal Inspection - Neurological Exam Neurological Exam: Alert, Awake, Oriented x3 - Psychiatric Exam Psychiatric exam: Normal Affect, Normal Mood - Skin Skin Exam: Dry, Normal Color, Warm Assessment and Plan - Assessment and Plan (Free Text) Plan: 1. Sepsis -clinically improving -afebrile overnight -last spiked low grade fever 100.1 (8, 15:58) -Tmax 101.5 (01/27, 23:30) - WBCs downtrending -likely source of infection: bacteremia and UTI 2. Bacteremia -01/23 BCx: Strep viridans x2 -01/25 repeat BCx: No growth x 2 -Cardio recs appreciated -CHF: IV lasix BID and KCl -Add beta coby once lungs are improved -Once pt's lungs are clear, and if there is still a need to more definitively rule out endocarditis, then ENEIDA can be performed. TTE was of excellent quality and no vegetations were seen. 3. Cervicogenic Headache--Possible temporal arteritis, possible viral meningitis -CSF gram stain: no organisms seen, rare PMNs -CSF culture--preliminary: no growth after 4 days -General surgery recs (Dr. Orozco) appreciated: -temporal artery bx: negative for acute changes of GCA, including inflammatory cell infiltrates and multi-nucleated giants cells. Negative finding does not rule out presence of GCA -Neurology recs (Dr. Padilla) appreciated: -depakote 1000 mg IVPB x1 -decadron 10 mg IV x1 -OOB if possible -ID recs (Dr. Velazquez) appreciated:treating for aseptic meningitis given severe headaches, fevers, neck pain -stopped acyclovir 730 mg q8 IV -stopped ampicillin 2g q4 IV -stopped ceftriaxone 2gm daily IVPB -started Zosyn 3.375gm IVPB q6 -Lumbar Puncture -Spinal fluid clear/colorless -Bands: 2% -WBC: 93 -RBC: 12 -Predominant: Neutrophils -Sugar: 60 (elevated) -Protein: 90 (elevated) -Cryptococcus Ag: negative -CSFL no growth after 24hours -CMV IgG Ab 6.50 (H) -CMV IgM Ab <30 -West Nile negative -HSV 2 IgM titer CSF -HSV IgM titer -LSH titer -Lyme -Toxoplasma 4. UTI -01/23 Urine Cx: Citrobacter diversus -01/27 repeat Urine Cx: No growth 5. HTN -controlled -not on medications at this time 6. History of Arthritis -Pt does not c/o pain -not on NSAID 7. Multiple lung nodules on CT -Pulmonary (Dr. Verma) on board -continue w/ Abx -Legionella -Mycoplasma -cx pending -no acid fast bacilli stain growth 8. Pleural effusion -small b/l pleural effusion -no thoracentesis 9. Leukocytosis, Anemia -suggested persistent WBC d/t infectious etiology -WBCs downtrending, 17.5 -ESR 114 on admission-->repeat 65 -Retic Count: 1.9 -Haptoglobin: 521.7 -Iron: 18 (L) -TIBC: 200 (L) -% saturation: 9 (L) -Ferritin: 503.0 -Hb/Hct downtrending for unknown reason; baseline Hb 12.6 (11/01/2016) -Per PMD (Dr. Muñoz), pt has never been worked up for anemia -Pt type and crossed; pRBCs prepared, per Heme/Onc recs 10. PPx, Diet, Disposition -Heparin 5000 units subQ 12h -NS 70 cc/hr -likely d/c on Tu -low grade fever spike, WBC elevated but downtrending -to be d/c'd on acyclovir 400 mg BID x 2days, rocephin 2 gm/day x 20 days, florastor 1 tab PO BID per ID recs -to f/u with ID for labs (CBC, CMP, ESR, CRP) weekly x 3 weeks -will have to postpone discharge if still coughing and fever consistently spikes >100.[address] Pamela Wiley PGY2 <Sky Santiago H - Last Filed: 02/04/18 13:59> Objective - Vital Signs/Intake and Output Vital Signs (last 24 hours): Temp Pulse Resp BP Pulse Ox 99 F 75 20 134/83 97 02/04/18 08:01 02/04/18 09:36 02/04/18 08:01 02/04/18 09:36 02/04/18 08:01 Intake and Output: 02/04/18 02/04/18 06:59 18:59 Intake Total 600 Output Total 400 Balance 200 - Medications Medications: Current Medications Acetaminophen (Tylenol 325mg Tab) 650 mg PO Q6 PRN PRN Reason: Headache Last Admin: 02/02/18 17:08 Dose: 650 mg Carvedilol (Coreg) 6.25 mg PO BID [facility] Last Admin: 02/04/18 09:31 Dose: 6.25 mg Furosemide (Lasix) 20 mg IVP BID [facility] Last Admin: 02/04/18 09:31 Dose: 20 mg Guaifenesin (Robitussin) 100 mg PO Q4H PRN PRN Reason: Cough Last Admin: 02/02/18 21:28 Dose: 100 mg Heparin Sodium (Porcine) (Heparin) 5,000 units SC Q12 [facility] Stop: 02/15/18 22:01 Piperacillin Sod/Tazobactam Sod (Zosyn 3.375 Gm Iv Premix) 3.375 gm in 50 mls @ 100 mls/hr IVPB Q6H [facility] PRN Reason: Protocol Last Admin: 02/04/18 09:32 Dose: 100 mls/hr Lactobacillus Acidophilus (Bacid Acidophilus) 1 cap PO BID [facility] Last Admin: 02/04/18 09:31 Dose: 1 cap Losartan Potassium (Cozaar) 25 mg PO DAILY [facility] Last Admin: 02/04/18 09:31 Dose: 25 mg Magnesium Oxide (Mag-Ox) 400 mg PO BID [facility] Last Admin: 02/04/18 09:31 Dose: 400 mg Oxycodone HCl (Oxycodone Immediate Release Tab) 5 mg PO Q6 PRN PRN Reason: Pain, moderate (4-7) Last Admin: 02/03/18 15:03 Dose: 5 mg - Labs Labs: 02/04/18 08:47 02/04/18 08:47 PT 13.5 SECONDS (9.7-12.2) H 01/24/18 05:05 INR 1.2 01/24/18 05:05 APTT 34 SECONDS (21-34) 01/24/18 05:05 Attending/Attestation - Attestation I have personally seen and examined this patient.: Yes I have fully participated in the care of the patient.: Yes I have reviewed all pertinent clinical information, including history, physical exam and plan: Yes Notes (Text): 02/04/18 13:56 Medical attending: Patient was seen and examined by me. Agree with the above note by the resident The patient was not in any acute distress when I came and saw her. She has a lot less neck pain and headache is much less than when I last saw her one week ago. She was able to rotate head left and right without signifignant pain. Her T max was 100.4 and the WBC is decreased to 12. The patient's HR and BP have been stable as well. 02/04/18 13:58 02/04/18 13:58
[2018-02-04 08:56] LABS: HEMOGLOBIN 8.9 g/dL (11.0-16.0); MEAN CELL VOLUME 86.7 fL (81.0-99.0); MEAN CORPUSCULAR HEMOGLOBIN 28.9 pg (27.0-31.0); MEAN CORPUSCULAR HGB CONC 33.3 g/dL (33.0-37.0); MEAN PLATELET VOLUME 7.4 fL (7.2-11.7); RBC 3.07 Mil/uL (3.80-5.20); RED CELL DISTRIBUTION WIDTH 16.4 % (11.5-14.5); WHITE BLOOD COUNT 12.1 K/uL (4.8-10.8)
[2018-02-04 09:09] LABS: ALBUMIN 3.3 g/dL (3.5-5.0); ALT/SGPT 30 U/L (9-52); AST/SGOT 22 U/L (14-36); BLOOD UREA NITROGEN 10 mg/dL (7-17); CALCIUM 8.3 mg/dl (8.6-10.4); GFR NON-AFRICAN AMERICAN > 60
[2018-02-04] MEDS: Lactobacillus Acidophilus 500 MU Cap PO SCH ×2 (09:31→17:27)
[2018-02-04] MEDS: Magnesium Oxide 400 mg Tab UD PO SCH ×2 (09:31→17:27)
--- NOTE | 2018-02-04 19:32 | CP.PCM.PN ---
Subjective - Date & Time of Evaluation Date of Evaluation: 02/04/18 Time of Evaluation: 19:31 - Subjective Subjective: Pulmonary Folow up, Covering Dr Verma The patient was Seen/interviewed and examined by me at the bedside, Events reviewed Comfortable, NAD Pt AAO x3. Breathing unlabored. Denies any chest pain, SOB or Palpitations No headache, photophobia, vision changes, vertigo or double vision Afebrile. Adequate saturations on 2L via nasal cannula 02/02/2018: CHEST RADIOGRAPH, 1 VIEW IMPRESSION: Mild pulmonary venous congestive changes with bibasilar atelectasis and/or infiltrates right greater than left. Suspect small bilateral effusions as well. Note that the possibility of superimposed pneumonia not excluded. Objective - Vital Signs/Intake and Output Vital Signs (last 24 hours): Temp Pulse Resp BP Pulse Ox 98.4 F 77 20 109/70 99 02/04/18 15:00 02/04/18 15:00 02/04/18 15:00 02/04/18 17:27 02/04/18 15:00 Intake and Output: 02/04/18 02/05/18 18:59 06:59 Intake Total 50 Output Total 1000 Balance -950 - Medications Medications: Current Medications Acetaminophen (Tylenol 325mg Tab) 650 mg PO Q6 PRN PRN Reason: Headache Last Admin: 02/02/18 17:08 Dose: 650 mg Carvedilol (Coreg) 6.25 mg PO BID [facility] Last Admin: 02/04/18 17:27 Dose: 6.25 mg Furosemide (Lasix) 20 mg IVP BID [facility] Last Admin: 02/04/18 17:27 Dose: 20 mg Guaifenesin (Robitussin) 100 mg PO Q4H PRN PRN Reason: Cough Last Admin: 02/02/18 21:28 Dose: 100 mg Heparin Sodium (Porcine) (Heparin) 5,000 units SC Q12 [facility] Stop: 02/15/18 22:01 Piperacillin Sod/Tazobactam Sod (Zosyn 3.375 Gm Iv Premix) 3.375 gm in 50 mls @ 100 mls/hr IVPB Q6H [facility] PRN Reason: Protocol Last Admin: 02/04/18 16:28 Dose: 100 mls/hr Lactobacillus Acidophilus (Bacid Acidophilus) 1 cap PO BID [facility] Last Admin: 02/04/18 17:27 Dose: 1 cap Losartan Potassium (Cozaar) 25 mg PO DAILY [facility] Last Admin: 02/04/18 09:31 Dose: 25 mg Magnesium Oxide (Mag-Ox) 400 mg PO BID [facility] Last Admin: 02/04/18 17:27 Dose: 400 mg Oxycodone HCl (Oxycodone Immediate Release Tab) 5 mg PO Q6 PRN PRN Reason: Pain, moderate (4-7) Last Admin: 02/03/18 15:03 Dose: 5 mg - Labs Labs: 02/04/18 08:47 02/04/18 08:47 PT 13.5 SECONDS (9.7-12.2) H 01/24/18 05:05 INR 1.2 01/24/18 05:05 APTT 34 SECONDS (21-34) 01/24/18 05:05 - Constitutional Appears: Well, Non-toxic, No Acute Distress - Head Exam Head Exam: ATRAUMATIC, NORMAL INSPECTION, NORMOCEPHALIC - Eye Exam Eye Exam: EOMI, Normal appearance. absent: Conjunctival injection Pupil Exam: NORMAL ACCOMODATION, PERRL. absent: Fixed, Irregular, Miosis - ENT Exam ENT Exam: Mucous Membranes Moist. absent: Mucous Membranes Dry - Neck Exam Neck Exam: Full ROM, Normal Inspection. absent: Lymphadenopathy, Meningismus, Tenderness, Thyromegaly - Respiratory Exam Respiratory Exam: Rhonchi, NORMAL BREATHING PATTERN. absent: Accessory Muscle Use, Chest Wall Tenderness, Clear to Ausculation Bilateral - Cardiovascular Exam Cardiovascular Exam: RRR, +S1, +S2. absent: JVD - Neurological Exam Neurological Exam: Alert, Awake, CN II-XII Intact, Oriented x3. absent: Motor Sensory Deficit Assessment and Plan (1) Sepsis Assessment & Plan: Secondary to pneumonia, UTI with bacteremia is likely source of infection Clinically improving, afebrile, WBCs downtrending Continue antibiotics. Legionella mycoplasma titers S. pneumoniae negative small bilateral pleural effusion. No thoracentesis. Status: Acute (2) Multiple lung nodules on CT Status: Acute (3) Pleural effusion Status: Acute (4) Prophylactic measure Status: Acute
[2018-02-04] MEDS ORDERED: HYDROmorphone 1 mg/ml ISec IVP PRN (20:56)
[2018-02-04] MEDS: guaiFENesin 100 mg/5 ml Syrup UD PO PRN (23:51)
[2018-02-05] MEDS: Piperacill/Tazo 3.375gm in Dex 3.375 GM/50 ML BAG IVPB SCH ×4 (03:10→21:28)
[2018-02-05 07:43] LABS: BASO # 0.1 K/uL (0.0-0.2); BASO % 0.7 % (0.0-2.0); EOS # 0.2 K/uL (0.0-0.7); EOS % 2.2 % (0.0-4.0); HEMOGLOBIN 9.2 g/dL (11.0-16.0); LYMPH # 2.5 K/uL (1.0-4.3); LYMPH % 26.8 % (20.0-40.0); MEAN CELL VOLUME 86.2 fL (81.0-99.0); MEAN CORPUSCULAR HEMOGLOBIN 29.6 pg (27.0-31.0); MEAN CORPUSCULAR HGB CONC 34.4 g/dL (33.0-37.0); MEAN PLATELET VOLUME 7.5 fL (7.2-11.7); MONO # 0.8 K/uL (0.0-0.8); MONO % 8.2 % (0.0-10.0); NEUT # 5.7 K/uL (1.8-7.0); NEUT % 62.1 % (50.0-75.0); RBC 3.11 Mil/uL (3.80-5.20); RED CELL DISTRIBUTION WIDTH 16.5 % (11.5-14.5); WHITE BLOOD COUNT 9.2 K/uL (4.8-10.8)
[2018-02-05 08:15] LABS: ALBUMIN 3.5 g/dL (3.5-5.0); ALT/SGPT 30 U/L (9-52); AST/SGOT 36 U/L (14-36); BLOOD UREA NITROGEN 12 mg/dL (7-17); CALCIUM 8.3 mg/dl (8.6-10.4); GFR NON-AFRICAN AMERICAN > 60
[2018-02-05] MEDS: Magnesium Oxide 400 mg Tab UD PO SCH ×2 (10:12→17:49)
[2018-02-05] MEDS: Lactobacillus Acidophilus 500 MU Cap PO SCH ×2 (10:16→17:49)
--- NOTE | 2018-02-05 12:04 | CP.PCM.PN ---
Subjective - Date & Time of Evaluation Date of Evaluation: 02/05/18 Time of Evaluation: 09:00 - Subjective Subjective: slowly improving less headaches ENEIDA cancelled Objective - Vital Signs/Intake and Output Vital Signs (last 24 hours): Temp Pulse Resp BP Pulse Ox 98.5 F 60 20 96/57 L 99 02/05/18 08:11 02/05/18 10:08 02/05/18 08:11 02/05/18 10:12 02/05/18 08:11 Intake and Output: 02/05/18 02/05/18 06:59 18:59 Output Total 400 Balance -400 - Medications Medications: Current Medications Acetaminophen (Tylenol 325mg Tab) 650 mg PO Q6 PRN PRN Reason: Headache Last Admin: 02/02/18 17:08 Dose: 650 mg Carvedilol (Coreg) 6.25 mg PO BID [facility] Last Admin: 02/05/18 10:11 Dose: Not Given Furosemide (Lasix) 20 mg IVP BID [facility] Last Admin: 02/05/18 10:12 Dose: Not Given Guaifenesin (Robitussin) 100 mg PO Q4H PRN PRN Reason: Cough Last Admin: 02/04/18 23:51 Dose: 100 mg Heparin Sodium (Porcine) (Heparin) 5,000 units SC Q12 [facility] Stop: 02/15/18 22:01 Last Admin: 02/05/18 10:12 Dose: 5,000 units Piperacillin Sod/Tazobactam Sod (Zosyn 3.375 Gm Iv Premix) 3.375 gm in 50 mls @ 100 mls/hr IVPB Q6H [facility] PRN Reason: Protocol Last Admin: 02/05/18 10:12 Dose: 100 mls/hr Lactobacillus Acidophilus (Bacid Acidophilus) 1 cap PO BID [facility] Last Admin: 02/05/18 10:16 Dose: 1 cap Losartan Potassium (Cozaar) 25 mg PO DAILY [facility] Last Admin: 02/05/18 10:12 Dose: Not Given Magnesium Oxide (Mag-Ox) 400 mg PO BID [facility] Last Admin: 02/05/18 10:12 Dose: 400 mg Oxycodone HCl (Oxycodone Immediate Release Tab) 5 mg PO Q6 PRN PRN Reason: Pain, moderate (4-7) Last Admin: 02/03/18 15:03 Dose: 5 mg - Labs Labs: 02/05/18 07:14 02/05/18 07:14 PT 13.5 SECONDS (9.7-12.2) H 01/24/18 05:05 INR 1.2 01/24/18 05:05 APTT 34 SECONDS (21-34) 01/24/18 05:05 - Constitutional Appears: Non-toxic, Chronically Ill - Head Exam Head Exam: NORMOCEPHALIC - Eye Exam Eye Exam: PERRL - ENT Exam ENT Exam: Mucous Membranes Dry - Neck Exam Neck Exam: absent: Lymphadenopathy - Respiratory Exam Respiratory Exam: Decreased Breath Sounds - Cardiovascular Exam Cardiovascular Exam: REGULAR RHYTHM, +S1, +S2 - GI/Abdominal Exam GI & Abdominal Exam: Distended - Rectal Exam Rectal Exam: Deferred - Exam Exam: NORMAL INSPECTION - Back Exam Back Exam: absent: CVA tenderness (L), CVA tenderness (R) - Neurological Exam Neurological Exam: Alert, Awake, Oriented x3 - Psychiatric Exam Psychiatric exam: Normal Mood - Skin Skin Exam: Dry, Intact Assessment and Plan (1) Fever Status: Acute (2) Headache Status: Acute (3) Leukocytosis Status: Acute (4) Infection by Streptococcus, viridans group Status: Acute (5) Infection by Streptococcus, viridans group Status: Acute - Assessment and Plan (Free Text) Assessment: sepsis with bilat infiltrates secondary to strep viridens urine grew citrobacter recc rx as endocarditis unless ruled out recc 6 weeks iv rx and dental / GI eval as follow up
--- NOTE | 2018-02-05 15:30 | CP.PCM.PN ---
Subjective - Date & Time of Evaluation Date of Evaluation: 02/05/18 Time of Evaluation: 15:28 - Subjective Subjective: THe pt feels and looks much better. Afebrile. Objective - Vital Signs/Intake and Output Vital Signs (last 24 hours): Temp Pulse Resp BP Pulse Ox 98.5 F 73 20 100/68 99 02/05/18 08:11 02/05/18 13:23 02/05/18 08:11 02/05/18 13:23 02/05/18 08:11 Intake and Output: 02/05/18 02/05/18 06:59 18:59 Output Total 400 Balance -400 - Medications Medications: Current Medications Acetaminophen (Tylenol 325mg Tab) 650 mg PO Q6 PRN PRN Reason: Headache Last Admin: 02/02/18 17:08 Dose: 650 mg Carvedilol (Coreg) 6.25 mg PO BID [facility] Last Admin: 02/05/18 10:11 Dose: Not Given Furosemide (Lasix) 20 mg IVP BID [facility] Last Admin: 02/05/18 10:12 Dose: Not Given Guaifenesin (Robitussin) 100 mg PO Q4H PRN PRN Reason: Cough Last Admin: 02/04/18 23:51 Dose: 100 mg Heparin Sodium (Porcine) (Heparin) 5,000 units SC Q12 [facility] Stop: 02/15/18 22:01 Last Admin: 02/05/18 10:12 Dose: 5,000 units Piperacillin Sod/Tazobactam Sod (Zosyn 3.375 Gm Iv Premix) 3.375 gm in 50 mls @ 100 mls/hr IVPB Q6H [facility] PRN Reason: Protocol Last Admin: 02/05/18 10:12 Dose: 100 mls/hr Lactobacillus Acidophilus (Bacid Acidophilus) 1 cap PO BID [facility] Last Admin: 02/05/18 10:16 Dose: 1 cap Losartan Potassium (Cozaar) 25 mg PO DAILY [facility] Last Admin: 02/05/18 10:12 Dose: Not Given Magnesium Oxide (Mag-Ox) 400 mg PO BID [facility] Last Admin: 02/05/18 10:12 Dose: 400 mg Oxycodone HCl (Oxycodone Immediate Release Tab) 5 mg PO Q6 PRN PRN Reason: Pain, moderate (4-7) Last Admin: 02/03/18 15:03 Dose: 5 mg - Labs Labs: 02/05/18 07:14 02/05/18 07:14 PT 13.5 SECONDS (9.7-12.2) H 01/24/18 05:05 INR 1.2 01/24/18 05:05 APTT 34 SECONDS (21-34) 01/24/18 05:05 - Constitutional Appears: Well, No Acute Distress - Head Exam Head Exam: NORMAL INSPECTION - Eye Exam Eye Exam: EOMI - ENT Exam ENT Exam: Mucous Membranes Moist - Neck Exam Neck Exam: Full ROM - Respiratory Exam Respiratory Exam: Clear to Ausculation Bilateral - Cardiovascular Exam Cardiovascular Exam: REGULAR RHYTHM - Exam External exam: NORMAL EXTERNAL EXAM - Extremities Exam Extremities Exam: Full ROM, Normal Inspection - Back Exam Back Exam: NORMAL INSPECTION - Neurological Exam Neurological Exam: Alert, Awake, Oriented x3 - Psychiatric Exam Psychiatric exam: Normal Affect, Normal Mood - Skin Skin Exam: Normal Color Assessment and Plan - Assessment and Plan (Free Text) Assessment: 1. Echo by my read moderately reduced LV EF. LBBB. 2. CHF is clinically much improved. Coreg, arb. Will change lasix to po. 3. Last cxr 02/02 still not clear. Will order repeat.
--- NOTE | 2018-02-05 20:02 | CP.PCM.PN ---
<Abhijeet Castañeda - Last Filed: 02/05/18 19:59> Subjective - Date & Time of Evaluation Date of Evaluation: 02/05/18 Time of Evaluation: 11:45 - Subjective Subjective: PGY-[address] Santiago Patient seen and examined at bedside this AM. No acute events overnight. She looks and is feeling much better, expresses desire to go home. She is tolerating her diet well. Denies fevers, chills, nausea, vomiting, diarrhea, constipation, chest pain, shortness of breath, abdominal pain, numbness or tingling. Objective - Vital Signs/Intake and Output Vital Signs (last 24 hours): Temp Pulse Resp BP Pulse Ox 99.6 F 71 20 111/71 97 02/05/18 17:45 02/05/18 17:45 02/05/18 16:00 02/05/18 17:45 02/05/18 16:00 - Medications Medications: Current Medications Acetaminophen (Tylenol 325mg Tab) 650 mg PO Q6 PRN PRN Reason: Headache Last Admin: 02/02/18 17:08 Dose: 650 mg Carvedilol (Coreg) 6.25 mg PO BID [facility] Last Admin: 02/05/18 17:49 Dose: 6.25 mg Furosemide (Lasix) 20 mg IVP BID [facility] Last Admin: 02/05/18 10:12 Dose: Not Given Guaifenesin (Robitussin) 100 mg PO Q4H PRN PRN Reason: Cough Last Admin: 02/04/18 23:51 Dose: 100 mg Heparin Sodium (Porcine) (Heparin) 5,000 units SC Q12 [facility] Stop: 02/15/18 22:01 Last Admin: 02/05/18 10:12 Dose: 5,000 units Piperacillin Sod/Tazobactam Sod (Zosyn 3.375 Gm Iv Premix) 3.375 gm in 50 mls @ 100 mls/hr IVPB Q6H [facility] PRN Reason: Protocol Last Admin: 02/05/18 16:28 Dose: 100 mls/hr Lactobacillus Acidophilus (Bacid Acidophilus) 1 cap PO BID [facility] Last Admin: 02/05/18 17:49 Dose: 1 cap Losartan Potassium (Cozaar) 25 mg PO DAILY [facility] Last Admin: 02/05/18 10:12 Dose: Not Given Magnesium Oxide (Mag-Ox) 400 mg PO BID [facility] Last Admin: 02/05/18 17:49 Dose: 400 mg Oxycodone HCl (Oxycodone Immediate Release Tab) 5 mg PO Q6 PRN PRN Reason: Pain, moderate (4-7) Last Admin: 02/03/18 15:03 Dose: 5 mg - Labs Labs: 02/05/18 07:14 02/05/18 07:14 PT 13.5 SECONDS (9.7-12.2) H 01/24/18 05:05 INR 1.2 01/24/18 05:05 APTT 34 SECONDS (21-34) 01/24/18 05:05 - Constitutional Appears: Non-toxic, No Acute Distress - Head Exam Head Exam: ATRAUMATIC, NORMAL INSPECTION, NORMOCEPHALIC - Eye Exam Eye Exam: EOMI, Normal appearance - Respiratory Exam Respiratory Exam: Clear to Ausculation Bilateral, NORMAL BREATHING PATTERN - Cardiovascular Exam Cardiovascular Exam: REGULAR RHYTHM, +S1, +S2 - GI/Abdominal Exam GI & Abdominal Exam: Soft, Normal Bowel Sounds. absent: Distended, Firm, Guarding, Rigid, Tenderness, Rebound - Extremities Exam Extremities Exam: Normal Capillary Refill, Normal Inspection - Back Exam Back Exam: NORMAL INSPECTION - Neurological Exam Neurological Exam: Alert, Awake, Oriented x3 - Psychiatric Exam Psychiatric exam: Normal Affect, Normal Mood - Skin Skin Exam: Dry, Intact, Normal Color, Warm Assessment and Plan - Assessment and Plan (Free Text) Plan: 1. Sepsis -clinically improving -afebrile overnight -last spiked low grade fever 100.1 (01/31, 15:58) -Tmax 101.5 (01/27, 23:30) - WBCs downtrending -likely source of infection: bacteremia and UTI 2. Bacteremia -01/23 BCx: Strep viridans x2 -01/25 repeat BCx: No growth x 2 -Cardio recs appreciated -CHF: IV lasix BID and KCl -Add beta coby once lungs are improved -Once pt's lungs are clear, and if there is still a need to more definitively rule out endocarditis, then ENEIDA can be performed. TTE was of excellent quality and no vegetations were seen. 3. Cervicogenic Headache--Possible temporal arteritis, possible viral meningitis -CSF gram stain: no organisms seen, rare PMNs -CSF culture--preliminary: no growth after 4 days -General surgery recs (Dr. Orozco) appreciated: -temporal artery bx: negative for acute changes of GCA, including inflammatory cell infiltrates and multi-nucleated giants cells. Negative finding does not rule out presence of GCA -Neurology recs (Dr. Padilla) appreciated: -depakote 1000 mg IVPB x1 -decadron 10 mg IV x1 -OOB if possible -ID recs (Dr. Velazquez) appreciated:treating for aseptic meningitis given severe headaches, fevers, neck pain -stopped acyclovir 730 mg q8 IV -stopped ampicillin 2g q4 IV -stopped ceftriaxone 2gm daily IVPB -started Zosyn 3.375gm IVPB q6 -Lumbar Puncture -Spinal fluid clear/colorless -Bands: 2% -WBC: 93 -RBC: 12 -Predominant: Neutrophils -Sugar: 60 (elevated) -Protein: 90 (elevated) -Cryptococcus Ag: negative -CSFL no growth after 24hours -CMV IgG Ab 6.50 (H) -CMV IgM Ab <30 -West Nile negative -HSV 2 IgM titer CSF -HSV IgM titer -LSH titer -Lyme -Toxoplasma 4. UTI -01/23 Urine Cx: Citrobacter diversus -01/27 repeat Urine Cx: No growth 5. HTN -controlled -not on medications at this time 6. History of Arthritis -Pt does not c/o pain -not on NSAID 7. Multiple lung nodules on CT -Pulmonary (Dr. Verma) on board -continue w/ Abx -Legionella -Mycoplasma -cx pending -no acid fast bacilli stain growth 8. Pleural effusion -small b/l pleural effusion -no thoracentesis 9. Leukocytosis, Anemia -suggested persistent WBC d/t infectious etiology -WBCs downtrending, 17.5 -ESR 114 on admission-->repeat 65 -Retic Count: 1.9 -Haptoglobin: 521.7 -Iron: 18 (L) -TIBC: 200 (L) -% saturation: 9 (L) -Ferritin: 503.0 -Hb/Hct downtrending for unknown reason; baseline Hb 12.6 (11/01/2016) -Per PMD (Dr. Muñoz), pt has never been worked up for anemia -Pt type and crossed; pRBCs prepared, per Heme/Onc recs 10. PPx, Diet, Disposition -Heparin 5000 units subQ 12h -NS 70 cc/hr -d/c once insurance clears for home infusion therapy -low grade fever spike, WBC elevated but downtrending -to be d/c'd on acyclovir 400 mg BID x 2days, rocephin 2 gm/day x 20 days, florastor 1 tab PO BID per ID recs -to f/u with ID for labs (CBC, CMP, ESR, CRP) weekly x 3 weeks Case discussed with Dr. Pamela Castañeda , PGY-1 <Sky Santiago H - Last Filed: 02/06/18 07:40> Objective - Vital Signs/Intake and Output Vital Signs (last 24 hours): Temp Pulse Resp BP Pulse Ox 99.6 F 70 18 105/67 97 02/05/18 23:09 02/05/18 23:09 02/05/18 23:09 02/05/18 23:09 02/05/18 23:09 Intake and Output: 02/06/18 02/06/18 06:59 18:59 Intake Total 600 Balance 600 - Medications Medications: Current Medications Acetaminophen (Tylenol 325mg Tab) 650 mg PO Q6 PRN PRN Reason: Headache Last Admin: 02/02/18 17:08 Dose: 650 mg Carvedilol (Coreg) 6.25 mg PO BID [facility] Last Admin: 02/05/18 17:49 Dose: 6.25 mg Furosemide (Lasix) 20 mg IVP BID [facility] Last Admin: 02/05/18 21:30 Dose: 20 mg Guaifenesin (Robitussin) 100 mg PO Q4H PRN PRN Reason: Cough Last Admin: 02/05/18 21:28 Dose: 100 mg Heparin Sodium (Porcine) (Heparin) 5,000 units SC Q12 [facility] Stop: 02/15/18 22:01 Last Admin: 02/05/18 21:29 Dose: 5,000 units Piperacillin Sod/Tazobactam Sod (Zosyn 3.375 Gm Iv Premix) 3.375 gm in 50 mls @ 100 mls/hr IVPB Q6H [facility] PRN Reason: Protocol Last Admin: 02/06/18 03:40 Dose: 100 mls/hr Lactobacillus Acidophilus (Bacid Acidophilus) 1 cap PO BID [facility] Last Admin: 02/05/18 17:49 Dose: 1 cap Losartan Potassium (Cozaar) 25 mg PO DAILY [facility] Last Admin: 02/05/18 10:12 Dose: Not Given Magnesium Oxide (Mag-Ox) 400 mg PO BID [facility] Last Admin: 02/05/18 17:49 Dose: 400 mg Oxycodone HCl (Oxycodone Immediate Release Tab) 5 mg PO Q6 PRN PRN Reason: Pain, moderate (4-7) Last Admin: 02/03/18 15:03 Dose: 5 mg - Labs Labs: 02/06/18 07:15 02/05/18 07:14 PT 13.5 SECONDS (9.7-12.2) H 01/24/18 05:05 INR 1.2 01/24/18 05:05 APTT 34 SECONDS (21-34) 01/24/18 05:05 Attending/Attestation - Attestation I have personally seen and examined this patient.: Yes I have fully participated in the care of the patient.: Yes I have reviewed all pertinent clinical information, including history, physical exam and plan: Yes Notes (Text): 02/06/18 07:37 Medical attending: Patient was seen and examined by me. Agree with the above note by the resident The patient was not in any acute distress when I came and saw the patient. The patient was reporting that overall she was much better than previously. Has been afebrile past 48hrs. Patient wants to go home for home infusion of IV abx. I tried to talk to her about going to [facility] instead given that she has been mostly bed bound and also previous PT recomendations have been for [facility] She said she understood our concerns but wanted to go home. After more discussion she said she wanted to do PT again today and see what they have to say before making up her mind. thank you Sky Santiago
[2018-02-05] MEDS: guaiFENesin 100 mg/5 ml Syrup UD PO PRN (21:28)
[2018-02-06] MEDS: Piperacill/Tazo 3.375gm in Dex 3.375 GM/50 ML BAG IVPB SCH ×4 (03:40→21:17)
--- NOTE | 2018-02-06 06:26 | CP.PCM.DIS ---
<Abhijeet Castañeda - Last Filed: 02/06/18 17:05> Provider - Provider Date of Admission: 01/23/18 16:08 Attending physician: Sky Santiago DO Time Spent in preparation of Discharge (in minutes): 40 Hospital Course - Lab Results Lab Results: Micro Results 01/25/18 17:47 Cerebral Spinal Fluid Fungal Culture - Preliminary NO FUNGUS GROWTH IN 1 WEEK. 02/02/18 13:40 Blood-Venous Blood Culture - Preliminary NO GROWTH AFTER 3 DAYS 02/02/18 13:20 Blood-Venous Blood Culture - Preliminary NO GROWTH AFTER 3 DAYS 01/25/18 17:47 Other: Please Indicate Mycobacterial Culture - Preliminary 01/25/18 07:30 Blood-Venous Blood Culture - Final NO GROWTH AFTER 5 DAYS 01/25/18 07:30 Blood-Venous Gram Stain - Final TEST NOT PERFORMED 01/25/18 17:47 Cerebral Spinal Fluid Gram Stain - Final 01/25/18 17:47 Cerebral Spinal Fluid CSF Culture - Final No growth. 01/25/18 07:00 Blood-Venous Blood Culture - Final NO GROWTH AFTER 5 DAYS 01/25/18 07:00 Blood-Venous Gram Stain - Final TEST NOT PERFORMED 01/27/18 11:53 Urine,Clean Catch Urine Culture - Final No Growth (<1,000 CFU/ML) 01/23/18 15:00 Blood Blood Culture - Final Streptococcus Viridans 01/23/18 15:00 Blood Gram Stain - Final 01/23/18 16:20 Blood S.aureus & Coag-Neg Staph PNA FISH - Final 01/23/18 16:20 Blood Blood Culture - Final Streptococcus Viridans 01/23/18 16:20 Blood Gram Stain - Final 01/23/18 16:11 Urine,Clean Catch Urine Culture - Final Citrobacter Diversus Most Recent Lab Values WBC 9.2 K/uL (4.8-10.8) 02/05/18 07:14 RBC 3.11 Mil/uL (3.80-5.20) L 02/05/18 07:14 Hgb 9.2 g/dL (11.0-16.0) L 02/05/18 07:14 Hct 26.8 % (34.0-47.0) L 02/05/18 07:14 MCV 86.2 fL (81.0-99.0) 02/05/18 07:14 MCH 29.6 pg (27.0-31.0) 02/05/18 07:14 MCHC 34.4 g/dL (33.0-37.0) 02/05/18 07:14 RDW 16.5 % (11.5-14.5) H 02/05/18 07:14 Plt Count 503 K/uL (130-400) H 02/05/18 07:14 MPV 7.5 fL (7.2-11.7) 02/05/18 07:14 Neut % (Auto) 62.1 % (50.0-75.0) 02/05/18 07:14 Lymph % (Auto) 26.8 % (20.0-40.0) 02/05/18 07:14 [place] % (Auto) 8.2 % (0.0-10.0) 02/05/18 07:14 Eos % (Auto) 2.2 % (0.0-4.0) 02/05/18 07:14 Baso % (Auto) 0.7 % (0.0-2.0) 02/05/18 07:14 Neut # (Auto) 5.7 K/uL (1.8-7.0) 02/05/18 07:14 Lymph # (Auto) 2.5 K/uL (1.0-4.3) 02/05/18 07:14 [place] # (Auto) 0.8 K/uL (0.0-0.8) 02/05/18 07:14 Eos # (Auto) 0.2 K/uL (0.0-0.7) 02/05/18 07:14 Baso # (Auto) 0.1 K/uL (0.0-0.2) 02/05/18 07:14 Neutrophils % (Manual) 84 % (50-75) H 01/29/18 08:16 Band Neutrophils % 1 % (0-2) 01/29/18 08:16 Lymphocytes % (Manual) 10 % (20-40) L 01/29/18 08:16 Monocytes % (Manual) 5 % (0-10) 01/29/18 08:16 Platelet Estimate Slightly increased (NORMAL) H 01/29/18 08:16 Hypochromasia (manual) Slight 01/29/18 08:16 Anisocytosis (manual) Slight 01/29/18 08:16 ESR 65 mm/hr (0-20) H 01/27/18 12:11 Retic Count 1.9 % (0.5-1.5) H 01/27/18 12:11 Haptoglobin 521.7 mg/dL (30.0-200.0) H 01/27/18 12:11 PT 13.5 SECONDS (9.7-12.2) H 01/24/18 05:05 INR 1.2 01/24/18 05:05 APTT 34 SECONDS (21-34) 01/24/18 05:05 Puncture Site Rra 01/25/18 21:55 pCO2 35 mm/Hg (35-45) 01/25/18 21:55 pO2 66 mm/Hg (80-100) L 01/25/18 21:55 HCO3 25.4 mmol/L (21-28) 01/25/18 21:55 ABG pH 7.45 (7.35-7.45) 01/25/18 21:55 ABG Total CO2 25.4 mmol/L (22-28) 01/25/18 21:55 ABG O2 Saturation 96.9 % (95-98) 01/25/18 21:55 ABG Base Excess 0.7 mmol/L (-2.0-3.0) 01/25/18 21:55 Stephane Test Pos 01/25/18 21:55 ABG Potassium 3.7 mmol/L (3.6-5.2) 01/25/18 21:55 A-a O2 Difference 90.0 mm/Hg 01/25/18 21:55 Respiratory Index 1.4 01/25/18 21:55 Sodium 137.0 mmol/l (132-148) 01/25/18 21:55 Chloride 107.0 mmol/L (98-107) 01/25/18 21:55 Glucose 136 mg/dl (65-105) H 01/25/18 21:55 Lactate 1.2 mmol/L (0.7-2.1) 01/25/18 21:55 FiO2 28.0 % 01/25/18 21:55 Sodium 135 mmol/L (132-148) 02/05/18 07:14 Potassium 3.7 mmol/L (3.6-5.2) 02/05/18 07:14 Chloride 97 mmol/L (98-107) L 02/05/18 07:14 Carbon Dioxide 28 mmol/L (22-30) 02/05/18 07:14 Anion Gap 14 (10-20) 02/05/18 07:14 BUN 12 mg/dL (7-17) 02/05/18 07:14 Creatinine 0.8 mg/dL (0.7-1.2) 02/05/18 07:14 Est GFR ( Amer) > 60 02/05/18 07:14 Est GFR (Non-Af Amer) > 60 02/05/18 07:14 POC Glucose (mg/dL) 213 mg/dL (65-110) H 01/31/18 11:03 Random Glucose 96 mg/dL (65-105) 02/05/18 07:14 Lactic Acid 1.3 mmol/L (0.7-2.1) 01/25/18 08:06 Calcium 8.3 mg/dl (8.6-10.4) L 02/05/18 07:14 Phosphorus 3.4 mg/dL (2.5-4.5) 02/05/18 07:14 Magnesium 2.3 mg/dL (1.6-2.3) 02/05/18 07:14 Iron 18 ug/dL (37-170) L 01/27/18 12:11 TIBC 200 ug/dL (250-450) L 01/27/18 12:11 % Saturation 9 (20-55) L 01/27/18 12:11 Ferritin 503.0 ng/mL 01/27/18 12:11 Total Bilirubin 0.6 mg/dL (0.2-1.3) 02/05/18 07:14 AST 36 U/L (14-36) D 02/05/18 07:14 ALT 30 U/L (9-52) 02/05/18 07:14 Alkaline Phosphatase 63 U/L (38-126) 02/05/18 07:14 Total Creatine Kinase 83 U/L (30-135) 01/25/18 08:06 CK-MB (Mass) 0.89 ng/mL (0.0-3.38) 01/25/18 08:06 Troponin I 0.0720 ng/mL (0.00-0.120) 01/25/18 08:06 C-React Prot High Sens > 15.00 mg/L (1.00-3.00) H 01/29/18 08:16 NT-Pro-B Natriuret Pep 4490 pg/mL (0-900) H 01/29/18 08:16 Total Protein 7.1 g/dL (6.3-8.3) 02/05/18 07:14 Albumin 3.5 g/dL (3.5-5.0) 02/05/18 07:14 Globulin 3.5 gm/dL (2.2-3.9) 02/05/18 07:14 Albumin/Globulin Ratio 1.0 (1.0-2.1) 02/05/18 07:14 Vitamin B12 450 pg/mL (239-931) 01/27/18 12:11 Folate 8.5 ng/mL 01/27/18 12:11 Procalcitonin 0.06 NG/ML (0.19-0.49) L 01/27/18 12:11 Free T4 1.55 ng/dL (0.78-2.19) 01/29/18 08:16 TSH 3rd Generation 0.09 mIU/L (0.46-4.68) L 01/29/18 08:16 Arterial Blood Potassium 3.7 mmol/L (3.6-5.2) 01/25/18 21:55 Urine Color Yellow (YELLOW) 01/27/18 11:53 Urine Clarity Hazy (Clear) 01/27/18 11:53 Urine pH 6.0 (5.0-8.0) 01/27/18 11:53 Ur Specific [place] 1.011 (1.003-1.030) 01/27/18 11:53 Urine Protein Negative mg/dL (NEGATIVE) 01/27/18 11:53 Urine Glucose (UA) Normal mg/dL (Normal) 01/27/18 11:53 Urine Ketones Negative mg/dL (NEGATIVE) 01/27/18 11:53 Urine Blood 1+ (NEGATIVE) H 01/27/18 11:53 Urine Nitrate Negative (NEGATIVE) 01/27/18 11:53 Urine Bilirubin Negative (NEGATIVE) 01/27/18 11:53 Urine Urobilinogen Normal mg/dL (0.2-1.0) 01/27/18 11:53 Ur Leukocyte Esterase 2+ Bertha/uL (Negative) H 01/27/18 11:53 Urine WBC (Auto) 9 /hpf (0-5) H 01/27/18 11:53 Urine RBC (Auto) 8 /hpf (0-3) H 01/27/18 11:53 Ur Squamous Epith Cells 4 /hpf (0-5) 01/27/18 11:53 Urine Bacteria Few (<OCC) H 01/27/18 11:53 Hyaline Casts 6-10 /lpf (0-2) H 01/23/18 16:11 Fluid Type Spinal fluid 01/25/18 17:47 CSF Volume 1 mL (0-1) 01/25/18 17:47 CSF Appearance Clear/colorless (CLEAR) 01/25/18 17:47 CSF WBC 93.0 /mm3 (0.0-5.0) H 01/25/18 17:47 CSF RBC 12.0 /mm3 (0.0-0.0) H 01/25/18 17:47 CSF Total Cell Counted 100 (0-0) H 01/25/18 17:47 CSF Neutrophils 74 % (0-0) H 01/25/18 17:47 CSF Lymphocytes 18.0 % (0-0) H 01/25/18 17:47 CSF Monos/Macrophages 6 % (0-0) H 01/25/18 17:47 CSF Comment 01/25/18 17:47 CSF Glucose 74 mg/dL (40-70) H 01/25/18 15:13 CSF LDH 155 U/L (<=25) H 01/25/18 15:13 CSF Total Protein 76 mg/dL (15-60) H 01/26/18 08:28 CSF Prealbumin 2.4 % (1.3-6.9) 01/26/18 08:28 CSF Albumin 38.0 % (51.9-67.8) L 01/26/18 08:28 CSF Xvoll-7-Rcrddgam 8.5 % (1.8-6.5) H 01/26/18 08:28 CSF Rzzdb-2-Doamksoc 12.9 % (4.6-10.8) H 01/26/18 08:28 CSF Beta Globulin 19.9 % (7.8-18.2) H 01/26/18 08:28 CSF Gamma Globulin 18.2 % (4.8-17.6) H 01/26/18 08:28 CSF PEP Interpret see note H 01/26/18 08:28 CSF Lyme IgG Antibody No bands detected 01/25/18 17:47 CSF Cryptococcus Ag Negative (NEGATIVE) 01/25/18 17:47 CSF Toxo. gondii IgG <0.90 01/25/18 15:13 Vancomycin Trough 16.0 ug/mL (5.0-10.0) H 01/26/18 05:43 CMV IgG Ab 6.50 U/mL H 01/25/18 17:47 CMV IgM Ab <30.00 AU/mL 01/25/18 17:47 West Nile RNA (RT-PCR) Not detected (Not Detected) 01/25/18 17:47 HIV 1&2 Antibody Screen Negative (NEGATIVE) 01/26/18 05:43 Influenza Typ A,B (EIA) Negative for flu a/b (NEGATIVE) 01/23/18 16:16 H.influenzae Type B Ag Negative (NEGATIVE) 01/25/18 17:47 N.meningitidis ACY/W135 Negative (NEGATIVE) 01/25/18 17:47 N.meningi B/E.coli K1 Ag Negative (NEGATIVE) 01/25/18 17:47 Group B Strep Antigen Negative (NEGATIVE) 01/25/18 17:47 S. pneumoniae Antigen Negative (NEGATIVE) 01/25/18 17:47 Blood Type A POSITIVE 01/29/18 08:16 Blood Type Confirm A POSITIVE 01/29/18 08:16 Antibody Screen Negative 01/29/18 08:16 - Hospital Course Hospital Course: HPI: 66 y/o F presents to the ED for worsening head and neck pain. She describes the pain as being a 10/10 and being primarily in the temporal, parietal, and occipital regions of her head; patient also expresses that she has pain in her neck and that the pain radiates into her right shoulder. Patient explains that her pain began after her cataract surgery on 01/15 and has progressively gotten worse. Pt experienced floaters post sx. Patient comments that nothing makes the pain better. Patient comments that going from a sitting to a standing position and moving her head and neck worsens her pain. Hospital Course: Patient was admitted on 01/23/18 for worsening headache around the temporal areas of her head and neck pain causing decreased ROM but no rigidity. Patient was noted to have elevated temperature, elevated WBC count with L shift, and UA suggestive for UTI. Blood cultures (01/23/18) grew Strep Viridans x2, and urine culture (01/23/18) grew Citrobacter Diversus. Initial CT head (01/23) was negative. She was started on IVF as well as IV cefepime and vancomycin. ID (Dr. Velazquez) was consulted for leukocytosis and medication optimization. Per ID, patient was started on rocephin 2 mg and vancomycin 1gm, ESR and CRP were also elevated. Because of the location of her headache, decadron 4mg x1 and toradol 30 mg x1 were given. MRA head (01/23) was done, which was negative. Vascular Surgery (Dr. Orozco) was consulted for possible temporal arteritis. L temporal biopsy obtained 01/24/18 was negative. Neurology (Dr. Padilla) was consulted for intractable cervicogenic headache with medication recommendations as well as need for lumbar puncture. LP performed showed the following: -Spinal fluid clear/colorless -Bands: 2% -WBC: 93 -RBC: 12 -Predominant: Neutrophils -Sugar: 60 (elevated) -Protein: 90 (elevated) -Cryptococcus Ag: negative -CSFL no growth after 24hours Patient was transferred to an isolation room for meningitis, continued to have neck pain/fevers/leukocytosis. A rapid response was called on 01/25 because of concerns over ongoing neck pain, headache, and increased difficulty breathing. Patient was awake, alert, following all commands. But she was very uncomfortable in appearance and she said the neck stiffness and neck pain bothered her greatly. Her vital signs showed she did have an elevated temperature. Her BP and HR were stable and SpO2 stable as well. Because of the ongoing headache and neck pain, CTA of the neck was done as well as CT of the chest with dissection protocol. Neither showed any areas of dissection aneurysms , or malformations. CXR ordered (01/25) revealed R side pleural effusion, and CT angiography (01/25) revealed multiple nonspecific nodules suggestive of infection /inflammation/malignancy. Pulmonology (Dr Verma) was consulted for R sided pleural effusion & lung nodules on CT with continued antibiotics and testing for Mycoplasma and Legionella. MRI of the brain (01/25) was negative for CVA and hemorrhage, MRA of the brain was unremarkable, 2D echo did not demonstrate valvular vegetations/endocarditis. Cardiology (Dr. Mon) was consulted for possible ENEIDA. Due to continued headache, MRI neck (01/25/18) ordered which was negative but was suboptimal due to motion artifact. Last ECHO revealed normal systolic function and patient was given single dose of Flexeril 5mg due to persistent neck pain. Vancomycin was discontinued and patient was started on new course of Ampicillin 2g q4 and Acyclovir 730 mg q8 [address] Dr. Juares for aseptic meningitis. Pulmonology believed small bilateral pleural effusions did not require thorocentesis . Cardiology reported the TTE was of excellent quality and to consider ENEIDA only if patient's lungs were clear and endocarditis still needed to be ruled out. As per Cardiology IV Lasix BID and KCl were started and beta blockers added later once lungs are improved. CXR (01/28/18) show increased consolidative opacification/ mass-like opacifications at the right lung base worse than previous. Neurology recommended 1 time dose of Depakote 1000 mg and Decadron 10 mg for persistent headache. PICC line inserted on 01/31/18 with CXR revealing satisfactory position. Beta coby initiated as patient's CHF symptoms improved. Patient reports feeling improved with decrease in headache and neck pain. Leukocytosis with WBC 25.4 at admission improved upon to 7.9. Patient looks much improved clinically. Patient is medically stable for discharge, per Dr. Santiago. Patient expressed wish to return home rather than [facility]. Due to insurance, patient instructed to return to hospital daily for IV infusion therapy. Patient instructed to take the following medications as prescribed: Acyclovir 400 mg twice a day for two days Florastor 1 tab PO twice a day for 30 days Rocephin IV 2 gm daily for 20 days Blood work (CBC, CRP, ESR, CRP) to be done weekly for 3 weeks. Results are to be faxed to Dr. Velazquez . Patient instructed to follow up on results with ID (Dr. Velazquez). This is a brief summary of hospital course. For full detail, please refer to EMR. Discharge Exam - Head Exam Head Exam: ATRAUMATIC, NORMAL INSPECTION, NORMOCEPHALIC - Eye Exam Eye Exam: EOMI, Normal appearance Pupil Exam: NORMAL ACCOMODATION - Neck Exam Neck exam: Normal Inspection - Respiratory Exam Respiratory Exam: NORMAL BREATHING PATTERN - Cardiovascular Exam Cardiovascular Exam: REGULAR RHYTHM, +S1, +S2 - GI/Abdominal Exam GI & Abdominal Exam: Normal Bowel Sounds, Soft, Unremarkable. absent: Distended , Firm, Guarding, Rebound, Tenderness - Extremities Exam Extremities exam: normal inspection - Neurological Exam Neurological exam: Alert, Oriented x3 - Psychiatric Exam Psychiatric exam: Normal Affect, Normal Mood - Skin Skin Exam: Dry, Intact, Normal Color, Warm Discharge Plan - Discharge Medications Prescriptions: Acyclovir 400 mg PO BID #4 tablet Carvedilol [Coreg] 6.25 mg PO BID #60 tab Losartan [Cozaar] 25 mg PO DAILY #30 tab Magnesium Oxide [Mag-Ox] 400 mg PO BID #60 tab - Follow Up Plan Condition: FAIR Disposition: HOME/ ROUTINE Instructions: High Blood Pressure (DC), Low Salt Diet, Pleural Effusion (DC), Multiple Pulmonary Nodules, Sepsis (DC), Acute Headache (DC) Additional Instructions: Patient is medically stable for discharge, per Dr. Santiago. Patient expressed wish to return home rather than [facility]. Due to insurance, patient instructed to return to hospital daily for IV infusion therapy. Patient instructed to take the following medications as prescribed: Acyclovir 400 mg twice a day for two days Florastor 1 tab PO twice a day for 30 days Rocephin IV 2 gm daily for 20 days Blood work (CBC, CRP, ESR, CRP) to be done weekly for 3 weeks. Results are to be faxed to Dr. Velazquez . Patient instructed to follow up on results with ID (Dr. Velazquez). This is a brief summary of hospital course. For full detail, please refer to EMR. Referrals: Shayne Verma MD [Staff Provider] - Rodger Juares MD [Staff Provider] - Geovanna Champion MD [Staff Provider] - Lashawn Padilla MD [Staff Provider] - Mehdi Mon MD [Staff Provider] - Liam Velazquez MD [Staff Provider] - <Sky Santiago - Last Filed: 02/06/18 18:58> Provider - Provider Date of Admission: 01/23/18 16:08 Attending physician: Sky Santiago DO Hospital Course - Lab Results Lab Results: Micro Results 02/02/18 13:40 Blood-Venous Blood Culture - Preliminary NO GROWTH AFTER 4 DAYS 02/02/18 13:20 Blood-Venous Blood Culture - Preliminary NO GROWTH AFTER 4 DAYS 01/25/18 17:47 Cerebral Spinal Fluid Fungal Culture - Preliminary NO FUNGUS GROWTH IN 1 WEEK. 01/25/18 17:47 Other: Please Indicate Mycobacterial Culture - Preliminary 01/25/18 07:30 Blood-Venous Blood Culture - Final NO GROWTH AFTER 5 DAYS 01/25/18 07:30 Blood-Venous Gram Stain - Final TEST NOT PERFORMED 01/25/18 17:47 Cerebral Spinal Fluid Gram Stain - Final 01/25/18 17:47 Cerebral Spinal Fluid CSF Culture - Final No growth. 01/25/18 07:00 Blood-Venous Blood Culture - Final NO GROWTH AFTER 5 DAYS 01/25/18 07:00 Blood-Venous Gram Stain - Final TEST NOT PERFORMED 01/27/18 11:53 Urine,Clean Catch Urine Culture - Final No Growth (<1,000 CFU/ML) 01/23/18 15:00 Blood Blood Culture - Final Streptococcus Viridans 01/23/18 15:00 Blood Gram Stain - Final 01/23/18 16:20 Blood S.aureus & Coag-Neg Staph PNA FISH - Final 01/23/18 16:20 Blood Blood Culture - Final Streptococcus Viridans 01/23/18 16:20 Blood Gram Stain - Final 01/23/18 16:11 Urine,Clean Catch Urine Culture - Final Citrobacter Diversus Most Recent Lab Values WBC 7.9 K/uL (4.8-10.8) 02/06/18 07:15 RBC 3.15 Mil/uL (3.80-5.20) L 02/06/18 07:15 Hgb 9.2 g/dL (11.0-16.0) L 02/06/18 07:15 Hct 27.5 % (34.0-47.0) L 02/06/18 07:15 MCV 87.1 fL (81.0-99.0) 02/06/18 07:15 MCH 29.2 pg (27.0-31.0) 02/06/18 07:15 MCHC 33.6 g/dL (33.0-37.0) 02/06/18 07:15 RDW 16.5 % (11.5-14.5) H 02/06/18 07:15 Plt Count 488 K/uL (130-400) H 02/06/18 07:15 MPV 7.6 fL (7.2-11.7) 02/06/18 07:15 Neut % (Auto) 62.1 % (50.0-75.0) 02/05/18 07:14 Lymph % (Auto) 26.8 % (20.0-40.0) 02/05/18 07:14 [place] % (Auto) 8.2 % (0.0-10.0) 02/05/18 07:14 Eos % (Auto) 2.2 % (0.0-4.0) 02/05/18 07:14 Baso % (Auto) 0.7 % (0.0-2.0) 02/05/18 07:14 Neut # (Auto) 5.7 K/uL (1.8-7.0) 02/05/18 07:14 Lymph # (Auto) 2.5 K/uL (1.0-4.3) 02/05/18 07:14 [place] # (Auto) 0.8 K/uL (0.0-0.8) 02/05/18 07:14 Eos # (Auto) 0.2 K/uL (0.0-0.7) 02/05/18 07:14 Baso # (Auto) 0.1 K/uL (0.0-0.2) 02/05/18 07:14 Neutrophils % (Manual) 84 % (50-75) H 01/29/18 08:16 Band Neutrophils % 1 % (0-2) 01/29/18 08:16 Lymphocytes % (Manual) 10 % (20-40) L 01/29/18 08:16 Monocytes % (Manual) 5 % (0-10) 01/29/18 08:16 Platelet Estimate Slightly increased (NORMAL) H 01/29/18 08:16 Hypochromasia (manual) Slight 01/29/18 08:16 Anisocytosis (manual) Slight 01/29/18 08:16 ESR 65 mm/hr (0-20) H 01/27/18 12:11 Retic Count 1.9 % (0.5-1.5) H 01/27/18 12:11 Haptoglobin 521.7 mg/dL (30.0-200.0) H 01/27/18 12:11 PT 13.5 SECONDS (9.7-12.2) H 01/24/18 05:05 INR 1.2 01/24/18 05:05 APTT 34 SECONDS (21-34) 01/24/18 05:05 Puncture Site Rra 01/25/18 21:55 pCO2 35 mm/Hg (35-45) 01/25/18 21:55 pO2 66 mm/Hg (80-100) L 01/25/18 21:55 HCO3 25.4 mmol/L (21-28) 01/25/18 21:55 ABG pH 7.45 (7.35-7.45) 01/25/18 21:55 ABG Total CO2 25.4 mmol/L (22-28) 01/25/18 21:55 ABG O2 Saturation 96.9 % (95-98) 01/25/18 21:55 ABG Base Excess 0.7 mmol/L (-2.0-3.0) 01/25/18 21:55 Stephane Test Pos 01/25/18 21:55 ABG Potassium 3.7 mmol/L (3.6-5.2) 01/25/18 21:55 A-a O2 Difference 90.0 mm/Hg 01/25/18 21:55 Respiratory Index 1.4 01/25/18 21:55 Sodium 137.0 mmol/l (132-148) 01/25/18 21:55 Chloride 107.0 mmol/L (98-107) 01/25/18 21:55 Glucose 136 mg/dl (65-105) H 01/25/18 21:55 Lactate 1.2 mmol/L (0.7-2.1) 01/25/18 21:55 FiO2 28.0 % 01/25/18 21:55 Sodium 136 mmol/L (132-148) 02/06/18 07:15 Potassium 3.9 mmol/L (3.6-5.2) 02/06/18 07:15 Chloride 97 mmol/L (98-107) L 02/06/18 07:15 Carbon Dioxide 29 mmol/L (22-30) 02/06/18 07:15 Anion Gap 14 (10-20) 02/06/18 07:15 BUN 11 mg/dL (7-17) 02/06/18 07:15 Creatinine 0.9 mg/dL (0.7-1.2) 02/06/18 07:15 Est GFR ( Amer) > 60 02/06/18 07:15 Est GFR (Non-Af Amer) > 60 02/06/18 07:15 POC Glucose (mg/dL) 213 mg/dL (65-110) H 01/31/18 11:03 Random Glucose 99 mg/dL (65-105) 02/06/18 07:15 Lactic Acid 1.3 mmol/L (0.7-2.1) 01/25/18 08:06 Calcium 8.5 mg/dl (8.6-10.4) L 02/06/18 07:15 Phosphorus 3.2 mg/dL (2.5-4.5) 02/06/18 07:15 Magnesium 2.3 mg/dL (1.6-2.3) 02/06/18 07:15 Iron 18 ug/dL (37-170) L 01/27/18 12:11 TIBC 200 ug/dL (250-450) L 01/27/18 12:11 % Saturation 9 (20-55) L 01/27/18 12:11 Ferritin 503.0 ng/mL 01/27/18 12:11 Total Bilirubin 0.5 mg/dL (0.2-1.3) 02/06/18 07:15 AST 31 U/L (14-36) 02/06/18 07:15 ALT 29 U/L (9-52) 02/06/18 07:15 Alkaline Phosphatase 65 U/L (38-126) 02/06/18 07:15 Total Creatine Kinase 83 U/L (30-135) 01/25/18 08:06 CK-MB (Mass) 0.89 ng/mL (0.0-3.38) 01/25/18 08:06 Troponin I 0.0720 ng/mL (0.00-0.120) 01/25/18 08:06 C-React Prot High Sens > 15.00 mg/L (1.00-3.00) H 01/29/18 08:16 NT-Pro-B Natriuret Pep 4490 pg/mL (0-900) H 01/29/18 08:16 Total Protein 7.0 g/dL (6.3-8.3) 02/06/18 07:15 Albumin 3.4 g/dL (3.5-5.0) L 02/06/18 07:15 Globulin 3.6 gm/dL (2.2-3.9) 02/06/18 07:15 Albumin/Globulin Ratio 0.9 (1.0-2.1) L 02/06/18 07:15 Vitamin B12 450 pg/mL (239-931) 01/27/18 12:11 Folate 8.5 ng/mL 01/27/18 12:11 Procalcitonin 0.06 NG/ML (0.19-0.49) L 01/27/18 12:11 Free T4 1.55 ng/dL (0.78-2.19) 01/29/18 08:16 TSH 3rd Generation 0.09 mIU/L (0.46-4.68) L 01/29/18 08:16 Arterial Blood Potassium 3.7 mmol/L (3.6-5.2) 01/25/18 21:55 Urine Color Yellow (YELLOW) 01/27/18 11:53 Urine Clarity Hazy (Clear) 01/27/18 11:53 Urine pH 6.0 (5.0-8.0) 01/27/18 11:53 Ur Specific [place] 1.011 (1.003-1.030) 01/27/18 11:53 Urine Protein Negative mg/dL (NEGATIVE) 01/27/18 11:53 Urine Glucose (UA) Normal mg/dL (Normal) 01/27/18 11:53 Urine Ketones Negative mg/dL (NEGATIVE) 01/27/18 11:53 Urine Blood 1+ (NEGATIVE) H 01/27/18 11:53 Urine Nitrate Negative (NEGATIVE) 01/27/18 11:53 Urine Bilirubin Negative (NEGATIVE) 01/27/18 11:53 Urine Urobilinogen Normal mg/dL (0.2-1.0) 01/27/18 11:53 Ur Leukocyte Esterase 2+ Bertha/uL (Negative) H 01/27/18 11:53 Urine WBC (Auto) 9 /hpf (0-5) H 01/27/18 11:53 Urine RBC (Auto) 8 /hpf (0-3) H 01/27/18 11:53 Ur Squamous Epith Cells 4 /hpf (0-5) 01/27/18 11:53 Urine Bacteria Few (<OCC) H 01/27/18 11:53 Hyaline Casts 6-10 /lpf (0-2) H 01/23/18 16:11 Fluid Type Spinal fluid 01/25/18 17:47 CSF Volume 1 mL (0-1) 01/25/18 17:47 CSF Appearance Clear/colorless (CLEAR) 01/25/18 17:47 CSF WBC 93.0 /mm3 (0.0-5.0) H 01/25/18 17:47 CSF RBC 12.0 /mm3 (0.0-0.0) H 01/25/18 17:47 CSF Total Cell Counted 100 (0-0) H 01/25/18 17:47 CSF Neutrophils 74 % (0-0) H 01/25/18 17:47 CSF Lymphocytes 18.0 % (0-0) H 01/25/18 17:47 CSF Monos/Macrophages 6 % (0-0) H 01/25/18 17:47 CSF Comment 01/25/18 17:47 CSF Glucose 74 mg/dL (40-70) H 01/25/18 15:13 CSF LDH 155 U/L (<=25) H 01/25/18 15:13 CSF Total Protein 76 mg/dL (15-60) H 01/26/18 08:28 CSF Prealbumin 2.4 % (1.3-6.9) 01/26/18 08:28 CSF Albumin 38.0 % (51.9-67.8) L 01/26/18 08:28 CSF Btjko-3-Ghhicohv 8.5 % (1.8-6.5) H 01/26/18 08:28 CSF Kpxqm-5-Youmwckx 12.9 % (4.6-10.8) H 01/26/18 08:28 CSF Beta Globulin 19.9 % (7.8-18.2) H 01/26/18 08:28 CSF Gamma Globulin 18.2 % (4.8-17.6) H 01/26/18 08:28 CSF PEP Interpret see note H 01/26/18 08:28 CSF Lyme IgG Antibody No bands detected 01/25/18 17:47 CSF Cryptococcus Ag Negative (NEGATIVE) 01/25/18 17:47 CSF Toxo. gondii IgG <0.90 01/25/18 15:13 Vancomycin Trough 16.0 ug/mL (5.0-10.0) H 01/26/18 05:43 IgG 1392.1 mg/dL (700.0-1600.0) 02/06/18 07:15 IgA 252.5 mg/dL (70.0-400.0) 02/06/18 07:15 IgM 161.9 mg/dL (40.0-230.0) 02/06/18 07:15 Complement C3 122.0 mg/dL (88.0-165.0) 02/06/18 07:15 Complement C4 36.7 mg/dL (14.0-44.0) 02/06/18 07:15 CMV IgG Ab 6.50 U/mL H 01/25/18 17:47 CMV IgM Ab <30.00 AU/mL 01/25/18 17:47 West Nile RNA (RT-PCR) Not detected (Not Detected) 01/25/18 17:47 HIV 1&2 Antibody Screen Negative (NEGATIVE) 01/26/18 05:43 Influenza Typ A,B (EIA) Negative for flu a/b (NEGATIVE) 01/23/18 16:16 H.influenzae Type B Ag Negative (NEGATIVE) 01/25/18 17:47 N.meningitidis ACY/W135 Negative (NEGATIVE) 01/25/18 17:47 N.meningi B/E.coli K1 Ag Negative (NEGATIVE) 01/25/18 17:47 Group B Strep Antigen Negative (NEGATIVE) 01/25/18 17:47 S. pneumoniae Antigen Negative (NEGATIVE) 01/25/18 17:47 Blood Type A POSITIVE 01/29/18 08:16 Blood Type Confirm A POSITIVE 01/29/18 08:16 Antibody Screen Negative 01/29/18 08:16 Attending/Attestation - Attestation I have personally seen and examined this patient.: Yes I have fully participated in the care of the patient.: Yes I have reviewed all pertinent clinical information, including history, physical exam and plan: Yes Notes (Text): 02/06/18 18:50 Medical attending: Patient was seen and examined by me, agrees the above note by the biomedical engineering internship. The patient was insisting on going home home and not to subacute rehabilitation. She said that she felt strong enough to be at home and wanted to participate with physical therapy at home rather at a rehabilitation center. Because of this she's can have to have returned to the infusion center [facility] for IV antibiotics for the next 30 days. When we came and saw the patient today she was up and standing on her own. She was also able to walk in the room on her own as well to be frankly this is the first time I've seen her stand up and walk on her own. She has come a long way from when we admitted her when she was very sick. The WBC is stable, she has been afebrile and also
[2018-02-06 07:24] LABS: HEMOGLOBIN 9.2 g/dL (11.0-16.0); MEAN CELL VOLUME 87.1 fL (81.0-99.0); MEAN CORPUSCULAR HEMOGLOBIN 29.2 pg (27.0-31.0); MEAN CORPUSCULAR HGB CONC 33.6 g/dL (33.0-37.0); MEAN PLATELET VOLUME 7.6 fL (7.2-11.7); RBC 3.15 Mil/uL (3.80-5.20); RED CELL DISTRIBUTION WIDTH 16.5 % (11.5-14.5); WHITE BLOOD COUNT 7.9 K/uL (4.8-10.8)
[2018-02-06 07:45] LABS: ALB/GLOB RATIO 0.9 (1.0-2.1); ALBUMIN 3.4 g/dL (3.5-5.0); ALT/SGPT 29 U/L (9-52); AST/SGOT 31 U/L (14-36); BLOOD UREA NITROGEN 11 mg/dL (7-17); CALCIUM 8.5 mg/dl (8.6-10.4); GFR NON-AFRICAN AMERICAN > 60
[2018-02-06 07:49] VITALS: RESP 20
[2018-02-06 07:56] LABS: IMMUNOGLOBULIN A 252.5 mg/dL (70.0-400.0); IMMUNOGLOBULIN G 1392.1 mg/dL (700.0-1600.0); IMMUNOGLOBULIN M 161.9 mg/dL (40.0-230.0)
[2018-02-06 08:24] LABS: COMPLEMENT C4 36.7 mg/dL (14.0-44.0)
[2018-02-06] MEDS: Magnesium Oxide 400 mg Tab UD PO SCH ×2 (10:15→18:28)
[2018-02-06] MEDS: Lactobacillus Acidophilus 500 MU Cap PO SCH ×2 (10:15→18:28)
--- NOTE | 2018-02-06 11:41 | CP.PCM.PN ---
Subjective - Date & Time of Evaluation Date of Evaluation: 02/06/18 Time of Evaluation: 11:38 - Subjective Subjective: Pt feels well, no dyspnea, afebrile. Objective - Vital Signs/Intake and Output Vital Signs (last 24 hours): Temp Pulse Resp BP Pulse Ox 98.9 F 71 20 115/70 99 02/06/18 07:00 02/06/18 07:00 02/06/18 07:00 02/06/18 10:15 02/06/18 07:00 Intake and Output: 02/06/18 02/06/18 06:59 18:59 Intake Total 600 Balance 600 - Medications Medications: Current Medications Acetaminophen (Tylenol 325mg Tab) 650 mg PO Q6 PRN PRN Reason: Headache Last Admin: 02/02/18 17:08 Dose: 650 mg Carvedilol (Coreg) 6.25 mg PO BID [facility] Last Admin: 02/06/18 10:15 Dose: 6.25 mg Guaifenesin (Robitussin) 100 mg PO Q4H PRN PRN Reason: Cough Last Admin: 02/05/18 21:28 Dose: 100 mg Heparin Sodium (Porcine) (Heparin) 5,000 units SC Q12 [facility] Stop: 02/15/18 22:01 Last Admin: 02/06/18 10:15 Dose: 5,000 units Piperacillin Sod/Tazobactam Sod (Zosyn 3.375 Gm Iv Premix) 3.375 gm in 50 mls @ 100 mls/hr IVPB Q6H [facility] PRN Reason: Protocol Last Admin: 02/06/18 10:16 Dose: 100 mls/hr Lactobacillus Acidophilus (Bacid Acidophilus) 1 cap PO BID [facility] Last Admin: 02/06/18 10:15 Dose: 1 cap Losartan Potassium (Cozaar) 25 mg PO DAILY [facility] Last Admin: 02/06/18 10:16 Dose: Not Given Magnesium Oxide (Mag-Ox) 400 mg PO BID [facility] Last Admin: 02/06/18 10:15 Dose: 400 mg Oxycodone HCl (Oxycodone Immediate Release Tab) 5 mg PO Q6 PRN PRN Reason: Pain, moderate (4-7) Last Admin: 02/03/18 15:03 Dose: 5 mg - Labs Labs: 02/06/18 07:15 02/06/18 07:15 PT 13.5 SECONDS (9.7-12.2) H 01/24/18 05:05 INR 1.2 01/24/18 05:05 APTT 34 SECONDS (21-34) 01/24/18 05:05 - Constitutional Appears: Well - Eye Exam Eye Exam: EOMI - ENT Exam ENT Exam: Mucous Membranes Moist - Neck Exam Neck Exam: Full ROM - Respiratory Exam Respiratory Exam: Clear to Ausculation Bilateral - Cardiovascular Exam Cardiovascular Exam: REGULAR RHYTHM - GI/Abdominal Exam GI & Abdominal Exam: Normal Bowel Sounds - Exam External exam: NORMAL EXTERNAL EXAM - Extremities Exam Extremities Exam: Normal Inspection - Back Exam Back Exam: NORMAL INSPECTION - Neurological Exam Neurological Exam: Alert, Awake, Oriented x3 - Psychiatric Exam Psychiatric exam: Normal Affect, Normal Mood - Skin Skin Exam: Normal Color Assessment and Plan - Assessment and Plan (Free Text) Assessment: 1. Repeat cxr is now clear. Pt has mild to moderate LV dysfunction, and chf resultef from copious fluid administration. IV lasi is stopped, now po Lasix, with time may be also stopped if pt does well. Would continue coreg and losartan unless hypotensive.
--- NOTE | 2018-02-06 11:57 | RAD ---
HISTORY: COMPARISON: 02/02/2018. TECHNIQUE: Chest PA and lateral FINDINGS: LINES AND TUBES: None. LUNG AND PLEURA: The lungs are well inflated. There is mild pulmonary venous congestion. There is discoid atelectasis in the right lower lobe and multifocal linear atelectasis in both lower lobes. No pleural effusion or pneumothorax. HEART AND MEDIASTINUM: The heart is not enlarged. The hilar and mediastinal contours are within normal limits. SKELETAL STRUCTURES: The bony structures are within normal limits for the patient's age. VISUALIZED UPPER ABDOMEN: Normal. OTHER FINDINGS: None. IMPRESSION: Discoid atelectasis in the right lower lobe. No acute findings.
[2018-02-06] MEDS: oxyCODONE 5 mg Immediate Release Tab PO PRN (19:54)
[2018-02-07] MEDS: Piperacill/Tazo 3.375gm in Dex 3.375 GM/50 ML BAG IVPB SCH ×2 (03:02→10:09)
[2018-02-07] MEDS: Lactobacillus Acidophilus 500 MU Cap PO SCH (09:02)
[2018-02-07] MEDS: Magnesium Oxide 400 mg Tab UD PO SCH (09:02)
[2018-02-07 09:05] VITALS: PULSE 80; O2SAT 96
[2018-02-07 10:10] VITALS: TEMP 98.9
[2018-02-07 10:14] VITALS: BP 103/68
== END 2018-02-07 14:39 | disposition home or self-care (01) | DRG 853 ==
LOC: C.ER 12:07 → C.9E 16:08 → C.3T 20:36 → C.6T 01-25 09:33 → C.5S 01-25 11:22
PROVIDERS: ADMIT Hospitalist; ATTEND Hospitalist
PROC: 03B Upper Arteries, Excision (ICD-10-PCS; principal; 2018-01-24 17:30)
PROC: 009U3ZX Drainage of Spinal Canal, Percutaneous Approach, Diagnostic (ICD-10-PCS; 2018-01-25)
PROC: 02HV33Z Insertion of Infusion Device into Superior Vena Cava, Percutaneous Approach (ICD-10-PCS; 2018-01-31)
DX: A40.8 Other streptococcal sepsis (principal); G03.0 Nonpyogenic meningitis; I26.90 Septic pulmonary embolism without acute cor pulmonale; G93.41 Metabolic encephalopathy; J18.9 Pneumonia, unspecified organism; N39.0 Urinary tract infection, site not specified; I76 Septic arterial embolism; R65.20 Severe sepsis without septic shock; D64.9 Anemia, unspecified; E87.6 Hypokalemia; I34.0 Nonrheumatic mitral (valve) insufficiency; I07.1 Rheumatic tricuspid insufficiency; I11.0 Hypertensive heart disease with heart failure; I27.20 Pulmonary hypertension, unspecified; I44.7 Left bundle-branch block, unspecified; I50.9 Heart failure, unspecified; K04.7 Periapical abscess without sinus; F17.210 Nicotine dependence, cigarettes, uncomplicated